=== PATIENT | female | born 1960 ===

== ENCOUNTER 2020-12-20 13:27 | Outpatient (REF) | payer OTHER, SELFPAY ==
--- NOTE | ~2020-12-20 | US_ITS ---
EXAMINATION: US VENOUS ULTRASOUND WITH DOPPLER LOWER EXTREMITY, RIGHT CLINICAL INFORMATION: History right lower extremity DVT. Patient on warfarin. Follow-up. COMPARISON: Venous ultrasound with Doppler right lower extremity 07/15/2019, 02/25/2018 TECHNIQUE: Ultrasound of the deep veins is performed from the hip to the calf with compression sonography and color and pulse Doppler assessment. Spectral analysis with color-flow imaging is performed. FINDINGS: There is normal venous compression and respiratory variation and augmented flow. There is no acute deep venous thrombosis. Again, some fine chronic intraluminal mural linear stranding and mural thrombus is present in the femoral vein, profunda femoral, and popliteal vein representing sequela from prior DVT. No occlusive disease. There is no popliteal fossa cyst. No edema tracking in soft tissue planes. US/US venous duplex LE RT IMPRESSION: 1. Chronic scattered intraluminal stranding and mild mural thrombus representing sequela from prior DVT in the femoral, profunda femoris, and popliteal veins similar to prior exam. 2. No acute DVT demonstrated in the right lower extremity.
== END 2020-12-20 13:28 | disposition home or self-care (01) ==
LOC: HO.US 13:27
PROVIDERS: PCP Family Medicine; Visit Provider Family Medicine
DX: I82.411 Acute embolism and thrombosis of right femoral vein (principal)
CPT/HCPCS: 93971

== ENCOUNTER 2021-02-08 11:48 | Emergency (ER) | payer OTHER, SELFPAY ==
--- NOTE | ~2021-02-08 | CT_ITS ---
EXAMINATION: CT FACIAL BONES WITHOUT CONTRAST CLINICAL INFORMATION: Left orbit trauma COMPARISON: None TECHNIQUE: Axial images through the facial bones without contrast. Sagittal and coronal reconstructions on the technologist workstation were performed. This CT examination was performed using dose optimization techniques as appropriate, variously including the following: *Automated exposure control *Adjustment of mA and/or kV according to patient size (this includes techniques or standardized protocols for targeted exams where dose is matched to indication/reason for exam; i.e. extremities or head) *Use of iterative reconstruction technique DLP: 470 mGy-cm FINDINGS: There is soft tissue swelling over the lateral wall of the left orbit. No fracture is seen. The orbits are otherwise normal appearing. The paranasal sinuses, mastoid air cells and middle ears are clear. The temporomandibular joints are normal. No adenopathy is seen. Salivary glands are normal. Visualized intracranial structures are normal. There are degenerative changes at the C1 dens articulation. CT/CT facial bones wo con IMPRESSION: Soft tissue swelling adjacent to the lateral wall of the left orbit. No fracture is seen.
--- NOTE | ~2021-02-08 | CT_ITS ---
EXAMINATION: CT HEAD WITHOUT CONTRAST CLINICAL INFORMATION: Head trauma. COMPARISON: None TECHNIQUE: Contiguous axial imaging was performed from the skull base to vertex without intravenous administration of contrast. This CT examination was performed using dose optimization techniques as appropriate, variously including the following: *Automated exposure control *Adjustment of mA and/or kV according to patient size (this includes techniques or standardized protocols for targeted exams where dose is matched to indication/reason for exam; i.e. extremities or head) *Use of iterative reconstruction technique DLP: 1108 mGy-cm FINDINGS: There is no evidence of acute intracranial hemorrhage or territorial infarction. No abnormal mass effect or midline shift is seen. Treadwell to white matter differentiation is well preserved. No extra-axial fluid collections are identified. The ventricles are normal in size. There is no abnormal attenuation within the brain parenchyma. Bone windows reveal no calvarial abnormality. There is a 6 x 8 mm round lesion along the right parietal scalp likely a small sebaceous cyst. There is focal hyperdensity along the left frontal scalp likely contusion or edema.. The mastoid air cells and visualized portions of the paranasal sinuses are well aerated. CT/CT head/brain wo con IMPRESSION: No acute intracranial process seen. There is left frontal scalp hyperdensity likely hematoma contusion. No calvarial fracture seen. Suspect right posterior parietal lobe scalp round lesion, a sebaceous cyst
[2021-02-08 12:49] VITALS: BP 120/63; PULSE 86; RESP 16; TEMP 36; O2SAT 95; BMI 31.7
--- NOTE | 2021-02-08 13:35 | ED_ITS ---
HPI - Head Injury General Chief complaint: Head Injury Stated complaint: face injury Time Seen by Provider: 02/08/21 13:34 Source: patient Mode of arrival: ambulatory Limitations: no limitations History of Present Illness HPI Narrative: patient was cleaning the bathroom on Sunday. Patient had some alcohol sat down and passed out. She comes in for head and eye pressure. Complaint: head injury Onset (ago): day(s) Mechanism of Injury: other (syncope) Place: home Loss of Consciousness: yes Location of injury: frontal Severity: moderate Associated symptoms: denies other symptoms Related Data Allergies Allergy/AdvReac Type Severity Reaction Status Date / Time Sulfa (Sulfonamide Allergy Severe ANAPHYLAXIS Verified 02/08/21 12:54 Antibiotics) [SULFA (SULFONAMIDE ANTIBIOTICS)] mitch seed [MITCH SEED] Allergy Intermediate HIVES/NAUSE Verified 02/08/21 12:54 A mitch seeds Allergy Unknown itching Uncoded 02/28/18 00:00 sulfa Allergy Unknown hives, Uncoded 02/28/18 00:00 swelling, anaphylaxis Review of Systems Constitutional: Constitutional: Reports no additional constitutional complaints Eyes: Eyes: Reports no additional eye complaints ENT: Denies dizziness Cardiovascular: Cardiovascular: Reports no additional cardiovascular complaints Respiratory: Respiratory: Reports as per HPI Gastrointestinal: Gastrointestinal: Reports no additional gastrointestinal complaints Genitourinary: Genitourinary: Reports no additional female genitourinary complaints Musculoskeletal: Musculoskeletal: Reports no additional musculoskeletal complaints Integumentary/Breasts: Skin/Breast: Denies rash Neurologic: Reports system reviewed and no additional complaints, except as documented, Denies dizziness and Denies Sensory deficit (Neuro) Psychiatric: Psychiatric: Denies anxiety [facility] Past Medical History Medical History Alcohol abuse COPD (chronic obstructive pulmonary disease) Diabetes HTN (hypertension) Surgical History History of delivery History of cholecystectomy History of ventral hernia repair Social History Social History Advance Directives: No Advance Directives Information Provided: No Physical Exam Vital Signs: Vital Signs: Last Vital Signs Temp 96.8 F 02/08/21 12:49 Pulse 86 02/08/21 12:49 Resp 16 02/08/21 12:49 BP 120/63 02/08/21 12:49 Pulse Ox 95 02/08/21 12:49 Body Mass Index 31.7 Const: General: healthy appearing Nutritional Appearance: average body habitus Orientation/consciousness: oriented to person and patient oriented x3 Limitations: no limitations HENMT: Other: left eye with significant periorbital ecchymosis Ears: external ears normal General nose exam: Normal external nose present Mouth: Normal oral and palatal mucosa present and oropharynx normal Throat: Yes posterior oropharynx normal Eyes: General: appearance normal, both eyes and all related structures Neck: Other: supple Neck: Yes normal visual inspection Chest: Chest palpation & inspection: normal inspection of the chest Resp: Auscultation: clear to auscultation bilaterally Cardio: Jugular venous distension: no JVD Rate: regular rate Rhythm: regular rhythm Heart sounds: S1 normal heart sound present and S2 normal heart sound present GI: Inspection: Yes normal to inspection Palpation (GI): Soft to palpation, nontender and No hepatosplenomegaly present Auscultation: normal bowel sounds : General: Yes no CVA tenderness Back/Spine/Pelvis: Back: no CVA tenderness Skin: Other: ecchymosis to left eye Neuro: General: oriented to person and patient oriented x3 Cranial nerves: Yes CN's II-XII intact bilaterally Motor exam (neuro): 5/5 motor strength present throughout Sensory Exam: No Sensory deficit (Neuro) Extrem: General: Yes normal to inspection Psych: Appearance: grossly normal Course Reevaluation(s) Reevaluation #1: no evidence of bleed, INR elevated will have patient hold INR for 4 days Time: 16:05 Reevaluation #2: No evidence of cardiad event Time: 16:07 [facility] - Head Injury Lab Data Result diagrams: 02/08/21 14:25 02/08/21 14:25 Labs: Lab Results 02/08/21 02/08/21 02/08/21 Range/Units 14:25 14:25 14:25 WBC 6.7 (4.8-10.8) X10*3/uL RBC 3.65 L (4.20-5.50) X10*6/uL Hgb 11.0 L (12.0-16.0) g/dl Hct 34.5 L (37-47) % MCV 94.5 (80-98) fL MCH 30.1 (27.0-33.0) pg MCHC 31.9 (31.0-35.0) g/dl RDW 16.6 H (11.0-16.0) % Plt Count 131 L (160-400) X10*3/uL MPV 9.8 (9.4-12.3) fL Immature Gran % (Auto) 0.3 (0.0-0.4) % Neut % (Auto) 62.6 (45-73) % Lymph % (Auto) 23.7 (20-40) % Gonzales % (Auto) 10.8 (2-11) % Eos % (Auto) 2.2 (0-4) % Baso % (Auto) 0.4 (0-2) % Lymph # (Auto) 1.6 (1.2-4.9) X10*3/uL Gonzales # (Auto) 0.7 (0.1-1.2) X10*3/uL Eos # (Auto) 0.2 (0.0-0.4) X10*3/uL Baso # (Auto) 0.0 (0.0-0.2) X10*3/uL Abs Immat Gran (auto) 0.02 (0.00-0.03) X10*3/uL Absolute Neuts (auto) 4.2 (2.0-8.3) X10*3/uL Absolute Nucleated RBC 0.000 (0.0-0.012) X10*3/uL Nucleated RBC % (auto) 0.0 (0.0-0.2) /100WBC PT (9.9-13.0) SEC INR (0.9-1.1) Sodium 142 (135-145) mmol/L Potassium 3.6 (3.3-5.1) mmol/L Chloride 105 (96-108) mmol/L Carbon Dioxide 27 (22-29) mmol/L Anion Gap 14 (12-20) BUN 7 L (9-16) mg/dL Creatinine 0.74 (0.5-1.4) mg/dL Estim Creat Clear Calc 74.5 Estimated GFR > 60 Random Glucose 160 H (60-115) mg/dL Calcium 9.4 (8.4-10.2) mg/dL Troponin I High Sens < 3.5 (<3.5-17.0) ng/L 02/08/21 Range/Units 15:34 WBC (4.8-10.8) X10*3/uL RBC (4.20-5.50) X10*6/uL Hgb (12.0-16.0) g/dl Hct (37-47) % MCV (80-98) fL MCH (27.0-33.0) pg MCHC (31.0-35.0) g/dl RDW (11.0-16.0) % Plt Count (160-400) X10*3/uL MPV (9.4-12.3) fL Immature Gran % (Auto) (0.0-0.4) % Neut % (Auto) (45-73) % Lymph % (Auto) (20-40) % Gonzales % (Auto) (2-11) % Eos % (Auto) (0-4) % Baso % (Auto) (0-2) % Lymph # (Auto) (1.2-4.9) X10*3/uL Gonzales # (Auto) (0.1-1.2) X10*3/uL Eos # (Auto) (0.0-0.4) X10*3/uL Baso # (Auto) (0.0-0.2) X10*3/uL Abs Immat Gran (auto) (0.00-0.03) X10*3/uL Absolute Neuts (auto) (2.0-8.3) X10*3/uL Absolute Nucleated RBC (0.0-0.012) X10*3/uL Nucleated RBC % (auto) (0.0-0.2) /100WBC PT 72.9 H (9.9-13.0) SEC INR 6.2 H* (0.9-1.1) Sodium (135-145) mmol/L Potassium (3.3-5.1) mmol/L Chloride (96-108) mmol/L Carbon Dioxide (22-29) mmol/L Anion Gap (12-20) BUN (9-16) mg/dL Creatinine (0.5-1.4) mg/dL Estim Creat Clear Calc Estimated GFR Random Glucose (60-115) mg/dL Calcium (8.4-10.2) mg/dL Troponin I High Sens (<3.5-17.0) ng/L Imaging Data CT scan - head: Radiologist's impression: IMPRESSION: No acute intracranial process seen. ? There is left frontal scalp hyperdensity likely hematoma contusion. No calvarial fracture seen. ? Suspect right posterior parietal lobe scalp round lesion, a sebaceous cyst facial CT: Radiologist's impression: IMPRESSION: Soft tissue swelling adjacent to the lateral wall of the left orbit. No fracture is seen. Discharge Plan Discharge Clinical Impression: Closed head injury Patient Disposition: Home, Self-Care Instructions: Head Injury (ED) Additional Instructions: Hold coumadin for 4 days and then have it rechecked as your INR is 6 Referrals: Juana Jean MD [Primary Care Provider] - 2 days (check INR)
--- NOTE | 2021-02-08 13:38 | ECG_ITS ---
Test Reason : FALL Blood Pressure : / mmHG Vent. Rate : 086 BPM Atrial Rate : 086 BPM P-R Int : 146 ms QRS Dur : 090 ms QT Int : 366 ms P-R-T Axes : 065 035 049 degrees QTc Int : 437 ms Sinus rhythm with marked sinus arrhythmia Otherwise normal ECG When compared with ECG of 23-MAR-2017 19:24, Heart rate has decreased Referred By: Jose Toscano Electronically Signed By:KRYSTAL BRICENO
[2021-02-08 14:29] LABS: MANUAL DIFF FLAG NO
[2021-02-08 14:31] LABS: Basophils Percent Auto 0.4 % (0-2); Eosinophils Absolute Auto 0.2 X10*3/uL (0.0-0.4); Eosinophils Percent Auto 2.2 % (0-4); Hematocrit 34.5 % (37-47); Imm Gran Abs Auto 0.02 X10*3/uL (0.00-0.03); Imm Gran Pct Auto 0.3 % (0.0-0.4); Lymphocytes Absolute Auto 1.6 X10*3/uL (1.2-4.9); Lymphocytes Percent Auto 23.7 % (20-40); Mean Corpuscular HGB Conc 31.9 g/dl (31.0-35.0); Mean Corpuscular Hemoglobin 30.1 pg (27.0-33.0); Mean Corpuscular Volume 94.5 fL (80-98); Mean Platelet Volume 9.8 fL (9.4-12.3); Monocytes Absolute Auto 0.7 X10*3/uL (0.1-1.2); Monocytes Percent Auto 10.8 % (2-11); Neutrophils Absolute Auto 4.2 X10*3/uL (2.0-8.3); Neutrophils Percent Auto 62.6 % (45-73); Platelet Count 131 X10*3/uL (160-400); Red Blood Count 3.65 X10*6/uL (4.20-5.50); Red Cell Distribution Width 16.6 % (11.0-16.0); White Blood Count 6.7 X10*3/uL (4.8-10.8)
[2021-02-08 15:00] LABS: Troponin-I High Sensitivity < 3.5 ng/L (<3.5-17.0)
[2021-02-08 15:02] LABS: Anion Gap 14 (12-20); Blood Urea Nitrogen 7 mg/dL (9-16); Calcium 9.4 mg/dL (8.4-10.2); Carbon Dioxide 27 mmol/L (22-29); Chloride 105 mmol/L (96-108); Creatinine Clr Calc Pharmacy 74.5; Estimated Glomerular Filt Rate > 60; Glucose Random 160 mg/dL (60-115); Potassium 3.6 mmol/L (3.3-5.1); Sodium 142 mmol/L (135-145)
[2021-02-08 15:52] LABS: Prothrombin Time 72.9 SEC (9.9-13.0)
[2021-02-08 15:56] LABS: INTERNATIONAL NORM RATIO 6.2 (0.9-1.1)
== END 2021-02-08 16:43 | disposition home or self-care (01) ==
PROVIDERS: Emergency Provider Emergency Medicine; PCP Family Medicine
DX: S09.90XA Unspecified injury of head, initial encounter (principal); S00.12XA Contusion of left eyelid and periocular area, initial encounter; W18.30XA Fall on same level, unspecified, initial encounter; E11.9 Type 2 diabetes mellitus without complications; I10 Essential (primary) hypertension; F10.10 Alcohol abuse, uncomplicated; Y90.9 Presence of alcohol in blood, level not specified; Y93.E9 Activity, other interior property and clothing maintenance; Y92.031 Bathroom in apartment as the place of occurrence of the external cause; Y99.9 Unspecified external cause status
CPT/HCPCS: 36415; 70450; 70486; 80048; 84484; 85025; 85610; 93005; 99283; 99284

== ENCOUNTER 2021-05-14 13:13 | Emergency (ER) | payer OTHER, SELFPAY ==
--- NOTE | 2021-05-14 | ECG_ITS ---
Test Reason : A-FIB Blood Pressure : / mmHG Vent. Rate : 118 BPM Atrial Rate : 118 BPM P-R Int : 148 ms QRS Dur : 080 ms QT Int : 328 ms P-R-T Axes : 063 028 041 degrees QTc Int : 459 ms Sinus tachycardia Otherwise normal ECG When compared with ECG of 08-FEB-2021 14:27, No significant change was found Referred By: Generic ED Physician Electronically Signed By:Red Acosta
[2021-05-14 13:29] VITALS: BP 147/57; PULSE 122; RESP 16; TEMP 36.6; O2SAT 93; BMI 34.7
[2021-05-14 15:37] LABS: Basophils Percent Auto 0.4 % (0-2); Eosinophils Absolute Auto 0.1 X10*3/uL (0.0-0.4); Eosinophils Percent Auto 1.1 % (0-4); Hematocrit 34.2 % (37.0-47.0); Hemoglobin 10.8 g/dl (12.0-16.0); Imm Gran Abs Auto 0.02 X10*3/uL (0.00-0.03); Imm Gran Pct Auto 0.3 % (0.0-0.4); Lymphocytes Absolute Auto 1.2 X10*3/uL (1.2-4.9); Lymphocytes Percent Auto 16.3 % (20-40); MANUAL DIFF FLAG NO; Mean Corpuscular HGB Conc 31.6 g/dl (31.0-35.0); Mean Corpuscular Hemoglobin 29.7 pg (27.0-33.0); Mean Platelet Volume 10.3 fL (9.4-12.3); Monocytes Absolute Auto 0.7 X10*3/uL (0.1-1.2); Monocytes Percent Auto 9.6 % (2-11); Neutrophils Absolute Auto 5.1 x10*3/uL (2.0-8.3); Neutrophils Percent Auto 72.3 % (45-73); Platelet Count 155 X10*3/uL (160-400); Red Blood Count 3.64 X10*6/uL (4.20-5.50); Red Cell Distribution Width 18.3 % (11.0-16.0); White Blood Count 7.1 X10*3/uL (4.8-10.8)
[2021-05-14 15:55] LABS: COVID-19 Test Negative (Negative); IDNOW Serial# 9DD0AD1C
[2021-05-14 15:59] LABS: Alanine Aminotransferase 32 U/L (0-31); Albumin Level 3.7 g/dL (3.5-5.0); Alkaline Phosphatase 172 U/L (39-117); Anion Gap 16 (12-20); Aspartate Amino Transferase 60 U/L (5-31); Bilirubin Total 0.6 mg/dL (0.0-1.0); Blood Urea Nitrogen 8 mg/dL (9-16); Calcium 9.7 mg/dL (8.4-10.2); Carbon Dioxide 24 mmol/L (22-29); Chloride 104 mmol/L (96-108); Creatinine Clr Calc Pharmacy 66.5; Estimated Glomerular Filt Rate > 60; Glucose Random 188 mg/dL (60-115); Potassium 3.9 mmol/L (3.3-5.1); Sodium 140 mmol/L (135-145); Total Protein 7.2 g/dL (6.5-8.0); Troponin-I High Sensitivity 3.7 ng/L (<3.5-17.0)
== END 2021-05-14 22:27 | disposition left against medical advice (07) ==
LOC: HO.ED 22:23
PROVIDERS: Emergency Provider Emergency Medicine; PCP Family Medicine
DX: M25.561 Pain in right knee (principal); I49.8 Other specified cardiac arrhythmias; Z20.822 Contact with and (suspected) exposure to COVID-19
CPT/HCPCS: 36415; 80053; 84484; 85025; 87635; 93005; 99282; 99283

== ENCOUNTER 2021-08-18 15:38 | Emergency (ER) | payer OTHER, SELFPAY ==
--- NOTE | ~2021-08-18 | XR_ITS ---
EXAMINATION: XR HAND, RIGHT CLINICAL INFORMATION: Bruising and swelling in the second third and fourth digits. Fall. COMPARISON: None TECHNIQUE: PA, lateral, and oblique views of the right hand. FINDINGS: There is no oblique slightly displaced fracture of the proximal shaft of the proximal phalange of the ring finger. No additional fracture present. No dislocation. XR/XR hand RT 2V IMPRESSION: Fracture proximal phalanx of ring finger.
[2021-08-18 15:48] VITALS: BP 161/71; PULSE 120; RESP 19; TEMP 36.6; O2SAT 97; BMI 34.5
--- NOTE | 2021-08-18 17:15 | ED_ITS ---
HPI - Extremity Problem General Chief complaint: Extremity Injury, Upper Stated complaint: broken rt hand Time Seen by Provider: 08/18/21 17:15 Source: patient Mode of arrival: ambulatory Limitations: no limitations History of Present Illness HPI Narrative: 60-year-old female with a history of DVTs on Eliquis who presents to the ER for evaluation of right hand pain, swelling and bruising after she fell last week. She states 1 week ago she tripped and fell onto her right hand. She states her fingers went underneath her palm and she fell directly onto them. She has been having increased pain and swelling since then. She did not get medical evaluation at that time. She denies any head strike or loss of consciousness. She denies any headache, nausea, vomiting, confusion, lethargy, neck pain. She is right-hand dominant and has been having trouble doing her ADLs because of the pain in her right hand, right ring finger, right middle finger. Complaint: extremity pain and extremity swelling Onset (ago): day(s) (8) Pain Consistency: constant Location: right Quality: aching Radiation: proximal Relieving factors: immobilization Exacerbating factors: range of motion and palpation Associated symptoms: denies other symptoms Related Data Previous Rx's Medication Instructions Recorded tramadol 50 mg tablet 50 mg PO Q8H PRN #8 tab 08/18/21 Allergies Allergy/AdvReac Type Severity Reaction Status Date / Time Sulfa (Sulfonamide Allergy Severe ANAPHYLAXIS Verified 02/08/21 12:54 Antibiotics) [SULFA (SULFONAMIDE ANTIBIOTICS)] mitch seed [MITCH SEED] Allergy Intermediate HIVES/NAUSE Verified 02/08/21 12:54 A mitch seeds Allergy Unknown itching Uncoded 02/28/18 00:00 sulfa Allergy Unknown hives, Uncoded 02/28/18 00:00 swelling, anaphylaxis Review of Systems Review of Systems: Constitutional: No Fever, No Chills Cardiovascular: No Chest Pain, No SOB Respiratory: No Cough, No Sputum Gastrointestinal: No Nausea, No Vomiting, No abdominal Pain Musculoskeletal: + joint pain, + Myalgias Skin: No Skin Lesions, No rash Neuro: No Weakness, No Numbness, No Dizziness, No Headache Psych: No Anxiety/Panic, No Depression Heme/Lymph: + Bruising, No Lymphadenopathy PMFSH Past Medical History Medical History Alcohol abuse COPD (chronic obstructive pulmonary disease) Diabetes HTN (hypertension) Surgical History History of delivery History of cholecystectomy History of ventral hernia repair Social History Social History Advance Directives: No Advance Directives Information Provided: No Physical Exam Vital Signs: Vital Signs: Last Vital Signs Temp 98 F 08/18/21 15:48 Pulse 120 H 08/18/21 15:48 Resp 19 08/18/21 15:48 BP 161/71 H 08/18/21 15:48 Pulse Ox 97 08/18/21 15:48 BMI result Body Mass Index 34.5 Appearance: Alert. Oriented X3. No acute distress. HEENT: normal inspection CVS: Normal heart rate and rhythm. Pulses normal. Respiratory: No respiratory distress. Skin: Skin warm and dry. Normal skin color. Normal skin turgor. No rashes. Extremities: palmar aspect of the right hand with scattered ecchymosis and swelling of the 3rd and 4th digits. limited rom of the middle and 4th digits due to pain and swelling. NV intact distally. tenderness of the proximal 3rd and 4th digits as well. Neuro: Oriented X 3. No motor deficit. No sensory deficit. Course Course Course Narrative: 60-year-old female presents to the ER with right hand pain after a fall last week. She has bruising and swelling to the hand and fingers. She is on Eliquis. She denies any head injury or signs or symptoms of a head bleed. The fall was over a week ago. No utility in scanning her head at this time. X-ray of the hand showing a proximal 4th finger fracture. Will place in splint for immobilization. She is stable for discharge home with supportive care and outpatient follow-up with Orthopedics. Procedures Orthopedic Splinting/Casting Injury #1: Side: right Upper Extremity Injury Location: finger Upper Extremity Immobilizer: finger (other) and sara tape Critical Care Time Critical Care Time Critical Care Time: No Discharge Plan Discharge Clinical Impression: Finger fracture, right Patient Disposition: Home, Self-Care Instructions: Finger Fracture (ED) Additional Instructions: X-ray today showed you broke your ring finger at the base. Recommend wearing the splint for immobilization to allow proper healing. Elevate and ice your hand whenever possible. Take Tylenol 1000 mg every 6 hours as needed for pain. Take the prescribed tramadol as needed for severe pain. Follow-up with orthopedics for further evaluation and treatment. Follow-up with her primary care doctor as needed. Prescriptions: New tramadol 50 mg tablet 50 mg PO Q8H PRN (Reason: pain (scale score 7-10)) Qty: 8 0RF Referrals: Juana Jean MD [Primary Care Provider] - 2 days Anita Rich PA-C [Physician Thermostatic Controls Supervisor] - 2 days (Fracture proximal phalanx of ring finger.)
== END 2021-08-18 17:49 | disposition home or self-care (01) ==
PROVIDERS: Emergency Provider Emergency Medicine; PCP Family Medicine
DX: S62.614A Displaced fracture of proximal phalanx of right ring finger, initial encounter for closed fracture (principal); W01.0XXA Fall on same level from slipping, tripping and stumbling without subsequent striking against object, initial encounter; Z86.718 Personal history of other venous thrombosis and embolism; Z79.01 Long term (current) use of anticoagulants; Y93.9 Activity, unspecified; Y92.039 Unspecified place in apartment as the place of occurrence of the external cause; Y99.9 Unspecified external cause status
CPT/HCPCS: 29130; 73120; 99283

== ENCOUNTER 2022-01-05 05:35 | Emergency (ER) | payer OTHER, SELFPAY ==
--- NOTE | ~2022-01-05 | CT_ITS ---
EXAMINATION: CT CERVICAL SPINE WITHOUT CONTRAST; UNENHANCED CT OF THE HEAD. CLINICAL INFORMATION: On thinners. Fall. Pain. COMPARISON: CT head 02/08/2021 TECHNIQUE: Routine unenhanced CT of the head with multiple coronal and sagittal reformatted images; routine unenhanced CT of the cervical spine with multiple coronal and sagittal reformatted images. This CT examination was performed using dose optimization techniques as appropriate, variously including the following: *Automated exposure control *Adjustment of mA and/or kV according to patient size (this includes techniques or standardized protocols for targeted exams where dose is matched to indication/reason for exam; i.e. extremities or head) *Use of iterative reconstruction technique DLP: 1118 mGy-cm FINDINGS: Mild diffuse commensurate prominence of the ventricles and sulci is noted. No intracranial hemorrhage, tumors or acute infarcts are visualized. Mild periventricular white matter patchy hypodensities are noted and may represent mild microangiopathic ischemic changes. Mild extracranial subcutaneous reticulation is present adjacent to the occiput suspicious for acute extracranial subcutaneous soft tissue inflammatory changes. The orbits and globes are normal in appearance. No significant opacification of the visualized paranasal sinuses, mastoid air cells and middle ear cavities. Mild segmental calcific atherosclerosis of the cavernous portions of the internal carotid arteries. CT cervical spine: No fractures or acute appearing subluxations are identified. Moderate intervertebral disc space narrowing and anterior endplate osteophytosis is present at C5-C6 and C6-C7. Straightening of normal cervical lordosis is noted likely related to positioning during the examination. The visualized lung apices are clear. No prevertebral fluid collections or soft tissue inflammatory changes. Moderate bilateral carotid bulb calcific atherosclerotic plaques. CT/CT cervical spine wo con IMPRESSION: Unenhanced CT the head: *No acute intracranial abnormalities. *Mild extracranial occipital soft tissue inflammatory changes. CT cervical spine: *No acute abnormalities. *Chronic cervical spondylosis with intervertebral disc space narrowing and anterior endplate osteophytosis at C5-C6 and C6-C7. *Moderate bilateral carotid bulb calcific atherosclerotic plaques.
--- NOTE | ~2022-01-05 | XR_ITS ---
EXAMINATION: XR CHEST CLINICAL INFORMATION: Cough, status post fall. COMPARISON: 10/04/2018 chest radiographs. TECHNIQUE: Frontal view of the chest was obtained. FINDINGS: The lungs are clear. The heart and mediastinal structures are unremarkable. Multiple surgical clips overlie the right axilla without abnormality. XR/XR chest 1V IMPRESSION: No acute cardiopulmonary process.
[2022-01-05 05:45] VITALS: BP 104/53; BP 146/88; PULSE 112; PULSE 121; RESP 20; TEMP 36.8; O2SAT 94; O2SAT 97; BMI 35.9
[2022-01-05 06:07] VITALS: BP 95/53; PULSE 92; RESP 20; TEMP 36.6; O2SAT 96
--- NOTE | 2022-01-05 06:13 | ECG_ITS ---
Test Reason : FALL Blood Pressure : / mmHG Vent. Rate : 119 BPM Atrial Rate : 119 BPM P-R Int : 136 ms QRS Dur : 084 ms QT Int : 332 ms P-R-T Axes : 054 031 028 degrees QTc Int : 467 ms Sinus tachycardia Otherwise normal ECG When compared with ECG of 14-MAY-2021 13:38, Non-specific change in ST segment in Inferior leads Referred By: Vicenta Anglin Electronically Signed By:BAL MIRANDA MD
[2022-01-05] MEDS: 0.9 % Sodium Chloride 1,000 ML 999 ML IV (06:22)
--- NOTE | 2022-01-05 06:24 | ED_ITS ---
HPI - Fall General Chief Complaint: Fall <Vicenta Anglin MD - Last Filed: 01/05/22 06:26> Stated Complaint: FALL,+HEADSTRIKE,-LOC,+THINNERS,+ETOH <Vicenta Anglin MD - Last Filed: 01/05/22 06:26> Time Seen by Provider: 01/05/22 06:10 <Vicenta Anlgin MD - Last Filed: 01/05/22 06:26> History of Present Illness HPI Narrative: Patient is a 61-year-old female with a history of being on a blood thinner. Question on Eliquis versus on Coumadin. Had previous elevated INR of 6 in the past. Patient presented today with having drank some alcohol. Was on the way back from the bathroom. She felt lightheaded and then fell. Hitting back of her head. Patient denies any focal weakness. This is very similar to previous episodes. Denies any chest pain shortness of breath nausea vomiting. Denies any focal weakness. Denies any nausea vomiting. Denies any loss of consciousness. No chest pain. <Vicenta Anglin MD - Last Filed: 01/05/22 06:26> Related Data Home Medications: Previous Rx's Medication Instructions Recorded tramadol 50 mg tablet 50 mg PO Q8H PRN pain (scale score 08/18/21 7-10) #8 tabs magnesium oxide 400 mg (241.3 mg 400 mg PO DAILY 7 days #7 tabs 01/05/22 magnesium) tablet potassium chloride 20 mEq 20 meq PO DAILY 5 days #5 tabs 01/05/22 tablet,extended release <Vicenta Anglin MD - Last Filed: 01/05/22 06:26> Allergies/Adverse Reactions: Allergies Allergy/AdvReac Type Severity Reaction Status Date / Time Sulfa (Sulfonamide Allergy Severe ANAPHYLAXIS Verified 02/08/21 12:54 Antibiotics) [SULFA (SULFONAMIDE ANTIBIOTICS)] mitch seed [MITCH SEED] Allergy Intermediate HIVES/NAUSE Verified 02/08/21 12:54 A mitch seeds Allergy Unknown itching Uncoded 02/28/18 00:00 sulfa Allergy Unknown hives, Uncoded 02/28/18 00:00 swelling, anaphylaxis <Vicenta Anglin MD - Last Filed: 01/05/22 06:26> Review of Systems Review of Systems: Positive fall positive EtOH. Denies other recreational drugs <Vicenta Anglin MD - Last Filed: 01/05/22 06:26> Yes all other systems are reviewed and are negative <Vicenta Anglin MD - Last Filed: 01/05/22 06:26> FORMERLY [facility] Past Medical History Attestation statement: The following information was validated with the patient. <Vicenta Anglin MD - Last Filed: 01/05/22 06:26> Medical History: Medical History Alcohol abuse COPD (chronic obstructive pulmonary disease) Diabetes HTN (hypertension) <Vicenta Anglin MD - Last Filed: 01/05/22 06:26> Surgical History: Surgical History History of delivery History of cholecystectomy History of ventral hernia repair <Vicenta Anglin MD - Last Filed: 01/05/22 06:26> Social History Social History: Social History Alcohol intake: current Alcohol intake frequency: 3 or more drinks per day Alcohol type: hard liquor Patient Tobacco Use Status: Current everyday Tobacco user Smoked in Last 30 Days: Yes Use of substances other than those prescribed or required for medical reasons: Yes Substance Use Type: Marijuana Substance Use Frequency: Occasionally Last Used Substance: Days (ago) Advance Directives: No Advance Directives Information Provided: No Patient : No <Vicenta Anglin MD - Last Filed: 01/05/22 06:26> Physical Exam Vital Signs: Vital Signs: Last Vital Signs Temp 97.9 F 01/05/22 06:07 Pulse 113 H 01/05/22 09:52 Resp 22 H 01/05/22 09:52 BP 113/56 L 01/05/22 09:52 Pulse Ox 97 01/05/22 09:52 O2 Del Method 01/05/22 09:52 BMI result Body Mass Index 35.9 Appearance: Alert. Oriented X3. No acute distress. Eyes: Pupils equal, round and reactive to light. ENT: Pharynx normal. Neck: Normal inspection. Neck supple. No lymph nodes noted. No crepitus CVS: Normal heart rate and rhythm. Pulses normal. Normal S1 and S2 Respiratory: No respiratory distress. Breath sounds normal. No Wheezing. No rales Abdomen: Soft and nontender. No rigidity. No distention. good BS x4 Skin: Skin warm and dry. Normal skin color. Normal skin turgor. Extremities: No lower extremity edema. Neurovascular intact to all extremities. No Lacerations. No Rash Neuro: Oriented X 3. No motor deficit. No sensory deficit. Moving all extermities. No slurred speech <Vicenta Anglin MD - Last Filed: 01/05/22 06:26> Vital Signs: Last Vital Signs Temp 97.9 F 01/05/22 06:07 Pulse 113 H 01/05/22 09:52 Resp 22 H 01/05/22 09:52 BP 113/56 L 01/05/22 09:52 Pulse Ox 97 01/05/22 09:52 O2 Del Method 01/05/22 09:52 BMI result Body Mass Index 35.9 <Barb Rios DO - Last Filed: 01/05/22 09:58> Course Course Course Narrative: GCS 15, VS improved after neb, she wants VNA at home, declines rehab or services here. she notes she would talk to case management. she is 97% on RA> will start on potassium and magnesium at home. <Barb Rios DO - Last Filed: 01/05/22 09:58> MDM - Fall MDM Narrative Medical decision making narrative: Well-appearing no acute distress. Patient grossly appears intoxicated. Will get labs and check CT scan of the head and C-spine. Patient's EKG showed a sinus pattern heart rate is 120 NE QRS QT within normal limits. Will give IV hydration. Will monitor carefully <Vicenta Anglin MD - Last Filed: 01/05/22 06:26> Medical Records Attestation: I reviewed the patient's medical records. <Vicenta Anglin MD - Last Filed: 01/05/22 06:26> Lab Data Attestation: I reviewed the patient's lab results. <Vicenta Anglin MD - Last Filed: 01/05/22 06:26> Result diagrams: : 01/05/22 06:23 01/05/22 06:23 <Vicenta Anglin MD - Last Filed: 01/05/22 06:26> Labs: Lab Results 01/05/22 01/05/22 01/05/22 Range/Units 06:23 06:23 06:23 WBC 8.7 (4.8-10.8) X10*3/uL RBC 3.49 L (4.20-5.50) X10*6/uL Hgb 10.5 L (12.0-16.0) g/dl Hct 33.3 L (37.0-47.0) % MCV 95.4 (80.0-98.0) fL MCH 30.1 (27.0-33.0) pg MCHC 31.5 (31.0-35.0) g/dl RDW 17.1 H (11.0-16.0) % Plt Count 198 D (160-400) X10*3/uL MPV 10.0 (9.4-12.3) fL Immature Gran % (Auto) 0.6 H (0.0-0.4) % Neut % (Auto) 67.1 (45-73) % Lymph % (Auto) 22.2 (20-40) % Moody % (Auto) 7.1 (2-11) % Eos % (Auto) 2.4 (0-4) % Baso % (Auto) 0.6 (0-2) % Lymph # (Auto) 1.9 (1.2-4.9) X10*3/uL Moody # (Auto) 0.6 (0.1-1.2) X10*3/uL Eos # (Auto) 0.2 (0.0-0.4) X10*3/uL Baso # (Auto) 0.1 (0.0-0.2) X10*3/uL Abs Immat Gran (auto) 0.05 H (0.00-0.03) X10*3/uL Absolute Neuts (auto) 5.9 (2.0-8.3) x10*3/uL Absolute Nucleated RBC 0.000 (0.0-0.012) X10*3/uL Nucleated RBC % (auto) 0.0 (0.0-0.2) /100WBC PT 14.2 H (10.0-13.1) SEC INR 1.2 H (0.9-1.1) Sodium 144 (135-145) mmol/L Potassium 3.1 L D (3.3-5.1) mmol/L Chloride 105 (96-108) mmol/L Carbon Dioxide 22 (22-29) mmol/L Anion Gap 20 (12-20) BUN 6 L (9-16) mg/dL Creatinine 0.96 (0.5-1.4) mg/dL Estim Creat Clear Calc 58.1 Estimated GFR 59 Random Glucose 131 H (60-115) mg/dL Calcium 8.9 D (8.4-10.2) mg/dL Magnesium 1.2 L* (1.6-2.6) mg/dL Ethyl Alcohol 257 mg/dL <Vicenta Anglin MD - Last Filed: 01/05/22 06:26> Lab Results 01/05/22 01/05/22 01/05/22 Range/Units 06:23 06:23 06:23 WBC 8.7 (4.8-10.8) X10*3/uL RBC 3.49 L (4.20-5.50) X10*6/uL Hgb 10.5 L (12.0-16.0) g/dl Hct 33.3 L (37.0-47.0) % MCV 95.4 (80.0-98.0) fL MCH 30.1 (27.0-33.0) pg MCHC 31.5 (31.0-35.0) g/dl RDW 17.1 H (11.0-16.0) % Plt Count 198 D (160-400) X10*3/uL MPV 10.0 (9.4-12.3) fL Immature Gran % (Auto) 0.6 H (0.0-0.4) % Neut % (Auto) 67.1 (45-73) % Lymph % (Auto) 22.2 (20-40) % Moody % (Auto) 7.1 (2-11) % Eos % (Auto) 2.4 (0-4) % Baso % (Auto) 0.6 (0-2) % Lymph # (Auto) 1.9 (1.2-4.9) X10*3/uL Moody # (Auto) 0.6 (0.1-1.2) X10*3/uL Eos # (Auto) 0.2 (0.0-0.4) X10*3/uL Baso # (Auto) 0.1 (0.0-0.2) X10*3/uL Abs Immat Gran (auto) 0.05 H (0.00-0.03) X10*3/uL Absolute Neuts (auto) 5.9 (2.0-8.3) x10*3/uL Absolute Nucleated RBC 0.000 (0.0-0.012) X10*3/uL Nucleated RBC % (auto) 0.0 (0.0-0.2) /100WBC PT 14.2 H (10.0-13.1) SEC INR 1.2 H (0.9-1.1) Sodium 144 (135-145) mmol/L Potassium 3.1 L D (3.3-5.1) mmol/L Chloride 105 (96-108) mmol/L Carbon Dioxide 22 (22-29) mmol/L Anion Gap 20 (12-20) BUN 6 L (9-16) mg/dL Creatinine 0.96 (0.5-1.4) mg/dL Estim Creat Clear Calc 58.1 Estimated GFR 59 Random Glucose 131 H (60-115) mg/dL Calcium 8.9 D (8.4-10.2) mg/dL Magnesium 1.2 L* (1.6-2.6) mg/dL Ethyl Alcohol 257 mg/dL <Barb Rios DO - Last Filed: 01/05/22 09:58> Discharge Plan Discharge Clinical Impression: Alcohol intoxication, Acute hypokalemia, Hypomagnesemia <Vicenta Anglin MD - Last Filed: 01/05/22 06:26> Patient Disposition: Home, Self-Care <Vicenta Anglin MD - Last Filed: 01/05/22 06:26> Instructions: Hypokalemia (ED), Alcohol Intoxication (ED), Abuse of Alcohol (ED), Hypomagnesemia (ED) <Vicenta Anglin MD - Last Filed: 01/05/22 06:26> Additional Instructions: return to ED for any worsening symptoms or concerns take potassium and magnesium for the next 4 days please try to decrease your drinking if you want detox we can help follow up with your doctor this week <Vicenta Anglin MD - Last Filed: 01/05/22 06:26> Prescriptions: New potassium chloride 20 mEq tablet extended release 20 meq PO DAILY 5 Days Qty: 5 0RF magnesium oxide 400 mg (241.3 mg magnesium) tablet 400 mg PO DAILY 7 Days Qty: 7 0RF No Action tramadol 50 mg tablet 50 mg PO Q8H PRN (Reason: pain (scale score 7-10)) Qty: 8 0RF <Vicenta Anglin MD - Last Filed: 01/05/22 06:26>
--- NOTE | 2022-01-05 06:25 | PC.NURSE ---
PATIENT WAS FILTER TENDER JELLY INTO HOSPITAL ATTIRE BY THIS PCT .
[2022-01-05 06:34] LABS: MANUAL DIFF FLAG NO
[2022-01-05 06:35] LABS: Basophils Absolute Auto 0.1 X10*3/uL (0.0-0.2); Basophils Percent Auto 0.6 % (0-2); Eosinophils Absolute Auto 0.2 X10*3/uL (0.0-0.4); Eosinophils Percent Auto 2.4 % (0-4); Hematocrit 33.3 % (37.0-47.0); Hemoglobin 10.5 g/dl (12.0-16.0); Imm Gran Abs Auto 0.05 X10*3/uL (0.00-0.03); Imm Gran Pct Auto 0.6 % (0.0-0.4); Lymphocytes Absolute Auto 1.9 X10*3/uL (1.2-4.9); Lymphocytes Percent Auto 22.2 % (20-40); Mean Corpuscular HGB Conc 31.5 g/dl (31.0-35.0); Mean Corpuscular Hemoglobin 30.1 pg (27.0-33.0); Mean Corpuscular Volume 95.4 fL (80.0-98.0); Monocytes Absolute Auto 0.6 X10*3/uL (0.1-1.2); Monocytes Percent Auto 7.1 % (2-11); Neutrophils Absolute Auto 5.9 x10*3/uL (2.0-8.3); Neutrophils Percent Auto 67.1 % (45-73); Platelet Count 198 X10*3/uL (160-400); Red Blood Count 3.49 X10*6/uL (4.20-5.50); Red Cell Distribution Width 17.1 % (11.0-16.0); White Blood Count 8.7 X10*3/uL (4.8-10.8)
[2022-01-05 06:45] LABS: INTERNATIONAL NORM RATIO 1.2 (0.9-1.1); Prothrombin Time 14.2 SEC (10.0-13.1)
[2022-01-05 06:55] LABS: Anion Gap 20 (12-20); Blood Urea Nitrogen 6 mg/dL (9-16); Calcium 8.9 mg/dL (8.4-10.2); Carbon Dioxide 22 mmol/L (22-29); Chloride 105 mmol/L (96-108); Creatinine Clr Calc Pharmacy 58.1; Estimated Glomerular Filt Rate 59; Ethanol 257 mg/dL; Glucose Random 131 mg/dL (60-115); Potassium 3.1 mmol/L (3.3-5.1); Sodium 144 mmol/L (135-145)
[2022-01-05 06:58] LABS: Magnesium 1.2 mg/dL (1.6-2.6)
[2022-01-05] MEDS: Potassium Chloride ER 20 MEQ TAB.ER.PRT 40 MEQ PO (07:09)
[2022-01-05] MEDS: Magnesium Sulfate/H2O 2 GM/50 ML PIGGYBACK IV (07:18)
[2022-01-05] MEDS: Albuterol Sulfate (0.083%) 2.5 MG/3 ML VIAL.NEB INHALE (09:12)
[2022-01-05 09:52] VITALS: BP 113/56; PULSE 113; RESP 22; O2SAT 97
[2022-01-05 10:01] VITALS: PULSE 86; RESP 18
[2022-01-05 10:15] LABS: Amphetamine Screen Urine Not Detected (Not Detect); Barbiturates, Urine Not Detected (Not Detect); Benzodiazepines Screen Urine Not Detected (Not Detect); Cannabinoid Screen Urine Not Detected (Not Detect); Cocaine Screen Urine Not Detected (Not Detect); Fentanyl, urine Not Detected (Not Detect); Opiate Screen Urine Not Detected (Not Detect); Phencyclidine Screen Urine Not Detected (Not Detect)
== END 2022-01-05 10:45 | disposition home or self-care (01) ==
PROVIDERS: Emergency Medicine Emergency Medical Services; Emergency Provider Emergency Medicine; PCP Family Medicine
DX: F10.120 Alcohol abuse with intoxication, uncomplicated (principal); Y90.8 Blood alcohol level of 240 mg/100 ml or more; E87.6 Hypokalemia; E83.42 Hypomagnesemia; E11.9 Type 2 diabetes mellitus without complications; I10 Essential (primary) hypertension; F17.200 Nicotine dependence, unspecified, uncomplicated; F12.90 Cannabis use, unspecified, uncomplicated; Z91.81 History of falling
CPT/HCPCS: 36415; 70450; 71045; 72125; 80048; 80307; 82077; 83735; 85025; 85610; 93005; 94640; 96361; 96365; 96366; 99284; 99285; J3475

== ENCOUNTER 2022-01-29 03:41 | Emergency (ER) | payer OTHER, SELFPAY ==
--- NOTE | ~2022-01-29 | CT_ITS ---
EXAMINATION: NONCONTRAST HEAD CT NONCONTRAST CERVICAL SPINE CT INDICATION INFORMATION: Fall COMPARISON: 01/05/2022 TECHNIQUE: Separate noncontrast CT examinations of the head and cervical spine were performed. Coronal head CT images and coronal and sagittal cervical spine images were created at the technologist workstation. DLP: 1018 mGy-cm DOSE LOWERING TECHNIQUES: This CT examination was performed using dose optimization techniques as appropriate, variously including the following: - Automated exposure control - Adjustment of mA and/or kV according to patient size (this includes techniques or standardized protocols for targeted exams were dose is matched to indication/reason for exam; i.e. extremities or head) - Use of iterative reconstruction technique FINDINGS: Head: There is no evidence of acute intracranial hemorrhage or territorial infarction. No abnormal mass-effect or midline shift is seen. Treadwell to white matter differentiation is well preserved. No extra-axial fluid collections are identified. The ventricles are normal in size. There is mild periventricular white matter hypoattenuation consistent with chronic small vessel ischemic disease. Mild volume loss is noted. No acute fracture is seen. There is left occipital scalp hematoma with foci of gas consistent with laceration. High right frontoparietal scalp hematoma is also present.. The visualized portions of the paranasal sinuses are well-aerated. Partially visualized left mastoid air cells. Cervical spine: Suboptimal assessment due to motion artifact. There is anatomic alignment of the vertebral bodies and posterior elements. Vertebral body heights are maintained. There is disc space narrowing with endplate osteophyte formation in the lower cervical spine. There is degenerative change at the atlantodens articulation. No evidence of acute fracture. No prevertebral soft tissue swelling. Visualized portions of the lung apices are unremarkable. The thyroid gland is unremarkable. CT/CT cervical spine wo con IMPRESSION: 1. No acute intracranial hemorrhage identified. Left occipital and high right frontoparietal scalp hematomas. 2. Limited assessment of the cervical spine due to motion artifact, with no acute findings identified.
[2022-01-29 03:53] VITALS: BP 112/51; BP 160/90; PULSE 113; PULSE 116; RESP 18; TEMP 36.9; O2SAT 97; O2SAT 98; BMI 33.3
[2022-01-29 04:14] LABS: Basophils Absolute Auto 0.1 X10*3/uL (0.0-0.2); Basophils Percent Auto 0.6 % (0-2); Eosinophils Absolute Auto 0.2 X10*3/uL (0.0-0.4); Eosinophils Percent Auto 2.4 % (0-4); Hematocrit 36.9 % (37.0-47.0); Hemoglobin 11.6 g/dl (12.0-16.0); Imm Gran Abs Auto 0.03 X10*3/uL (0.00-0.03); Imm Gran Pct Auto 0.3 % (0.0-0.4); MANUAL DIFF FLAG NO; Mean Corpuscular HGB Conc 31.4 g/dl (31.0-35.0); Mean Corpuscular Hemoglobin 29.5 pg (27.0-33.0); Mean Corpuscular Volume 93.9 fL (80.0-98.0); Mean Platelet Volume 10.1 fL (9.4-12.3); Monocytes Absolute Auto 0.8 X10*3/uL (0.1-1.2); Monocytes Percent Auto 7.8 % (2-11); Neutrophils Absolute Auto 6.8 x10*3/uL (2.0-8.3); Neutrophils Percent Auto 68.9 % (45-73); Platelet Count 182 X10*3/uL (160-400); Red Blood Count 3.93 X10*6/uL (4.20-5.50); Red Cell Distribution Width 16.3 % (11.0-16.0); White Blood Count 9.9 X10*3/uL (4.8-10.8)
--- NOTE | 2022-01-29 04:15 | ED_ITS ---
HPI - Fall General Chief Complaint: Fall Stated Complaint: fall Time Seen by Provider: 01/29/22 03:56 Source: patient and old records reviewed Mode of arrival: EMS Limitations: no limitations History of Present Illness HPI Narrative: 61 yo female with hx of HTN, COPD, alcohol abuse comes in with c/o ETOH use then remembers sitting at her kitchen table bent down and woke up in a pool of blood. + LOC. Patient is on eliquis. She denies any other injuries. Last remembers it was 130am. complaint: fall Onset (ago): hour(s) (130am) Fall from: chair Fall witnessed: no Place fall occurred: home Loss of consciousness: yes Prolonged down time: unclear Symptoms prior to fall: none Context: alcohol use Location of injury: head Severity: mild Associated symptoms (after fall): other (laceration to back of scalp) Related Data Previous Rx's Medication Instructions Recorded tramadol 50 mg tablet 50 mg PO Q8H PRN pain (scale score 08/18/21 7-10) #8 tabs magnesium oxide 400 mg (241.3 mg 400 mg PO DAILY 7 days #7 tabs 01/05/22 magnesium) tablet potassium chloride 20 mEq 20 meq PO DAILY 5 days #5 tabs 01/05/22 tablet,extended release Allergies Allergy/AdvReac Type Severity Reaction Status Date / Time Sulfa (Sulfonamide Allergy Severe ANAPHYLAXIS Verified 01/29/22 03:53 Antibiotics) [SULFA (SULFONAMIDE ANTIBIOTICS)] mitch seed [MITCH SEED] Allergy Intermediate HIVES/NAUSE Verified 01/29/22 03:53 A mitch seeds Allergy Unknown itching Uncoded 01/29/22 03:53 sulfa Allergy Unknown hives, Uncoded 01/29/22 03:53 swelling, anaphylaxis Review of Systems Review of Systems: Constitutional : No Fever, No Chills, No Fatigue ENT/Mouth : No sore throat, No Rhinorrhea Eyes: No Eye Pain, No Swelling, No Redness Cardiovascular : No Chest Pain, No SOB, No Dyspnea on Exertion Respiratory : No Cough, No Sputum Gastrointestinal : No Nausea, No Vomiting, No Diarrhea, No abdominal Pain Genitourinary : No Dysuria, No Urinary Frequency, No Hematuria, Musculoskeletal : No joint pain, No Myalgias, No Joint Swelling Skin : No Skin Lesions, No rash, pos lac Neuro : No Weakness, No Numbness, No Dizziness, positive Headache Psych : No Anxiety/Panic, No Depression Heme/Lymph: No Bruising, No Bleeding,No Lymphadenopathy Endocrine : No Polyuria, No Polydipsia All other systems reviewed and are negative [facility] Past Medical History Attestation statement: The following information was validated with the patient. Medical History Alcohol abuse COPD (chronic obstructive pulmonary disease) Diabetes HTN (hypertension) Surgical History History of delivery History of cholecystectomy History of ventral hernia repair Social History Social History Alcohol intake: current Alcohol intake frequency: 3 or more drinks per day Alcohol type: hard liquor Patient Tobacco Use Status: Current everyday Tobacco user Substance Use Type: Marijuana Advance Directives: No Advance Directives Information Provided: No Physical Exam Vital Signs: Vital Signs: Last Vital Signs Temp 98.4 F 01/29/22 03:53 Pulse 113 H 01/29/22 03:53 Resp 18 01/29/22 03:53 BP 112/51 L 01/29/22 03:53 Pulse Ox 97 01/29/22 03:53 O2 Del Method 01/29/22 03:53 BMI result Body Mass Index 33.3 Appearance: Alert. Oriented X3. No acute distress. Eyes: Pupils equal, round and reactive to light. ENT: Pharynx normal. moderate sized hematomas - one R parietal scalp and one occipital scalp, 3cm linear laceration on occiput Neck: Normal inspection. Neck supple. CVS: Normal heart rate and rhythm. Pulses normal. Respiratory: No respiratory distress. Breath sounds normal. Abdomen: Soft and nontender. Skin: Skin warm and dry. Normal skin color. Normal skin turgor. Extremities: No lower extremity edema. No calf ttp Neuro: Oriented X 3. No motor deficit. No sensory deficit. Course Course Course Narrative: bleeding has stopped will DC home once more sober - signed out to Dr. Waite Procedures Laceration Laceration 1: Site: scalp Side (If applicable): right Size (cm): 2 Description: linear (overlying hematoma) Depth: simple, single layer Local Anesthetic: other anesthetic (LMX) Pre-repair: wound explored and irrigated extensively Skin layer closed with: other (3 kodak - had bleeding and oozzing after not pulsatile suspect it was from hematoma - compressed with 4x4 and pam wraps) MDM - Fall MDM Narrative Medical decision making narrative: 61 yo female with hx of HTN, COPD, DM, ETOH abuse, on DOAC comes in after fall while intoxicated - at this time CT head/cspine ordered. CBC as well will need wound repair. Dispo per results and findings. Lab Data Result diagrams: 01/29/22 04:06 01/29/22 04:06 Labs: Lab Results 01/29/22 01/29/22 01/29/22 Range/Units 04:06 04:06 04:06 WBC 9.9 (4.8-10.8) X10*3/uL RBC 3.93 L (4.20-5.50) X10*6/uL Hgb 11.6 L (12.0-16.0) g/dl Hct 36.9 L (37.0-47.0) % MCV 93.9 (80.0-98.0) fL MCH 29.5 (27.0-33.0) pg MCHC 31.4 (31.0-35.0) g/dl RDW 16.3 H (11.0-16.0) % Plt Count 182 (160-400) X10*3/uL MPV 10.1 (9.4-12.3) fL Immature Gran % (Auto) 0.3 (0.0-0.4) % Neut % (Auto) 68.9 (45-73) % Lymph % (Auto) 20.0 (20-40) % Hudspeth % (Auto) 7.8 (2-11) % Eos % (Auto) 2.4 (0-4) % Baso % (Auto) 0.6 (0-2) % Lymph # (Auto) 2.0 (1.2-4.9) X10*3/uL Hudspeth # (Auto) 0.8 (0.1-1.2) X10*3/uL Eos # (Auto) 0.2 (0.0-0.4) X10*3/uL Baso # (Auto) 0.1 (0.0-0.2) X10*3/uL Abs Immat Gran (auto) 0.03 (0.00-0.03) X10*3/uL Absolute Neuts (auto) 6.8 (2.0-8.3) x10*3/uL Absolute Nucleated RBC 0.000 (0.0-0.012) X10*3/uL Nucleated RBC % (auto) 0.0 (0.0-0.2) /100WBC Sodium 135 (135-145) mmol/L Potassium 4.2 D (3.3-5.1) mmol/L Chloride 99 (96-108) mmol/L Carbon Dioxide 20 L (22-29) mmol/L Anion Gap 20 (12-20) BUN 7 L (9-16) mg/dL Creatinine 0.85 (0.5-1.4) mg/dL Estim Creat Clear Calc 65.7 Estimated GFR > 60 Random Glucose 171 H (60-115) mg/dL Calcium 9.4 (8.4-10.2) mg/dL Magnesium 1.4 L* (1.6-2.6) mg/dL Total Creatine Kinase 55 (26-140) U/L Ethyl Alcohol 257 mg/dL COVID-19 ([facility]) Negative (Negative) COVID-19 Clin Com See Note Discharge Plan Discharge Clinical Impression: Contusion of head, Laceration of scalp, Hypomagnesemia, Alcohol abuse Patient Disposition: Still a Patient Instructions: Laceration (ED), Abuse of Alcohol (ED), Hypomagnesemia (ED), Hematoma (ED) Additional Instructions: return to ED for any worsening symptoms or concerns kodak come out in 10 days you need to take the dressing off in 12 hours okay to shower please stop drinking Prescriptions: No Action potassium chloride 20 mEq tablet extended release 20 meq PO DAILY 5 Days Qty: 5 0RF magnesium oxide 400 mg (241.3 mg magnesium) tablet 400 mg PO DAILY 7 Days Qty: 7 0RF tramadol 50 mg tablet 50 mg PO Q8H PRN (Reason: pain (scale score 7-10)) Qty: 8 0RF Referrals: Physician,Unknown J [Primary Care Provider] - (PCP to take kodak out 10 days)
[2022-01-29 04:31] LABS: COVID-19 Test Negative (Negative)
[2022-01-29 04:50] LABS: Anion Gap 20 (12-20); Blood Urea Nitrogen 7 mg/dL (9-16); Calcium 9.4 mg/dL (8.4-10.2); Carbon Dioxide 20 mmol/L (22-29); Chloride 99 mmol/L (96-108); Creatinine Clr Calc Pharmacy 65.7; Estimated Glomerular Filt Rate > 60; Ethanol 257 mg/dL; Glucose Random 171 mg/dL (60-115); Magnesium 1.4 mg/dL (1.6-2.6); Potassium 4.2 mmol/L (3.3-5.1); Sodium 135 mmol/L (135-145)
[2022-01-29] MEDS: Lidocaine 4 % Cream KIT 1 APPL TOPICAL (05:06)
[2022-01-29] MEDS: Magnesium Sulfate/H2O 2 GM/50 ML PIGGYBACK IV (05:14)
[2022-01-29 07:21] VITALS: BP 97/54; PULSE 114; RESP 18; O2SAT 91
--- NOTE | 2022-01-29 08:23 | PC.NURSE ---
Pt sleeping at this time, woke up to use bedside commode with an assist x 1. Dressing remains in place on head at this time. call lopez within reach. Will continue to monitor.
--- NOTE | 2022-01-29 10:44 | PC.NURSE ---
Spoke to son, Tigre, son asking if we can hold patient for 72 hours for detox, explained pt would have to want to go to detox and be agreeable. Son is aware she will need a ride home, he states his will be coming shortly to pick her up. Call lopez within reach, awaiting dispo. Will continue to monito.
== END 2022-01-29 13:11 | disposition home or self-care (01) ==
PROVIDERS: Emergency Provider Emergency Medicine
DX: S01.01XA Laceration without foreign body of scalp, initial encounter (principal); F10.129 Alcohol abuse with intoxication, unspecified; M54.2 Cervicalgia; E83.42 Hypomagnesemia; R51.9 Headache, unspecified; F17.200 Nicotine dependence, unspecified, uncomplicated; Y90.8 Blood alcohol level of 240 mg/100 ml or more; W01.0XXA Fall on same level from slipping, tripping and stumbling without subsequent striking against object, initial encounter; Y93.9 Activity, unspecified; Y92.9 Unspecified place or not applicable; Y99.9 Unspecified external cause status; Z20.822 Contact with and (suspected) exposure to COVID-19; Z79.899 Other long term (current) drug therapy; Z71.6 Tobacco abuse counseling
CPT/HCPCS: 12001; 36415; 70450; 72125; 80048; 82077; 82550; 83735; 85025; 87635; 96365; 99284; J3475

== ENCOUNTER 2022-03-18 07:02 | Emergency (ER) | payer OTHER, SELFPAY ==
--- NOTE | ~2022-03-18 | CT_ITS ---
EXAMINATION: CT BRAIN WITHOUT CONTRAST. CHEST. CLINICAL INFORMATION: Syncope. COMPARISON: CT brain 01/29/2022 TECHNIQUE: 5 minutes thin axial and reformatted 2 mm thin sagittal and coronal images of brain were obtained without contrast. DLP 651. This CT examination was performed using dose optimization technique as appropriate, variously including the following: Automated exposure control Adjustment of MA and/or KV according to patient size(this includes techniques or standardized protocols for targeted exams where dose is matched to indication/reason for exam; extremities or head. Use of iterative reconstruction techniques. Chest one view. FINDINGS: Brain: There is no acute intra-axial, extra-axial bleed, masses or midline shift. There is no acute infarction evolution. The med[place] to white matter differentiation is maintained normal. The lateral ventricles are symmetrical and normal. There is minimal periventricular hypodensity in both cerebral hemispheres but no mass effect. Bone windows reveal no calvarial abnormality. No scalp soft tissue abnormality. Bilateral paranasal sinuses and mastoid air cells are well-aerated. CHEST: The lungs are well-expanded and clear of acute process. Heart size and progress clarities normal. There are probable healing fractures right anterior fourth and fifth ribs. There is mild spondylosis throughout dorsal spine. There are surgical staple along the right lateral breast from previous intervention CT/CT head/brain wo IV con IMPRESSION: No acute intracranial process seen. No major change from October 2021 except for resolution of previously noted scalp hematomas. No acute cardiopulmonary process seen.
--- NOTE | 2022-03-18 07:22 | ECG_ITS ---
Test Reason : weakness Blood Pressure : / mmHG Vent. Rate : 116 BPM Atrial Rate : 086 BPM P-R Int : 156 ms QRS Dur : 084 ms QT Int : 354 ms P-R-T Axes : 078 038 045 degrees QTc Int : 492 ms Sinus rhythm Low voltage QRS Nonspecific ST abnormality Inferior leads Abnormal ECG When compared with ECG of 05-JAN-2022 06:11, ST elevation now present in Inferior leads Referred By: Chandrakant Waite Electronically Signed By:MARILEE PULIDO MD
--- NOTE | 2022-03-18 07:27 | ED.GENADULT ---
HPI - General Adult General Chief complaint: Fall Stated complaint: Stroke Alert Time Seen by Provider: 03/18/22 07:22 Source: patient and EMS Mode of arrival: EMS Limitations: no limitations History of Present Illness HPI narrative: 61-year-old female brought in by ambulance for evaluation of fall. Call from EMS for stroke evaluation. Patient is a daily alcohol abuser, last night felt numbness in her right side of her body patient walked to the bathroom when she fell patient do not remember details of falling down found by her family next morning, patient last was seen normal at 22:00 night before arrival to the ED. patient felt that she have slurred speech by her family but also patient normally wear a denture that she is not wearing now which making it difficult to assess for slurred speech. Patient declined weakness or numbness at the moment. 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 Related Data Previous Rx's Medication Instructions Recorded tramadol 50 mg tablet 50 mg PO Q8H PRN pain (scale score 08/18/21 7-10) #8 tabs magnesium oxide 400 mg (241.3 mg 400 mg PO DAILY 7 days #7 tabs 01/05/22 magnesium) tablet potassium chloride 20 mEq 20 meq PO DAILY 5 days #5 tabs 01/05/22 tablet,extended release Allergies Allergy/AdvReac Type Severity Reaction Status Date / Time Sulfa (Sulfonamide Allergy Severe ANAPHYLAXIS Verified 01/29/22 03:53 Antibiotics) [SULFA (SULFONAMIDE ANTIBIOTICS)] mitch seed [MITCH SEED] Allergy Intermediate HIVES/NAUSE Verified 01/29/22 03:53 A mitch seeds Allergy Unknown itching Uncoded 01/29/22 03:53 sulfa Allergy Unknown hives, Uncoded 01/29/22 03:53 swelling, anaphylaxis Review of Systems Review of Systems: All other systems are reviewed and are negative Constitutional: Reports as per HPI and Reports no additional constitutional complaints Eyes: Reports as per HPI and Reports no additional eye complaints Reports system reviewed and no additional complaints, except as documented Cardiovascular: Reports as per HPI and Reports no additional cardiovascular complaints Respiratory: Reports as per HPI and Reports no additional respiratory complaints Gastrointestinal: Reports as per HPI and Reports no additional gastrointestinal complaints Genitourinary: Reports no additional female genitourinary complaints Musculoskeletal: Reports no additional musculoskeletal complaints Skin/Breast: Reports system reviewed and no additional complaints, except as docu Psychiatric: Reports no additional psychiatric complaints Endocrine: Reports no additional endocrine complaints Hematologic/Lymphatic: Reports no additional hematologic/lymphatic complaints Allergic/Immunologic: Reports no additional allergic/immunologic complaints Reports system reviewed and no additional complaints, except as documented and Reports Abnormal speech present [facility] Past Medical History Medical History Alcohol abuse COPD (chronic obstructive pulmonary disease) Diabetes HTN (hypertension) Surgical History History of delivery History of cholecystectomy History of ventral hernia repair Social History Social History Alcohol intake: current Alcohol intake frequency: 3 or more drinks per day Alcohol type: hard liquor Patient Tobacco Use Status: Current everyday Tobacco user Substance Use Type: Marijuana Advance Directives: No Advance Directives Information Provided: No Physical Exam ED Vital Signs: BMI result Body Mass Index 37.4 vital signs have been reviewed as appeared to be correct. Blood pressure normal. Heart rate normal. Respiration rate normal. Temperature normal. Oxygen saturation normal. Appearance: Alert. Oriented X3. No acute distress. Head: Normal external exam. Normocephalic. Atraumatic. No Bobby signs noted. No raccoon eyes noted Eyes: PERRLA. EOMI. Conjunctiva and sclera normal. Eyelids normal. ENT: TM's Normal. Pharynx normal. Uvula midline. Moist mucous membranes. No trismus noted. No drooling noted. No muffled voice noted. Neck: Normal inspection. Neck supple. FROM. No adenopathy. Thyroid Normal. No meningeal signs. No neck mass noted. CVS: Normal heart rate and rhythm. Heart sound normal. No murmurs noted. Pulses normal throughout. Respiratory: No respiratory distress. Painless inspiration. Breath sounds normal. No wheezes/rales/rhonchi noted. Chest nontender. No accessory muscle usage noted or decreased air movement noted. Abdomen: Soft and nontender. Bowel sounds normal in all 4 quadrants. No distention noted. No organomegaly noted. No visible injury noted. Back: No CVA tenderness. Full range of motion noted. Skin: Skin warm and dry. Normal skin color. Normal skin turgor. No rashes/lesions/lacerations noted. Extremities: No lower extremity edema. Extremities exhibit normal range of motion. Extremities nontender. Neuro: Oriented X 3. Cranial nerve exam: II-XII are grossly intact No motor deficit. No sensory deficit. Reflexes normal. NIH Stroke Scale Internal: Initial- Upon Arrival Time: 07:30 Level of Consciousness: Alert Level of Consciousness Questions: Answers both questions correctly Level of Consciousness Commands: Performs both tasks correctly Best Gaze: Normal Visual: No visual loss Facial Palsy: Normal Motor Arm (Right): No drift Motor Arm (Left): No drift Motor Leg (Right): No drift Motor Leg (Left): No drift Limb Ataxia: Absent Sensory: Normal Best Language: No aphasia Dysarthia: Normal Extinction and Inattention: No abnormality Score: 0 Course Course Course Narrative: 61-year-old female came in for evaluation after fall, patient admitted to drinking alcohol last night and every night, vague neurological symptoms, patient neurologically intact, patient is awake, alert, oriented x3 patient refused MRI due to her severe claustrophobia and anxiety, patient was offered to be admitted to the hospital for monitoring and further neurological evaluation, patient has been evaluated by care team due to her alcoholic problem, patient right now is awake, oriented, competent to make her own decision and fully understand that going home today without full workup of her symptoms can carry risk of stroke in the next 24 hours and can lead to patient is signing against medical advise patient is adamant to be discharged to attend mother's ceremony. Medical Decision Making Lab Data Lab results reviewed: Yes I reviewed the patient's lab results. Result diagrams: 03/18/22 07:58 03/18/22 07:58 Labs: Lab Results 03/18/22 03/18/22 03/18/22 Range/Units 07:58 07:58 07:58 WBC 9.2 (4.8-10.8) X10*3/uL RBC 3.30 L (4.20-5.50) X10*6/uL Hgb 10.0 L (12.0-16.0) g/dl Hct 30.9 L (37.0-47.0) % MCV 93.6 (80.0-98.0) fL MCH 30.3 (27.0-33.0) pg MCHC 32.4 (31.0-35.0) g/dl RDW 15.6 (11.0-16.0) % Plt Count 183 (160-400) X10*3/uL MPV 9.7 (9.4-12.3) fL Immature Gran % (Auto) 0.4 (0.0-0.4) % Neut % (Auto) 71.3 (45-73) % Lymph % (Auto) 17.8 L (20-40) % Frontier % (Auto) 8.7 (2-11) % Eos % (Auto) 1.3 (0-4) % Baso % (Auto) 0.5 (0-2) % Lymph # (Auto) 1.6 (1.2-4.9) X10*3/uL Frontier # (Auto) 0.8 (0.1-1.2) X10*3/uL Eos # (Auto) 0.1 (0.0-0.4) X10*3/uL Baso # (Auto) 0.1 (0.0-0.2) X10*3/uL Abs Immat Gran (auto) 0.04 H (0.00-0.03) X10*3/uL Absolute Neuts (auto) 6.5 (2.0-8.3) x10*3/uL Absolute Nucleated RBC 0.000 (0.0-0.012) X10*3/uL Nucleated RBC % (auto) 0.0 (0.0-0.2) /100WBC Sodium 132 L (135-145) mmol/L Potassium 4.8 (3.3-5.1) mmol/L Chloride 98 (96-108) mmol/L Carbon Dioxide 20 L (22-29) mmol/L Anion Gap 19 (12-20) BUN 9 (9-16) mg/dL Creatinine 0.83 (0.5-1.4) mg/dL Estim Creat Clear Calc 71.7 Estimated GFR > 60 Random Glucose 136 H (60-115) mg/dL Calcium 9.4 (8.4-10.2) mg/dL Total Bilirubin 0.3 (0.0-1.0) mg/dL Direct Bilirubin 0.2 (0.0-0.5) mg/dL AST 47 H (5-31) U/L ALT 26 (0-31) U/L Alkaline Phosphatase 199 H (39-117) U/L Total Creatine Kinase 60 (26-140) U/L Troponin I High Sens < 3.5 (<3.5-17.0) ng/L B-Natriuretic Peptide (<100) pg/mL Total Protein 7.5 (6.5-8.0) g/dL Albumin 3.8 (3.5-5.0) g/dL Lipase 161 H (8-78) U/L Ethyl Alcohol mg/dL COVID-19 ([facility]) (Negative) COVID-19 Clin Com 03/18/22 03/18/22 03/18/22 Range/Units 07:58 07:58 07:58 WBC (4.8-10.8) X10*3/uL RBC (4.20-5.50) X10*6/uL Hgb (12.0-16.0) g/dl Hct (37.0-47.0) % MCV (80.0-98.0) fL MCH (27.0-33.0) pg MCHC (31.0-35.0) g/dl RDW (11.0-16.0) % Plt Count (160-400) X10*3/uL MPV (9.4-12.3) fL Immature Gran % (Auto) (0.0-0.4) % Neut % (Auto) (45-73) % Lymph % (Auto) (20-40) % Frontier % (Auto) (2-11) % Eos % (Auto) (0-4) % Baso % (Auto) (0-2) % Lymph # (Auto) (1.2-4.9) X10*3/uL Frontier # (Auto) (0.1-1.2) X10*3/uL Eos # (Auto) (0.0-0.4) X10*3/uL Baso # (Auto) (0.0-0.2) X10*3/uL Abs Immat Gran (auto) (0.00-0.03) X10*3/uL Absolute Neuts (auto) (2.0-8.3) x10*3/uL Absolute Nucleated RBC (0.0-0.012) X10*3/uL Nucleated RBC % (auto) (0.0-0.2) /100WBC Sodium (135-145) mmol/L Potassium (3.3-5.1) mmol/L Chloride (96-108) mmol/L Carbon Dioxide (22-29) mmol/L Anion Gap (12-20) BUN (9-16) mg/dL Creatinine (0.5-1.4) mg/dL Estim Creat Clear Calc Estimated GFR Random Glucose (60-115) mg/dL Calcium (8.4-10.2) mg/dL Total Bilirubin (0.0-1.0) mg/dL Direct Bilirubin (0.0-0.5) mg/dL AST (5-31) U/L ALT (0-31) U/L Alkaline Phosphatase (39-117) U/L Total Creatine Kinase (26-140) U/L Troponin I High Sens (<3.5-17.0) ng/L B-Natriuretic Peptide 30 (<100) pg/mL Total Protein (6.5-8.0) g/dL Albumin (3.5-5.0) g/dL Lipase (8-78) U/L Ethyl Alcohol 150 mg/dL COVID-19 ([facility]) Negative (Negative) COVID-19 Clin Com See Note Imaging Data CT scan - head: Attestation: I personally reviewed and interpreted this imaging study as follows: Radiologist's impression: No acute intracranial process seen. No major change from October 2021 except for resolution of previously noted scalp hematomas. ? Chest x-ray: Attestation: I personally reviewed and interpreted this imaging study as follows: Radiologist's impression: No acute pathology. Discharge Plan Discharge Clinical Impression: Syncope, Alcohol abuse, Brain TIA Patient Disposition: Left Against Medical Advice Instructions: Transient Ischemic Attack (ED) Prescriptions: No Action potassium chloride 20 mEq tablet extended release 20 meq PO DAILY 5 Days Qty: 5 0RF magnesium oxide 400 mg (241.3 mg magnesium) tablet 400 mg PO DAILY 7 Days Qty: 7 0RF tramadol 50 mg tablet 50 mg PO Q8H PRN (Reason: pain (scale score 7-10)) Qty: 8 0RF Referrals: Juana Jean MD [Primary Care Provider] -
[2022-03-18 07:39] VITALS: BP 136/74; PULSE 82; O2SAT 95; BMI 37.4
[2022-03-18] MEDS: 0.9 % Sodium Chloride 1,000 ML 999 ML IV (07:49)
[2022-03-18 08:01] LABS: MANUAL DIFF FLAG NO
[2022-03-18 08:03] LABS: Basophils Absolute Auto 0.1 X10*3/uL (0.0-0.2); Basophils Percent Auto 0.5 % (0-2); Eosinophils Absolute Auto 0.1 X10*3/uL (0.0-0.4); Eosinophils Percent Auto 1.3 % (0-4); Hematocrit 30.9 % (37.0-47.0); Imm Gran Abs Auto 0.04 X10*3/uL (0.00-0.03); Imm Gran Pct Auto 0.4 % (0.0-0.4); Lymphocytes Absolute Auto 1.6 X10*3/uL (1.2-4.9); Lymphocytes Percent Auto 17.8 % (20-40); Mean Corpuscular HGB Conc 32.4 g/dl (31.0-35.0); Mean Corpuscular Hemoglobin 30.3 pg (27.0-33.0); Mean Corpuscular Volume 93.6 fL (80.0-98.0); Mean Platelet Volume 9.7 fL (9.4-12.3); Monocytes Absolute Auto 0.8 X10*3/uL (0.1-1.2); Monocytes Percent Auto 8.7 % (2-11); Neutrophils Absolute Auto 6.5 x10*3/uL (2.0-8.3); Neutrophils Percent Auto 71.3 % (45-73); Platelet Count 183 X10*3/uL (160-400); Red Cell Distribution Width 15.6 % (11.0-16.0); White Blood Count 9.2 X10*3/uL (4.8-10.8)
[2022-03-18 08:20] LABS: Ethanol 150 mg/dL
[2022-03-18 08:23] LABS: Alanine Aminotransferase 26 U/L (0-31); Albumin Level 3.8 g/dL (3.5-5.0); Alkaline Phosphatase 199 U/L (39-117); Anion Gap 19 (12-20); Aspartate Amino Transferase 47 U/L (5-31); B Type Natriuretic Peptide 30 pg/mL (<100); Bilirubin Direct 0.2 mg/dL (0.0-0.5); Bilirubin Total 0.3 mg/dL (0.0-1.0); Blood Urea Nitrogen 9 mg/dL (9-16); Calcium 9.4 mg/dL (8.4-10.2); Carbon Dioxide 20 mmol/L (22-29); Chloride 98 mmol/L (96-108); Creatinine Clr Calc Pharmacy 71.7; Estimated Glomerular Filt Rate > 60; Glucose Random 136 mg/dL (60-115); Lipase 161 U/L (8-78); Potassium 4.8 mmol/L (3.3-5.1); Sodium 132 mmol/L (135-145); Total Protein 7.5 g/dL (6.5-8.0); Troponin-I High Sensitivity < 3.5 ng/L (<3.5-17.0)
[2022-03-18 08:29] LABS: COVID-19 Test Negative (Negative)
--- NOTE | 2022-03-18 09:57 | MHC.RECOVSUP ---
Recovery Support note: Patient is a 61 year old Barbadian speaking female who presented to [facility] after a fall while intoxicated. This video games storywriter met with patient to discuss alcohol use and treatment options. Patient reports that she did not fall however does admit she went down. Patient reports daily alcohol consumption of approximately 1 quart of liquor. Patient reports withdrawal symptoms when she goes more than two days without drinking. Discussed with patient the dangers of alcohol withdrawal and abruptly stopping alcohol consumption. Patient educated regarding detox treatment and patient encouraged to accept referrals to ATS facilities. Patient declined, stating she is not ready at this time. Patient reports she wants to stop drinking but does not want to stop now Discussed the health benefits of maintaining sobriety and patient acknowledged. Patient reports her sons are very concerned and want her to stop drinking. Patient reports the loss of her and recently her mother have contributed to her drinking. Patient is interested in therapy. A referral to [facility] will be made. Discussed supports with patient including medications for alcohol use disorder and intensive outpatient programs. Patient accepted information on IOP, ATS, [facility] and [facility]. Discussed with patient's RN. This video games storywriter available as needed.
--- NOTE | 2022-03-18 10:40 | PC.NURSE ---
pt unable to tolerate MRI and test was not done. MD aware of this
== END 2022-03-18 11:07 | disposition left against medical advice (07) ==
PROVIDERS: Emergency Provider Emergency Medicine; PCP Family Medicine
DX: F10.10 Alcohol abuse, uncomplicated (principal); Y90.6 Blood alcohol level of 120-199 mg/100 ml; R55 Syncope and collapse; R20.0 Anesthesia of skin; Z91.81 History of falling; Z20.822 Contact with and (suspected) exposure to COVID-19; E11.9 Type 2 diabetes mellitus without complications; I10 Essential (primary) hypertension; F17.200 Nicotine dependence, unspecified, uncomplicated; F12.90 Cannabis use, unspecified, uncomplicated; Z86.718 Personal history of other venous thrombosis and embolism; Z72.89 Other problems related to lifestyle; Z63.4 Disappearance and death of family member; Z79.01 Long term (current) use of anticoagulants; Z79.899 Other long term (current) drug therapy
CPT/HCPCS: 36415; 70450; 71045; 80048; 80076; 82077; 82550; 83690; 83880; 84484; 85025; 87635; 93005; 99283; 99284

== ENCOUNTER 2022-12-07 03:37 | Inpatient (IN) | payer OTHER, SELFPAY ==
[2022-12-07] VITALS (12 sets, daily range): BP systolic 102–151; BP diastolic 40–68; PULSE 62–126; RESP 16–25; TEMP 35.8–37.1; O2SAT 85–96; BMI 37.2; BMI 37.9
[2022-12-07 04:09] LABS: MANUAL DIFF FLAG NO
[2022-12-07 04:10] LABS: Basophils Absolute Auto 0.1 X10*3/uL (0.0-0.2); Basophils Percent Auto 0.4 % (0-2); Eosinophils Absolute Auto 0.2 X10*3/uL (0.0-0.4); Eosinophils Percent Auto 1.4 % (0-4); Hemoglobin 9.6 g/dl (12.0-16.0); Imm Gran Abs Auto 0.11 X10*3/uL (0.00-0.03); Imm Gran Pct Auto 0.9 % (0.0-0.4); Lymphocytes Absolute Auto 1.9 X10*3/uL (1.2-4.9); Lymphocytes Percent Auto 15.1 % (20-40); Mean Corpuscular Volume 93.7 fL (80.0-98.0); Mean Platelet Volume 9.5 fL (9.4-12.3); Monocytes Absolute Auto 1.1 X10*3/uL (0.1-1.2); Monocytes Percent Auto 8.8 % (2-11); Neutrophils Absolute Auto 9.3 x10*3/uL (2.0-8.3); Neutrophils Percent Auto 73.4 % (45-73); Platelet Count 236 X10*3/uL (160-400); Red Blood Count 3.31 X10*6/uL (4.20-5.50); Red Cell Distribution Width 17.1 % (11.0-16.0); White Blood Count 12.6 X10*3/uL (4.8-10.8)
[2022-12-07 04:27] LABS: Anion Gap 17 (12-20); Blood Urea Nitrogen 8 mg/dL (9-16); Calcium 9.9 mg/dL (8.4-10.2); Carbon Dioxide 20 mmol/L (22-29); Chloride 105 mmol/L (96-108); Creatinine Clr Calc Pharmacy 46.4; Estimated Glomerular Filt Rate 43; Glucose Random 141 mg/dL (60-115); Potassium 5.1 mmol/L (3.3-5.1); Sodium 137 mmol/L (135-145)
--- NOTE | 2022-12-07 04:27 | PC.NURSE ---
Pt satting 85-89 % on room air. Placed on 2 L per NC with good effect to 95%.
[2022-12-07 04:46] LABS: INTERNATIONAL NORM RATIO 1.3 (0.9-1.1); Prothrombin Time 15.1 SEC (10.0-13.1)
--- NOTE | 2022-12-07 04:51 | ED.EXTPRO ---
HPI - Extremity Problem General Chief complaint: Extremity Problem Stated complaint: right leg pain 1xweek Time Seen by Provider: 12/07/22 04:51 Source: patient Mode of arrival: EMS Limitations: no limitations History of Present Illness HPI Narrative: Patient history of DVT on Eliquis and sciatica, alcohol abuse, diabetes and COPD not on oxygen comes here with chronic cough for last few months and pain in right leg for last 1 week radiating to the right lower back no recent fall no calf swelling no fever or chills patient coughing with mucopurulent phlegm saturating 91% at room Related Data Previous Rx's Medication Instructions Recorded magnesium oxide 400 mg (241.3 mg 400 mg PO DAILY 7 days #7 tabs 01/05/22 magnesium) tablet potassium chloride 20 mEq 20 meq PO DAILY 5 days #5 tabs 01/05/22 tablet,extended release Allergies Allergy/AdvReac Type Severity Reaction Status Date / Time Sulfa (Sulfonamide Allergy Severe ANAPHYLAXIS Verified 12/07/22 03:45 Antibiotics) [SULFA (SULFONAMIDE ANTIBIOTICS)] mitch seed [MITCH SEED] Allergy Intermediate HIVES/NAUSE Verified 12/07/22 03:45 A mitch seeds Allergy Unknown itching Uncoded 12/07/22 03:45 sulfa Allergy Unknown hives, Uncoded 12/07/22 03:45 swelling, anaphylaxis Review of Systems Review of Systems: Yes all other systems are reviewed and are negative [facility] Past Medical History Medical History Alcohol abuse COPD (chronic obstructive pulmonary disease) Diabetes HTN (hypertension) Surgical History History of delivery History of cholecystectomy History of ventral hernia repair Social History Social History Alcohol intake: current Alcohol intake frequency: 3 or more drinks per day Alcohol type: hard liquor Patient Tobacco Use Status: Current everyday Tobacco user Substance Use Type: Marijuana Advance Directives: No Advance Directives Information Provided: No Physical Exam Vital Signs: Vital Signs: Last Vital Signs Temp 97.7 F 12/07/22 06:20 Pulse 120 H 12/07/22 06:20 Resp 20 12/07/22 06:20 BP 102/40 L 12/07/22 06:20 Pulse Ox 92 12/07/22 06:20 O2 Del Method Nasal Cannula 12/07/22 06:20 O2 Flow Rate 2 12/07/22 06:20 BMI result Body Mass Index 37.2 Appearance: Alert. Oriented X3. No acute distress. Eyes: PERRLA, No Nystagmus ENT: Pharynx normal. Oral Mucosa moist Neck: Normal inspection. Neck supple. CVS: Normal heart rate and rhythm. Pulses normal. Respiratory: No respiratory distress. Equal air entry bilateral, bilateral prolonged expiration with diffuse crackles Abdomen: Soft and nontender. Bowel sounds are present, Skin: Skin warm and dry. Normal skin color. Normal skin turgor. Extremities: No lower extremity edema. No calf tenderness back: No lumbar spine tenderness , right sciatic notch tenderness + SLR positive at 90 degrees on right side Neuro: Oriented X 3. No motor deficit. No sensory deficit.No cerebellar signs , cranial nerves II-XII intact Medications Administered Generic Name Dose Route Start Last Admin Trade Name Freq PRN Reason Stop Dose Admin Sodium Chloride 1,000 mls @ 999 mls/hr 12/07/22 06:07 12/07/22 06:22 Ns IV 12/07/22 07:07 999 mls/hr .Q1H1M ONE Administration Ampicillin Sodium/Sulbactam 100 mls @ 200 mls/hr 12/07/22 06:34 12/07/22 06:42 Sodium 3 gm/ Sodium Chloride IV 12/07/22 07:03 200 mls/hr ONCE ONE Administration Discontinued Medications Generic Name Dose Route Start Last Admin Trade Name Freq PRN Reason Stop Dose Admin Albuterol Sulfate 2.5 mg/ 0 mg 12/07/22 05:00 12/07/22 05:32 Albuterol/Ipratropium 3 ml INHALE 12/07/22 05:01 1 each ONCE ONE Administration Ceftriaxone Sodium 1 gm/ 50 mls @ 100 mls/hr 12/07/22 05:00 12/07/22 06:26 Sodium Chloride IV 12/07/22 05:29 Infused ONCE ONE Infusion Morphine Sulfate 4 mg 12/07/22 04:58 12/07/22 05:53 Morphine Sulfate 4 Mg/Ml Cartridge IVPUSH 12/07/22 04:59 4 mg ONCE ONE Administration Protocol Ondansetron HCl 4 mg 12/07/22 04:58 12/07/22 05:53 Ondansetron Hcl 4 Mg/2 Ml Vial IVPUSH 12/07/22 04:59 4 mg ONCE ONE Administration Medical Decision Making Medical Decision Making [facility] Narrative: 06:00 Patient with right sciatica pain with chronic cough with history of COPD noticed to have low pulse ox in the ER dropped to 85% at room air patient not on any oxygen at home workup showed bilateral infiltrates likely aspiration pneumonia will admit patient patient has lactic acidosis with tachycardia with history of AFib with leukocytosis meeting the criteria for sepsis but not in septic shock will give IV fluids and antibiotics blood gases showed normal pH of 7.38 pCO2 35 PO2 49 Differential Diagnosis Sciatica/pneumonia/COVID/aspiration/CHF Consult Healthcare Provider Management of the patient was discussed with: Hospitalist Lab Data [facility] Lab Attestation statement: I reviewed the patient's lab results. 12/07/22 04:04 12/07/22 04:04 Labs: Lab Results 12/07/22 12/07/22 12/07/22 Range/Units 04:04 04:04 04:04 WBC 12.6 H (4.8-10.8) X10*3/uL RBC 3.31 L (4.20-5.50) X10*6/uL Hgb 9.6 L (12.0-16.0) g/dl Hct 31.0 L (37.0-47.0) % MCV 93.7 (80.0-98.0) fL MCH 29.0 (27.0-33.0) pg MCHC 31.0 (31.0-35.0) g/dl RDW 17.1 H (11.0-16.0) % Plt Count 236 (160-400) X10*3/uL MPV 9.5 (9.4-12.3) fL Immature Gran % (Auto) 0.9 H (0.0-0.4) % Neut % (Auto) 73.4 H (45-73) % Lymph % (Auto) 15.1 L (20-40) % [place] % (Auto) 8.8 (2-11) % Eos % (Auto) 1.4 (0-4) % Baso % (Auto) 0.4 (0-2) % Lymph # (Auto) 1.9 (1.2-4.9) X10*3/uL [place] # (Auto) 1.1 (0.1-1.2) X10*3/uL Eos # (Auto) 0.2 (0.0-0.4) X10*3/uL Baso # (Auto) 0.1 (0.0-0.2) X10*3/uL Abs Immat Gran (auto) 0.11 H (0.00-0.03) X10*3/uL Absolute Neuts (auto) 9.3 H (2.0-8.3) x10*3/uL Absolute Nucleated RBC 0.000 (0.0-0.012) X10*3/uL Nucleated RBC % (auto) 0.0 (0.0-0.2) /100WBC PT 15.1 H (10.0-13.1) SEC INR 1.3 H (0.9-1.1) D-Dimer High Sensitivty < 150 NG/ML VBG pH (7.32-7.43) VBG pCO2 mmHg VBG pO2 mmHg VBG HCO3 (22-26) mmol/L VBG O2 Saturation % VBG Base Excess mmol/L Sodium 137 (135-145) mmol/L Potassium 5.1 (3.3-5.1) mmol/L Chloride 105 (96-108) mmol/L Carbon Dioxide 20 L (22-29) mmol/L Anion Gap 17 (12-20) BUN 8 L (9-16) mg/dL Creatinine 1.26 (0.5-1.4) mg/dL Estim Creat Clear Calc 46.4 Estimated GFR 43 Random Glucose 141 H (60-115) mg/dL Lactic Acid (0.5-2.0) mmol/L Calcium 9.9 (8.4-10.2) mg/dL COVID-19 ([facility]) (Negative) COVID-19 Clin Com 12/07/22 12/07/22 12/07/22 Range/Units 05:44 05:44 06:26 WBC (4.8-10.8) X10*3/uL RBC (4.20-5.50) X10*6/uL Hgb (12.0-16.0) g/dl Hct (37.0-47.0) % MCV (80.0-98.0) fL MCH (27.0-33.0) pg MCHC (31.0-35.0) g/dl RDW (11.0-16.0) % Plt Count (160-400) X10*3/uL MPV (9.4-12.3) fL Immature Gran % (Auto) (0.0-0.4) % Neut % (Auto) (45-73) % Lymph % (Auto) (20-40) % [place] % (Auto) (2-11) % Eos % (Auto) (0-4) % Baso % (Auto) (0-2) % Lymph # (Auto) (1.2-4.9) X10*3/uL [place] # (Auto) (0.1-1.2) X10*3/uL Eos # (Auto) (0.0-0.4) X10*3/uL Baso # (Auto) (0.0-0.2) X10*3/uL Abs Immat Gran (auto) (0.00-0.03) X10*3/uL Absolute Neuts (auto) (2.0-8.3) x10*3/uL Absolute Nucleated RBC (0.0-0.012) X10*3/uL Nucleated RBC % (auto) (0.0-0.2) /100WBC PT (10.0-13.1) SEC INR (0.9-1.1) D-Dimer High Sensitivty NG/ML VBG pH 7.38 (7.32-7.43) VBG pCO2 35 mmHg VBG pO2 49 mmHg VBG HCO3 21 L (22-26) mmol/L VBG O2 Saturation 71.0 % VBG Base Excess -2.8 mmol/L Sodium (135-145) mmol/L Potassium (3.3-5.1) mmol/L Chloride (96-108) mmol/L Carbon Dioxide (22-29) mmol/L Anion Gap (12-20) BUN (9-16) mg/dL Creatinine (0.5-1.4) mg/dL Estim Creat Clear Calc Estimated GFR Random Glucose (60-115) mg/dL Lactic Acid 3.5 H* (0.5-2.0) mmol/L Calcium (8.4-10.2) mg/dL COVID-19 ([facility]) Negative (Negative) COVID-19 Clin Com See Note Independent Interpretation I performed an independent interpretation of an: EKG Interpretation: Sinus tachycardia heart rate 105 beats per minute normal interval normal axis no acute ST change and no acute ischemia Critical Care Time Critical Care Time Critical Care Time: Yes Total Critical Care Time: 35 Attestation: The patient was critically ill with a high probability of imminent or life threatening deterioration. I spent greater than 40 minutes of discontinuous time evaluating the patient,delivering critical care at the bedside, discussing and evaluating pertinent data with consultants. Critical care time does not include time spent performing separately billable procedures or teaching. Total time spent performing critical care was 35 minutes. Discharge Plan Discharge Clinical Impression: Aspiration pneumonia, Acute respiratory failure with hypoxia, Right sided sciatica Patient Disposition: Admitted As Inpatient
[2022-12-07 05:09] LABS: D Dimer High Sensitivity < 150 NG/ML
--- NOTE | 2022-12-07 05:21 | PC.NURSE ---
Pt to ct
[2022-12-07 06:08] LABS: Lactic Acid 3.5 mmol/L (0.5-2.0)
[2022-12-07 06:12] LABS: COVID-19 Test Negative (Negative); IDNOW Serial# BCCEAD1C
--- NOTE | 2022-12-07 06:25 | PC.NURSE ---
Pt request no information be given to son Carlo Benitez (Jimmy).
--- NOTE | 2022-12-07 07:46 | PC.NURSE ---
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
--- NOTE | 2022-12-07 08:21 | PM.IMHP ---
History of Present Illness Date of Service: 12/07/22 Chief Complaint: RLE pain 62F PMH COPD, etoh dependence, compensated cirrhosis (ISAAC and ETOH), DM, morbid obesity, hld, HTN, breast ca in remission, right LE DVT, depression, presented with RLE pain. Patient has chronic right lower extremity pain due to both chronic right lower extremity DVT and sciatica. She states that her pain is improving Severe, was 10/10, radiating from her back down her leg. She also reports progression of shortness of breath and dry cough, significantly worse over the last 2 weeks, associated with chills but no fevers, denies sick contacts. In ED noted to be hypoxic to 85% on room air, CT chest showed by opacities. Review of Systems Review of Systems: Yes all other systems are reviewed and are negative [facility] Medical History Alcohol abuse COPD (chronic obstructive pulmonary disease) Diabetes HTN (hypertension) Surgical History History of delivery History of cholecystectomy History of ventral hernia repair Social History Alcohol intake: current Alcohol intake frequency: 3 or more drinks per day Alcohol type: hard liquor Patient Tobacco Use Status: Current everyday Tobacco user Substance Use Type: Marijuana Advance Directives: No Advance Directives Information Provided: No Meds Allergies Allergy/AdvReac Type Severity Reaction Status Date / Time Sulfa (Sulfonamide Allergy Severe ANAPHYLAXIS Verified 12/07/22 03:45 Antibiotics) [SULFA (SULFONAMIDE ANTIBIOTICS)] mitch seed [MITCH SEED] Allergy Intermediate HIVES/NAUSE Verified 12/07/22 03:45 A Active Medications: Current Medications Albuterol/Ipratropium (Albuterol/Iprat 2.5/0.5mg 3 Ml Ampul.Neb) 3 ml INHALE RQ4H WHILE AWAKE PRN PRN Reason: sob Azithromycin (Azithromycin 500 Mg Tablet) 500 mg PO Q24H JESSICA Ceftriaxone Sodium 1 gm/ (Sodium Chloride) 50 mls @ 100 mls/hr IV Q24H JESSICA Methylprednisolone Sodium Succinate (Methylprednisolone Sod Succ 40 Mg/Ml Vial) 40 mg IVPUSH Q12H JESSICA Oxycodone HCl (Oxycodone Hcl Immed Release 5 Mg Tablet) 5 mg PO Q6H PRN PRN Reason: moderate pain Pharmacy Consult (Consult Rx Perform Med Rec) 1 each MISCELLANE ONCE PRN PRN Reason: Consult order Sodium Chloride (0.9 % Sodium Chloride Flush 3 Ml Syringe) [facility] Medications Medication Instructions Recorded Confirmed Last Taken Type albuterol sulfate 2.5 mg/3 mL 2.5 mg inhalation Q4H PRN 12/07/22 12/07/22 Unknown History (0.083 %) solution for nebulization Shortness Of Breath Or Wheezing albuterol sulfate 90 mcg/actuation 2 puff inhalation Q4H PRN dyspnea 12/07/22 12/07/22 Unknown History aerosol inhaler (Ventolin HFA) apixaban 2.5 mg tablet (Eliquis) 2.5 mg PO BID 12/07/22 12/07/22 12/06/22 History calcium carbonate 600 mg-vitamin 1 tab PO BID 12/07/22 12/07/22 12/06/22 History D3 10 mcg (400 unit) tablet cyanocobalamin (vitamin B-12) 500 500 mcg PO DAILY 12/07/22 12/07/22 12/06/22 History mcg tablet fluticasone propionate 220 2 puff inhalation BID 12/07/22 12/07/22 12/06/22 History mcg/actuation HFA aerosol inhaler (Flovent HFA) folic acid 1 mg tablet 1 mg PO DAILY 12/07/22 12/07/22 12/06/22 History loperamide 2 mg capsule (Imodium 2 mg PO Q6H PRN Diarrhea 12/07/22 12/07/22 Unknown History A-D) loratadine 10 mg tablet 10 mg PO DAILY 12/07/22 12/07/22 12/06/22 History losartan 50 mg tablet 50 mg PO DAILY 12/07/22 12/07/22 12/06/22 History magnesium chloride 71.5 mg 71.5 mg PO DAILY 12/07/22 12/07/22 12/06/22 History (magnesium chloride) tablet,delayed release (Slow-Mag) metformin 750 mg tablet,extended 750 mg PO BID 12/07/22 12/07/22 12/06/22 History release 24 hr omeprazole 20 mg capsule,delayed 20 mg PO DAILY@0630 12/07/22 12/07/22 12/06/22 History release thiamine HCl (vitamin B1) 100 mg 100 mg PO DAILY 12/07/22 12/07/22 12/06/22 History tablet umeclidinium 62.5 mcg/actuation 1 inh inhalation DAILY 12/07/22 12/07/22 12/06/22 History blister powder for inhalation (Incruse Ellipta) venlafaxine 150 mg 150 mg PO DAILY 12/07/22 12/07/22 12/06/22 History capsule,extended release 24 hr Physical Exam Vital Signs and Narrative: Vital Signs: Last Vital Signs Temp 97.7 F 12/07/22 06:20 Pulse 126 H 12/07/22 06:58 Resp 25 H 12/07/22 06:58 BP 110/52 L 12/07/22 06:58 Pulse Ox 94 12/07/22 06:58 O2 Del Method Nasal Cannula 12/07/22 06:58 O2 Flow Rate 2 12/07/22 06:58 BMI result Body Mass Index 37.2 General: AO X 3, no acute distress Resp: Crackles bilateral, no accessory muscles used CVS: S1,S2,Rapid regular GI: soft, non tender, non distended Neuro: motor grossly intact, alert Psych: appropriate affect, appropriate insight Results Labs 12/07/22 04:04 12/07/22 04:04 Labs: Laboratory Results - last 24 hr 12/07/22 12/07/22 12/07/22 04:04 04:04 04:04 MCV 93.7 MCH 29.0 MCHC 31.0 RDW 17.1 H Plt Count 236 MPV 9.5 Immature Gran % (Auto) 0.9 H Neut % (Auto) 73.4 H Lymph % (Auto) 15.1 L [place] % (Auto) 8.8 Eos % (Auto) 1.4 Baso % (Auto) 0.4 Lymph # (Auto) 1.9 [place] # (Auto) 1.1 Eos # (Auto) 0.2 Baso # (Auto) 0.1 Abs Immat Gran (auto) 0.11 H Absolute Neuts (auto) 9.3 H Absolute Nucleated RBC 0.000 Nucleated RBC % (auto) 0.0 PT 15.1 H INR 1.3 H D-Dimer High Sensitivty < 150 VBG pH VBG pCO2 VBG pO2 VBG HCO3 VBG O2 Saturation VBG Base Excess Anion Gap 17 Estim Creat Clear Calc 46.4 Estimated GFR 43 Random Glucose 141 H Lactic Acid Calcium 9.9 Troponin I High Sens B-Natriuretic Peptide COVID-19 ([facility]) COVID-19 Clin Com 12/07/22 12/07/22 12/07/22 05:44 05:44 06:18 MCV MCH MCHC RDW Plt Count MPV Immature Gran % (Auto) Neut % (Auto) Lymph % (Auto) [place] % (Auto) Eos % (Auto) Baso % (Auto) Lymph # (Auto) [place] # (Auto) Eos # (Auto) Baso # (Auto) Abs Immat Gran (auto) Absolute Neuts (auto) Absolute Nucleated RBC Nucleated RBC % (auto) PT INR D-Dimer High Sensitivty VBG pH VBG pCO2 VBG pO2 VBG HCO3 VBG O2 Saturation VBG Base Excess Anion Gap Estim Creat Clear Calc Estimated GFR Random Glucose Lactic Acid 3.5 H* Calcium Troponin I High Sens B-Natriuretic Peptide 78 COVID-19 ([facility]) Negative COVID-19 Clin Com See Note 12/07/22 12/07/22 06:18 06:26 MCV MCH MCHC RDW Plt Count MPV Immature Gran % (Auto) Neut % (Auto) Lymph % (Auto) [place] % (Auto) Eos % (Auto) Baso % (Auto) Lymph # (Auto) [place] # (Auto) Eos # (Auto) Baso # (Auto) Abs Immat Gran (auto) Absolute Neuts (auto) Absolute Nucleated RBC Nucleated RBC % (auto) PT INR D-Dimer High Sensitivty VBG pH 7.38 VBG pCO2 35 VBG pO2 49 VBG HCO3 21 L VBG O2 Saturation 71.0 VBG Base Excess -2.8 Anion Gap Estim Creat Clear Calc Estimated GFR Random Glucose Lactic Acid Calcium Troponin I High Sens 2.7 B-Natriuretic Peptide COVID-19 ([facility]) COVID-19 Clin Com Imaging Radiologist's Impressions: Impressions Chest X-Ray 12/07/22 04:11 IMPRESSION: Bilateral lower lung patchy airspace opacities could be compatible with multifocal pneumonia. Chest CT 12/07/22 05:35 IMPRESSION: * There are scattered centrilobular nodular opacities and surrounding groundglass predominating in the superior segments of the lower lungs bilaterally. The appearance and distribution favors an infectious/inflammatory process, possibly related to aspiration. * Morphologically cirrhotic liver. * Coronary artery calcifications. Fleischner guidelines were followed. Assessment and Plan (1) Aspiration pneumonia: Status: Acute Plan 62F PMH COPD, etoh dependence, compensated cirrhosis (ISAAC and ETOH), DM, morbid obesity, hld, HTN, breast ca in remission, right LE DVT, depression, iron defeciency anemia, presented with RLE pain and sob. Acute hypoxic respiratory failure secondary to severe sepsis due to suspected aspiration pneumonia complicated by COPD with acute decompensation IV Solu-Medrol, DuoNebs, ceftriaxone, azithromycin Follow-up cultures Wean O2 as tolerated for a goal of 90-94% Right lower extremity pain Differential includes flare of sciatica versus DVT check rle doppler pain control history of RLE dvt continue eliquis DM insulin etoh dependence no evidence of withdrawal monitor ciwa compensated cirrhosis due to etoh and isaac weight loss and alcohol cessation metabolic syndrome htn, hld, morbid obesity statin, losartan, weight loss breast ca in remission, outpatient follow up iron defeciency anemia outpatient gi follow up depression effexor full code patient with severe spesis and significant hypoxia, at risk for further decompensation due to metabolic syndrome and etoh dependence, therefore, expected to require atleast 2 midnights inpatient. Time Spent With Patient Time: Total time managing care of this patient today ____ minutes. Quality Stroke Does the patient have a stroke diagnosis?: No VTE Prior VTE?: Yes VTE Risk Level:: Medical - moderate - high VTE Device Contraindication: Treatment Not Indicated VTE Drug Contraindication: N/A - Med Ordered
--- NOTE | 2022-12-07 08:29 | PHA.MEDREC ---
Pharmacy Consult ? Medication Reconciliation Pharmacy has completed the medication reconciliation. Spoke to patient to confirm meds. Per patient, patient is not scheduled to start docusate 100mg, ferrous sulf 325 mg, atorvastatin 20mg, clotrimazole 1% cream, and advair until December 19.
--- NOTE | 2022-12-07 08:59 | PC.NURSE ---
pts hr has been consistently in the 120s, notified Dr. Escalante (admitting provider) via tiger text. will continue to monitor patient- patient is not complaining of chest pain.
--- NOTE | 2022-12-07 09:41 | PC.NURSE ---
Dr. Escalante notified of lactic level - he states no repeat needed.
--- NOTE | 2022-12-07 10:14 | PC.NURSE ---
pt alert and oriented, vss aside from tachy heart rate, nsr on the monitoring manager, medication administered per provider order, crackles noted in the lower lobes bilaterally, pt sitting on the edge of the bed eating breakfast, pt states 8/10 right left pain - verbalizes no change in pain level, call lopez placed within reach, will continue to monitor.
--- NOTE | 2022-12-07 11:11 | PC.NURSE ---
per dr. clark patient does not need additional lactics drawn despite the auto populate of 3rd lactic by the lab, this nurse spoke with dr. clark again who stated a second time not to draw it. This nurse called the lab and asked them to cancel the lactic draw per dr. clark.
--- NOTE | 2022-12-07 11:35 | PC.NURSE ---
pt a&ox3, vss aside from being tachy on the clinical research monitor, nsr on the clinical research monitor, pt stating pain at 8/10 - verbalizing no indications of pain relief, pt requesting if she can take something for the pain, call lopez placed within reach, will continue to monitor.
--- NOTE | 2022-12-07 12:14 | PC.NURSE ---
pt a&ox3, pt indicates/states pain decreased to a 5/10, nsr on surveillance monitor, vss aside from tachycardia, call lopez placed within reach, will continue to monitor.
--- NOTE | 2022-12-07 13:19 | PC.NURSE ---
a&ox3, vss aside from tachycardia, nsr on the desk monitor, insulin administered per provider order/per sliding scale, tech bedside giving pt her lunch, call lopez placed within reach, will continue to monitor.
--- NOTE | 2022-12-07 15:18 | PC.NURSE ---
pt alert and oriented x3, vss aside from tachycardia but has been in the 120's all day, nsr on the court monitor, pt states that she is having a pain increase from a 6/10 to an 8/10, call lopez placed within reach, will continue to monitor.
[2022-12-08 03:22] VITALS: BP 147/71; PULSE 107; RESP 18; TEMP 36; O2SAT 93
[2022-12-08 07:15] VITALS: BP 135/81; PULSE 108; RESP 18; TEMP 36.6; O2SAT 90
[2022-12-08 07:42] LABS: Hematocrit 26.8 % (37.0-47.0); Hemoglobin 8.2 g/dl (12.0-16.0); Mean Corpuscular HGB Conc 30.6 g/dl (31.0-35.0); Mean Corpuscular Hemoglobin 29.4 pg (27.0-33.0); Mean Corpuscular Volume 96.1 fL (80.0-98.0); Mean Platelet Volume 9.7 fL (9.4-12.3); Platelet Count 153 X10*3/uL (160-400); Red Blood Count 2.79 X10*6/uL (4.20-5.50); Red Cell Distribution Width 16.5 % (11.0-16.0); White Blood Count 8.4 X10*3/uL (4.8-10.8)
[2022-12-08 08:50] LABS: Anion Gap 14 (12-20); Blood Urea Nitrogen 13 mg/dL (9-16); Calcium 9.2 mg/dL (8.4-10.2); Carbon Dioxide 26 mmol/L (22-29); Chloride 105 mmol/L (96-108); Creatinine Clr Calc Pharmacy 63.6; Estimated Glomerular Filt Rate > 60; Glucose Fasting 176 mg/dL (60-99); Potassium 5.1 mmol/L (3.3-5.1); Sodium 140 mmol/L (135-145)
[2022-12-08 09:07] VITALS: PULSE 108; RESP 16; O2SAT 91
--- NOTE | 2022-12-08 09:48 | HO.PM.IMPN ---
Subjective Subjective Date of Service: 12/08/22 Interval History: improving Physical Exam Vital Signs: Vital Signs: Last Vital Signs Temp 97.9 F 12/08/22 07:15 Pulse 108 H 12/08/22 09:07 Resp 16 12/08/22 09:07 BP 135/81 12/08/22 07:15 Pulse Ox 90 L 12/08/22 07:15 O2 Del Method Room Air 12/08/22 07:15 O2 Flow Rate 2 12/07/22 11:38 BMI result Body Mass Index 37.9 General: AO X 3, no acute distress Resp: Crackles bilateral, no accessory muscles used CVS: S1,S2,RRR GI: soft, non tender, non distended Neuro: motor grossly intact, alert Psych: appropriate affect, appropriate insight Objective Data Active Medications Acetaminophen (Acetaminophen 325 Mg Tablet) 650 mg PO Q4H PRN PRN Reason: Headache Albuterol/Ipratropium (Albuterol/Iprat 2.5/0.5mg 3 Ml Ampul.Neb) 3 ml INHALE RQ4H WHILE AWAKE PRN PRN Reason: sob Apixaban (Apixaban 2.5 Mg Tablet) 2.5 mg PO BID [facility] Last Admin: 12/08/22 08:16 Dose: 2.5 mg Documented By: MARVA Azithromycin (Azithromycin 500 Mg Tablet) 500 mg PO Q24H [facility] Last Admin: 12/08/22 08:16 Dose: 500 mg Documented By: MARVA Calcium Carbonate/Cholecalciferol (Calcium + Vitamin D 250 Mg Tablet) 250 mg PO BID [facility] Last Admin: 12/08/22 08:16 Dose: 250 mg Documented By: MARVA Cyanocobalamin (Cyanocobalamin (Vitamin B-12) 500 Mcg Tablet) 500 mcg PO DAILY [facility] Last Admin: 12/08/22 08:16 Dose: 500 mcg Documented By: MARVA Dextrose (Dextrose 50 % 25 Gm/50 Ml Syringe) 25 gm IVPUSH Q15M PRN; Protocol PRN Reason: per Hypoglycemia Standing Ord. Fluticasone Propionate (Fluticasone Propionate 250 Mcg Blst.W.Dev) 1 puff INHALE RBID [facility] Last Admin: 12/08/22 09:07 Dose: 1 puff Documented By: ORALIA Folic Acid (Folic Acid 1 Mg Tablet) 1 mg PO DAILY [facility] Last Admin: 12/08/22 08:16 Dose: 1 mg Documented By: MARVA Glucose (Glucose Gel 15 Gm Gel..Gram.) 15 gm PO Q15M PRN; Protocol PRN Reason: per Hypoglycemia Standing Ord. Ceftriaxone Sodium 1 gm/ (Sodium Chloride) 50 mls @ 100 mls/hr IV Q24H [facility] Last Infusion: 12/08/22 06:05 Dose: 0 mls/hr Documented By: ARISTIDES Insulin Glargine (Insulin Glargine,Hum.Rec.Anlog 100 Unit/Ml 10 Ml Vial) 10 unit SUBCUT BEDTIME [facility] Last Admin: 12/07/22 20:15 Dose: 10 unit Documented By: BENTLEY Insulin Human Lispro (Insulin Lispro 100 Unit/Ml 3 Ml Vial) 0 unit SUBCUT QIDACHS [facility]; Protocol Last Admin: 12/08/22 07:49 Dose: 2 unit Documented By: MARVA Loratadine (Loratadine 10 Mg Tablet) 10 mg PO DAILY [facility] Last Admin: 12/08/22 08:16 Dose: 10 mg Documented By: MARVA Losartan Potassium (Losartan Potassium 50 Mg Tablet) 50 mg PO DAILY [facility]; Protocol Last Admin: 12/08/22 08:16 Dose: 50 mg Documented By: MARVA Methylprednisolone Sodium Succinate (Methylprednisolone Sod Succ 40 Mg/Ml Vial) 40 mg IVPUSH Q12H [facility] Last Admin: 12/08/22 08:15 Dose: 40 mg Documented By: MARVA Omeprazole (Omeprazole 20 Mg Nicki.) 20 mg PO DAILY@0630 [facility] Last Admin: 12/08/22 06:22 Dose: 20 mg Documented By: ARISTIDES Oxycodone HCl (Oxycodone Hcl Immed Release 5 Mg Tablet) 5 mg PO Q6H PRN PRN Reason: moderate pain Last Admin: 12/08/22 06:22 Dose: 5 mg Documented By: ARISTIDES Pharmacy Consult (Consult Rx Perform Med Rec) 1 each MISCELLANE ONCE PRN PRN Reason: Consult order Sodium Chloride (0.9 % Sodium Chloride Flush 3 Ml Syringe) 3 ml IVFLUSH QSHIFT [facility] Last Admin: 12/08/22 08:15 Dose: 3 ml Documented By: MARVA Thiamine HCl (Thiamine Hcl 100 Mg Tablet) 100 mg PO DAILY [facility] Last Admin: 12/08/22 08:16 Dose: 100 mg Documented By: MARVA Venlafaxine HCl (Venlafaxine Hcl Er 150 Mg Cap.Er.24h) 150 mg PO DAILY [facility] Last Admin: 12/08/22 08:16 Dose: 150 mg Documented By: MARVA Labs 12/08/22 05:53 12/08/22 05:53 Labs: Laboratory Results - last 24 hr 12/07/22 12/07/22 12/07/22 07:33 11:23 16:28 MCV MCH MCHC RDW Plt Count MPV Absolute Nucleated RBC Nucleated RBC % (auto) Anion Gap Estim Creat Clear Calc Estimated GFR POC Glucose 179 H 297 H Fasting Glucose Calcium Respiratory Panel [place] See Note Adenovirus (Rapid PCR) Not Detected B.pert (TEM-PCR) Not Detected B.parapertussis DNA PCR Not Detected C. pneumoniae DNA (PCR) Not Detected Coronavirus OC43 (PCR) Not Detected Coronavirus HKU1 (PCR) Not Detected Coronavirus 229E (PCR) Not Detected Coronavirus NL63 (PCR) Not Detected Human Metapneumovir PCR Not Detected Influenza A (RT-PCR) Not Detected Influenza B (RT-PCR) Not Detected M. pneumoniae (PCR) Not Detected Parainfluenza 1 (PCR) Not Detected Parainfluenza 2 (PCR) Not Detected Parainfluenza 3 (PCR) Not Detected Parainfluenza 4 (PCR) Not Detected RSV (PCR) Not Detected Entero/Rhino (PCR) Not Detected SARS-CoV-2 RNA (RT-PCR) Not Detected 12/07/22 12/08/22 12/08/22 19:55 05:53 05:53 MCV 96.1 MCH 29.4 MCHC 30.6 L RDW 16.5 H Plt Count 153 L D MPV 9.7 Absolute Nucleated RBC 0.000 Nucleated RBC % (auto) 0.0 Anion Gap 14 Estim Creat Clear Calc 63.6 Estimated GFR > 60 POC Glucose 250 H Fasting Glucose 176 H Calcium 9.2 D Respiratory Panel [place] Adenovirus (Rapid PCR) B.pert (TEM-PCR) B.parapertussis DNA PCR C. pneumoniae DNA (PCR) Coronavirus OC43 (PCR) Coronavirus HKU1 (PCR) Coronavirus 229E (PCR) Coronavirus NL63 (PCR) Human Metapneumovir PCR Influenza A (RT-PCR) Influenza B (RT-PCR) M. pneumoniae (PCR) Parainfluenza 1 (PCR) Parainfluenza 2 (PCR) Parainfluenza 3 (PCR) Parainfluenza 4 (PCR) RSV (PCR) Entero/Rhino (PCR) SARS-CoV-2 RNA (RT-PCR) 12/08/22 07:19 MCV MCH MCHC RDW Plt Count MPV Absolute Nucleated RBC Nucleated RBC % (auto) Anion Gap Estim Creat Clear Calc Estimated GFR POC Glucose 170 H Fasting Glucose Calcium Respiratory Panel [place] Adenovirus (Rapid PCR) B.pert (TEM-PCR) B.parapertussis DNA PCR C. pneumoniae DNA (PCR) Coronavirus OC43 (PCR) Coronavirus HKU1 (PCR) Coronavirus 229E (PCR) Coronavirus NL63 (PCR) Human Metapneumovir PCR Influenza A (RT-PCR) Influenza B (RT-PCR) M. pneumoniae (PCR) Parainfluenza 1 (PCR) Parainfluenza 2 (PCR) Parainfluenza 3 (PCR) Parainfluenza 4 (PCR) RSV (PCR) Entero/Rhino (PCR) SARS-CoV-2 RNA (RT-PCR) Microbiology Microbiology Results: Microbiology 12/07/22 05:44 Blood Culture - Preliminary Blood - Venous No growth after 24 hours. 12/07/22 05:44 Blood Culture - Preliminary Blood - Venous Prelim: GPC Gram Stain only Assessment and Plan (1) Breast cancer, right breast: Status: Acute Plan 62F PMH COPD, etoh dependence, compensated cirrhosis (ISAAC and ETOH), DM, morbid obesity, hld, HTN, breast ca in remission, right LE DVT, depression, iron defeciency anemia, presented with RLE pain and sob. Acute hypoxic respiratory failure secondary to severe sepsis due to suspected aspiration pneumonia complicated by COPD with acute decompensation IV Solu-Medrol, DuoNebs, ceftriaxone, azithromycin Follow-up cultures resp viral panel negative Wean O2 as tolerated for a goal of 90-94% Right lower extremity pain Differential includes flare of sciatica versus DVT check rle doppler pain control chronic RLE dvt no acute dvt on doppler continue eliquis DM insulin etoh dependence no evidence of withdrawal monitor ciwa compensated cirrhosis due to etoh and isaac weight loss and alcohol cessation metabolic syndrome htn, hld, morbid obesity statin, losartan, weight loss breast ca in remission, outpatient follow up iron defeciency anemia outpatient gi follow up depression effexor full code reason for continued hospitalization: stil hypoxic, weaning o2 Time Spent With Patient Time: Total time managing care of this patient today ____ minutes. Quality Stroke Does the patient have a stroke diagnosis?: No VTE Prior VTE?: Yes VTE Risk Level:: Medical - moderate - high VTE Device Contraindication: Treatment Not Indicated VTE Drug Contraindication: N/A - Med Ordered
--- NOTE | 2022-12-08 10:14 | MHC.CM.PN ---
Addendum entered by Toya Pascual 12/08/22 14:45: Pt reported to this CM that her roommate will bring in a copy of her HCP. Original Note: IMM 12/08. Pt admitted with COPD/pneumonia. Pt lives with a roommate in an apartment, uses a cane at home and a wheelchair when she goes out. D/C plan pending PT eval but pt would like to return home self-care vs home with new [facility]. Referral placed to [facility] as pt got emotional and stated things have been hard for her since her and she is in need of assistance around the house. Pt will need assistance with transportation ([facility] vs [facility] shuttle). No HCP, this CM offered assistance and pt would like to fill one out today. PCP: Juana Melendez vax: x 4
[2022-12-08 15:39] VITALS: BP 142/78; PULSE 118; RESP 20; TEMP 36.9; O2SAT 98
[2022-12-08 18:38] VITALS: BP 140/85; PULSE 95; RESP 20; TEMP 36.2; O2SAT 96
[2022-12-08 18:55] VITALS: PULSE 82; RESP 20; O2SAT 95
[2022-12-09 03:23] VITALS: BP 160/67; PULSE 73; RESP 18; TEMP 36.3; O2SAT 92
[2022-12-09 07:09] VITALS: BP 166/74; PULSE 80; RESP 20; TEMP 36.1; O2SAT 96
[2022-12-09 07:42] VITALS: PULSE 102; RESP 17; O2SAT 93
--- NOTE | 2022-12-09 08:37 | PM.DS ---
DS: Providers Provider Date of Service: 12/09/22 Date of admission: 12/07/22 08:19 Primary care physician: Juana Jean MD DS: Diagnosis Discharge Diagnosis (1) Breast cancer, right breast: Status: Acute DS: Summary Hospital Course Hospital Course: from initial hpi: 62F PMH COPD, etoh dependence, compensated cirrhosis (ISAAC and ETOH), DM, morbid obesity, hld, HTN, breast ca in remission, right LE DVT, depression, presented with RLE pain.? Patient has chronic right lower extremity pain due to both chronic right lower extremity DVT and sciatica.? She states that her pain is improving Severe, was 10/10, radiating from her back down her leg.? She also reports progression of shortness of breath and dry cough, significantly worse over the last 2 weeks, associated with chills but no fevers, denies sick contacts.? In ED noted to be hypoxic to 85% on room air, CT chest showed by opacities. hospital course: Patient was admitted for acute hypoxic respiratory failure secondary to severe sepsis due to suspected aspiration pneumonia complicated by COPD with acute decompensation. She was treated with IV steroids, DuoNebs, ceftriaxone and azithromycin. Wanted to cultures growing Gram-positive cocci, likely this is contaminant but should be followed up outpatient. Patient sepsis resolved. Patient was weaned off oxygen. Her shortness of breath resolved. For right lower extremity pain this was likely due to flare of sciatica which resolved. She had a right lower extremity Doppler which revealed chronic right lower extremity DVT but nothing acute. She will continue on Eliquis 2.5 mg b.i.d.. For diabetes was continue on insulin. For alcohol dependence she had no evidence of withdrawal, alcohol cessation is recommended. 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 Weight loss and alcohol cessation is recommended. For metabolic syndrome including hypertension, hyperlipidemia, morbid obesity patient was continued on statin and losartan and weight loss is recommended. For history of breast cancer in remission she will follow up outpatient. For iron deficiency anemia she will follow up with GI as outpatient. For depression she was continued on Effexor. Patient is feeling better will be discharged home. Time Spent with Patient Time attestation: Total time managing care of this patient today ____ minutes. Discharge coordination time: Greater than 30 minutes Quality: Safe Use of Opioids Does Pt have an Active Cancer Diagnosis on the Problem List?: No Quality: Stroke Does the patient have a stroke diagnosis?: No Physical Exam Vital Signs: Vital Signs: Last Vital Signs Temp 96.9 F 12/09/22 07:09 Pulse 102 H 12/09/22 07:42 Resp 17 12/09/22 07:42 BP 166/74 H 12/09/22 07:09 Pulse Ox 96 12/09/22 07:09 O2 Del Method Room Air 12/09/22 07:09 O2 Flow Rate 2 12/07/22 11:38 BMI result Body Mass Index 37.9 General: AO X 3, no acute distress Resp: CTA bilateral, no accessory muscles used CVS: S1,S2,RRR GI: soft, non tender, non distended Neuro: motor grossly intact, alert Psych: appropriate affect, appropriate insight DS: Data Data Completed and Pending Labs on day of discharge: Laboratory Results - last 24 hr 12/08/22 12/08/22 12/08/22 05:53 11:36 15:44 WBC RBC Hgb Hct MCV MCH MCHC RDW Plt Count MPV Absolute Nucleated RBC Nucleated RBC % (auto) Sodium 140 Potassium 5.1 Chloride 105 Carbon Dioxide 26 Anion Gap 14 BUN 13 Creatinine 0.93 Estim Creat Clear Calc 63.6 Estimated GFR > 60 POC Glucose 198 H 301 H Fasting Glucose 176 H Calcium 9.2 D 12/08/22 12/09/22 12/09/22 20:19 05:36 05:36 WBC 9.2 RBC 3.04 L Hgb 8.8 L Hct 29.3 L MCV 96.4 MCH 28.9 MCHC 30.0 L RDW 16.6 H Plt Count 184 MPV 10.2 Absolute Nucleated RBC 0.000 Nucleated RBC % (auto) 0.0 Sodium 141 Potassium 5.0 Chloride 106 Carbon Dioxide 25 Anion Gap 15 BUN 15 Creatinine 0.96 Estim Creat Clear Calc 61.5 Estimated GFR 59 POC Glucose 190 H Fasting Glucose 200 H Calcium 9.6 12/09/22 07:15 WBC RBC Hgb Hct MCV MCH MCHC RDW Plt Count MPV Absolute Nucleated RBC Nucleated RBC % (auto) Sodium Potassium Chloride Carbon Dioxide Anion Gap BUN Creatinine Estim Creat Clear Calc Estimated GFR POC Glucose 180 H Fasting Glucose Calcium Preliminary micro results at discharge 12/07/22 05:44 Blood Culture - Preliminary Blood - Venous No growth after 48 hours. 12/07/22 05:44 Blood Culture - Preliminary Blood - Venous Prelim: GPC Gram Stain only Discharge Plan Discharge Anticipated Discharge Date/Time: 12/09/22 08:32 Patient Disposition: Home, Self-Care Discharge Diagnosis: pna Referrals: Juana Jean MD [Primary Care Provider] - 1 Week Discharge Medications: New azithromycin 500 mg Tablet 500 mg PO Q24H Qty: 5 0RF cefuroxime axetil 500 mg tablet 500 mg PO BID Qty: 10 0RF prednisone 20 mg tablet 40 mg PO DAILY Qty: 10 0RF oxycodone 5 mg Tablet 5 mg PO Q6H PRN (Reason: moderate pain) Qty: 10 0RF Rx Instructions: Partial Fill upon patient request. Continued losartan 50 mg tablet 50 mg PO DAILY albuterol sulfate 2.5 mg /3 mL (0.083 %) solution for nebulization 2.5 mg inhalation Q4H PRN (Reason: Shortness Of Breath Or Wheezing) venlafaxine 150 mg capsule,extended release 24hr 150 mg PO DAILY thiamine HCl (vitamin B1) 100 mg tablet 100 mg PO DAILY cyanocobalamin (vitamin B-12) 500 mcg tablet 500 mcg PO DAILY omeprazole 20 mg capsule,delayed release(DR/EC) 20 mg PO DAILY@0630 folic acid 1 mg tablet 1 mg PO DAILY fluticasone propionate [Flovent HFA] 220 mcg/actuation HFA aerosol inhaler 2 puff inhalation BID loratadine 10 mg tablet 10 mg PO DAILY metformin 750 mg tablet extended release 24 hr 750 mg PO BID calcium carbonate-vitamin D3 600 mg-10 mcg (400 unit) tablet 1 tab PO BID Slow-Mag 71.5 mg tablet,delayed release (DR/EC) 71.5 mg PO DAILY Eliquis 2.5 mg tablet 2.5 mg PO BID Incruse Ellipta 62.5 mcg/actuation blister with device 1 inh inhalation DAILY albuterol sulfate [Ventolin HFA] 90 mcg/actuation HFA aerosol inhaler 2 puff INHALATION Q4H PRN (Reason: dyspnea) loperamide [Imodium A-D] 2 mg Capsule 2 mg PO Q6H PRN (Reason: Diarrhea) Discharge Orders: Discharge Order (Routine); Ordered 12/09/22 Ordered By: Kiko Escalante Diet: Advance to usual diet Activity on Discharge: As tolerated Stand Alone Forms: Patient Portal Discharge page Care Plan Goals: recovery Health Concerns: ceftin and azithro for 5 more days Plan of Treatment: see above Assessment: see above Discharge Date/Time: 12/09/22 09:45
--- NOTE | 2022-12-09 09:25 | MHC.CM.PN ---
pt dcd home no skilled servceis ordered by
== END 2022-12-09 09:45 | disposition home or self-care (01) | DRG 871 ==
LOC: HO.ED 07:25 → HO.EDOVER 08:23 → HO.S3 12:43
PROVIDERS: Admitting Provider Internal Medicine; Emergency Provider Internal Medicine; PCP Family Medicine; Visit Provider Internal Medicine
DX: A41.9 Sepsis, unspecified organism (principal); J69.0 Pneumonitis due to inhalation of food and vomit; J96.01 Acute respiratory failure with hypoxia; J44.1 Chronic obstructive pulmonary disease with (acute) exacerbation; F11.20 Opioid dependence, uncomplicated; I82.5Z1 Chronic embolism and thrombosis of unspecified deep veins of right distal lower extremity; R65.20 Severe sepsis without septic shock; M54.31 Sciatica, right side; K70.30 Alcoholic cirrhosis of liver without ascites; E11.9 Type 2 diabetes mellitus without complications; K75.81 Nonalcoholic steatohepatitis (NASH); F17.210 Nicotine dependence, cigarettes, uncomplicated; D50.9 Iron deficiency anemia, unspecified; I10 Essential (primary) hypertension; E78.5 Hyperlipidemia, unspecified; E88.81 Metabolic syndrome and other insulin resistance; E66.01 Morbid (severe) obesity due to excess calories; Z20.822 Contact with and (suspected) exposure to COVID-19; Z85.3 Personal history of malignant neoplasm of breast; Z71.6 Tobacco abuse counseling; Z68.37 Body mass index [BMI] 37.0-37.9, adult; Z88.2 Allergy status to sulfonamides; Z79.01 Long term (current) use of anticoagulants; Z79.84 Long term (current) use of oral hypoglycemic drugs; Z79.899 Other long term (current) drug therapy
CPT/HCPCS: 36415; 71045; 71250; 80048; 82803; 82947; 83605; 83880; 84484; 85025; 85027; 85379; 85610; 87040; 87147; 87205; 87633; 87635; 93005; 93971; 94640; 99285; J0295; J0696; J2270; J2405; J2920

== ENCOUNTER 2023-03-20 05:06 | Inpatient (IN) | payer OTHER, SELFPAY ==
[2023-03-20] VITALS (12 sets, daily range): BP systolic 90–122; BP diastolic 40–80; PULSE 105–122; RESP 16–24; TEMP 36.3–37.1; O2SAT 92–98; BMI 369.8; BMI 37.3
--- NOTE | 2023-03-20 | ECG_ITS ---
Test Reason : TACARDYA Blood Pressure : / mmHG Vent. Rate : 123 BPM Atrial Rate : 123 BPM P-R Int : 162 ms QRS Dur : 074 ms QT Int : 302 ms P-R-T Axes : 102 125 130 degrees QTc Int : 432 ms Suspect limb lead reversal, interpretation assumes no reversal Sinus tachycardia Lateral infarct , age undetermined Inferior infarct , age undetermined Abnormal ECG When compared with ECG of 20-MAR-2023 05:20, QRS axis Shifted right Inferior infarct is now Present Referred By: Diana Mao Electronically Signed By:
--- NOTE | 2023-03-20 | ECG_ITS ---
Test Reason : FALL Blood Pressure : / mmHG Vent. Rate : 106 BPM Atrial Rate : 106 BPM P-R Int : 158 ms QRS Dur : 070 ms QT Int : 350 ms P-R-T Axes : 063 028 043 degrees QTc Int : 464 ms Sinus tachycardia Nonspecific ST abnormality Inferior leads Abnormal ECG When compared with ECG of 07-DEC-2022 03:57, No significant change was found Referred By: Generic ED Physician Electronically Signed By:MARILEE PULIDO MD
--- NOTE | ~2023-03-20 | XR_ITS ---
EXAMINATION: XR CHEST CLINICAL INFORMATION: Rhonchi and shortness of breath. COMPARISON: 03/20/2023. TECHNIQUE: Frontal view of the chest was obtained. FINDINGS: The cardiomediastinal silhouette is stable. The lungs are mildly hypoexpanded. No consolidation or effusion. XR/XR chest 1V IMPRESSION: No focal pneumonia.
--- NOTE | ~2023-03-20 | CT_ITS ---
EXAMINATION: CT CERVICAL SPINE trauma CLINICAL INFORMATION: Reason for Exam fall, neck trauma COMPARISON: No prior CT available, TECHNIQUE: Computed axial sagittal and coronal images acquired using department's standard protocol. This CT examination was performed using dose optimization techniques as appropriate, variously including the following: *Automated exposure control *Adjustment of mA and/or kV according to patient size (this includes techniques or standardized protocols for targeted exams where dose is matched to indication/reason for exam; i.e. extremities or head) *Use of iterative reconstruction technique CONTRAST: None FINDINGS: There are motion artifacts. SKULL BASE: Visualized structures at skull base are normal, Included facial sinuses are clear, CERVICAL VERTEBRAE: Seven cervical vertebrae identified maintaining proper height and alignment, DISCS: Loss of disc height and developed osteophyte from the edges of endplates suggest degenerative disc disease found at C5-C6, C6-C7. C1-C2: There is no CT evidence of significant osseous narrowing of the central canal or neural foramen. C2-C3: There is no CT evidence of significant osseous narrowing of the central canal or neural foramen. C3-C4: There is no CT evidence of significant osseous narrowing of the central canal or neural foramen. C4-C5: There is no CT evidence of significant osseous narrowing of the central canal or neural foramen. C5-C6: There is no CT evidence of significant osseous narrowing of the central canal or neural foramen. C6-C7: There is no CT evidence of significant osseous narrowing of the central canal or neural foramen. C7-T1: There is no CT evidence of significant osseous narrowing of the central canal or neural foramen. PARAVERTEBRAL SOFT TISSUE: Paravertebral soft tissues unremarkable. CT/CT cervical spine wo IV con IMPRESSION: Exam limited by motion artifacts. * No CT evidence of cervical spine fracture. * Loss of disc height and developed osteophyte from the edges of endplates suggest degenerative disc disease at C5-C6, C6-C7. * No significant osseous stenosis of central canal or neural foramen.
--- NOTE | ~2023-03-20 | XR_ITS ---
EXAMINATION: XR CHEST CLINICAL INFORMATION: Pain COMPARISON: 12/07/2022 TECHNIQUE: Frontal view of the chest was obtained. FINDINGS: Lung volumes are symmetric. No focal consolidation is seen. No evidence of pneumothorax, significant pleural effusion, or overt pulmonary edema. Cardiac size is within normal limits. Calcification is present at the aortic arch. No acute osseous findings are seen. Scattered chronic appearing deformities of the bilateral ribs. XR/XR chest 1V IMPRESSION: No acute cardiopulmonary findings.
--- NOTE | ~2023-03-20 | CT_ITS ---
CT head/brain wo IV con CLINICAL INFORMATION: Reason for Exam fall head trauma on eliquis COMPARISON: No prior CT scan available for comparison. TECHNIQUE: Department standard protocol. This CT examination was performed using dose optimization techniques as appropriate, variously including the following: *Automated exposure control *Adjustment of mA and/or kV according to patient size (this includes techniques or standardized protocols for targeted exams where dose is matched to indication/reason for exam; i.e. extremities or head) *Use of iterative reconstruction technique DLP: 1064 mGy-cm FINDINGS: CEREBRAL HEMISPHERES: There is no evidence of intra-axial or extra-axial mass, hemorrhage or acute infarct. BRAIN PARENCHYMA: Deep white matter and paraventricular hypoattenuation, nonspecific; most likely changes secondary to chronic ischemia due to microvascular angiopathy. SUBDURAL SPACE: No bleed. BASAL GANGLIA AND PINEAL GLAND: Unremarkable VENTRICLES: Symmetric and normal in size. CEREBELLUM AND BRAINSTEM: No space-occupying mass, hemorrhage or acute infarct. CEREBELLOPONTINE ANGLES: No lesion found. ORBITS: No intraorbital mass. VESSELS: Unremarkable SKULL BASE: Unremarkable INCLUDED SINUSES AT SKULL BASE: Clear SKULL AND SKIN: No fracture or bone lesion found. CT/CT head/brain wo IV con IMPRESSION: * Deep white matter and periventricular hypoattenuation, nonspecific; most likely sequela of chronic microvascular angiopathy ischemia. * No intracranial bleed.
--- NOTE | 2023-03-20 05:24 | ED_ITS ---
HPI - Fall General Chief Complaint: Fall Stated Complaint: FALL,FEELING UNWELL Source: patient, EMS and old records reviewed Mode of arrival: EMS Limitations: no limitations History of Present Illness HPI Narrative: 62 yo female with PMH of COPD, HTN, ETOH abuse, DM, DVT on eliquis, back pain, aspiration pneumonia, breast cancer in remission, here with c/o reaching over and falling out of low bed . She states she did not have LOC no head injury and she is feeling okay. She states she has had chest pain x 4 days with some dyspnea. She states she always take her eliquis. She notes she was drinking tonight. She cannot swallow her metformin so she stopped taking it. MD complaint: fall Onset (ago): hour(s) (1) Fall from: out of bed Fall witnessed: no Place fall occurred: home Loss of consciousness: none Prolonged down time: no Symptoms prior to fall: none Context: tripped/slipped Location of injury - extremities: right: forearm (superficial skin tear) Severity: mild Associated symptoms (after fall): denies Related Data Home Medications Medication Instructions Recorded Confirmed albuterol sulfate 2.5 mg/3 mL 2.5 mg inhalation Q4H PRN 12/07/22 12/07/22 (0.083 %) solution for nebulization Shortness Of Breath Or Wheezing albuterol sulfate 90 mcg/actuation 2 puff inhalation Q4H PRN dyspnea 12/07/22 12/07/22 aerosol inhaler (Ventolin HFA) apixaban 2.5 mg tablet (Eliquis) 2.5 mg PO BID 12/07/22 12/07/22 calcium carbonate 600 mg-vitamin 1 tab PO BID 12/07/22 12/07/22 D3 10 mcg (400 unit) tablet cyanocobalamin (vitamin B-12) 500 500 mcg PO DAILY 12/07/22 12/07/22 mcg tablet fluticasone propionate 220 2 puff inhalation BID 12/07/22 12/07/22 mcg/actuation HFA aerosol inhaler (Flovent HFA) folic acid 1 mg tablet 1 mg PO DAILY 12/07/22 12/07/22 loperamide 2 mg capsule (Imodium 2 mg PO Q6H PRN Diarrhea 12/07/22 12/07/22 A-D) loratadine 10 mg tablet 10 mg PO DAILY 12/07/22 12/07/22 losartan 50 mg tablet 50 mg PO DAILY 12/07/22 12/07/22 magnesium chloride 71.5 mg 71.5 mg PO DAILY 12/07/22 12/07/22 (magnesium chloride) tablet,delayed release (Slow-Mag) metformin 750 mg tablet,extended 750 mg PO BID 12/07/22 12/07/22 release 24 hr omeprazole 20 mg capsule,delayed 20 mg PO DAILY@0630 12/07/22 12/07/22 release thiamine HCl (vitamin B1) 100 mg 100 mg PO DAILY 12/07/22 12/07/22 tablet umeclidinium 62.5 mcg/actuation 1 inh inhalation DAILY 12/07/22 12/07/22 blister powder for inhalation (Incruse Ellipta) venlafaxine 150 mg 150 mg PO DAILY 12/07/22 12/07/22 capsule,extended release 24 hr Previous Rx's Medication Instructions Recorded azithromycin 500 mg tablet 500 mg PO Q24H #5 tabs 12/09/22 cefuroxime axetil 500 mg tablet 500 mg PO BID #10 tabs 12/09/22 oxycodone 5 mg tablet 5 mg PO Q6H PRN moderate pain #10 12/09/22 tabs prednisone 20 mg tablet 40 mg (2 x 20 mg) PO DAILY #10 tabs 12/09/22 letrozole 2.5 mg tablet 2.5 mg PO DAILY #90 tabs 01/15/23 Allergies Allergy/AdvReac Type Severity Reaction Status Date / Time Sulfa (Sulfonamide Allergy Severe ANAPHYLAXIS Verified 03/20/23 05:17 Antibiotics) [SULFA (SULFONAMIDE ANTIBIOTICS)] mitch seed [MITCH SEED] Allergy Intermediate HIVES/NAUSE Verified 03/20/23 05:17 A Review of Systems 2 Review of Systems: Constitutional : No Weight loss, No Fever, No Chills, pos fatigue ENT/Mouth : No sore throat, No Rhinorrhea Eyes: No Eye Pain, No Swelling Cardiovascular : pos Chest Pain, pos SOB, no Dyspnea on Exertion, No Orthopnea, No Edema, No Palpitations Respiratory : No Cough, No Sputum Gastrointestinal : no Nausea, No Vomiting, No Diarrhea, No abdominal Pain, No Hematochezia, No Melena Genitourinary : No Dysuria, No Urinary Frequency Musculoskeletal : No joint pain, No Myalgias, No Joint Swelling Skin : No Skin Lesions, No rash Neuro : No Weakness, No Numbness, No Dizziness, No Headache Psych : No Anxiety/Panic, No Depression All other systems reviewed and are negative [facility] Past Medical History Attestation statement: The following information was validated with the patient. Source: old records reviewed Medical History Alcohol abuse COPD (chronic obstructive pulmonary disease) Diabetes HTN (hypertension) Surgical History History of cholecystectomy History of delivery History of ventral hernia repair Social History Social History Household Members: Family Housing: Apartment Do you presently have visiting nurse or other home services: No Alcohol intake: current Alcohol intake frequency: 0-2 drinks per day Alcohol type: hard liquor Patient Tobacco Use Status: Current everyday Tobacco user Tobacco use type: Cigarette Cigarette Packs Per Day: 1 Cigarettes Per Day: 20.0 Smoked in Last 30 Days: Yes Second Hand Smoke Exposure: Yes Use of substances other than those prescribed or required for medical reasons: No Substance Use Type: Marijuana service: No Physical Exam 2 Vital Signs: Vital Signs: Last Vital Signs Temp 97.6 F 03/20/23 05:20 Pulse 110 H 03/20/23 05:59 Resp 18 03/20/23 05:59 BP 100/40 L 03/20/23 05:59 Pulse Ox 98 03/20/23 05:59 O2 Del Method Room Air 03/20/23 05:59 BMI result Body Mass Index 369.8 Appearance: Alert. Oriented X3. No acute distress. Found bed bug on patient I know I've been trying to fight them at home for a while. Eyes: Pupils equal, round and reactive to light. slight scleral icterus ENT: Pharynx normal. atraumatic Neck: Normal inspection. Neck supple. CVS: tachycardic heart rate and rhythm. Pulses normal. Respiratory: No respiratory distress. Breath sounds normal. Abdomen: Soft and nontender. Skin: Skin warm and dry. Normal skin color. Normal skin turgor. Extremities: No lower extremity edema. Neuro: Oriented X 3. No motor deficit. No sensory deficit. Course Course Course Narrative: lactic acidosis due to ETOH use, liver disease, renal impairment and not infection or severe sepsis Reevaluation(s) Reevaluation #1: patient is obese her IBW should be 48 kg so 30cc/kg bolus would be 1440cc - 1500 ordered Reevaluation #2: signed out to Dr. Chatman Medications Administered Generic Name Dose Route Start Last Admin Trade Name Freq PRN Reason Stop Dose Admin Sodium Chloride 1,000 mls @ 999 mls/hr 03/20/23 05:30 03/20/23 05:40 Ns IVCONT 03/20/23 06:30 999 mls/hr .Q1H1M JESSICA Administration Discontinued Medications Generic Name Dose Route Start Last Admin Trade Name Freq PRN Reason Stop Dose Admin Insulin Human Regular 10 unit 03/20/23 06:00 03/20/23 06:06 Insulin Regular, Human 100 Unit/Ml 3 Ml Vial IVPUSH 03/20/23 06:01 10 unit ONCE ONE Administration Medical Decision Making Medical Decision Making MDM Narrative: 62 yo female with PMH of COPD, HTN, ETOH abuse, DM, DVT on eliquis, back pain, aspiration pneumonia, breast cancer in remission here with c/o reaching over the side of bed tonight and falling no head injury or LOC but she was drinking called for help right away. Has skin tear on R arm. She states she is only on metformin and has a hard time taking the pills so she doesn't. She is able to take her eliquis. At this time c/o chest pain x 4 days. At this time basic labs, CT head/cspine given ETOH I do not feel I can clear, sugar reading high IVF ordered likely due to ETOH and non compliance Differential Diagnosis Differential Diagnoses: The differential diagnosis associated with the presentation includes non compliance, intoxication, head injury, atypical chest pain Admission/Observation Consideration of admission/observation: Escalation of care including admission/observation considered Lab Data MDM Lab Attestation statement: I reviewed the patient's lab results. 03/20/23 05:33 03/20/23 05:33 Labs: Lab Results 03/20/23 03/20/23 03/20/23 Range/Units 05:11 05:14 05:32 WBC (4.8-10.8) X10*3/uL RBC (4.20-5.50) X10*6/uL Hgb (12.0-16.0) g/dl Hct (37.0-47.0) % MCV (80.0-98.0) fL MCH (27.0-33.0) pg MCHC (31.0-35.0) g/dl RDW (11.0-16.0) % Plt Count (160-400) X10*3/uL MPV (9.4-12.3) fL Immature Gran % (Auto) (0.0-0.4) % Neut % (Auto) (45-73) % Lymph % (Auto) (20-40) % [place] % (Auto) (2-11) % Eos % (Auto) (0-4) % Baso % (Auto) (0-2) % Lymph # (Auto) (1.2-4.9) X10*3/uL [place] # (Auto) (0.1-1.2) X10*3/uL Eos # (Auto) (0.0-0.4) X10*3/uL Baso # (Auto) (0.0-0.2) X10*3/uL Abs Immat Gran (auto) (0.00-0.03) X10*3/uL Absolute Neuts (auto) (2.0-8.3) x10*3/uL Absolute Nucleated RBC (0.0-0.012) X10*3/uL Nucleated RBC % (auto) (0.0-0.2) /100WBC VBG pH (7.32-7.43) VBG pCO2 mmHg VBG pO2 mmHg VBG HCO3 (22-26) mmol/L VBG O2 Saturation % VBG Base Excess mmol/L Sodium (135-145) mmol/L Potassium (3.3-5.1) mmol/L Chloride (96-108) mmol/L Carbon Dioxide (22-29) mmol/L Anion Gap (12-20) BUN (9-16) mg/dL Creatinine (0.5-1.4) mg/dL Estim Creat Clear Calc Estimated GFR POC Glucose > 600 H* > 600 H* (60-115) mg/dL Random Glucose (60-115) mg/dL Lactic Acid 7.9 H* (0.5-2.0) mmol/L Calcium (8.4-10.2) mg/dL Magnesium (1.6-2.6) mg/dL Total Bilirubin (0.0-1.0) mg/dL Direct Bilirubin (0.0-0.5) mg/dL AST (5-31) U/L ALT (0-31) U/L Alkaline Phosphatase (39-117) U/L Total Creatine Kinase (26-140) U/L Troponin I High Sens (<3.5-17.0) ng/L Total Protein (6.5-8.0) g/dL Albumin (3.5-5.0) g/dL Lipase (8-78) U/L Beta-Hydroxybutyrate (0.02-0.27) mmol/L Ethyl Alcohol mg/dL 03/20/23 03/20/23 03/20/23 Range/Units 05:33 05:34 05:38 WBC 9.2 (4.8-10.8) X10*3/uL RBC 2.84 L (4.20-5.50) X10*6/uL Hgb 9.5 L (12.0-16.0) g/dl Hct 30.5 L (37.0-47.0) % MCV 107.4 H (80.0-98.0) fL MCH 33.5 H (27.0-33.0) pg MCHC 31.1 (31.0-35.0) g/dl RDW 16.9 H (11.0-16.0) % Plt Count 129 L D (160-400) X10*3/uL MPV 11.0 (9.4-12.3) fL Immature Gran % (Auto) 1.0 H (0.0-0.4) % Neut % (Auto) 79.8 H (45-73) % Lymph % (Auto) 11.9 L (20-40) % [place] % (Auto) 6.1 (2-11) % Eos % (Auto) 0.7 (0-4) % Baso % (Auto) 0.5 (0-2) % Lymph # (Auto) 1.1 L (1.2-4.9) X10*3/uL [place] # (Auto) 0.6 (0.1-1.2) X10*3/uL Eos # (Auto) 0.1 (0.0-0.4) X10*3/uL Baso # (Auto) 0.1 (0.0-0.2) X10*3/uL Abs Immat Gran (auto) 0.09 H (0.00-0.03) X10*3/uL Absolute Neuts (auto) 7.3 (2.0-8.3) x10*3/uL Absolute Nucleated RBC 0.000 (0.0-0.012) X10*3/uL Nucleated RBC % (auto) 0.0 (0.0-0.2) /100WBC VBG pH 7.28 L (7.32-7.43) VBG pCO2 40 mmHg VBG pO2 40 mmHg VBG HCO3 19 L (22-26) mmol/L VBG O2 Saturation 48.0 % VBG Base Excess -6.8 mmol/L Sodium 129 L (135-145) mmol/L Potassium 4.7 (3.3-5.1) mmol/L Chloride 98 (96-108) mmol/L Carbon Dioxide 15 L (22-29) mmol/L Anion Gap 21 H (12-20) BUN 7 L (9-16) mg/dL Creatinine 1.92 H (0.5-1.4) mg/dL Estim Creat Clear Calc 181.6 Estimated GFR 26 POC Glucose (60-115) mg/dL Random Glucose 772 H* (60-115) mg/dL Lactic Acid (0.5-2.0) mmol/L Calcium 9.3 (8.4-10.2) mg/dL Magnesium 2.1 (1.6-2.6) mg/dL Total Bilirubin 1.4 H (0.0-1.0) mg/dL Direct Bilirubin 0.5 (0.0-0.5) mg/dL AST 91 H (5-31) U/L ALT 32 H (0-31) U/L Alkaline Phosphatase 380 H (39-117) U/L Total Creatine Kinase 48 (26-140) U/L Troponin I High Sens < 2.7 (<3.5-17.0) ng/L Total Protein 7.2 (6.5-8.0) g/dL Albumin 2.4 L (3.5-5.0) g/dL Lipase 106 H (8-78) U/L Beta-Hydroxybutyrate 0.19 (0.02-0.27) mmol/L Ethyl Alcohol 192 mg/dL Independent Interpretation I performed an independent interpretation of an: EKG, Plain X-Ray and CT Scan Interpretation: Rate: 106 Rhythm: sinus tachycardia Odin: noraml Normal P waves. Normal GODWIN. Normal QRS complex. JOHNATHAN II, no ST depressions no reciprocal changes ST T wave : q waves III, qTC: normal prior studies: no change from 2021 The study has been interpreted contemporaneously by me. . Radiology Impression Discussion of test interpretation with radiology: I have reviewed the radiologist's reading. Independent Historian Clinical information obtained from an independent historian. History obtained from or confirmed by: EMS External Record Review External record reviewed: Inpatient record Chronic Conditions Patient?s care impacted by: Diabetes Social Determinants Patient?s care significantly limited by Social Determinants of Health including: Problems related to primary support group and Other Social Determinant of Health Discharge Plan Discharge Clinical Impression: MARCEL (acute kidney injury), Acute hyperglycemia, Acidosis, lactic, Elevated LFTs, Alcohol abuse Patient Disposition: Still a Patient Prescriptions: No Action letrozole 2.5 mg Tablet 2.5 mg PO DAILY Qty: 90 1RF losartan 50 mg tablet 50 mg PO DAILY albuterol sulfate 2.5 mg /3 mL (0.083 %) solution for nebulization 2.5 mg inhalation Q4H PRN (Reason: Shortness Of Breath Or Wheezing) venlafaxine 150 mg capsule,extended release 24hr 150 mg PO DAILY thiamine HCl (vitamin B1) 100 mg tablet 100 mg PO DAILY cyanocobalamin (vitamin B-12) 500 mcg tablet 500 mcg PO DAILY omeprazole 20 mg capsule,delayed release(DR/EC) 20 mg PO DAILY@0630 folic acid 1 mg tablet 1 mg PO DAILY fluticasone propionate [Flovent HFA] 220 mcg/actuation HFA aerosol inhaler 2 puff inhalation BID loratadine 10 mg tablet 10 mg PO DAILY metformin 750 mg tablet extended release 24 hr 750 mg PO BID calcium carbonate-vitamin D3 600 mg-10 mcg (400 unit) tablet 1 tab PO BID Slow-Mag 71.5 mg tablet,delayed release (DR/EC) 71.5 mg PO DAILY Eliquis 2.5 mg tablet 2.5 mg PO BID Incruse Ellipta 62.5 mcg/actuation blister with device 1 inh inhalation DAILY albuterol sulfate [Ventolin HFA] 90 mcg/actuation HFA aerosol inhaler 2 puff INHALATION Q4H PRN (Reason: dyspnea) loperamide [Imodium A-D] 2 mg Capsule 2 mg PO Q6H PRN (Reason: Diarrhea) azithromycin 500 mg Tablet 500 mg PO Q24H Qty: 5 0RF cefuroxime axetil 500 mg tablet 500 mg PO BID Qty: 10 0RF prednisone 20 mg tablet 40 mg PO DAILY Qty: 10 0RF oxycodone 5 mg Tablet 5 mg PO Q6H PRN (Reason: moderate pain) Qty: 10 0RF Rx Instructions: Partial Fill upon patient request.
[2023-03-20 05:39] LABS: MANUAL DIFF FLAG NO
[2023-03-20 05:40] LABS: Basophils Absolute Auto 0.1 X10*3/uL (0.0-0.2); Basophils Percent Auto 0.5 % (0-2); Eosinophils Absolute Auto 0.1 X10*3/uL (0.0-0.4); Eosinophils Percent Auto 0.7 % (0-4); Hematocrit 30.5 % (37.0-47.0); Hemoglobin 9.5 g/dl (12.0-16.0); Imm Gran Abs Auto 0.09 X10*3/uL (0.00-0.03); Lymphocytes Absolute Auto 1.1 X10*3/uL (1.2-4.9); Lymphocytes Percent Auto 11.9 % (20-40); Mean Corpuscular HGB Conc 31.1 g/dl (31.0-35.0); Mean Corpuscular Hemoglobin 33.5 pg (27.0-33.0); Mean Corpuscular Volume 107.4 fL (80.0-98.0); Monocytes Absolute Auto 0.6 X10*3/uL (0.1-1.2); Monocytes Percent Auto 6.1 % (2-11); Neutrophils Absolute Auto 7.3 x10*3/uL (2.0-8.3); Neutrophils Percent Auto 79.8 % (45-73); Platelet Count 129 X10*3/uL (160-400); Red Blood Count 2.84 X10*6/uL (4.20-5.50); Red Cell Distribution Width 16.9 % (11.0-16.0); White Blood Count 9.2 X10*3/uL (4.8-10.8)
[2023-03-20] MEDS: 0.9 % Sodium Chloride 1,000 ML 999 ML IVCONT (05:40)
--- NOTE | 2023-03-20 05:45 | PC.NURSE ---
Addendum entered by Marimar Howard 03/20/23 05:49: skin tare noted on pt right forearm. Original Note: pt BIBA from home after a fall. pt a&ox3. respirations even and unlabored, pt has bilateral expiratory wheezing noted. pt reports leaning over in bed and falling over. pt denies LOC and head strike. pt reports she is on eliquis for blood thinner. pt reports non compliance with medication d/t not being able to swallow them, pt reports being a diabetic and not taking her metformin for a few days. pt reports nausea, no vomiting and no diarrhea. pt blood sugar read high in ambulance. yi at bedside discussing pt care, iv established and labs sent.
[2023-03-20 05:46] LABS: Venous Blood Gas Refer to POC result
[2023-03-20 05:48] LABS: VBG Base Excess -6.8 mmol/L; VBG HCO3 19 mmol/L (22-26); VBG pCO2 40 mmHg; VBG pH 7.28 (7.32-7.43); VBG pO2 40 mmHg
--- NOTE | 2023-03-20 05:49 | PC.NURSE ---
pt reports at this time she has bed bugs, contact precautions in place for pt.
[2023-03-20 05:50] LABS: Ethanol 192 mg/dL
[2023-03-20 05:52] LABS: Lactic Acid 7.9 mmol/L (0.5-2.0)
[2023-03-20 05:57] LABS: Anion Gap 21 (12-20); Carbon Dioxide 15 mmol/L (22-29); Chloride 98 mmol/L (96-108); Potassium 4.7 mmol/L (3.3-5.1); Sodium 129 mmol/L (135-145)
--- NOTE | 2023-03-20 05:57 | PC.NURSE ---
pt slipped next to bedside commode, no head strike, denies pain at this time. provider aware.
[2023-03-20 05:58] LABS: Alanine Aminotransferase 32 U/L (0-31); Albumin Level 2.4 g/dL (3.5-5.0); Alkaline Phosphatase 380 U/L (39-117); Aspartate Amino Transferase 91 U/L (5-31); Beta-Hydroxybutyrate 0.19 mmol/L (0.02-0.27); Bilirubin Direct 0.5 mg/dL (0.0-0.5); Bilirubin Total 1.4 mg/dL (0.0-1.0); Blood Urea Nitrogen 7 mg/dL (9-16); Calcium 9.3 mg/dL (8.4-10.2); Creatinine Clr Calc Pharmacy 181.6; Estimated Glomerular Filt Rate 26; Lipase 106 U/L (8-78); Magnesium 2.1 mg/dL (1.6-2.6); Total Protein 7.2 g/dL (6.5-8.0)
[2023-03-20 06:00] LABS: Troponin-I High Sensitivity < 2.7 ng/L (<3.5-17.0)
[2023-03-20 06:03] LABS: Glucose Random 772 mg/dL (60-115)
[2023-03-20] MEDS: Insulin Regular, Human 100 UNIT/ML 3 ML VIAL 10 UNIT IVPUSH (06:06)
[2023-03-20 06:09] LABS: Glucose, Whole Blood > 600 mg/dL (60-115)
[2023-03-20 06:10] LABS: Glucose, Whole Blood > 600 mg/dL (60-115)
--- NOTE | 2023-03-20 06:11 | PC.NURSE ---
delay in hanging 500ml bag of NS, per verbal provider order.
[2023-03-20 06:44] LABS: Glucose, Whole Blood > 600 mg/dL (60-115)
[2023-03-20 07:08] LABS: Glucose, Whole Blood 536 mg/dL (60-115)
[2023-03-20] MEDS: Insulin Regular/NS 100 UNIT/100 ML PLAST..BAG 8 UNIT IVCONT (07:13)
[2023-03-20] MEDS: 0.9 % Sodium Chloride 500 ML IV (07:19)
--- NOTE | 2023-03-20 07:20 | PC.NURSE ---
pt is alert and oriented, skin pwd, respirations even and unlabored, pt denies pain at this time, pt's insulin drip up and running at 8unites, pt has not been med complaint at home because pt reports having difficulty at home swallowing large pills like her metformin, states it gets stuck in her throat. pt is also a daily alcohol drinker, reports that she does not typically go into alcohol withdrawals. sinus tach on the monitor about 100-110.
[2023-03-20 07:39] LABS: Reflex Lactate? Lactic Acid Added
[2023-03-20 08:20] LABS: Glucose, Whole Blood 469 mg/dL (60-115)
[2023-03-20 08:24] LABS: ~Lactic Acid-LAB USE ONLY 6.2 mmol/L (0.5-2.0)
--- NOTE | 2023-03-20 08:25 | PC.NURSE ---
pt oxygen level is dropping slighly when sleeping, pt sounds junky with an intermittent cough. pt does have copd hx
[2023-03-20] MEDS: Lactated Ringers 1,000 ML 999 ML IV (09:09)
[2023-03-20 09:18] LABS: Glucose, Whole Blood 390 mg/dL (60-115)
[2023-03-20 09:21] LABS: Appearance Urine Cloudy; Color Urine Yellow; Glucose Urine UA >=1000 mg/dL (Negative); Leukocyte Esterase Urine Negative (Negative); Nitrite Urine Negative (Negative); PH 5.5 (5.0-9.0); Specific Gravity - Urine 1.025 (1.005-1.025); UMIC TRIGGER UACC YES; Urine Blood Small (1+) (Negative); Urine Ketones Negative (Negative); Urine Protein Trace mg/dL (Neg-Trace)
[2023-03-20 09:30] LABS: Bacteria Urine 4+ (None Seen); RBC Urine 0-2 /HPF (0-2); UACC Culture Trigger YES
[2023-03-20 09:56] LABS: Reflex Lactate? 2 Y
[2023-03-20 10:13] LABS: Glucose, Whole Blood 275 mg/dL (60-115)
--- NOTE | 2023-03-20 10:26 | PC.NURSE ---
Notifid Dr. Chatman of POC 275. Per MD, insulin drip stopped at this time. Repeat labs drawn and sent. Plan, per MD is to admit patient to medical floor. Primary RN Ibeth awar of plan as well.
[2023-03-20 10:27] LABS: Venous Blood Gas Refer to POC result
[2023-03-20 10:27] LABS: VBG Base Excess -4.5 mmol/L; VBG HCO3 19 mmol/L (22-26); VBG pCO2 32 mmHg; VBG pH 7.38 (7.32-7.43); VBG pO2 118 mmHg
[2023-03-20 10:40] LABS: Anion Gap 13 (12-20); Blood Urea Nitrogen 7 mg/dL (9-16); Carbon Dioxide 18 mmol/L (22-29); Chloride 108 mmol/L (96-108); Creatinine Clr Calc Pharmacy 264.3; Estimated Glomerular Filt Rate 41; Glucose Random 293 mg/dL (60-115); Potassium 3.2 mmol/L (3.3-5.1); Sodium 136 mmol/L (135-145); ~Lactic Acid-LAB USE ONLY 4.2 mmol/L (0.5-2.0)
[2023-03-20 11:16] LABS: Glucose, Whole Blood 234 mg/dL (60-115)
--- NOTE | 2023-03-20 12:53 | PHA.MEDREC ---
Pharmacy Consult ? Medication Reconciliation Pharmacy has completed the medication reconciliation. PT IS [facility] PT FROM [facility] WITH STRONG HISTORY OF NON ADHERANCE (STATES SHE DOESN'T TAKE HER MEDICATIONS BECAUSE THEY GET STUCK IN HER THROAT BUT SHE SAYS SHE TAKES HER ELIQUIS DAILY DIRECTED). MED REC DONE USING CLAIM HISTORY FROM PHARMACY.
--- NOTE | 2023-03-20 13:07 | P.HPHOSP_ITS ---
History of Present Illness Date of Service: 03/20/23 Attending physician on admission: Kiko Escalante Chief Complaint: fall out of bed 62-year-old female history of COPD, hypertension, ETOH use disorder, diabetes, DVT on Eliquis, breast cancer on letrozole, aspiration pneumonia who presented to the ED early this morning after a fall out of bed. She reports she rolled over to reach something on her nightstand and rolled out of bed landing on her front but denies any head strike or loss of consciousness. The patient reports for the last 2 years or so she has been very weak, depressed and spends most of her time in bed since her . She has not been eating much, reports eating about every other day but states he drinks a lot of water due to polydipsia and also endorses polyuria. She reports she drinks about a half glass (around 8 oz) coffee kole on a daily basis, last consumed just before EMS arrival this morning. Denies history of withdrawal/withdrawal seizure. Currently denies any fevers, chills, abdominal pain, nausea, vomiting, dysuria, hematuria, headaches, lightheadedness, tremors, lightheadedness, confusion, shortness of breath, or chest pain. She does endorse a chronic cough likely related to her COPD that has not changed in quality or severity. She was treated with 1.5 L IV NS, placed on insulin drip On arrival, patient tachycardic to 110, blood pressure soft but no hypotension. On admission, blood pressure 95/49, vitals otherwise stable. There is no leukocytosis, stable macrocytic anemia with H/H 9.5/30.5%, MCV 107.4. Initial chemistries revealed random glucose of 772. Creatinine 1.92, BUN 7, sodium 129, CO2 15, anion gap 21. Initial lactic acid 7.9. VBG showed pH 7.28, pCO2 40, bicarb 19. Patient given 10 units regular insulin with POC still reading >600. She was treated with 1.5 L IV NS, placed on insulin drip. Glucose levels followed q.1h and patient weaned from insulin drip maintaining glucose levels 234-275. Repeat chemistries revealed improvement in creatinine to 1.3 to (baseline around 0.9), BUN 7, sodium 136, potassium 3.2, CO2 18, random glucose 293. Repeat lactic acid improved to 4.2. Urinalysis with 1+ blood, significant glucose, trace protein. Head CT negative for any acute intracranial abnormality but does show deep white matter and periventricular hypoattenuation, likely sequela of chronic microvascular angiopathy ischemia. CT cervical spine negative for any evidence of fracture but does show degenerative disc disease at multiple levels. CXR negative for any acute cardiopulmonary findings. Patient to be admitted for further management of HHS and starvation ketoacidosis. Review of Systems 2 Review of Systems: General: No fevers, malaise, unintentional weight loss HEENT: No blurred vision, diplopia. No sore throat, nasal congestion, rhinorrhea, sinus pain, ear pain Cardiovascular: No chest pain, palpitations, or leg edema Respiratory: No shortness of breath, wheezing, cough GI: No abdominal pain, nausea, vomiting, diarrhea, constipation, melena, hematochezia : No dysuria, hematuria, increased urinary frequency, decreased urinary output MSK: No myalgia, back pain Neuro: No headaches, weakness, paresthesias Skin: No rashes or lesions [facility] Medical History Depression Aspiration pneumonia Anemia Right leg DVT Breast cancer, right breast Alcohol abuse COPD (chronic obstructive pulmonary disease) Diabetes HTN (hypertension) Surgical History History of cholecystectomy History of delivery History of ventral hernia repair Social History Household Members: Family Housing: Apartment Do you presently have visiting nurse or other home services: No Alcohol intake: current Alcohol intake frequency: 0-2 drinks per day Alcohol type: hard liquor Patient Tobacco Use Status: Current everyday Tobacco user Tobacco use type: Cigarette Cigarette Packs Per Day: 1 Cigarettes Per Day: 20.0 Smoked in Last 30 Days: Yes Second Hand Smoke Exposure: Yes Use of substances other than those prescribed or required for medical reasons: No Substance Use Type: Marijuana Advance Directives: No Advance Directives Information Provided: Yes service: No Meds Allergies Allergy/AdvReac Type Severity Reaction Status Date / Time Sulfa (Sulfonamide Allergy Severe ANAPHYLAXIS Verified 03/20/23 05:17 Antibiotics) [SULFA (SULFONAMIDE ANTIBIOTICS)] mitch seed [MITCH SEED] Allergy Intermediate HIVES/NAUSE Verified 03/20/23 05:17 A Active Medications: Current Medications Acetaminophen (Acetaminophen 325 Mg Tablet) 650 mg PO Q6H PRN PRN Reason: Pain, Mild (Pain Scale 1-3) Albuterol Sulfate (Albuterol Sulfate (0.083%) 2.5 Mg/3 Ml Vial.Neb) 2.5 mg INHALE Q4H PRN PRN Reason: Shortness Of Breath Or Wheezing Albuterol Sulfate (Albuterol Sulfate 90 Mcg 8 Gm Inhaler) 2 puff INHALE Q4H PRN PRN Reason: dyspnea Apixaban (Apixaban 2.5 Mg Tablet) 2.5 mg PO BID [facility] Atorvastatin Calcium (Atorvastatin Calcium 20 Mg Tablet) 20 mg PO DAILY [facility] Cyanocobalamin (Cyanocobalamin (Vitamin B-12) 500 Mcg Tablet) 500 mcg PO DAILY [facility] Dextrose (Dextrose 50 % 25 Gm/50 Ml Syringe) 25 gm IVPUSH Q15M PRN; Protocol PRN Reason: per Hypoglycemia Standing Ord. Docusate Sodium (Docusate Sodium 100 Mg Capsule) 100 mg PO DAILY PRN PRN Reason: Constipation Docusate Sodium (Docusate Sodium 100 Mg Capsule) 100 mg PO BID PRN PRN Reason: constipation Famotidine (Famotidine 20 Mg Tablet) 20 mg PO BID@0630,1630 [facility] Fluticasone Propionate (Fluticasone Propionate Nasal 16 Gm [place]) 1 spray NOSTRIL-B DAILY [facility] Folic Acid (Folic Acid 1 Mg Tablet) 1 mg PO DAILY [facility] Glucose (Glucose Gel 15 Gm Gel..Gram.) 15 gm PO Q15M PRN; Protocol PRN Reason: per Hypoglycemia Standing Ord. Lactated Ringer's (Lr) 1,000 mls @ 100 mls/hr IVCONT .Q10H [facility] Insulin Human Lispro (Insulin Lispro 100 Unit/Ml 3 Ml Vial) 0 unit SUBCUT QIDACHS [facility]; Protocol Letrozole (Letrozole 2.5 Mg Tablet) 2.5 mg PO DAILY [facility] Loratadine (Loratadine 10 Mg Tablet) 10 mg PO DAILY [facility] Non-Formulary Medication (Magnesium Chloride [Slow-Mag]) 71.5 mg PO DAILY [facility] Non-Formulary Medication (Magnesium Chloride [Slow-Mag]) 71.5 mg PO DAILY [facility] Non-Formulary Medication (Umeclidinium [Incruse Ellipta]) 1 inhalation INHALE DAILY [facility] Non-Formulary Medication (Calcium Carbonate-Vitamin D3) 1 tab PO BID [facility] Non-Formulary Medication (Ferrous Sulfate) 325 mg PO DAILY [facility] Non-Formulary Medication (Fluticasone Propion-Salmeterol [Advair Hfa]) 2 puff INHALE BID [facility] Omeprazole (Omeprazole 20 Mg Capsule.Dr) 20 mg PO DAILY@0630 [facility] Ondansetron HCl (Ondansetron Hcl 4 Mg/2 Ml Vial) 4 mg IVPUSH Q8H PRN PRN Reason: Nausea and Vomiting Sodium Chloride (0.9 % Sodium Chloride Flush 3 Ml Syringe) 3 ml IVFLUSH QSHIFT [facility] Thiamine HCl (Thiamine Hcl 100 Mg Tablet) 100 mg PO DAILY [facility] Venlafaxine HCl (Venlafaxine Hcl Er 150 Mg Cap.Er.24h) 150 mg PO DAILY [facility] Home Medications Medication Instructions Recorded Confirmed Last Taken Type albuterol sulfate 2.5 mg/3 mL 2.5 mg inhalation Q4H PRN 12/07/22 03/20/23 Unknown History (0.083 %) solution for nebulization Shortness Of Breath Or Wheezing albuterol sulfate 90 mcg/actuation 2 puff inhalation Q4H PRN dyspnea 12/07/22 03/20/23 Unknown History aerosol inhaler (Ventolin HFA) apixaban 2.5 mg tablet (Eliquis) 2.5 mg PO BID 12/07/22 03/20/23 12/06/22 History calcium carbonate 600 mg-vitamin 1 tab PO BID 12/07/22 03/20/23 12/06/22 History D3 10 mcg (400 unit) tablet cyanocobalamin (vitamin B-12) 500 500 mcg PO DAILY 12/07/22 03/20/23 12/06/22 History mcg tablet folic acid 1 mg tablet 1 mg PO DAILY 12/07/22 03/20/23 12/06/22 History loratadine 10 mg tablet 10 mg PO DAILY 12/07/22 03/20/23 12/06/22 History losartan 50 mg tablet 50 mg PO DAILY 12/07/22 03/20/23 12/06/22 History magnesium chloride 71.5 mg 71.5 mg PO DAILY 12/07/22 03/20/23 12/06/22 History (magnesium chloride) tablet,delayed release (Slow-Mag) metformin 750 mg tablet,extended 750 mg PO BID 12/07/22 03/20/23 12/06/22 History release 24 hr omeprazole 20 mg capsule,delayed 20 mg PO DAILY@0630 12/07/22 03/20/23 12/06/22 History release thiamine HCl (vitamin B1) 100 mg 100 mg PO DAILY 12/07/22 03/20/23 12/06/22 History tablet umeclidinium 62.5 mcg/actuation 1 inh inhalation DAILY 12/07/22 03/20/23 12/06/22 History blister powder for inhalation (Incruse Ellipta) venlafaxine 150 mg 150 mg PO DAILY 12/07/22 03/20/23 12/06/22 History capsule,extended release 24 hr atorvastatin 20 mg tablet 20 mg PO DAILY 03/20/23 03/20/23 Unknown History docusate sodium 100 mg capsule 100 mg PO BID PRN constipation 03/20/23 03/20/23 Unknown History famotidine 20 mg tablet 20 mg PO BID@0630,1630 03/20/23 03/20/23 Unknown History ferrous sulfate 325 mg (65 mg 325 mg PO DAILY 03/20/23 03/20/23 Unknown History iron) tablet,delayed release fluticasone propionate 230 2 puff inhalation BID 03/20/23 03/20/23 Unknown History mcg-salmeterol 21 mcg/actuation HFA inhaler (Advair HFA) fluticasone propionate 50 1 spray intranasal DAILY 03/20/23 03/20/23 Unknown History mcg/actuation nasal spray,suspension Physical Exam 2 Vital Signs and Narrative: Vital Signs: Last Vital Signs Temp 97.8 F 03/20/23 13:03 Pulse 115 H 03/20/23 13:03 Resp 18 03/20/23 13:03 BP 95/49 L 03/20/23 13:03 Pulse Ox 96 03/20/23 13:03 O2 Del Method Room Air 03/20/23 13:03 BMI result Body Mass Index 37.3 Constitutional - Awake and Alert, No apparent distress Eyes - PERRLA, EOMI Cardiovascular - S1S2, RRR, No edema Respiratory - Normal lung expansion, Normal respiratory effort, No respiratory distress, CTA bilaterally Gastrointestinal - NT / ND; +BS; No rebound or guarding Extremities - no calf tenderness bilaterally, no swelling Skin - Warm/Dry Neurological - Alert & oriented x3 Psychological - Appropriate affect Results Labs 03/20/23 05:33 03/20/23 10:17 Labs: Laboratory Results - last 24 hr 03/20/23 03/20/23 03/20/23 05:11 05:14 05:32 MCV MCH MCHC RDW Plt Count MPV Immature Gran % (Auto) Neut % (Auto) Lymph % (Auto) [place] % (Auto) Eos % (Auto) Baso % (Auto) Lymph # (Auto) [place] # (Auto) Eos # (Auto) Baso # (Auto) Abs Immat Gran (auto) Absolute Neuts (auto) Absolute Nucleated RBC Nucleated RBC % (auto) VBG pH VBG pCO2 VBG pO2 VBG HCO3 VBG O2 Saturation VBG Base Excess Anion Gap Estim Creat Clear Calc Estimated GFR POC Glucose > 600 H* > 600 H* Random Glucose Lactic Acid 7.9 H* Lactic Acid F/U @ 2Hr Lactic Acid F/U @ 4Hr Calcium Magnesium Total Bilirubin Direct Bilirubin AST ALT Alkaline Phosphatase Total Creatine Kinase Total Protein Albumin Lipase Beta-Hydroxybutyrate Urine Color Urine Appearance Urine pH Ur Specific [place] Urine Protein Urine Glucose (UA) Urine Ketones Urine Blood Urine Nitrite Ur Leukocyte Esterase Urine RBC Urine WBC Ur Squamous Epith Cells Urine Bacteria Hyaline Casts Ethyl Alcohol 03/20/23 03/20/23 03/20/23 05:33 05:34 05:38 MCV 107.4 H MCH 33.5 H MCHC 31.1 RDW 16.9 H Plt Count 129 L D MPV 11.0 Immature Gran % (Auto) 1.0 H Neut % (Auto) 79.8 H Lymph % (Auto) 11.9 L [place] % (Auto) 6.1 Eos % (Auto) 0.7 Baso % (Auto) 0.5 Lymph # (Auto) 1.1 L [place] # (Auto) 0.6 Eos # (Auto) 0.1 Baso # (Auto) 0.1 Abs Immat Gran (auto) 0.09 H Absolute Neuts (auto) 7.3 Absolute Nucleated RBC 0.000 Nucleated RBC % (auto) 0.0 VBG pH 7.28 L VBG pCO2 40 VBG pO2 40 VBG HCO3 19 L VBG O2 Saturation 48.0 VBG Base Excess -6.8 Anion Gap 21 H Estim Creat Clear Calc 181.6 Estimated GFR 26 POC Glucose Random Glucose 772 H* Lactic Acid Lactic Acid F/U @ 2Hr Lactic Acid F/U @ 4Hr Calcium 9.3 Magnesium 2.1 Total Bilirubin 1.4 H Direct Bilirubin 0.5 AST 91 H ALT 32 H Alkaline Phosphatase 380 H Total Creatine Kinase 48 Total Protein 7.2 Albumin 2.4 L Lipase 106 H Beta-Hydroxybutyrate 0.19 Urine Color Urine Appearance Urine pH Ur Specific [place] Urine Protein Urine Glucose (UA) Urine Ketones Urine Blood Urine Nitrite Ur Leukocyte Esterase Urine RBC Urine WBC Ur Squamous Epith Cells Urine Bacteria Hyaline Casts Ethyl Alcohol 192 03/20/23 03/20/23 03/20/23 06:40 07:06 07:53 MCV MCH MCHC RDW Plt Count MPV Immature Gran % (Auto) Neut % (Auto) Lymph % (Auto) [place] % (Auto) Eos % (Auto) Baso % (Auto) Lymph # (Auto) [place] # (Auto) Eos # (Auto) Baso # (Auto) Abs Immat Gran (auto) Absolute Neuts (auto) Absolute Nucleated RBC Nucleated RBC % (auto) VBG pH VBG pCO2 VBG pO2 VBG HCO3 VBG O2 Saturation VBG Base Excess Anion Gap Estim Creat Clear Calc Estimated GFR POC Glucose > 600 H* 536 H* Random Glucose Lactic Acid Lactic Acid F/U @ 2Hr 6.2 H* Lactic Acid F/U @ 4Hr Calcium Magnesium Total Bilirubin Direct Bilirubin AST ALT Alkaline Phosphatase Total Creatine Kinase Total Protein Albumin Lipase Beta-Hydroxybutyrate Urine Color Urine Appearance Urine pH Ur Specific [place] Urine Protein Urine Glucose (UA) Urine Ketones Urine Blood Urine Nitrite Ur Leukocyte Esterase Urine RBC Urine WBC Ur Squamous Epith Cells Urine Bacteria Hyaline Casts Ethyl Alcohol 03/20/23 03/20/23 03/20/23 08:17 09:13 09:15 MCV MCH MCHC RDW Plt Count MPV Immature Gran % (Auto) Neut % (Auto) Lymph % (Auto) [place] % (Auto) Eos % (Auto) Baso % (Auto) Lymph # (Auto) [place] # (Auto) Eos # (Auto) Baso # (Auto) Abs Immat Gran (auto) Absolute Neuts (auto) Absolute Nucleated RBC Nucleated RBC % (auto) VBG pH VBG pCO2 VBG pO2 VBG HCO3 VBG O2 Saturation VBG Base Excess Anion Gap Estim Creat Clear Calc Estimated GFR POC Glucose 469 H* 390 H* Random Glucose Lactic Acid Lactic Acid F/U @ 2Hr Lactic Acid F/U @ 4Hr Calcium Magnesium Total Bilirubin Direct Bilirubin AST ALT Alkaline Phosphatase Total Creatine Kinase Total Protein Albumin Lipase Beta-Hydroxybutyrate Urine Color Yellow Urine Appearance Cloudy Urine pH 5.5 Ur Specific [place] 1.025 Urine Protein Trace Urine Glucose (UA) >=1000 H Urine Ketones Negative Urine Blood Small (1+) H Urine Nitrite Negative Ur Leukocyte Esterase Negative Urine RBC 0-2 Urine WBC 6-10 H Ur Squamous Epith Cells 6-10 Urine Bacteria 4+ Hyaline Casts 3-5 Ethyl Alcohol 03/20/23 03/20/23 03/20/23 10:10 10: 10:21 MCV MCH MCHC RDW Plt Count MPV Immature Gran % (Auto) Neut % (Auto) Lymph % (Auto) [place] % (Auto) Eos % (Auto) Baso % (Auto) Lymph # (Auto) [place] # (Auto) Eos # (Auto) Baso # (Auto) Abs Immat Gran (auto) Absolute Neuts (auto) Absolute Nucleated RBC Nucleated RBC % (auto) VBG pH 7.38 VBG pCO2 32 VBG pO2 118 VBG HCO3 19 L VBG O2 Saturation 99.0 VBG Base Excess -4.5 Anion Gap 13 Estim Creat Clear Calc 264.3 Estimated GFR 41 POC Glucose 275 H Random Glucose 293 H Lactic Acid Lactic Acid F/U @ 2Hr Lactic Acid F/U @ 4Hr 4.2 H* Calcium 9.0 Magnesium Total Bilirubin Direct Bilirubin AST ALT Alkaline Phosphatase Total Creatine Kinase Total Protein Albumin Lipase Beta-Hydroxybutyrate Urine Color Urine Appearance Urine pH Ur Specific [place] Urine Protein Urine Glucose (UA) Urine Ketones Urine Blood Urine Nitrite Ur Leukocyte Esterase Urine RBC Urine WBC Ur Squamous Epith Cells Urine Bacteria Hyaline Casts Ethyl Alcohol 03/20/23 11:13 MCV MCH MCHC RDW Plt Count MPV Immature Gran % (Auto) Neut % (Auto) Lymph % (Auto) [place] % (Auto) Eos % (Auto) Baso % (Auto) Lymph # (Auto) [place] # (Auto) Eos # (Auto) Baso # (Auto) Abs Immat Gran (auto) Absolute Neuts (auto) Absolute Nucleated RBC Nucleated RBC % (auto) VBG pH VBG pCO2 VBG pO2 VBG HCO3 VBG O2 Saturation VBG Base Excess Anion Gap Estim Creat Clear Calc Estimated GFR POC Glucose 234 H Random Glucose Lactic Acid Lactic Acid F/U @ 2Hr Lactic Acid F/U @ 4Hr Calcium Magnesium Total Bilirubin Direct Bilirubin AST ALT Alkaline Phosphatase Total Creatine Kinase Total Protein Albumin Lipase Beta-Hydroxybutyrate Urine Color Urine Appearance Urine pH Ur Specific [place] Urine Protein Urine Glucose (UA) Urine Ketones Urine Blood Urine Nitrite Ur Leukocyte Esterase Urine RBC Urine WBC Ur Squamous Epith Cells Urine Bacteria Hyaline Casts Ethyl Alcohol Imaging Radiologist's Impressions: Impressions Cervical Spine CT 03/20/23 06:35 IMPRESSION: Exam limited by motion artifacts. * No CT evidence of cervical spine fracture. * Loss of disc height and developed osteophyte from the edges of endplates suggest degenerative disc disease at C5-C6, C6-C7. * No significant osseous stenosis of central canal or neural foramen. Head CT 03/20/23 06:35 IMPRESSION: * Deep white matter and periventricular hypoattenuation, nonspecific; most likely sequela of chronic microvascular angiopathy ischemia. * No intracranial bleed. Chest X-Ray 03/20/23 06:37 IMPRESSION: No acute cardiopulmonary findings. Assessment and Plan (1) Alcoholic ketoacidosis: Status: Acute (2) Acidosis, lactic: Status: Acute (3) Alcohol abuse: Status: Acute (4) MARCEL (acute kidney injury): Status: Acute (5) Depression: Status: Acute (6) Acute hyperglycemia: Status: Acute Plan 62-year-old female history of COPD, hypertension, ETOH use disorder, diabetes, DVT on Eliquis, breast cancer on letrozole, aspiration pneumonia admitted for HHS and Alcoholic ketoacidosis. #Type 2 diabetes with acute hyperglycemia-likely hyperosmolar hyperglycemic state -random glucose on arrival 772, noncompliant with metformin -Acidosis more likely r/t starvation vs alcoholic ketoacidosis rather than DKA. Beta hydroxybutyrate WNL -Weaned from insulin drip -Continue IVF with LR@ 100ml/hr -Hgb A1c 11.4% -POC glucose -HUmalog on sliding scale -initiate Lantus 10 units -diabetic diet #Alcoholic vs starvation ketoacidosis -VBG with pH 7.28, bicarb nineteen. 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 -smoking cessation # hypertension -blood pressure soft, hold antihypertensives -continue IVF, give albumin x2 #Chronic macrocytic anemia -vitamin b12 and folic acid levels pending -continue thiamine, folic acid #Moderate malnutrition -add glucerna x2 -nutrition to follow #h/o breast cancer -continue letrozole # history RLE DVT -R/T malignancy -continue Eliquis DVT prophylaxis-on Eliquis Full code Patient requires inpatient stay at least 2 midnights for management of HHS and alcoholic ketoacidosis with MARCEL requiring close monitoring glucose levels, aggressive IV fluid resuscitation, and close monitoring of renal function and electrolyte levels Time Spent With Patient Time: Total time managing care of this patient today ____ minutes. Quality Stroke Does the patient have a stroke diagnosis?: No VTE Prior VTE?: Yes VTE Risk Level:: Medical - moderate - high VTE Device Contraindication: Treatment Not Indicated VTE Drug Contraindication: N/A - Med Ordered
[2023-03-20 13:33] LABS: Estimated Average Glucose 289 mg/dL; Hemoglobin A1c % 11.7 % (<6.0)
[2023-03-20] MEDS: ondansetron HCL 4 MG/2 ML VIAL IVPUSH (13:42)
[2023-03-20] MEDS: Albumin Human 25 % 100 ML IV ×2 (13:42→14:58)
[2023-03-20] MEDS: Potassium Chloride Packet 20 MEQ PACKET 40 MEQ PO (13:42)
[2023-03-20] MEDS: Lactated Ringers 1,000 ML 100 ML IVCONT (13:43)
[2023-03-20] MEDS: LORazepam 2 MG/ML VIAL 1 MG IM (14:38)
[2023-03-20 17:04] LABS: Anion Gap 16 (12-20); Blood Urea Nitrogen 6 mg/dL (9-16); Calcium 9.5 mg/dL (8.4-10.2); Carbon Dioxide 20 mmol/L (22-29); Chloride 106 mmol/L (96-108); Creatinine Clr Calc Pharmacy 43.4; Estimated Glomerular Filt Rate 40; Glucose Random 240 mg/dL (60-115); Potassium 4.2 mmol/L (3.3-5.1); Sodium 138 mmol/L (135-145)
[2023-03-20 17:17] LABS: D Dimer High Sensitivity < 150 NG/ML
--- NOTE | 2023-03-20 17:24 | MHC.SL.SWA ---
Speech Pathologist Impression: Risk of Aspiration Due to: History of Pneumonia Dysphasia Diet Status: Liquid Consistency and Strategies for Safe Swallow: Liquid Intake Recommendation: Thin Liquid Intake Strategies: Small Sips Solid Food Consistency: Dietary Recommendations: Chopped/Advanced (NDD3) Additional Modifications to Solid Foods: Add sauces and gravies. Alternate liquids and solids with small sips/bites. Patient reports hx GERD, recommend patient remain in a seated upright position for at least 1/2 hour every meal, and sleep with head of bed elevated to at least 20 degrees to prevent micro aspiration. Oral Medication Intake: Whole with Puree Please contact the pharmacy regarding appropriate crushable or liquid drug formulations that are available whenever modified delivery is recommended. Compensatory Strategies and Precautions to be Taken for Safe Swallow: Sitting Upright (90 deg) Liquids from Cup Liquids from Straw Small Bites and Sips Alternate Liquids/Solids Avoid Specific Foods Supervision While Eating and Drinking for Safe Swallow: None Needed Foods to Avoid: Acidic or spicy foods, carbonated beverages, tough difficult to chew solids, crunchy foods that break into pieces. Swallowing Recommended Treatments: Compens. Strategy Educat. Recommendation for Speech: Inpatient Speech Therapy Comment: Patient presents will most aspects of swallow WFL, though is edentulous. Patient reports episodes of choking when eating tough meats, reports she needs to cut it small. Attending SOUND TESTER reports patient is refusing larger med because she can't swallow it. Patient is likely anxious due to previous choking episodes. Recommend DOWNGRADE diet to Chopped/Advanced for ease of mastication, continue on thin liquids, pills whole with puree or crushed if patient continues to present as anxious about swallowing larger meds. FISCAL SPECIALIST will f/u X1 to check in about toleration of diet, with possible advancement if patient would prefer to choose softer, orally manageable foods from Regular Menu. KIESHA AMBROSE notified of recommendations by secure text, RN in person. Frequency/Duration: Date Range for Service Req: Timeline to reassess: Mechanical Design Engineer Products Clinican/Clinical Fellow: No Supervisory Statement: I have reviewed and agree with the student/clinical fellow's documentation: N/A Speech Language Pathologist: Bee Crisostomo M.A., [facility]-FISCAL SPECIALIST
[2023-03-20 18:43] LABS: Glucose, Whole Blood 224 mg/dL (60-115)
[2023-03-20] MEDS: Famotidine 20 MG TABLET PO (18:51)
[2023-03-20] MEDS: Insulin Lispro 100 UNIT/ML 3 ML VIAL SUBCUT ×2 (18:52→21:47)
--- NOTE | 2023-03-20 18:56 | PC.NURSE ---
pt medicated per MAR.
--- NOTE | 2023-03-20 20:13 | PC.NURSE ---
pt requested to be repositioned in bed. pt sleeping at this time respirations even and unlabored. ivf infusing. precautions in place. pt denies further questions/concerns. aware of plan of care. awaiting bed assignment. call lopez within reach.
--- NOTE | 2023-03-20 20:56 | MHC.EDTECH ---
Put patient on a bed dennison. Patient void. Wiped patient's pedi area with a bathing cloth.
[2023-03-20 21:07] LABS: Glucose, Whole Blood 250 mg/dL (60-115)
[2023-03-20] MEDS: Calcium + Vitamin D 250 MG TABLET 500 MG PO (21:44)
[2023-03-20] MEDS: Insulin Glargine,Hum.rec.anlog 100 UNIT/ML 10 ML VIAL 10 UNIT SUBCUT (21:47)
[2023-03-20] MEDS: Apixaban 2.5 MG TABLET PO (21:47)
--- NOTE | 2023-03-20 21:49 | PC.NURSE ---
pt medicated per AUG, LR running. pt pending bed assignment.
--- NOTE | 2023-03-20 22:28 | MHC.EDTECH ---
Put patient on bedpan. Bed wet with urine. Changed bed sheet and bed pad. Wiped patient clean with bathing cloth. Boost patient up in bed with the assist of another parts technician. Covered patient with a warm blanket and gave call lopez. Patient is comfortable.
[2023-03-21] MEDS: Lactated Ringers 1,000 ML 100 ML IVCONT ×2 (04:14→10:02)
[2023-03-21 06:09] LABS: MANUAL DIFF FLAG NO
[2023-03-21 06:10] LABS: Basophils Percent Auto 0.5 % (0-2); Eosinophils Absolute Auto 0.1 X10*3/uL (0.0-0.4); Eosinophils Percent Auto 1.6 % (0-4); Hematocrit 27.9 % (37.0-47.0); Imm Gran Abs Auto 0.05 X10*3/uL (0.00-0.03); Imm Gran Pct Auto 0.7 % (0.0-0.4); Lymphocytes Absolute Auto 1.3 X10*3/uL (1.2-4.9); Lymphocytes Percent Auto 16.9 % (20-40); Mean Corpuscular HGB Conc 32.3 g/dl (31.0-35.0); Mean Corpuscular Hemoglobin 33.5 pg (27.0-33.0); Mean Corpuscular Volume 103.7 fL (80.0-98.0); Mean Platelet Volume 11.5 fL (9.4-12.3); Monocytes Absolute Auto 0.5 X10*3/uL (0.1-1.2); Monocytes Percent Auto 7.3 % (2-11); Neutrophils Absolute Auto 5.4 x10*3/uL (2.0-8.3); Red Blood Count 2.69 X10*6/uL (4.20-5.50); White Blood Count 7.4 X10*3/uL (4.8-10.8)
[2023-03-21 06:27] LABS: Platelet Count 99 X10*3/uL (160-400)
[2023-03-21 06:37] LABS: Anion Gap 14 (12-20); Blood Urea Nitrogen 6 mg/dL (9-16); Calcium 9.3 mg/dL (8.4-10.2); Carbon Dioxide 20 mmol/L (22-29); Chloride 111 mmol/L (96-108); Creatinine Clr Calc Pharmacy 51.4; Estimated Glomerular Filt Rate 48; Glucose Random 212 mg/dL (60-115); Potassium 4.3 mmol/L (3.3-5.1); Sodium 141 mmol/L (135-145)
--- NOTE | 2023-03-21 07:00 | CA_ITS ---
Transthoracic Echocardiogram Patient (Last, First, Middle): Xenia Benitez J Gender: Female Date of : 1960 Age: 62 Procedure Date: 03/21/2023 Procedure Type: Transthoracic Echocardiogram Location: S3E Height: 154.94 cm Weight: 89.36 kg BSA: 1.88 m2 Heart Rate: bpm BP: 122 / 58 mmHg Skein Bander: Referring MD: Diana CAMPA Symptoms: persistent tachycardia Study Quality: Fair but adequate w Contrast ECG Rhythm: Sinus tachycardia Conclusions: - The left ventricular systolic function is hyperdynamic. The visually estimated ejection fraction is >70%. - There is moderate posterior mitral annular calcification. Findings Procedure Information Contrast agent, definity, is being given per protocol without apparent complications. Left Ventricle Normal left ventricular cavity size. There is mildly increased left ventricular wall thickness. The left ventricular systolic function is hyperdynamic. The visually estimated ejection fraction is >70%. There is no evidence of regional wall motion abnormalities. Evidence suggests grade I (mild) diastolic dysfunction. Right Ventricle Mildly increased right ventricular cavity size. There is normal right ventricular systolic function. Atria Both atria are normal in size. Aortic Valve The aortic valve structure and function is likely normal. There is no aortic valve stenosis. There is no aortic valve regurgitation. Mitral Valve There is moderate posterior mitral annular calcification. There is no mitral valve regurgitation. There is no mitral valve stenosis. Pulmonic Valve The pulmonic valve is likely normal. Tricuspid Valve There is trace tricuspid valve regurgitation. There is no evidence of pulmonary hypertension. Great Vessels The asc aorta is normal in size. Venous The inferior vena cava was not well visualized. The inferior vena cava is normal in size. Pericardium/Pleural There is no evidence of pericardial effusion. Prior Study Comparison No prior study available for comparison. Measurements 2D Linear Measurements IVSd: 1.21 0.6-0.9/0.6-1.0 cm LVIDd: 3.89 3.9-5.3/4.2-5.9 cm LVIDd Index: 2.07 2.4-3.2/2.2-3.1 cm/m2 LVIDs: 2.31 2.0-3.6 cm LVPWd: 1.23 0.7-1.1 cm Ao Root: 3.00 2.1-3.5 cm LA Diam: 3.60 2.7-3.8/3.0-4.0 cm LAIDs Index: 1.91 1.5-2.3 cm/m2 LV Mass: 202.56 67-162/88-224 g LV Mass Index: 107.75 43-95/49-115 g/m2 LVOT Diam: 2.00 3.0+(-)1.3 cm 2D Systolic Function EF 4C: 74.30 >55% EF 2C: 72.20 >55% EF BiP: 72.70 >55% Mitral Valve MV Pk E: 1.09 MV PK A: 1.27 MV Decel Time: 96.00 E/A: 0.90 E'Lateral: 8.92 E'Medial: 5.00 E/E' Med: 21.80 E/E' Lat: 12.20 PHT: 28.00 MVA PHT: 7.86 Decel [place]: 11.36 Aortic Valve AoV Pk Messi: 1.90 AoV Mn Messi: 1.13 AoV VTI: 0.30 AoV Pk Grad: 14.00 Aov Mn Grad: 6.00 ELBA Cont.VTI: 2.63 LVOT LVOT Pk Messi: 1.24 LVOT Mn Messi: 0.78 LVOT VTI: 0.25 LVOT Pk Grad: 6.00 LVOT Mn Grad: 3.00 LVOT Diam: 2.00 LVOT Area: 3.14 Diastolic Function MV Pk E: 1.09 MV Pk A: 1.27 E/A: 0.90 E'Medial: 5.00 E/E' Med: 21.80 E' Laterial: 8.92 E/E' Lat: 12.20 Right Ventricle TAPSE (mm): 28.00 TVS' Messi: 12.00 Tricuspid Valve TR Pk Messi: 2.37 TR Pk Grad: 22.00 RA Press: 3.00 RVSP: 25.00 Great Vessels Aorta Ao Root-2D: 3.00 2.0-3.7 cm Ao Asc: 3.10 2.1-3.4 cm Pulmonary Valve PV Pk Messi: 1.26 Peak PV Grad: 6.00 Updated in Other Vendor System with Status of Final Grayson Oates MD electronically signed on 03/22/2023 11:11:48 AM with status of Final
[2023-03-21 07:06] LABS: Glucose, Whole Blood 201 mg/dL (60-115)
[2023-03-21] MEDS: Insulin Lispro 100 UNIT/ML 3 ML VIAL SUBCUT ×2 (09:46→16:49)
[2023-03-21] MEDS: Apixaban 2.5 MG TABLET PO ×2 (09:48→23:19)
[2023-03-21] MEDS: Ferrous Sulfate 324 MG TABLET.DR PO (09:49)
[2023-03-21] MEDS: Folic Acid 1 MG TABLET PO (09:49)
[2023-03-21] MEDS: Venlafaxine HCl ER 150 MG CAP.ER.24H PO (09:49)
[2023-03-21] MEDS: Omeprazole 20 MG CAPSULE.DR PO (09:49)
[2023-03-21] MEDS: Calcium + Vitamin D 250 MG TABLET 500 MG PO ×2 (09:49→23:19)
[2023-03-21] MEDS: Famotidine 20 MG TABLET PO ×2 (09:49→16:48)
[2023-03-21] MEDS: Atorvastatin Calcium 20 MG TABLET PO (09:51)
[2023-03-21] MEDS: Loratadine 10 MG TABLET PO (09:53)
--- NOTE | 2023-03-21 10:18 | HO.PM.IMPN ---
Subjective Subjective Date of Service: 03/21/23 Interval History: Seen in follow up for alcoholic vs starvation ketoacidosis, hyperglyemia Interval history: persistent tachycardia. Pt still reports feeling weak. No polyuria, polydipsia. Glucose levels improving. No fevers, sob, cp. Still with cough. depressed Review of Systems Review of Systems: Yes all other systems are reviewed and are negative Physical Exam Vital Signs: Vital Signs: Last Vital Signs Temp 97.4 F 03/20/23 22:00 Pulse 122 H 03/20/23 22:00 Resp 24 H 03/20/23 22:00 BP 122/58 L 03/20/23 22:00 Pulse Ox 93 03/20/23 22:00 O2 Del Method Room Air 03/20/23 22:00 BMI result Body Mass Index 37.3 Constitutional - Awake and Alert, No apparent distress Eyes - PERRLA, EOMI Cardiovascular - S1S2, RRR, No edema Respiratory - Normal lung expansion, Normal respiratory effort, No respiratory distress, CTA bilaterally Extremities - no calf tenderness bilaterally, no swelling Skin - Warm/Dry Neurological - Alert & oriented x2, disoriented to time, states its 2003 but states Biden is prescribed Psychological - Appropriate affect Objective Data Active Medications Acetaminophen (Acetaminophen 325 Mg Tablet) 650 mg PO Q6H PRN PRN Reason: Pain, Mild (Pain Scale 1-3) Albuterol Sulfate (Albuterol Sulfate (0.083%) 2.5 Mg/3 Ml Vial.Neb) 2.5 mg INHALE Q4H PRN PRN Reason: Shortness Of Breath Or Wheezing Albuterol Sulfate (Albuterol Sulfate 90 Mcg 8 Gm Inhaler) 2 puff INHALE Q4H PRN PRN Reason: dyspnea Apixaban (Apixaban 2.5 Mg Tablet) 2.5 mg PO BID [facility] Last Admin: 03/21/23 09:48 Dose: 2.5 mg Documented By: ZUNILDA Atorvastatin Calcium (Atorvastatin Calcium 20 Mg Tablet) 20 mg PO DAILY [facility] Last Admin: 03/21/23 09:51 Dose: 20 mg Documented By: ZUNILDA Calcium Carbonate/Cholecalciferol (Calcium + Vitamin D 250 Mg Tablet) 500 mg PO BID [facility] Last Admin: 03/21/23 09:49 Dose: 500 mg Documented By: ZUNILDA Cyanocobalamin (Cyanocobalamin (Vitamin B-12) 500 Mcg Tablet) 500 mcg PO DAILY [facility] Dextrose (Dextrose 50 % 25 Gm/50 Ml Syringe) 25 gm IVPUSH Q15M PRN; Protocol PRN Reason: per Hypoglycemia Standing Ord. Docusate Sodium (Docusate Sodium 100 Mg Capsule) 100 mg PO DAILY PRN PRN Reason: Constipation Docusate Sodium (Docusate Sodium 100 Mg Capsule) 100 mg PO BID PRN PRN Reason: constipation Famotidine (Famotidine 20 Mg Tablet) 20 mg PO BID@0630,1630 [facility] Last Admin: 03/21/23 09:49 Dose: 20 mg Documented By: ZUNILDA Ferrous Sulfate (Ferrous Sulfate 324 Mg Tablet.Dr) 324 mg PO DAILY [facility] Last Admin: 03/21/23 09:49 Dose: 324 mg Documented By: ZUNILDA Fluticasone Propionate (Fluticasone Propionate Nasal 16 Gm [place]) 1 spray NOSTRIL-B DAILY [facility] Fluticasone/Vilanterol (Fluticasone/Vilanterol 200/25 Blst.W.Dev) 1 puff INHALE RDAILY [facility] Last Admin: 03/21/23 07:31 Dose: Not Given Documented By: ORALIA Non-Admin Reason: Med Not Available Folic Acid (Folic Acid 1 Mg Tablet) 1 mg PO DAILY [facility] Last Admin: 03/21/23 09:49 Dose: 1 mg Documented By: ZUNILDA Glucose (Glucose Gel 15 Gm Gel..Gram.) 15 gm PO Q15M PRN; Protocol PRN Reason: per Hypoglycemia Standing Ord. Lactated Ringer's (Lr) 1,000 mls @ 100 mls/hr IVCONT .Q10H [facility] Last Admin: 03/21/23 10:02 Dose: 100 mls/hr Documented By: ZUNILDA Insulin Glargine (Insulin Glargine,Hum.Rec.Anlog 100 Unit/Ml 10 Ml Vial) 10 unit SUBCUT BEDTIME [facility] Last Admin: 03/20/23 21:47 Dose: 10 unit Documented By: DAVID Insulin Human Lispro (Insulin Lispro 100 Unit/Ml 3 Ml Vial) 0 unit SUBCUT QIDACHS [facility]; Protocol Last Admin: 03/21/23 09:46 Dose: 4 unit Documented By: ZUNILDA Letrozole (Letrozole 2.5 Mg Tablet) 2.5 mg PO DAILY [facility] Loratadine (Loratadine 10 Mg Tablet) 10 mg PO DAILY [facility] Last Admin: 03/21/23 09:53 Dose: 10 mg Documented By: ZUNILDA Omeprazole (Omeprazole 20 Mg Capsule.Dr) 20 mg PO DAILY@0630 [facility] Last Admin: 03/21/23 09:49 Dose: 20 mg Documented By: ZUNILDA Ondansetron HCl (Ondansetron Hcl 4 Mg/2 Ml Vial) 4 mg IVPUSH Q8H PRN PRN Reason: Nausea and Vomiting Last Admin: 03/20/23 13:42 Dose: 4 mg Documented By: MADDENAviva Sodium Chloride (0.9 % Sodium Chloride Flush 3 Ml Syringe) 3 ml IVFLUSH QSHIFT [facility] Last Admin: 03/21/23 09:25 Dose: Not Given Documented By: ZUNILDA Non-Admin Reason: IV Running Thiamine HCl (Thiamine Hcl 100 Mg Tablet) 100 mg PO DAILY [facility] Tiotropium [place] (Tiotropium [place] 2.5 Mcg Inhaler) 2 puff INHALE RDAILY [facility] Last Admin: 03/21/23 07:31 Dose: Not Given Documented By: ORALIA Non-Admin Reason: Med Not Available Venlafaxine HCl (Venlafaxine Hcl Er 150 Mg Cap.Er.24h) 150 mg PO DAILY [facility] Last Admin: 03/21/23 09:49 Dose: 150 mg Documented By: ZUNILDA Labs 03/21/23 05:46 03/21/23 05:46 Labs: Laboratory Results - last 24 hr 03/20/23 03/20/23 03/20/23 05:33 10:17 10:21 MCV MCH MCHC RDW Plt Count MPV Immature Gran % (Auto) Neut % (Auto) Lymph % (Auto) [place] % (Auto) Eos % (Auto) Baso % (Auto) Lymph # (Auto) [place] # (Auto) Eos # (Auto) Baso # (Auto) Abs Immat Gran (auto) Absolute Neuts (auto) Absolute Nucleated RBC Nucleated RBC % (auto) D-Dimer High Sensitivty VBG pH 7.38 VBG pCO2 32 VBG pO2 118 VBG HCO3 19 L VBG O2 Saturation 99.0 VBG Base Excess -4.5 Anion Gap 13 Estim Creat Clear Calc 264.3 Estimated GFR 41 POC Glucose Random Glucose 293 H Estimat Average Glucose 289 Hemoglobin A1c % 11.7 H Lactic Acid F/U @ 4Hr 4.2 H* Calcium 9.0 03/20/23 03/20/23 03/20/23 11:13 16:26 18:39 MCV MCH MCHC RDW Plt Count MPV Immature Gran % (Auto) Neut % (Auto) Lymph % (Auto) [place] % (Auto) Eos % (Auto) Baso % (Auto) Lymph # (Auto) [place] # (Auto) Eos # (Auto) Baso # (Auto) Abs Immat Gran (auto) Absolute Neuts (auto) Absolute Nucleated RBC Nucleated RBC % (auto) D-Dimer High Sensitivty < 150 VBG pH VBG pCO2 VBG pO2 VBG HCO3 VBG O2 Saturation VBG Base Excess Anion Gap 16 Estim Creat Clear Calc 43.4 Estimated GFR 40 POC Glucose 234 H 224 H Random Glucose 240 H Estimat Average Glucose Hemoglobin A1c % Lactic Acid F/U @ 4Hr Calcium 9.5 03/20/23 03/21/23 03/21/23 21:03 05:46 06:58 MCV 103.7 H MCH 33.5 H MCHC 32.3 RDW 17.0 H Plt Count 99 L MPV 11.5 Immature Gran % (Auto) 0.7 H Neut % (Auto) 73.0 Lymph % (Auto) 16.9 L [place] % (Auto) 7.3 Eos % (Auto) 1.6 Baso % (Auto) 0.5 Lymph # (Auto) 1.3 [place] # (Auto) 0.5 Eos # (Auto) 0.1 Baso # (Auto) 0.0 Abs Immat Gran (auto) 0.05 H Absolute Neuts (auto) 5.4 Absolute Nucleated RBC 0.000 Nucleated RBC % (auto) 0.0 D-Dimer High Sensitivty VBG pH VBG pCO2 VBG pO2 VBG HCO3 VBG O2 Saturation VBG Base Excess Anion Gap 14 Estim Creat Clear Calc 51.4 Estimated GFR 48 POC Glucose 250 H 201 H Random Glucose 212 H Estimat Average Glucose Hemoglobin A1c % Lactic Acid F/U @ 4Hr Calcium 9.3 Assessment and Plan (1) Alcoholic ketoacidosis: Status: Acute (2) Acute hyperglycemia: Status: Acute (3) Depression: Status: Acute Plan 62-year-old female history of COPD, hypertension, ETOH use disorder, diabetes, DVT on Eliquis, breast cancer on letrozole, aspiration pneumonia admitted for HHS and Alcoholic ketoacidosis. #Type 2 diabetes with acute hyperglycemia-likely hyperosmolar hyperglycemic state- glucose levels improved -random glucose on arrival 772, noncompliant with metformin -Acidosis more likely r/t starvation vs alcoholic ketoacidosis rather than DKA. Beta hydroxybutyrate WNL -Weaned from insulin drip -Discontinue IVF with LR@ 100ml/hr -Hgb A1c 11.4% -POC glucose -HUmalog on sliding scale -initiate Lantus 10 units -diabetic diet #Alcoholic vs starvation ketoacidosis -VBG with pH 7.28, bicarb nineteen. Anion gap 21, compensated following IVF -ETOH level on arrival 192 -continue IVF # acute kidney injury- resolved w/ ivf -related to above -ckd stage 3 at bseline -follow BMP # hypokalemia -repleted, follow BMP #Dysphagia -resulting in medication noncompliance -CLINICAL MENTAL HEALTH COUNSELOR evaluation: NDD3, thin liquids, medications in puree or crushed if needed # alcohol use disorder -CIWA on admission 7, give lorazepam IV x1 -continue monitoring on CIWA -initiate phenobarbital per protocol if CIWA remains elevated -addiction medicine consult -continue thiamine, folic acid -disinterested in cessation at this time # depression -no SI/HI -patient has not gotten out of bed much and is not eating, consuming more alcohol contributing to current acute medical state -psychiatry consult recommending etoh cessation # COPD -no acute exacerbation -continue maintenance inhaler -albuterol p.r.n. -smoking cessation # hypertension -Resume antihypertensives am -BPs improved with IVF, give albumin x2 #Chronic macrocytic anemia -Vitamin B12 level elevated, dc po vitamin b12 -continue thiamine, folic acid #Moderate malnutrition -add glucerna x2 -nutrition to follow #h/o breast cancer -continue letrozole # history RLE DVT -R/T malignancy -continue Eliquis DVT prophylaxis-on Eliquis Full code Dispo- awaiting placement STR Patient requires ongoing inpatient stay due to MARCEL and HHS requiring close monitoring of renal function electrolyte levels as well as glucose monitoring and requires placement to STR Time Spent With Patient Time: Total time managing care of this patient today ____ minutes. Quality Stroke Does the patient have a stroke diagnosis?: No VTE Prior VTE?: Yes VTE Risk Level:: Medical - moderate - high VTE Device Contraindication: Treatment Not Indicated VTE Drug Contraindication: N/A - Med Ordered
--- NOTE | 2023-03-21 11:25 | P.CNPS_ITS ---
History of Present Illness Date of Service: 03/21/2023 Chief Complaint: HHS starvation ketosis Reason for Consult: depression/alcohol use Requesting physician: Diana Mao Discussed with referring provider: Yes Sources of Information: patient interviewed, chart reviewed and crisis/core team assessment reviewed HPI Narrative: Mrs. Benitez is a 62 year-old with hx of alcohol use disorder and MDD. Pt admitted due to alcohol related starvation and elevated BS. Pt reports drinking daily 3-4 nips.In the ED, BAL 192. Utox negative. Pt found to have hyponatremia, now resolved. macrocytic anemia. pending b12 levels. Pt referred to psychiatry due to depressed mood for the past 2 years. Pt seen in ED while awaiting transfer to medical floor. Pt reports feeling tired and this being limiting factor to continue with full interview. She does report feeling depressed for a long time. She reports use of alcohol since she was 15 years old. She reports no substantial periods of sobriety. Pt denies SI/HI. No VH/AH. Pt reports she her PCP has been prescribing venlafaxine. Past Psychiatric History: limited hx gathered due to pt reporting feeling tired. [facility] Medical History Depression Aspiration pneumonia Anemia Right leg DVT Breast cancer, right breast Alcohol abuse COPD (chronic obstructive pulmonary disease) Diabetes HTN (hypertension) Surgical History History of cholecystectomy History of delivery History of ventral hernia repair Diagnostics Vital Signs (24Hr): Vital Signs - 24 hr 03/20/23 13:03 03/20/23 14:57 03/20/23 15:40 Temperature 97.8 F Pulse Rate 115 H 116 H 122 H Respiratory Rate 18 16 18 Blood Pressure 95/49 L 115/57 L 106/70 Pulse Oximetry 96 95 95 Oxygen Delivery Method Room Air Room Air Room Air 03/20/23 20:22 03/20/23 20:26 03/20/23 22:00 Temperature 98.7 F 97.4 F Pulse Rate 121 H 120 H 122 H Respiratory Rate 17 24 H Blood Pressure 108/54 L 122/58 L Pulse Oximetry 93 Oxygen Delivery Method Room Air BMI result Body Mass Index 37.3 Labs 03/21/23 05:46 10/18/23 05:46 Labs: Laboratory Results - last 48 hr 03/20/23 03/20/23 03/20/23 05:11 05:14 05:32 WBC RBC Hgb Hct MCV MCH MCHC RDW Plt Count MPV Immature Gran % (Auto) Neut % (Auto) Lymph % (Auto) [place] % (Auto) Eos % (Auto) Baso % (Auto) Lymph # (Auto) [place] # (Auto) Eos # (Auto) Baso # (Auto) Abs Immat Gran (auto) Absolute Neuts (auto) Absolute Nucleated RBC Nucleated RBC % (auto) D-Dimer High Sensitivty VBG pH VBG pCO2 VBG pO2 VBG HCO3 VBG O2 Saturation VBG Base Excess Sodium Potassium Chloride Carbon Dioxide Anion Gap BUN Creatinine Estim Creat Clear Calc Estimated GFR POC Glucose > 600 H* > 600 H* Random Glucose Estimat Average Glucose Hemoglobin A1c % Lactic Acid 7.9 H* Lactic Acid F/U @ 2Hr Lactic Acid F/U @ 4Hr Calcium Magnesium Total Bilirubin Direct Bilirubin AST ALT Alkaline Phosphatase Total Creatine Kinase Troponin I High Sens Total Protein Albumin Lipase Beta-Hydroxybutyrate Urine Color Urine Appearance Urine pH Ur Specific [place] Urine Protein Urine Glucose (UA) Urine Ketones Urine Blood Urine Nitrite Ur Leukocyte Esterase Urine RBC Urine WBC Ur Squamous Epith Cells Urine Bacteria Hyaline Casts Ethyl Alcohol 03/20/23 03/20/23 03/20/23 05:33 05:34 05:38 WBC 9.2 RBC 2.84 L Hgb 9.5 L Hct 30.5 L MCV 107.4 H MCH 33.5 H MCHC 31.1 RDW 16.9 H Plt Count 129 L D MPV 11.0 Immature Gran % (Auto) 1.0 H Neut % (Auto) 79.8 H Lymph % (Auto) 11.9 L [place] % (Auto) 6.1 Eos % (Auto) 0.7 Baso % (Auto) 0.5 Lymph # (Auto) 1.1 L [place] # (Auto) 0.6 Eos # (Auto) 0.1 Baso # (Auto) 0.1 Abs Immat Gran (auto) 0.09 H Absolute Neuts (auto) 7.3 Absolute Nucleated RBC 0.000 Nucleated RBC % (auto) 0.0 D-Dimer High Sensitivty VBG pH 7.28 L VBG pCO2 40 VBG pO2 40 VBG HCO3 19 L VBG O2 Saturation 48.0 VBG Base Excess -6.8 Sodium 129 L Potassium 4.7 Chloride 98 Carbon Dioxide 15 L Anion Gap 21 H BUN 7 L Creatinine 1.92 H Estim Creat Clear Calc 181.6 Estimated GFR 26 POC Glucose Random Glucose 772 H* Estimat Average Glucose 289 Hemoglobin A1c % 11.7 H Lactic Acid Lactic Acid F/U @ 2Hr Lactic Acid F/U @ 4Hr Calcium 9.3 Magnesium 2.1 Total Bilirubin 1.4 H Direct Bilirubin 0.5 AST 91 H ALT 32 H Alkaline Phosphatase 380 H Total Creatine Kinase 48 Troponin I High Sens < 2.7 Total Protein 7.2 Albumin 2.4 L Lipase 106 H Beta-Hydroxybutyrate 0.19 Urine Color Urine Appearance Urine pH Ur Specific [place] Urine Protein Urine Glucose (UA) Urine Ketones Urine Blood Urine Nitrite Ur Leukocyte Esterase Urine RBC Urine WBC Ur Squamous Epith Cells Urine Bacteria Hyaline Casts Ethyl Alcohol 192 03/20/23 03/20/23 03/20/23 06:40 07:06 07:53 WBC RBC Hgb Hct MCV MCH MCHC RDW Plt Count MPV Immature Gran % (Auto) Neut % (Auto) Lymph % (Auto) [place] % (Auto) Eos % (Auto) Baso % (Auto) Lymph # (Auto) [place] # (Auto) Eos # (Auto) Baso # (Auto) Abs Immat Gran (auto) Absolute Neuts (auto) Absolute Nucleated RBC Nucleated RBC % (auto) D-Dimer High Sensitivty VBG pH VBG pCO2 VBG pO2 VBG HCO3 VBG O2 Saturation VBG Base Excess Sodium Potassium Chloride Carbon Dioxide Anion Gap BUN Creatinine Estim Creat Clear Calc Estimated GFR POC Glucose > 600 H* 536 H* Random Glucose Estimat Average Glucose Hemoglobin A1c % Lactic Acid Lactic Acid F/U @ 2Hr 6.2 H* Lactic Acid F/U @ 4Hr Calcium Magnesium Total Bilirubin Direct Bilirubin AST ALT Alkaline Phosphatase Total Creatine Kinase Troponin I High Sens Total Protein Albumin Lipase Beta-Hydroxybutyrate Urine Color Urine Appearance Urine pH Ur Specific [place] Urine Protein Urine Glucose (UA) Urine Ketones Urine Blood Urine Nitrite Ur Leukocyte Esterase Urine RBC Urine WBC Ur Squamous Epith Cells Urine Bacteria Hyaline Casts Ethyl Alcohol 03/20/23 03/20/23 03/20/23 08:17 09:13 09:15 WBC RBC Hgb Hct MCV MCH MCHC RDW Plt Count MPV Immature Gran % (Auto) Neut % (Auto) Lymph % (Auto) [place] % (Auto) Eos % (Auto) Baso % (Auto) Lymph # (Auto) [place] # (Auto) Eos # (Auto) Baso # (Auto) Abs Immat Gran (auto) Absolute Neuts (auto) Absolute Nucleated RBC Nucleated RBC % (auto) D-Dimer High Sensitivty VBG pH VBG pCO2 VBG pO2 VBG HCO3 VBG O2 Saturation VBG Base Excess Sodium Potassium Chloride Carbon Dioxide Anion Gap BUN Creatinine Estim Creat Clear Calc Estimated GFR POC Glucose 469 H* 390 H* Random Glucose Estimat Average Glucose Hemoglobin A1c % Lactic Acid Lactic Acid F/U @ 2Hr Lactic Acid F/U @ 4Hr Calcium Magnesium Total Bilirubin Direct Bilirubin AST ALT Alkaline Phosphatase Total Creatine Kinase Troponin I High Sens Total Protein Albumin Lipase Beta-Hydroxybutyrate Urine Color Yellow Urine Appearance Cloudy Urine pH 5.5 Ur Specific [place] 1.025 Urine Protein Trace Urine Glucose (UA) >=1000 H Urine Ketones Negative Urine Blood Small (1+) H Urine Nitrite Negative Ur Leukocyte Esterase Negative Urine RBC 0-2 Urine WBC 6-10 H Ur Squamous Epith Cells 6-10 Urine Bacteria 4+ Hyaline Casts 3-5 Ethyl Alcohol 03/20/23 03/20/23 03/20/23 10:10 10:17 10:21 WBC RBC Hgb Hct MCV MCH MCHC RDW Plt Count MPV Immature Gran % (Auto) Neut % (Auto) Lymph % (Auto) [place] % (Auto) Eos % (Auto) Baso % (Auto) Lymph # (Auto) [place] # (Auto) Eos # (Auto) Baso # (Auto) Abs Immat Gran (auto) Absolute Neuts (auto) Absolute Nucleated RBC Nucleated RBC % (auto) D-Dimer High Sensitivty VBG pH 7.38 VBG pCO2 32 VBG pO2 118 VBG HCO3 19 L VBG O2 Saturation 99.0 VBG Base Excess -4.5 Sodium 136 Potassium 3.2 L D Chloride 108 Carbon Dioxide 18 L Anion Gap 13 BUN 7 L Creatinine 1.32 Estim Creat Clear Calc 264.3 Estimated GFR 41 POC Glucose 275 H Random Glucose 293 H Estimat Average Glucose Hemoglobin A1c % Lactic Acid Lactic Acid F/U @ 2Hr Lactic Acid F/U @ 4Hr 4.2 H* Calcium 9.0 Magnesium Total Bilirubin Direct Bilirubin AST ALT Alkaline Phosphatase Total Creatine Kinase Troponin I High Sens Total Protein Albumin Lipase Beta-Hydroxybutyrate Urine Color Urine Appearance Urine pH Ur Specific [place] Urine Protein Urine Glucose (UA) Urine Ketones Urine Blood Urine Nitrite Ur Leukocyte Esterase Urine RBC Urine WBC Ur Squamous Epith Cells Urine Bacteria Hyaline Casts Ethyl Alcohol 03/20/23 03/20/23 03/20/23 11:13 16:26 18:39 WBC RBC Hgb Hct MCV MCH MCHC RDW Plt Count MPV Immature Gran % (Auto) Neut % (Auto) Lymph % (Auto) [place] % (Auto) Eos % (Auto) Baso % (Auto) Lymph # (Auto) [place] # (Auto) Eos # (Auto) Baso # (Auto) Abs Immat Gran (auto) Absolute Neuts (auto) Absolute Nucleated RBC Nucleated RBC % (auto) D-Dimer High Sensitivty < 150 VBG pH VBG pCO2 VBG pO2 VBG HCO3 VBG O2 Saturation VBG Base Excess Sodium 138 Potassium 4.2 D Chloride 106 Carbon Dioxide 20 L Anion Gap 16 BUN 6 L Creatinine 1.35 Estim Creat Clear Calc 43.4 Estimated GFR 40 POC Glucose 234 H 224 H Random Glucose 240 H Estimat Average Glucose Hemoglobin A1c % Lactic Acid Lactic Acid F/U @ 2Hr Lactic Acid F/U @ 4Hr Calcium 9.5 Magnesium Total Bilirubin Direct Bilirubin AST ALT Alkaline Phosphatase Total Creatine Kinase Troponin I High Sens Total Protein Albumin Lipase Beta-Hydroxybutyrate Urine Color Urine Appearance Urine pH Ur Specific [place] Urine Protein Urine Glucose (UA) Urine Ketones Urine Blood Urine Nitrite Ur Leukocyte Esterase Urine RBC Urine WBC Ur Squamous Epith Cells Urine Bacteria Hyaline Casts Ethyl Alcohol 03/20/23 03/21/23 03/21/23 21:03 05:46 06:58 WBC 7.4 RBC 2.69 L Hgb 9.0 L Hct 27.9 L MCV 103.7 H MCH 33.5 H MCHC 32.3 RDW 17.0 H Plt Count 99 L MPV 11.5 Immature Gran % (Auto) 0.7 H Neut % (Auto) 73.0 Lymph % (Auto) 16.9 L [place] % (Auto) 7.3 Eos % (Auto) 1.6 Baso % (Auto) 0.5 Lymph # (Auto) 1.3 [place] # (Auto) 0.5 Eos # (Auto) 0.1 Baso # (Auto) 0.0 Abs Immat Gran (auto) 0.05 H Absolute Neuts (auto) 5.4 Absolute Nucleated RBC 0.000 Nucleated RBC % (auto) 0.0 D-Dimer High Sensitivty VBG pH VBG pCO2 VBG pO2 VBG HCO3 VBG O2 Saturation VBG Base Excess Sodium 141 Potassium 4.3 Chloride 111 H Carbon Dioxide 20 L Anion Gap 14 BUN 6 L Creatinine 1.14 Estim Creat Clear Calc 51.4 Estimated GFR 48 POC Glucose 250 H 201 H Random Glucose 212 H Estimat Average Glucose Hemoglobin A1c % Lactic Acid Lactic Acid F/U @ 2Hr Lactic Acid F/U @ 4Hr Calcium 9.3 Magnesium Total Bilirubin Direct Bilirubin AST ALT Alkaline Phosphatase Total Creatine Kinase Troponin I High Sens Total Protein Albumin Lipase Beta-Hydroxybutyrate Urine Color Urine Appearance Urine pH Ur Specific [place] Urine Protein Urine Glucose (UA) Urine Ketones Urine Blood Urine Nitrite Ur Leukocyte Esterase Urine RBC Urine WBC Ur Squamous Epith Cells Urine Bacteria Hyaline Casts Ethyl Alcohol Imaging Radiology Impressions: ITS Impressions Cervical Spine CT 03/20/23 06:35 IMPRESSION: Exam limited by motion artifacts. * No CT evidence of cervical spine fracture. * Loss of disc height and developed osteophyte from the edges of endplates suggest degenerative disc disease at C5-C6, C6-C7. * No significant osseous stenosis of central canal or neural foramen. Head CT 03/20/23 06:35 IMPRESSION: * Deep white matter and periventricular hypoattenuation, nonspecific; most likely sequela of chronic microvascular angiopathy ischemia. * No intracranial bleed. Chest X-Ray 03/20/23 06:37 IMPRESSION: No acute cardiopulmonary findings. Mental Status Exam Mental Status Exam Narrative: Appearance:malnourish, fair hygiene, in NAD somnolent Behavior:engagement limited as pt reports feeling tired Psychomotor: no agitation or retardation noted Speech: clear, normal rate/rhythm/volume, spontaneous TP: mostly linear TC: feeling tired, asking medical technical writer to come back at another time Mood: tired' Affect; congruent SI: denies HI: denies VH/AH: none Delusions: none Memory/cog: alert, initially reported that she was at [place], but when asked again, did report [place]. She knew month, year. Medications Medications Current Medications Acetaminophen (Acetaminophen 325 Mg Tablet) 650 mg PO Q6H PRN PRN Reason: Pain, Mild (Pain Scale 1-3) Albuterol Sulfate (Albuterol Sulfate (0.083%) 2.5 Mg/3 Ml Vial.Neb) 2.5 mg INHALE Q4H PRN PRN Reason: Shortness Of Breath Or Wheezing Albuterol Sulfate (Albuterol Sulfate 90 Mcg 8 Gm Inhaler) 2 puff INHALE Q4H PRN PRN Reason: dyspnea Apixaban (Apixaban 2.5 Mg Tablet) 2.5 mg PO BID [facility] Last Admin: 03/21/23 09:48 Dose: 2.5 mg Atorvastatin Calcium (Atorvastatin Calcium 20 Mg Tablet) 20 mg PO DAILY [facility] Last Admin: 03/21/23 09:51 Dose: 20 mg Calcium Carbonate/Cholecalciferol (Calcium + Vitamin D 250 Mg Tablet) 500 mg PO BID [facility] Last Admin: 03/21/23 09:49 Dose: 500 mg Cyanocobalamin (Cyanocobalamin (Vitamin B-12) 500 Mcg Tablet) 500 mcg PO DAILY [facility] Dextrose (Dextrose 50 % 25 Gm/50 Ml Syringe) 25 gm IVPUSH Q15M PRN; Protocol PRN Reason: per Hypoglycemia Standing Ord. Docusate Sodium (Docusate Sodium 100 Mg Capsule) 100 mg PO DAILY PRN PRN Reason: Constipation Docusate Sodium (Docusate Sodium 100 Mg Capsule) 100 mg PO BID PRN PRN Reason: constipation Famotidine (Famotidine 20 Mg Tablet) 20 mg PO BID@0630,1630 [facility] Last Admin: 03/21/23 09:49 Dose: 20 mg Ferrous Sulfate (Ferrous Sulfate 324 Mg Tablet.Dr) 324 mg PO DAILY [facility] Last Admin: 03/21/23 09:49 Dose: 324 mg Fluticasone Propionate (Fluticasone Propionate Nasal 16 Gm [place]) 1 spray NOSTRIL-B DAILY [facility] Fluticasone/Vilanterol (Fluticasone/Vilanterol 200/25 Blst.W.Dev) 1 puff INHALE RDAILY [facility] Last Admin: 03/21/23 07:31 Dose: Not Given Folic Acid (Folic Acid 1 Mg Tablet) 1 mg PO DAILY [facility] Last Admin: 03/21/23 09:49 Dose: 1 mg Glucose (Glucose Gel 15 Gm Gel..Gram.) 15 gm PO Q15M PRN; Protocol PRN Reason: per Hypoglycemia Standing Ord. Lactated Ringer's (Lr) 1,000 mls @ 100 mls/hr IVCONT .Q10H [facility] Last Admin: 03/21/23 10:02 Dose: 100 mls/hr Insulin Glargine (Insulin Glargine,Hum.Rec.Anlog 100 Unit/Ml 10 Ml Vial) 10 unit SUBCUT BEDTIME [facility] Last Admin: 03/20/23 21:47 Dose: 10 unit Insulin Human Lispro (Insulin Lispro 100 Unit/Ml 3 Ml Vial) 0 unit SUBCUT QIDACHS [facility]; Protocol Last Admin: 03/21/23 09:46 Dose: 4 unit Letrozole (Letrozole 2.5 Mg Tablet) 2.5 mg PO DAILY [facility] Loratadine (Loratadine 10 Mg Tablet) 10 mg PO DAILY [facility] Last Admin: 03/21/23 09:53 Dose: 10 mg Omeprazole (Omeprazole 20 Mg Capsule.Dr) 20 mg PO DAILY@0630 [facility] Last Admin: 03/21/23 09:49 Dose: 20 mg Ondansetron HCl (Ondansetron Hcl 4 Mg/2 Ml Vial) 4 mg IVPUSH Q8H PRN PRN Reason: Nausea and Vomiting Last Admin: 03/20/23 13:42 Dose: 4 mg Sodium Chloride (0.9 % Sodium Chloride Flush 3 Ml Syringe) 3 ml IVFLUSH QSHIFT [facility] Last Admin: 03/21/23 09:25 Dose: Not Given Thiamine HCl (Thiamine Hcl 100 Mg Tablet) 100 mg PO DAILY [facility] Tiotropium [place] (Tiotropium [place] 2.5 Mcg Inhaler) 2 puff INHALE RDAILY [facility] Last Admin: 03/21/23 07:31 Dose: Not Given Venlafaxine HCl (Venlafaxine Hcl Er 150 Mg Cap.Er.24h) 150 mg PO DAILY [facility] Last Admin: 03/21/23 09:49 Dose: 150 mg Allergies Allergies Allergy/AdvReac Type Severity Reaction Status Date / Time Sulfa (Sulfonamide Allergy Severe ANAPHYLAXIS Verified 03/20/23 05:17 Antibiotics) [SULFA (SULFONAMIDE ANTIBIOTICS)] mitch seed [MITCH SEED] Allergy Intermediate HIVES/NAUSE Verified 03/20/23 05:17 A Assessment & Plan Assessment & Plan (1) MDD (major depressive disorder), recurrent episode, moderate: Status: Acute Code(s): F33.1 - Major depressive disorder, recurrent, moderate (2) Alcohol use disorder, moderate, dependence: Status: Acute Code(s): F10.20 - Alcohol dependence, uncomplicated Plan Mrs. Benitez is a 62 year-old woman with hx of alcohol use disorder and MDD. Pt admitted for hyperglycemia, alcohol related starvation. Interview limited by fact that pt reports feeling tired. PLAN 1.Referred to outpatient psychiatric providers prior to discharge- for treatment of depression complicated by alcohol use. no need for inpatient psych level of care given more chronic nature of her depression and alcohol use. 2. For now, continue venlafaxine 150mg po daily- slow taper off would be needed if pt wants to switch to another antidepressant and most importantly pt would have to be in agreement to follow up with outpatient psychiatric providers. Total time managing care of this patient today ____ minutes.
[2023-03-21] MEDS: Thiamine HCL 100 MG TABLET PO (11:55)
[2023-03-21 12:37] VITALS: BMI 36.9
[2023-03-21 12:53] VITALS: BP 141/61; PULSE 114; RESP 16; TEMP 36.8; O2SAT 93
[2023-03-21] MEDS: LORazepam 1 MG TABLET 2 MG PO (12:58)
[2023-03-21] MEDS: Fluticasone Propionate Nasal 16 GM SPRAY 1 SPRAY NOSTRIL-B (12:59)
[2023-03-21] MEDS: Cyanocobalamin (Vitamin B-12) 500 MCG TABLET PO (12:59)
[2023-03-21] MEDS: Letrozole 2.5 MG TABLET PO (12:59)
[2023-03-21 13:00] LABS: Folate 17.2 ng/mL (> or = 4.0); Vitamin B12 > 2000 pg/mL (200-900)
[2023-03-21] MEDS: Fluticasone/Vilanterol 200/25 BLST.W.DEV 1 PUFF INHALE (13:08)
[2023-03-21 13:23] LABS: Glucose, Whole Blood 123 mg/dL (60-115)
[2023-03-21 13:53] VITALS: BMI 36.7
--- NOTE | 2023-03-21 14:48 | MHC.CM.PN ---
unable to wake pt up called and spoke with pts son and hcp bridger dixon [phone] who reports that pts ex dil lives with but she had no servies pts son was asked to bring in hcp which he agreed to do.he also feels pt would benfit from str referrals will be made according to pts ins
--- NOTE | 2023-03-21 14:49 | MHC.SLORD ---
Speech Language Pathology Order Status: attempted f/u with patient X2 today, patient in transit to floor at first visit, 2nd visit in pm patient sleeping soundly. Will re-attempt 03/22.
[2023-03-21 16:00] VITALS: BP 115/55; PULSE 83; RESP 18; TEMP 36.2; O2SAT 82
[2023-03-21 16:32] LABS: Glucose, Whole Blood 160 mg/dL (60-115)
[2023-03-21 20:00] VITALS: BP 120/61; PULSE 70; RESP 17; TEMP 36.7; O2SAT 96
[2023-03-21 20:53] LABS: Glucose, Whole Blood 152 mg/dL (60-115)
[2023-03-21] MEDS: 0.9 % Sodium Chloride Flush 3 ML SYRINGE IVFLUSH (23:19)
[2023-03-22 03:31] VITALS: BP 115/62; PULSE 64; RESP 16; TEMP 36.1; O2SAT 95
[2023-03-22] MEDS: Famotidine 20 MG TABLET PO ×2 (06:33→17:34)
[2023-03-22] MEDS: Omeprazole 20 MG CAPSULE.DR PO (06:33)
[2023-03-22 06:34] LABS: Anion Gap 14 (12-20); Blood Urea Nitrogen 6 mg/dL (9-16); Calcium 9.5 mg/dL (8.4-10.2); Carbon Dioxide 23 mmol/L (22-29); Chloride 109 mmol/L (96-108); Creatinine Clr Calc Pharmacy 47.2; Estimated Glomerular Filt Rate 44; Glucose Random 226 mg/dL (60-115); Potassium 4.3 mmol/L (3.3-5.1); Sodium 142 mmol/L (135-145)
[2023-03-22 07:26] LABS: Glucose, Whole Blood 271 mg/dL (60-115)
[2023-03-22 08:00] VITALS: BP 110/65; PULSE 111; RESP 16; TEMP 36.8; O2SAT 95
--- NOTE | 2023-03-22 08:24 | PC.RT ---
RT in with pts mdis. Pt was found eating breakfast. Pt was noted coughing and gagging, RN called to bedside. RT helped pt clear her mouth of excess food. MDIs were held by this RT as pt unable at this time, as well as saftey concerning mouth rinse with water post use. RN aware.
[2023-03-22] MEDS: Insulin Lispro 100 UNIT/ML 3 ML VIAL SUBCUT ×4 (08:48→22:33)
[2023-03-22] MEDS: Calcium + Vitamin D 250 MG TABLET 500 MG PO ×2 (08:49→22:36)
[2023-03-22] MEDS: Loratadine 10 MG TABLET PO (08:49)
[2023-03-22] MEDS: Atorvastatin Calcium 20 MG TABLET PO (08:49)
[2023-03-22] MEDS: Ferrous Sulfate 324 MG TABLET.DR PO (08:49)
[2023-03-22] MEDS: Apixaban 2.5 MG TABLET PO ×2 (08:49→22:36)
[2023-03-22] MEDS: Folic Acid 1 MG TABLET PO (08:49)
[2023-03-22] MEDS: Venlafaxine HCl ER 150 MG CAP.ER.24H PO (08:49)
[2023-03-22] MEDS: Thiamine HCL 100 MG TABLET PO (08:49)
[2023-03-22] MEDS: Letrozole 2.5 MG TABLET PO (08:49)
[2023-03-22] MEDS: 0.9 % Sodium Chloride Flush 3 ML SYRINGE IVFLUSH ×3 (08:50→22:37)
--- NOTE | 2023-03-22 10:55 | MHC.RECOVRN ---
Met with pt in 362 after consult placed to Addiction Medicine for alcohol use. Pt had presented to the ED after a fall and was subsequently admitted for treatment of alcoholic ketoacidosis, alcohol withdrawal, MARCEL, depression, and acute hyperglycemia. Pt laying in bed, awake, alert, difficult to engage in conversation. Pt reports drinking one pint of coffee kole daily x a long time. Pt does not wish to reduce or abstain at this time. Pt provided with written information/recovery resources as well as t/w contact information if she changes her mind and is in need of support. Denies questions or concerns. Discussed with Arleth Curry APRN.
[2023-03-22 11:15] LABS: Glucose, Whole Blood 283 mg/dL (60-115)
[2023-03-22] MEDS: Ampicillin Sodium/Sulbactam Na 3 GM in 0.9 % Sodium Chloride 100 ML IV ×2 (11:59→18:41)
[2023-03-22] MEDS: Albuterol/Iprat 2.5/0.5MG 3 ML AMPUL.NEB INHALE (12:08)
[2023-03-22 12:13] VITALS: PULSE 112; RESP 16; O2SAT 88
[2023-03-22 16:00] VITALS: BP 123/59; PULSE 118; RESP 18; TEMP 36.6; O2SAT 93
[2023-03-22 16:19] LABS: Glucose, Whole Blood 224 mg/dL (60-115)
--- NOTE | 2023-03-22 16:23 | HO.PM.IMPN ---
Subjective Subjective Date of Service: 03/22/23 Interval History: oriented x3 expresses no desire to discontinue alcohol, CIWA remains 0-1 Noted to aspirate on breakfast by rn and RT Has cough at baseline, now worse, SOB, hypoxic no chest pain, afebrile Review of Systems Review of Systems: Yes all other systems are reviewed and are negative Physical Exam Vital Signs: Vital Signs: Last Vital Signs Temp 97.8 F 03/22/23 16:00 Pulse 118 H 03/22/23 16:00 Resp 18 03/22/23 16:00 BP 123/59 L 03/22/23 16:00 Pulse Ox 93 03/22/23 16:00 O2 Del Method Nasal Cannula 03/22/23 16:00 O2 Flow Rate 1.5 03/22/23 16:00 BMI result Body Mass Index 36.7 Constitutional - Awake and Alert, No apparent distress Eyes - PERRLA, EOMI Cardiovascular - S1S2, RRR, No edema Respiratory - Normal lung expansion, Normal respiratory effort, No respiratory distress, diffuse rhonchi and expiratory wheezing Extremities - no calf tenderness bilaterally, no swelling Skin - Warm/Dry Neurological - Alert & oriented x3 Psychological - Appropriate affect Objective Data Active Medications Acetaminophen (Acetaminophen 325 Mg Tablet) 650 mg PO Q6H PRN PRN Reason: Pain, Mild (Pain Scale 1-3) Albuterol Sulfate (Albuterol Sulfate (0.083%) 2.5 Mg/3 Ml Vial.Neb) 2.5 mg INHALE Q4H PRN PRN Reason: Shortness Of Breath Or Wheezing Albuterol Sulfate (Albuterol Sulfate 90 Mcg 8 Gm Inhaler) 2 puff INHALE Q4H PRN PRN Reason: dyspnea Albuterol/Ipratropium (Albuterol/Iprat 2.5/0.5mg 3 Ml Ampul.Neb) 3 ml INHALE RQ4H WHILE AWAKE [facility] Last Admin: 03/22/23 15:32 Dose: Not Given Documented By: TORRES Non-Admin Reason: Patient Refused Apixaban (Apixaban 2.5 Mg Tablet) 2.5 mg PO BID [facility] Last Admin: 03/22/23 08:49 Dose: 2.5 mg Documented By: ISRAEL Atorvastatin Calcium (Atorvastatin Calcium 20 Mg Tablet) 20 mg PO DAILY [facility] Last Admin: 03/22/23 08:49 Dose: 20 mg Documented By: ISRAEL Calcium Carbonate/Cholecalciferol (Calcium + Vitamin D 250 Mg Tablet) 500 mg PO BID [facility] Last Admin: 03/22/23 08:49 Dose: 500 mg Documented By: ISRAEL Dextrose (Dextrose 50 % 25 Gm/50 Ml Syringe) 25 gm IVPUSH Q15M PRN; Protocol PRN Reason: per Hypoglycemia Standing Ord. Docusate Sodium (Docusate Sodium 100 Mg Capsule) 100 mg PO DAILY PRN PRN Reason: Constipation Docusate Sodium (Docusate Sodium 100 Mg Capsule) 100 mg PO BID PRN PRN Reason: constipation Famotidine (Famotidine 20 Mg Tablet) 20 mg PO BID@0630,1630 [facility] Last Admin: 03/22/23 06:33 Dose: 20 mg Documented By: BALAJI Ferrous Sulfate (Ferrous Sulfate 324 Mg Tablet.Dr) 324 mg PO DAILY [facility] Last Admin: 03/22/23 08:49 Dose: 324 mg Documented By: ISRAEL Fluticasone Propionate (Fluticasone Propionate Nasal 16 Gm [place]) 1 spray NOSTRIL-B DAILY [facility] Last Admin: 03/22/23 10:51 Dose: Not Given Documented By: ISRAEL Non-Admin Reason: Patient Refused Fluticasone/Vilanterol (Fluticasone/Vilanterol 200/25 Blst.W.Dev) 1 puff INHALE RDAILY [facility] Last Admin: 03/22/23 08:19 Dose: Not Given Documented By: HARISH Non-Admin Reason: pt unable, suspected aspiration, rn aware. Folic Acid (Folic Acid 1 Mg Tablet) 1 mg PO DAILY [facility] Last Admin: 03/22/23 08:49 Dose: 1 mg Documented By: ISRAEL Glucose (Glucose Gel 15 Gm Gel..Gram.) 15 gm PO Q15M PRN; Protocol PRN Reason: per Hypoglycemia Standing Ord. Ampicillin Sodium/Sulbactam (Sodium 3 gm/ Sodium Chloride) 100 mls @ 200 mls/hr IV Q8H [facility] Last Infusion: 03/22/23 12:56 Dose: Infused Documented By: ISRAEL Insulin Glargine (Insulin Glargine,Hum.Rec.Anlog 100 Unit/Ml 10 Ml Vial) 10 unit SUBCUT BEDTIME [facility] Last Admin: 03/21/23 23:40 Dose: Not Given Documented By: BALAJI Non-Admin Reason: pt didnt eat dinner Insulin Human Lispro (Insulin Lispro 100 Unit/Ml 3 Ml Vial) 0 unit SUBCUT QIDACHS [facility]; Protocol Last Admin: 03/22/23 12:00 Dose: 6 unit Documented By: ISRAEL Letrozole (Letrozole 2.5 Mg Tablet) 2.5 mg PO DAILY [facility] Last Admin: 03/22/23 08:49 Dose: 2.5 mg Documented By: ISRAEL Loratadine (Loratadine 10 Mg Tablet) 10 mg PO DAILY [facility] Last Admin: 03/22/23 08:49 Dose: 10 mg Documented By: ISRAEL Omeprazole (Omeprazole 20 Mg Capsule.Dr) 20 mg PO DAILY@0630 [facility] Last Admin: 03/22/23 06:33 Dose: 20 mg Documented By: BALAJI Ondansetron HCl (Ondansetron Hcl 4 Mg/2 Ml Vial) 4 mg IVPUSH Q8H PRN PRN Reason: Nausea and Vomiting Last Admin: 03/20/23 13:42 Dose: 4 mg Documented By: DAVID Sodium Chloride (0.9 % Sodium Chloride Flush 3 Ml Syringe) 3 ml IVFLUSH QSHIFT [facility] Last Admin: 03/22/23 08:50 Dose: 3 ml Documented By: ISRAEL Thiamine HCl (Thiamine Hcl 100 Mg Tablet) 100 mg PO DAILY [facility] Last Admin: 03/22/23 08:49 Dose: 100 mg Documented By: ISRAEL Tiotropium [place] (Tiotropium [place] 2.5 Mcg Inhaler) 2 puff INHALE RDAILY [facility] Last Admin: 03/22/23 08:19 Dose: Not Given Documented By: HARISH Non-Admin Reason: held, pt found to be aspirating, RN aware. Venlafaxine HCl (Venlafaxine Hcl Er 150 Mg Cap.Er.24h) 150 mg PO DAILY [facility] Last Admin: 03/22/23 08:49 Dose: 150 mg Documented By: ISRAEL Labs 03/21/23 05:46 03/22/23 05:16 Labs: Laboratory Results - last 24 hr 03/21/23 03/21/23 03/22/23 16:20 20:42 05:16 Hold Purple Top SEE NOTE Anion Gap 14 Estim Creat Clear Calc 47.2 Estimated GFR 44 POC Glucose 160 H 152 H Random Glucose 226 H Calcium 9.5 03/22/23 03/22/23 03/22/23 07:22 11:09 16:13 Hold Purple Top Anion Gap Estim Creat Clear Calc Estimated GFR POC Glucose 271 H 283 H 224 H Random Glucose Calcium Microbiology Microbiology Results: Microbiology 03/20/23 Unknown Urine Culture - Final Urine clean catch - Urine medina top Klebsiella pneumoniae Assessment and Plan (1) Alcoholic ketoacidosis: Status: Acute (2) Acute hyperglycemia: Status: Acute (3) Depression: Status: Acute Plan 62-year-old female history of COPD, hypertension, ETOH use disorder, diabetes, DVT on Eliquis, breast cancer on letrozole, aspiration pneumonia admitted for HHS and Alcoholic ketoacidosis. # aspiration with acute hypoxemic respiratory failure -patient noted to aspirate and breakfast by RN and respiratory therapist -diffuse rhonchi on exam -SOFTBALL WINDER re-evaluation recommending NDD 2, thin liquids -since CXR ordered and pending -initiate Unasyn 3 g q.8h to cover for aspiration pneumonia -supplemental O2 to maintain oximetry greater than 92%, wean as tolerated -duonebs -symptomatic management -follow CBC, cultures #Type 2 diabetes with acute hyperglycemia-likely hyperosmolar hyperglycemic state- glucose levels improved, but still hyperglycemic -random glucose on arrival 772, noncompliant with metformin -Acidosis more likely r/t starvation vs alcoholic ketoacidosis rather than DKA. Beta hydroxybutyrate WNL -Weaned from insulin drip -Discontinue IVF with LR@ 100ml/hr -Hgb A1c 11.4% -POC glucose -HUmalog on sliding scale -increase Lantus to 15 units -diabetic diet #Alcoholic vs starvation ketoacidosis- resolved -VBG with pH 7.28, bicarb nineteen. Anion gap 21, compensated following IVF -ETOH level on arrival 192 -continue IVF # acute kidney injury- resolved w/ ivf -related to above -ckd stage 3 at bseline -follow BMP # hypokalemia -repleted, follow BMP #Dysphagia -resulting in medication noncompliance -SOFTBALL WINDER evaluation: NDD3, thin liquids, medications in puree or crushed if needed # alcohol use disorder -CIWA on admission 7, give lorazepam IV x1 -continue monitoring on CIWA -initiate phenobarbital per protocol if CIWA remains elevated -addiction medicine consult -continue thiamine, folic acid -disinterested in cessation at this time # depression -no SI/HI -patient has not gotten out of bed much and is not eating, consuming more alcohol contributing to current acute medical state -psychiatry consult recommending etoh cessation, outpt f/up. continue effexor # COPD -no acute exacerbation -continue maintenance inhaler -albuterol p.r.n. -smoking cessation # hypertension -Resume antihypertensives am -BPs improved with IVF, give albumin x2 #Chronic macrocytic anemia -Vitamin B12 level elevated, dc po vitamin b12 -continue thiamine, folic acid #Moderate malnutrition -add glucerna x2 -nutrition to follow #h/o breast cancer -continue letrozole # history RLE DVT -R/T malignancy -continue Eliquis DVT prophylaxis-on Eliquis Full code Dispo- awaiting placement STR Patient requires ongoing inpatient stay due to MARCEL and HHS requiring close monitoring of renal function electrolyte levels as well as glucose monitoring and requires placement to STR, now with aspiration with acute hypoxemic respiratory failure Time Spent With Patient Time: Total time managing care of this patient today ____ minutes. Quality Stroke Does the patient have a stroke diagnosis?: No VTE Prior VTE?: Yes VTE Risk Level:: Medical - moderate - high VTE Device Contraindication: Treatment Not Indicated VTE Drug Contraindication: N/A - Med Ordered
--- NOTE | 2023-03-22 16:26 | PM.EVENT ---
Event Note Date of Service: 03/22/23 Event Note: Addiction consult placed for patient with [employer] met with patient--at this time patient is in pre-contemplative state and does not wish to make changes to drinking No follow up indicated at this time, please see RN note for additional details Time Spent With Patient Time: Total time managing care of this patient today ____ minutes.
--- NOTE | 2023-03-22 16:39 | MHC.SL.SWA ---
Speech Pathologist Impression: Risk of Aspiration Due to: History of Pneumonia Dysphasia Diet Status: Recommend DOWNGRADE to Ground/Mechanical (NDD2) continue on thin liquids, pills whole or crushed in puree per patient preference. Liquid Consistency and Strategies for Safe Swallow: Liquid Intake Recommendation: Thin Liquid Intake Strategies: Small Sips Solid Food Consistency: Dietary Recommendations: Grnd/Mech Altered (NDD2) Additional Modifications to Solid Foods: Add sauces and gravies. Patient may need periodic checks to make sure she is progressing meal and tolerating food consistency. Oral Medication Intake: Whole with Puree Please contact the pharmacy regarding appropriate crushable or liquid drug formulations that are available whenever modified delivery is recommended. Compensatory Strategies and Precautions to be Taken for Safe Swallow: Sitting Upright (90 deg) Liquids from Cup Liquids from Straw Small Bites and Sips Supervision While Eating and Drinking for Safe Swallow: Intermittent Supervision Foods to Avoid: Acidic or spicy foods, carbonated beverages, tough difficult to chew solids, crunchy foods that break into pieces. Swallowing Recommended Treatments: Compens. Strategy Educat. Recommendation for Speech: Inpatient Speech Therapy Comment: This STILL OPERATOR WHISKEY contacted by secure text from CHILD CARE DEVELOPMENT SPECIALIST this a.m. with report that patient had aspiration event and needed re-evaluation. When discussed with RN, Patient apparently choked when eating a piece of Welsh toast this morning, followed by taking a sip of liquid, then coughing repeatedly. The RN stated that patient did not cough up food, mostly phlegm. Patient reported that RT therapist was with her at the time and was speaking with her, when it happened, she felt distracted. Patient reported that the [place] toast was dry and cut into too big pieces for her. STILL OPERATOR WHISKEY completed re-assessment of swallow, presenting patient with thin liquid, puree, and soft solid. Patient again presented with timely oral phase, evident swallow trigger and timely swallow, laryngeal elevation WFL, mildly prolonged period of chewing with soft solid, no clinical signs of aspiration, no evidence of motoric difficulty with swallow with the exception of managing with limited dentition. Due to choking episode, patient c/o food cut too big on Chopped Advanced diet, recommend DOWNGRADE to Ground/Mechanical (NDD2) continue on thin liquids, pills whole or crushed in puree per patient preference. CHILD CARE DEVELOPMENT SPECIALIST and RD notified of recommendation by secure text, RN in person. STILL OPERATOR WHISKEY will continue to follow. Frequency/Duration: Date Range for Service Req: Timeline to reassess: Package Collector Clinican/Clinical Fellow: No Supervisory Statement: I have reviewed and agree with the student/clinical fellow's documentation: N/A Speech Language Pathologist: Bee Crisostomo M.A., CCC-STILL OPERATOR WHISKEY
[2023-03-22] MEDS: Acetaminophen 325 MG TABLET 650 MG PO (18:40)
[2023-03-22] MEDS: guaiFENesin 200 MG/10 ML 10 ML LIQUID PO (18:41)
[2023-03-22 19:54] VITALS: BP 114/56; PULSE 70; RESP 18; TEMP 36.3; O2SAT 94
[2023-03-22 21:16] LABS: Glucose, Whole Blood 228 mg/dL (60-115)
[2023-03-22] MEDS: Insulin Glargine,Hum.rec.anlog 100 UNIT/ML 10 ML VIAL 15 UNIT SUBCUT (22:33)
[2023-03-23] MEDS: Ampicillin Sodium/Sulbactam Na 3 GM in 0.9 % Sodium Chloride 100 ML IV ×3 (03:55→18:01)
[2023-03-23 06:12] LABS: MANUAL DIFF FLAG NO
[2023-03-23] MEDS: Omeprazole 20 MG CAPSULE.DR PO (06:21)
[2023-03-23] MEDS: Famotidine 20 MG TABLET PO ×2 (06:21→15:45)
[2023-03-23 06:25] LABS: Basophils Percent Auto 0.2 % (0-2); Eosinophils Absolute Auto 0.2 X10*3/uL (0.0-0.4); Eosinophils Percent Auto 2.4 % (0-4); Hematocrit 27.2 % (37.0-47.0); Hemoglobin 8.8 g/dl (12.0-16.0); Imm Gran Abs Auto 0.05 X10*3/uL (0.00-0.03); Imm Gran Pct Auto 0.8 % (0.0-0.4); Lymphocytes Absolute Auto 0.7 X10*3/uL (1.2-4.9); Lymphocytes Percent Auto 11.2 % (20-40); Mean Corpuscular HGB Conc 32.4 g/dl (31.0-35.0); Mean Corpuscular Hemoglobin 33.3 pg (27.0-33.0); Mean Platelet Volume 10.3 fL (9.4-12.3); Monocytes Absolute Auto 0.5 X10*3/uL (0.1-1.2); Monocytes Percent Auto 8.8 % (2-11); Neutrophils Absolute Auto 4.7 x10*3/uL (2.0-8.3); Neutrophils Percent Auto 76.6 % (45-73); Red Blood Count 2.64 X10*6/uL (4.20-5.50); Red Cell Distribution Width 17.8 % (11.0-16.0); White Blood Count 6.1 X10*3/uL (4.8-10.8)
[2023-03-23 06:26] LABS: Platelet Count 90 X10*3/uL (160-400)
[2023-03-23 06:34] LABS: Anion Gap 14 (12-20); Blood Urea Nitrogen 6 mg/dL (9-16); Calcium 9.3 mg/dL (8.4-10.2); Carbon Dioxide 23 mmol/L (22-29); Chloride 110 mmol/L (96-108); Creatinine Clr Calc Pharmacy 52.8; Estimated Glomerular Filt Rate 50; Glucose Random 191 mg/dL (60-115); Sodium 143 mmol/L (135-145)
[2023-03-23 07:28] LABS: Glucose, Whole Blood 180 mg/dL (60-115)
[2023-03-23] MEDS: Insulin Lispro 100 UNIT/ML 3 ML VIAL SUBCUT ×4 (07:39→19:53)
[2023-03-23] MEDS: 0.9 % Sodium Chloride Flush 3 ML SYRINGE IVFLUSH ×3 (07:39→19:58)
[2023-03-23 08:00] VITALS: BP 135/65; PULSE 113; RESP 20; TEMP 36.9; O2SAT 95
[2023-03-23] MEDS: Letrozole 2.5 MG TABLET PO (08:12)
[2023-03-23] MEDS: Calcium + Vitamin D 250 MG TABLET 500 MG PO ×2 (08:12→19:52)
[2023-03-23] MEDS: Atorvastatin Calcium 20 MG TABLET PO (08:12)
[2023-03-23] MEDS: Thiamine HCL 100 MG TABLET PO (08:12)
[2023-03-23] MEDS: Ferrous Sulfate 324 MG TABLET.DR PO (08:12)
[2023-03-23] MEDS: Fluticasone Propionate Nasal 16 GM SPRAY 1 SPRAY NOSTRIL-B (08:12)
[2023-03-23] MEDS: Folic Acid 1 MG TABLET PO (08:12)
[2023-03-23] MEDS: Loratadine 10 MG TABLET PO (08:12)
[2023-03-23] MEDS: Venlafaxine HCl ER 150 MG CAP.ER.24H PO (08:12)
[2023-03-23] MEDS: Apixaban 2.5 MG TABLET PO ×2 (08:12→19:53)
[2023-03-23 11:09] LABS: Glucose, Whole Blood 235 mg/dL (60-115)
--- NOTE | 2023-03-23 11:15 | MHC.SL.SWA ---
Speech Pathologist Impression: Risk of aspiration, oral phase dysphagia Risk of Aspiration Due to: History of Pneumonia Dysphasia Diet Status: Recommend CONTINUE with Ground/Mechanical (NDD2) and thin liquids, pills whole or crushed in puree per patient preference. Liquid Consistency and Strategies for Safe Swallow: Liquid Intake Recommendation: Thin Liquid Intake Strategies: Small Sips Solid Food Consistency: Dietary Recommendations: Grnd/Mech Altered (NDD2) Additional Modifications to Solid Foods: Add sauces and gravies. Patient may need periodic checks to make sure she is progressing meal and tolerating food consistency. Oral Medication Intake: Whole with Puree Please contact the pharmacy regarding appropriate crushable or liquid drug formulations that are available whenever modified delivery is recommended. Compensatory Strategies and Precautions to be Taken for Safe Swallow: Sitting Upright (90 deg) Liquids from Cup Liquids from Straw Small Bites and Sips Avoid Specific Foods Supervision While Eating and Drinking for Safe Swallow: Total Supervision (1:1) Foods to Avoid: Acidic or spicy foods, carbonated beverages, tough difficult to chew solids, crunchy foods that break into pieces. Swallowing Recommended Treatments: Compens. Strategy Educat. Recommendation for Speech: 1 f/u Physically Impaired Teacher Clinican/Clinical Fellow: Yes: Nasima Ames Supervisory Statement: I have reviewed and agree with the student/clinical fellow's documentation: Yes Speech Language Pathologist: Opal Faustin M.A., CCC-ELECTRIC OPERATOR
[2023-03-23] MEDS: Albuterol/Iprat 2.5/0.5MG 3 ML AMPUL.NEB INHALE ×2 (11:27→19:24)
[2023-03-23 11:30] VITALS: PULSE 113; RESP 18; O2SAT 93
--- NOTE | 2023-03-23 15:11 | HO.PM.IMPN ---
Subjective Subjective Date of Service: 03/23/23 Interval History: Seen and evaluated Feels better overall Weaning down O2 as tolerated Sugar levels better controlled Review of Systems Review of Systems: Yes all other systems are reviewed and are negative Physical Exam Vital Signs: Vital Signs: Last Vital Signs Temp 98.5 F 03/23/23 08:00 Pulse 113 H 03/23/23 11:30 Resp 18 03/23/23 11:30 BP 135/65 03/23/23 08:00 Pulse Ox 95 03/23/23 08:00 O2 Del Method Nasal Cannula 03/23/23 08:00 O2 Flow Rate 1.0 03/22/23 19:54 BMI result Body Mass Index 36.7 Const: Other: Constitutional : Awake, interactive, not in distress Neck : Normal inspection, Supple Cardiovascular : RRR, no JVP, no lower extremity edema Respiratory : good bilateral air entry, basal fine crackles Gastrointestinal: soft, lax, Normal bowel sounds, Non tender Skin : Warm, Dry Neurological : Alert & oriented x3, No focal deficit Objective Data Active Medications Acetaminophen (Acetaminophen 325 Mg Tablet) 650 mg PO Q6H PRN PRN Reason: Pain, Mild (Pain Scale 1-3) Last Admin: 03/22/23 18:40 Dose: 650 mg Documented By: ISRAEL Albuterol Sulfate (Albuterol Sulfate (0.083%) 2.5 Mg/3 Ml Vial.Neb) 2.5 mg INHALE Q4H PRN PRN Reason: Shortness Of Breath Or Wheezing Albuterol Sulfate (Albuterol Sulfate 90 Mcg 8 Gm Inhaler) 2 puff INHALE Q4H PRN PRN Reason: dyspnea Albuterol/Ipratropium (Albuterol/Iprat 2.5/0.5mg 3 Ml Ampul.Neb) 3 ml INHALE RQ4H WHILE AWAKE [facility] Last Admin: 03/23/23 11:27 Dose: 3 ml Documented By: TORRES Apixaban (Apixaban 2.5 Mg Tablet) 2.5 mg PO BID [facility] Last Admin: 03/23/23 08:12 Dose: 2.5 mg Documented By: JESS Atorvastatin Calcium (Atorvastatin Calcium 20 Mg Tablet) 20 mg PO DAILY [facility] Last Admin: 03/23/23 08:12 Dose: 20 mg Documented By: JESS Calcium Carbonate/Cholecalciferol (Calcium + Vitamin D 250 Mg Tablet) 500 mg PO BID [facility] Last Admin: 03/23/23 08:12 Dose: 500 mg Documented By: JESS Dextrose (Dextrose 50 % 25 Gm/50 Ml Syringe) 25 gm IVPUSH Q15M PRN; Protocol PRN Reason: per Hypoglycemia Standing Ord. Docusate Sodium (Docusate Sodium 100 Mg Capsule) 100 mg PO DAILY PRN PRN Reason: Constipation Docusate Sodium (Docusate Sodium 100 Mg Capsule) 100 mg PO BID PRN PRN Reason: constipation Famotidine (Famotidine 20 Mg Tablet) 20 mg PO BID@0630,1630 [facility] Last Admin: 03/23/23 06:21 Dose: 20 mg Documented By: BALAJI Ferrous Sulfate (Ferrous Sulfate 324 Mg Tablet.Dr) 324 mg PO DAILY [facility] Last Admin: 03/23/23 08:12 Dose: 324 mg Documented By: JESS Fluticasone Propionate (Fluticasone Propionate Nasal 16 Gm [place]) 1 spray NOSTRIL-B DAILY [facility] Last Admin: 03/23/23 08:12 Dose: 1 spray Documented By: JESS Fluticasone/Vilanterol (Fluticasone/Vilanterol 200/25 Blst.W.Dev) 1 puff INHALE RDAILY [facility] Last Admin: 03/23/23 07:52 Dose: Not Given Documented By: ORALIA Non-Admin Reason: Patient Refused Folic Acid (Folic Acid 1 Mg Tablet) 1 mg PO DAILY [facility] Last Admin: 03/23/23 08:12 Dose: 1 mg Documented By: JESS Glucose (Glucose Gel 15 Gm Gel..Gram.) 15 gm PO Q15M PRN; Protocol PRN Reason: per Hypoglycemia Standing Ord. Guaifenesin (Guaifenesin 200 Mg/10 Ml 10 Ml Liquid) 10 ml PO Q6H PRN PRN Reason: Cough Last Admin: 03/22/23 18:41 Dose: 10 ml Documented By: ISRAEL Ampicillin Sodium/Sulbactam (Sodium 3 gm/ Sodium Chloride) 100 mls @ 200 mls/hr IV Q8H [facility] Last Infusion: 03/23/23 12:02 Dose: Infused Documented By: JESS Insulin Glargine (Insulin Glargine,Hum.Rec.Anlog 100 Unit/Ml 10 Ml Vial) 15 unit SUBCUT BEDTIME [facility] Last Admin: 03/22/23 22:33 Dose: 15 unit Documented By: BALAJI Insulin Human Lispro (Insulin Lispro 100 Unit/Ml 3 Ml Vial) 0 unit SUBCUT QIDACHS [facility]; Protocol Last Admin: 03/23/23 11:07 Dose: 4 unit Documented By: JESS Letrozole (Letrozole 2.5 Mg Tablet) 2.5 mg PO DAILY [facility] Last Admin: 03/23/23 08:12 Dose: 2.5 mg Documented By: JESS Loratadine (Loratadine 10 Mg Tablet) 10 mg PO DAILY [facility] Last Admin: 03/23/23 08:12 Dose: 10 mg Documented By: JESS Omeprazole (Omeprazole 20 Mg Capsule.Dr) 20 mg PO DAILY@0630 [facility] Last Admin: 03/23/23 06:21 Dose: 20 mg Documented By: BALAJI Ondansetron HCl (Ondansetron Hcl 4 Mg/2 Ml Vial) 4 mg IVPUSH Q8H PRN PRN Reason: Nausea and Vomiting Last Admin: 03/20/23 13:42 Dose: 4 mg Documented By: MADDENL Sodium Chloride (0.9 % Sodium Chloride Flush 3 Ml Syringe) 3 ml IVFLUSH QSHIFT [facility] Last Admin: 03/23/23 07:39 Dose: 3 ml Documented By: JESS Thiamine HCl (Thiamine Hcl 100 Mg Tablet) 100 mg PO DAILY [facility] Last Admin: 03/23/23 08:12 Dose: 100 mg Documented By: JSES Tiotropium [place] (Tiotropium [place] 2.5 Mcg Inhaler) 2 puff INHALE RDAILY [facility] Last Admin: 03/23/23 07:52 Dose: Not Given Documented By: ORALIA Non-Admin Reason: Patient Refused Venlafaxine HCl (Venlafaxine Hcl Er 150 Mg Cap.Er.24h) 150 mg PO DAILY [facility] Last Admin: 03/23/23 08:12 Dose: 150 mg Documented By: JESS Labs 03/23/23 06:01 03/23/23 06:01 Labs: Laboratory Results - last 24 hr 03/22/23 03/22/23 03/23/23 16:13 21:07 06:01 MCV 103.0 H MCH 33.3 H MCHC 32.4 RDW 17.8 H Plt Count 90 L MPV 10.3 Immature Gran % (Auto) 0.8 H Neut % (Auto) 76.6 H Lymph % (Auto) 11.2 L [place] % (Auto) 8.8 Eos % (Auto) 2.4 Baso % (Auto) 0.2 Lymph # (Auto) 0.7 L [place] # (Auto) 0.5 Eos # (Auto) 0.2 Baso # (Auto) 0.0 Abs Immat Gran (auto) 0.05 H Absolute Neuts (auto) 4.7 Absolute Nucleated RBC 0.000 Nucleated RBC % (auto) 0.0 Anion Gap 14 Estim Creat Clear Calc 52.8 Estimated GFR 50 POC Glucose 224 H 228 H Random Glucose 191 H Calcium 9.3 03/23/23 03/23/23 07:20 11:02 MCV MCH MCHC RDW Plt Count MPV Immature Gran % (Auto) Neut % (Auto) Lymph % (Auto) [place] % (Auto) Eos % (Auto) Baso % (Auto) Lymph # (Auto) [place] # (Auto) Eos # (Auto) Baso # (Auto) Abs Immat Gran (auto) Absolute Neuts (auto) Absolute Nucleated RBC Nucleated RBC % (auto) Anion Gap Estim Creat Clear Calc Estimated GFR POC Glucose 180 H 235 H Random Glucose Calcium Assessment and Plan (1) Alcohol use disorder, moderate, dependence: Status: Acute (2) MDD (major depressive disorder), recurrent episode, moderate: Status: Acute (3) Alcoholic ketoacidosis: Status: Acute Plan 62-year-old female history of COPD, hypertension, ETOH use disorder, diabetes, DVT on Eliquis, breast cancer on letrozole, aspiration pneumonia admitted for HHS and Alcoholic ketoacidosis. # aspiration pneumonia\pneumonitis with acute hypoxemic respiratory failure improving MANAGER OF SUSTAINABILITY re-evaluation recommending NDD 2, thin liquids Repeated CXR showing more haziness suggestive of pneumonitis Unasyn 3 g q.8h IV steroid Duonebs Titrate O2 as tolerated #Type 2 diabetes with acute hyperglycemia likely hyperosmolar hyperglycemic state w random glucose on arrival 772, noncompliant with metformin Acidosis more likely r/t starvation vs alcoholic ketoacidosis rather than DKA. Beta hydroxybutyrate WNL Improving Hgb A1c 11.4 POC glucose HUmalog on sliding scale increase Lantus to 20 units #Alcoholic vs starvation ketoacidosis resolved ETOH level on arrival 192 dc IVF # acute kidney injury resolved w/ ivf ckd stage 3 at bseline follow BMP # hypokalemia repleted, follow BMP #Dysphagia resulting in medication noncompliance MANAGER OF SUSTAINABILITY evaluation: NDD3, thin liquids, medications in puree or crushed if needed # alcohol use disorder continue monitoring on CIWA initiate phenobarbital per protocol if CIWA remains elevated addiction medicine consult, disinterested in cessation at this time continue thiamine, folic acid # depression patient has not gotten out of bed much and is not eating, consuming more alcohol contributing to current acute medical state psychiatry consult recommending etoh cessation, outpt f/up. continue effexor # COPD continue maintenance inhaler albuterol p.r.n. smoking cessation # hypertension Resume antihypertensives #Chronic macrocytic anemia Vitamin B12 level elevated, dc po vitamin b12 continue thiamine, folic acid #Moderate malnutrition add glucerna x2 nutrition to follow #h/o breast cancer continue letrozole # history RLE DVT R/T malignancy continue Eliquis DVT prophylaxis-on Eliquis Full code Dispo- awaiting placement STR Patient requires ongoing inpatient stay due to MARCEL and HHS requiring close monitoring of renal function electrolyte levels as well as glucose monitoring and requires placement to STR, now with aspiration with acute hypoxemic respiratory failure Time Spent With Patient Time: Total time managing care of this patient today ____ minutes. Quality Stroke Does the patient have a stroke diagnosis?: No VTE Prior VTE?: Yes VTE Risk Level:: Medical - moderate - high VTE Device Contraindication: Treatment Not Indicated VTE Drug Contraindication: N/A - Med Ordered
[2023-03-23 15:12] VITALS: PULSE 113
--- NOTE | 2023-03-23 15:24 | MHC.CM.PN ---
Addendum entered by Gayathri Alexander 03/23/23 15:29: [facility] AUTH OBTAINED BY [facility] Original Note: [facility] HAS ACCEPTED PT FOR STR, BLS BOOKED FOR 03/24/23 AT 10:30 AM VIA [place]. HCP SHELLY UPDATED ON PLAN PER PT REQUEST. IMM ADDRESSED. AWARE OF PLAN
[2023-03-23] MEDS: methylPREDNISolone Sod Succ 40 MG/ML VIAL 20 MG IVPUSH (15:45)
[2023-03-23 16:23] LABS: Glucose, Whole Blood 273 mg/dL (60-115)
[2023-03-23 19:17] VITALS: BP 122/66; PULSE 113; RESP 16; TEMP 36.1; O2SAT 91
[2023-03-23 19:26] VITALS: PULSE 113; RESP 16; O2SAT 92
[2023-03-23 19:37] LABS: Glucose, Whole Blood 311 mg/dL (60-115)
[2023-03-23] MEDS: Insulin Glargine,Hum.rec.anlog 100 UNIT/ML 10 ML VIAL 20 UNIT SUBCUT (19:54)
[2023-03-23] MEDS: Melatonin 3 MG TABLET 6 MG PO (20:30)
[2023-03-24 04:00] VITALS: BP 122/58; PULSE 103; RESP 16; TEMP 36.1; O2SAT 93
[2023-03-24] MEDS: Famotidine 20 MG TABLET PO (05:04)
[2023-03-24] MEDS: Omeprazole 20 MG CAPSULE.DR PO (05:04)
[2023-03-24] MEDS: Ampicillin Sodium/Sulbactam Na 3 GM in 0.9 % Sodium Chloride 100 ML IV (05:04)
[2023-03-24 06:57] VITALS: BP 117/60; PULSE 94; RESP 18; TEMP 36.1; O2SAT 94
[2023-03-24 07:06] LABS: Glucose, Whole Blood 254 mg/dL (60-115)
[2023-03-24] MEDS: Folic Acid 1 MG TABLET PO (08:14)
[2023-03-24] MEDS: Ferrous Sulfate 324 MG TABLET.DR PO (08:14)
[2023-03-24] MEDS: Calcium + Vitamin D 250 MG TABLET 500 MG PO (08:14)
[2023-03-24] MEDS: Loratadine 10 MG TABLET PO (08:14)
[2023-03-24] MEDS: Letrozole 2.5 MG TABLET PO (08:14)
[2023-03-24] MEDS: methylPREDNISolone Sod Succ 40 MG/ML VIAL 20 MG IVPUSH (08:15)
[2023-03-24] MEDS: Thiamine HCL 100 MG TABLET PO (08:15)
[2023-03-24] MEDS: Apixaban 2.5 MG TABLET PO (08:15)
[2023-03-24] MEDS: Atorvastatin Calcium 20 MG TABLET PO (08:15)
[2023-03-24] MEDS: Insulin Lispro 100 UNIT/ML 3 ML VIAL SUBCUT (08:15)
[2023-03-24] MEDS: 0.9 % Sodium Chloride Flush 3 ML SYRINGE IVFLUSH (08:15)
[2023-03-24] MEDS: Venlafaxine HCl ER 150 MG CAP.ER.24H PO (08:15)
[2023-03-24] MEDS: Fluticasone Propionate Nasal 16 GM SPRAY 1 SPRAY NOSTRIL-B (08:25)
[2023-03-24] MEDS: Docusate Sodium 100 MG CAPSULE PO (08:27)
[2023-03-24] MEDS: Acetaminophen 325 MG TABLET 650 MG PO (08:27)
--- NOTE | 2023-03-24 08:32 | MHC.CM.PN ---
pt discharging to [facility] at 10:30am, IMM addressed and hcp Juan made aware yesterday 03/23/23Lauren for transport.
--- NOTE | 2023-03-24 10:39 | PM.DS ---
DS: Providers Provider Date of Service: 03/24/23 Date of admission: 03/20/23 12:51 Primary care physician: Juana Jean MD Consults: 03/20/23 13:22 Consult to Psychiatry Routine Consulting Provider: Psych Covering Reason for consultation: depression, not getting out of bed much x 2years 03/20/23 13:23 Addiction Medicine Routine Consulting Provider: Addiction Covering Reason for consultation: etoh abuse DS: Diagnosis Discharge Diagnosis (1) Alcohol use disorder, moderate, dependence: Status: Acute (2) MDD (major depressive disorder), recurrent episode, moderate: Status: Acute (3) Alcoholic ketoacidosis: Status: Acute (4) Acute hyperglycemia: Status: Acute DS: Summary Hospital Course Hospital Course: Admission note HPI 62-year-old female history of COPD, hypertension, ETOH use disorder, diabetes, DVT on Eliquis, breast cancer on letrozole, aspiration pneumonia who presented to the ED early this morning after a fall out of bed. She reports she rolled over to reach something on her nightstand and rolled out of bed landing on her front but denies any head strike or loss of consciousness. The patient reports for the last 2 years or so she has been very weak, depressed and spends most of her time in bed since her . She has not been eating much, reports eating about every other day but states he drinks a lot of water due to polydipsia and also endorses polyuria. She reports she drinks about a half glass (around 8 oz) coffee kole on a daily basis, last consumed just before EMS arrival this morning. Denies history of withdrawal/withdrawal seizure. Currently denies any fevers, chills, abdominal pain, nausea, vomiting, dysuria, hematuria, headaches, lightheadedness, tremors, lightheadedness, confusion, shortness of breath, or chest pain. She does endorse a chronic cough likely related to her COPD that has not changed in quality or severity. She was treated with 1.5 L IV NS, placed on insulin drip On arrival, patient tachycardic to 110, blood pressure soft but no hypotension. On admission, blood pressure 95/49, vitals otherwise stable. There is no leukocytosis, stable macrocytic anemia with H/H 9.5/30.5%, MCV 107.4. Initial chemistries revealed random glucose of 772. Creatinine 1.92, BUN 7, sodium 129, CO2 15, anion gap 21. Initial lactic acid 7.9. VBG showed pH 7.28, pCO2 40, bicarb 19. Patient given 10 units regular insulin with POC still reading >600. She was treated with 1.5 L IV NS, placed on insulin drip. Glucose levels followed q.1h and patient weaned from insulin drip maintaining glucose levels 234-275. Repeat chemistries revealed improvement in creatinine to 1.3 to (baseline around 0.9), BUN 7, sodium 136, potassium 3.2, CO2 18, random glucose 293. Repeat lactic acid improved to 4.2. Urinalysis with 1+ blood, significant glucose, trace protein. Head CT negative for any acute intracranial abnormality but does show deep white matter and periventricular hypoattenuation, likely sequela of chronic microvascular angiopathy ischemia. CT cervical spine negative for any evidence of fracture but does show degenerative disc disease at multiple levels. CXR negative for any acute cardiopulmonary findings. Patient to be admitted for further management of HHS and starvation ketoacidosis. Hospital course # aspiration pneumonia with acute hypoxemic respiratory failure improved with treatment of antibiotics and steroids. Repeated CXR showing more haziness suggestive of pneumonitis. Weaned down Oxygen supplement. #Type 2 diabetes with acute hyperglycemia likely from hyperosmolar hyperglycemic state w random glucose on arrival 772, noncompliant with metformin. Acidosis more likely r/t starvation and alcoholic ketoacidosis rather than DKA. Hgb A1c 11.4. responded well to IV fluids and usage of Insulin. To start Metformin, Sliding scale and Lantus insulin and follow with PCP as outpatient. # starvation ketoacidosis with acute kidney injury resolved with usage of IV fluids as ETOH level on arrival 192. ckd stage 3 at baseline # hypokalemia repleted #Dysphagia resulting in medication noncompliance SMOKING PIPE MOUNTER evaluation: NDD2, thin liquids, medications in puree or crushed if needed # alcohol use disorder addiction medicine consult, disinterested in cessation at this time continue thiamine, folic acid Start Lantus insulin and follow with PCP as outpatient NDD2, thin liquids, medications in puree or crushed if needed Continue antibiotics as prescribed We advise you complete abstinence from alcohol Follow with PCP as outpatient Time Spent with Patient Time attestation: Total time managing care of this patient today ____ minutes. Discharge coordination time: Greater than 30 minutes Quality: Safe Use of Opioids Does Pt have an Active Cancer Diagnosis on the Problem List?: No Quality: Stroke Does the patient have a stroke diagnosis?: No Physical Exam Vital Signs: Vital Signs: Last Vital Signs Temp 97 F 03/24/23 06:57 Pulse 94 03/24/23 06:57 Resp 18 03/24/23 06:57 BP 117/60 03/24/23 06:57 Pulse Ox 94 03/24/23 06:57 O2 Del Method Room Air 03/24/23 06:57 O2 Flow Rate 1.0 03/22/23 19:54 BMI result Body Mass Index 36.7 Const: Other: Constitutional : Awake, interactive, not in distress Neck : Normal inspection, Supple Cardiovascular : RRR, no JVP, no lower extremity edema Respiratory : good bilateral air entry, basal fine crackles Gastrointestinal: soft, lax, Normal bowel sounds, Non tender Skin : Warm, Dry Neurological : Alert & oriented x3, No focal deficit DS: Data Data Completed and Pending Labs on day of discharge: Laboratory Results - last 24 hr 03/23/23 03/23/23 03/23/23 11:02 16:17 19:07 POC Glucose 235 H 273 H 311 H 03/24/23 06:57 POC Glucose 254 H Preliminary micro results at discharge 03/22/23 18:45 Blood Culture - Preliminary Blood - Venous No growth after 24 hours. 03/22/23 18:45 Blood Culture - Preliminary Blood - Venous No growth after 24 hours. Imaging Chest x-ray: Radiologist's impression: ITS Impressions Cervical Spine CT 03/20/23 06:35 IMPRESSION: Exam limited by motion artifacts. * No CT evidence of cervical spine fracture. * Loss of disc height and developed osteophyte from the edges of endplates suggest degenerative disc disease at C5-C6, C6-C7. * No significant osseous stenosis of central canal or neural foramen. Head CT 03/20/23 06:35 IMPRESSION: * Deep white matter and periventricular hypoattenuation, nonspecific; most likely sequela of chronic microvascular angiopathy ischemia. * No intracranial bleed. Chest X-Ray 03/20/23 06:37 IMPRESSION: No acute cardiopulmonary findings. Discharge Plan Discharge Anticipated Discharge Date/Time: 03/24/23 10:28 Patient Disposition: [facility] Discharge Diagnosis: Hyperglycemia Kidney injury Alcohol abuse Referrals: Juana Jean MD [Primary Care Provider] - 1 Week Discharge Medications: New amoxicillin-pot clavulanate 875-125 mg tablet 1 tab PO BID Qty: 6 0RF insulin glargine [Lantus U-100 Insulin] 100 unit/mL Solution 25 unit subcut BEDTIME 30 Days Qty: 7.5 0RF insulin lispro [Humalog U-100 Insulin] 100 unit/mL Solution See Protocol subcut QIDACHS Qty: 10 1RF Protocol: Insulin Correction Scale Less than or equal to 110 ---- Give (units): 0 111 to 150 Give (units): 0 151 to 200 Give (units): 2 201 to 250 Give (units): 4 251 to 300 Give (units): 6 301 to 350 Give (units): 8 Greater than 350 Give (units): 10 Call if Blood Glucose > : 350 Continued letrozole 2.5 mg Tablet 2.5 mg PO DAILY Qty: 90 1RF losartan 50 mg tablet 50 mg PO DAILY albuterol sulfate 2.5 mg /3 mL (0.083 %) solution for nebulization 2.5 mg inhalation Q4H PRN (Reason: Shortness Of Breath Or Wheezing) venlafaxine 150 mg capsule,extended release 24hr 150 mg PO DAILY thiamine HCl (vitamin B1) 100 mg tablet 100 mg PO DAILY cyanocobalamin (vitamin B-12) 500 mcg tablet 500 mcg PO DAILY omeprazole 20 mg capsule,delayed release(DR/EC) 20 mg PO DAILY@0630 folic acid 1 mg tablet 1 mg PO DAILY loratadine 10 mg tablet 10 mg PO DAILY metformin 750 mg tablet extended release 24 hr 750 mg PO BID calcium carbonate-vitamin D3 600 mg-10 mcg (400 unit) tablet 1 tab PO BID Slow-Mag 71.5 mg tablet,delayed release (DR/EC) 71.5 mg PO DAILY Eliquis 2.5 mg tablet 2.5 mg PO BID Incruse Ellipta 62.5 mcg/actuation blister with device 1 inh inhalation DAILY albuterol sulfate [Ventolin HFA] 90 mcg/actuation HFA aerosol inhaler 2 puff INHALATION Q4H PRN (Reason: dyspnea) atorvastatin 20 mg tablet 20 mg PO DAILY ferrous sulfate 325 mg (65 mg iron) tablet,delayed release (DR/EC) 325 mg PO DAILY fluticasone propionate 50 mcg/actuation spray,suspension 1 spray intranasal DAILY fluticasone propion-salmeterol [Advair HFA] 230-21 mcg/actuation HFA aerosol inhaler 2 puff inhalation BID famotidine 20 mg tablet 20 mg PO BID@0630,1630 docusate sodium 100 mg capsule 100 mg PO BID PRN (Reason: constipation) Discharge Orders: Discharge Order (Routine); Ordered 03/24/23 Ordered By: Roslyn Zamorano Diet: Advance to usual diet Activity on Discharge: As tolerated Stand Alone Forms: Patient Portal Discharge page Care Plan Goals: Read below Health Concerns: Read below Plan of Treatment: Read below Assessment: Continue antibiotics as prescribed We advise you complete abstinence from alcohol Start Insulin as prescribed Follow with PCP as outpatient
== END 2023-03-24 11:23 | disposition skilled nursing facility (03) | DRG 637 ==
LOC: HO.ED 09:42 → HO.EDOVER 13:05 → HO.S3 03-21 09:44
PROVIDERS: Emergency Medicine; Internal Medicine; Social Worker; Admitting Provider Physician Assistant; Emergency Provider Emergency Medicine Emergency Medical Services; PCP Family Medicine; Visit Provider Student in an Organized Health Care Education/Training Program
DX: E11.00 Type 2 diabetes mellitus with hyperosmolarity without nonketotic hyperglycemic-hyperosmolar coma (NKHHC) (principal); J69.0 Pneumonitis due to inhalation of food and vomit; J96.01 Acute respiratory failure with hypoxia; E44.0 Moderate protein-calorie malnutrition; E87.29 Other acidosis; N17.9 Acute kidney failure, unspecified; F33.1 Major depressive disorder, recurrent, moderate; Y90.6 Blood alcohol level of 120-199 mg/100 ml; C50.919 Malignant neoplasm of unspecified site of unspecified female breast; E87.6 Hypokalemia; J44.9 Chronic obstructive pulmonary disease, unspecified; R13.10 Dysphagia, unspecified; I10 Essential (primary) hypertension; D50.9 Iron deficiency anemia, unspecified; Z68.36 Body mass index [BMI] 36.0-36.9, adult; F10.20 Alcohol dependence, uncomplicated; F17.210 Nicotine dependence, cigarettes, uncomplicated; Z71.6 Tobacco abuse counseling; Z91.148 Patient's other noncompliance with medication regimen for other reason; Z86.718 Personal history of other venous thrombosis and embolism; Z79.4 Long term (current) use of insulin; Z79.01 Long term (current) use of anticoagulants; Z79.51 Long term (current) use of inhaled steroids; Z79.84 Long term (current) use of oral hypoglycemic drugs; Z79.811 Long term (current) use of aromatase inhibitors; Z79.899 Other long term (current) drug therapy
CPT/HCPCS: 36415; 70450; 71045; 72125; 80048; 80076; 80307; 81001; 82010; 82550; 82607; 82746; 82803; 82947; 83036; 83605; 83690; 83735; 84484; 85025; 85379; 87040; 87086; 87088; 87186; 92526; 92610; 93005; 93306; 94640; 97162; 99285; J0295; J2060; J2405; J2920; P9047; Q9957

== ENCOUNTER 2023-03-20 12:51 | Outpatient (BNV) | payer OTHER, SELFPAY | END 2023-03-21 07:00 | PROVIDERS: Admitting Provider Physician Assistant; Emergency Provider Emergency Medicine Emergency Medical Services; PCP Family Medicine; Visit Provider Internal Medicine | DX: I34.81 Nonrheumatic mitral (valve) annulus calcification (principal) | CPT/HCPCS: 93306 ==

== ENCOUNTER → 2023-03-20 12:51 | Outpatient (BNV) | payer OTHER, SELFPAY | PROVIDERS: Admitting Provider Physician Assistant; Emergency Provider Emergency Medicine Emergency Medical Services; PCP Family Medicine; Visit Provider Physician Assistant | DX: F10.20 Alcohol dependence, uncomplicated (principal); F33.1 Major depressive disorder, recurrent, moderate; E11.65 Type 2 diabetes mellitus with hyperglycemia; E87.29 Other acidosis | CPT/HCPCS: 99223; 99232; 99239 ==

== ENCOUNTER → 2023-03-20 12:51 | Outpatient (BNV) | payer OTHER, SELFPAY | PROVIDERS: Admitting Provider Physician Assistant; Emergency Provider Emergency Medicine Emergency Medical Services; PCP Family Medicine; Visit Provider Social Worker | DX: F33.1 Major depressive disorder, recurrent, moderate (principal); F10.20 Alcohol dependence, uncomplicated | CPT/HCPCS: 99232; 99499 ==

== ENCOUNTER 2023-04-27 14:57 | Outpatient (REF) | payer OTHER, SELFPAY | END 2023-04-27 14:58 | disposition home or self-care (01) | LOC: HO.MAMMO 14:57 | PROVIDERS: Visit Provider Family Medicine | DX: Z13.89 Encounter for screening for other disorder (principal) ==

== ENCOUNTER 2023-05-07 15:37 | Emergency (ER) | payer OTHER, SELFPAY ==
--- NOTE | 2023-05-07 16:16 | ED_ITS ---
HPI - General Adult General Chief complaint: General Medical Stated complaint: right breast lump sent from Source: patient Mode of arrival: ambulatory Limitations: no limitations History of Present Illness HPI narrative: Patient is a 62 year old assigned female at with a history of DM and right sided breast cancer s/p partial mastectomy presenting to the emergency department today with new lumps in the right breast. Patient states that she recently noticed new lumps in her right breast and would like to get an ultrasound to see what they are. Patient states that she has an appointment with her doctor for this but wanted to be seen sooner. Patient denies any dizziness, lightheadedness, abdominal pain, nausea, vomiting, fever, chills, blurry vision, double vision, loss of vision, chest pain, difficulty breathing, shortness of breath, back pain, night sweats, pain with urination, increased urinary frequency, increased urinary urgency, blood in her urine or stool, syncope or a near syncopal episode, recent trauma or falls, bowel incontinence, bladder incontinence, bowel retention, bladder retention, or any other complaints at this time. Onset (ago): day(s) Location: right (breast) Severity: mild Relieving factors: none Exacerbating factors: none Associated symptoms: denies other symptoms Treatments prior to arrival: none Related Data Home Medications Medication Instructions Recorded Confirmed albuterol sulfate 2.5 mg/3 mL 2.5 mg inhalation Q4H PRN 12/07/22 03/20/23 (0.083 %) solution for nebulization Shortness Of Breath Or Wheezing albuterol sulfate 90 mcg/actuation 2 puff inhalation Q4H PRN dyspnea 12/07/22 03/20/23 aerosol inhaler (Ventolin HFA) apixaban 2.5 mg tablet (Eliquis) 2.5 mg PO BID 12/07/22 03/20/23 calcium carbonate 600 mg-vitamin 1 tab PO BID 12/07/22 03/20/23 D3 10 mcg (400 unit) tablet cyanocobalamin (vitamin B-12) 500 500 mcg PO DAILY 12/07/22 03/20/23 mcg tablet folic acid 1 mg tablet 1 mg PO DAILY 12/07/22 03/20/23 loratadine 10 mg tablet 10 mg PO DAILY 12/07/22 03/20/23 losartan 50 mg tablet 50 mg PO DAILY 12/07/22 03/20/23 magnesium chloride 71.5 mg 71.5 mg PO DAILY 12/07/22 03/20/23 (magnesium chloride) tablet,delayed release (Slow-Mag) metformin 750 mg tablet,extended 750 mg PO BID 12/07/22 03/20/23 release 24 hr omeprazole 20 mg capsule,delayed 20 mg PO DAILY@0630 12/07/22 03/20/23 release thiamine HCl (vitamin B1) 100 mg 100 mg PO DAILY 12/07/22 03/20/23 tablet umeclidinium 62.5 mcg/actuation 1 inh inhalation DAILY 12/07/22 03/20/23 blister powder for inhalation (Incruse Ellipta) venlafaxine 150 mg 150 mg PO DAILY 12/07/22 03/20/23 capsule,extended release 24 hr atorvastatin 20 mg tablet 20 mg PO DAILY 03/20/23 03/20/23 docusate sodium 100 mg capsule 100 mg PO BID PRN constipation 03/20/23 03/20/23 famotidine 20 mg tablet 20 mg PO BID@0630,1630 03/20/23 03/20/23 ferrous sulfate 325 mg (65 mg 325 mg PO DAILY 03/20/23 03/20/23 iron) tablet,delayed release fluticasone propionate 230 2 puff inhalation BID 03/20/23 03/20/23 mcg-salmeterol 21 mcg/actuation HFA inhaler (Advair HFA) fluticasone propionate 50 1 spray intranasal DAILY 03/20/23 03/20/23 mcg/actuation nasal spray,suspension Previous Rx's Medication Instructions Recorded letrozole 2.5 mg tablet 2.5 mg PO DAILY #90 tabs 01/15/23 amoxicillin 875 mg-potassium 1 tab PO BID #6 tabs 03/24/23 clavulanate 125 mg tablet insulin glargine 100 unit/mL 25 unit (0.25 mL) subcut BEDTIME 03/24/23 subcutaneous solution (Lantus 30 days #7.5 mL U-100 Insulin) insulin lispro 100 unit/mL See Protocol subcut QIDACHS #10 mL 03/24/23 subcutaneous solution (Humalog U-100 Insulin) syringe,safety, disposal unit 3 mL #100 ea 03/26/23 Allergies Allergy/AdvReac Type Severity Reaction Status Date / Time Sulfa (Sulfonamide Allergy Severe ANAPHYLAXIS Verified 05/07/23 16:17 Antibiotics) [SULFA (SULFONAMIDE ANTIBIOTICS)] mitch seed [MITCH SEED] Allergy Intermediate HIVES/NAUSE Verified 05/07/23 16:17 A Review of Systems 2 Constitutional: Constitutional: Reports no additional constitutional complaints, Denies chills, Denies fever(s) and Denies night sweats Eyes: Eyes: Reports no additional eye complaints, Denies blurry vision, Denies change in vision, Denies diplopia, Denies eye discharge, Denies loss of vision and Denies eye pain ENT: Denies dizziness Cardiovascular: Cardiovascular: Reports no additional cardiovascular complaints, Denies chest pain, Denies lightheadedness, Denies Loss of Consciousness and Denies dyspnea Respiratory: Respiratory: Reports no additional respiratory complaints and Denies dyspnea Gastrointestinal: Gastrointestinal: Reports no additional gastrointestinal complaints, Denies abdominal pain, Denies melena, Denies hematochezia, Denies change in bowel habits and Denies change in stool character Genitourinary: Genitourinary: Denies hematuria, Denies urinary frequency, Denies dysuria, Denies urinary incontinence, Denies urinary hesitancy and Denies urinary urgency Musculoskeletal: Musculoskeletal: Reports no additional musculoskeletal complaints, Denies numbness and Denies tingling Integumentary/Breasts: Comments: right breast pain Neurologic: Denies dizziness, Denies loss of vision, Denies numbness and Denies tingling Psychiatric: Psychiatric: Reports no additional psychiatric complaints Endocrine: Endocrine: Reports no additional endocrine complaints Hematologic/Lymphatic: Hematologic/Lymphatic: Reports no additional hematologic/lymphatic complaints Allergic/Immunologic: Allergic/Immunologic: Reports no additional allergic/immunologic complaints [facility] Past Medical History Attestation statement: The following information was validated with the patient. Source: old records reviewed and nursing notes reviewed Medical History Type 2 diabetes mellitus treated with insulin Alcohol use disorder, moderate, dependence MDD (major depressive disorder), recurrent episode, moderate Alcohol abuse Depression Aspiration pneumonia Anemia Right leg DVT Breast cancer, right breast Alcohol abuse COPD (chronic obstructive pulmonary disease) Diabetes HTN (hypertension) Surgical History History of cholecystectomy History of delivery History of ventral hernia repair Social History Social History Household Members: Family Housing: Apartment Do you presently have visiting nurse or other home services: No Alcohol intake: current Alcohol intake frequency: 0-2 drinks per day Alcohol type: hard liquor Comment: refusing bed alarm and fall interventions. Patient Tobacco Use Status: Current everyday Tobacco user Tobacco use type: Cigarette Cigarette Packs Per Day: 1 Cigarettes Per Day: 20.0 Second Hand Smoke Exposure: No Substance Use Type: Marijuana Advance Directives: Yes Advance Directives on File: Yes Advance Directives Date on File: 03/26/23 service: No Physical Exam ED Vital Signs: Vital Signs - 24 hr 05/07/23 16:18 Temperature 99.3 F Pulse Rate 121 H Respiratory Rate 16 Blood Pressure 114/52 L Pulse Oximetry 95 Oxygen Delivery Method Room Air BMI result Body Mass Index 38.3 Const General: cooperative, no acute distress, alert and awake Nutritional Appearance: well nourished Orientation/consciousness: patient oriented x3 Limitations: no limitations HENMT Head: Yes normal to inspection and Yes atraumatic Ears: hearing grossly normal bilaterally and external ears normal General nose exam: Normal external nose present, no nasal discharge noted and no epistaxis Face and sinus: Yes normal facial exam, No abrasion and No laceration Mouth: Normal oral and palatal mucosa present, no drooling and no muffled voice Eyes General: appearance normal, both eyes and all related structures Periorbital: periorbital findings normal Eyelids: Yes eyelids normal Conjunctivae: conjunctivae normal Pupils: Equal, round and reactive pupils present EOM: EOMs intact bilaterally Neck Neck: Yes normal visual inspection, Yes full ROM and Yes no lymphadenopathy Resp Effort & Inspection: normal respiratory effort and able to speak in complete sentences GI Inspection: Yes normal to inspection Neuro General: patient oriented x3 and moves all extremities Cranial nerves: Yes Equal, round and reactive pupils present Cognition (Neuro): normal cognition Motor exam (neuro): 5/5 motor strength present throughout Sensory Exam: Normal double simultaneous stimulation for sensation Coordination: [id number] test normal Extrem General: Yes normal to inspection, Yes full ROM and Yes capillary refill normal Psych Appearance: grossly normal Mental Status: mental status grossly normal Affect: normal affect Attitude: cooperative Thought process: Normal thought process present Thought content: Normal thought content present Insight: Good insight present (Psych) Course Course Course Narrative: RME performed by Yen Phillip PA-C. Patient is a 62 year old assigned female at presenting to the emergency department with right breast swelling with breast lumps. Labs and imaging ordered. Patient placed back in the waiting room pending room availability and results. Medical Decision Making Medical Decision Making [facility] Narrative: Patient is a 62 year old assigned female at with a history of DM and right sided breast cancer s/p partial mastectomy presenting to the emergency department today with lumps on the right breast and requesting a breast ultrasound. Patient's limited physical exam performed in triage, not including a chest or breast examination, was unremarkable. Patient's blood work showed an elevated ESR of 96, a CRP of 2.74, and lactic acid of 3.5. Patient left the department without completing treatment. Patient left the department before myself or any of the other emergency department clinicians could explain or review physical exam findings, test results, need or lack there of for additional testing or imaging, treatment plans, or possible treatment options. Differential Diagnosis Differential Diagnoses: The differential diagnosis associated with the presentation includes Breast abscess Breast lump Breast cancer Admission/Observation Consideration of admission/observation: Escalation of care including admission/observation considered Patient left the department before admission decision could be determined. Lab Data [facility] Lab Attestation statement: I reviewed the patient's lab results. My interpretation of these results are in the MDM Rationale portion of this note. 05/07/23 17:10 05/07/23 17:10 Labs: Lab Results 05/07/23 Range/Units 17:10 WBC 9.4 (4.8-10.8) X10*3/uL RBC 3.12 L (4.20-5.50) X10*6/uL Hgb 9.8 L (12.0-16.0) g/dl Hct 31.5 L (37.0-47.0) % MCV 101.0 H (80.0-98.0) fL MCH 31.4 (27.0-33.0) pg MCHC 31.1 (31.0-35.0) g/dl RDW 16.0 (11.0-16.0) % Plt Count 158 L D (160-400) X10*3/uL MPV 10.6 (9.4-12.3) fL Immature Gran % (Auto) 1.4 H (0.0-0.4) % Neut % (Auto) 70.7 (45-73) % Lymph % (Auto) 16.8 L (20-40) % [place] % (Auto) 8.7 (2-11) % Eos % (Auto) 1.9 (0-4) % Baso % (Auto) 0.5 (0-2) % Lymph # (Auto) 1.6 (1.2-4.9) X10*3/uL [place] # (Auto) 0.8 (0.1-1.2) X10*3/uL Eos # (Auto) 0.2 (0.0-0.4) X10*3/uL Baso # (Auto) 0.1 (0.0-0.2) X10*3/uL Abs Immat Gran (auto) 0.13 H (0.00-0.03) X10*3/uL Absolute Neuts (auto) 6.7 (2.0-8.3) x10*3/uL Absolute Nucleated RBC 0.000 (0.0-0.012) X10*3/uL Nucleated RBC % (auto) 0.0 (0.0-0.2) /100WBC ESR 96 H (0-20) MM/HR Sodium 139 (135-145) mmol/L Potassium 4.4 (3.3-5.1) mmol/L Chloride 107 (96-108) mmol/L Carbon Dioxide 23 (22-29) mmol/L Anion Gap 13 (12-20) BUN 8 L (9-16) mg/dL Creatinine 0.92 (0.5-1.4) mg/dL Estim Creat Clear Calc 62.1 Estimated GFR > 60 Random Glucose 165 H (60-115) mg/dL Lactic Acid 3.5 H* (0.5-2.0) mmol/L Calcium 10.3 H D (8.4-10.2) mg/dL Total Bilirubin 0.9 (0.0-1.0) mg/dL AST 40 H (5-31) U/L ALT 19 (0-31) U/L Alkaline Phosphatase 178 H (39-117) U/L C-Reactive Protein 2.74 H (< or = 0.50) mg/dL Total Protein 7.4 (6.5-8.0) g/dL Albumin 3.1 L (3.5-5.0) g/dL Discharge Plan Discharge Clinical Impression: Breast lump Patient Disposition: Left W/O Completing Treatment Prescriptions: No Action letrozole 2.5 mg Tablet 2.5 mg PO DAILY Qty: 90 1RF losartan 50 mg tablet 50 mg PO DAILY albuterol sulfate 2.5 mg /3 mL (0.083 %) solution for nebulization 2.5 mg inhalation Q4H PRN (Reason: Shortness Of Breath Or Wheezing) venlafaxine 150 mg capsule,extended release 24hr 150 mg PO DAILY thiamine HCl (vitamin B1) 100 mg tablet 100 mg PO DAILY cyanocobalamin (vitamin B-12) 500 mcg tablet 500 mcg PO DAILY omeprazole 20 mg capsule,delayed release(DR/EC) 20 mg PO DAILY@0630 folic acid 1 mg tablet 1 mg PO DAILY loratadine 10 mg tablet 10 mg PO DAILY metformin 750 mg tablet extended release 24 hr 750 mg PO BID calcium carbonate-vitamin D3 600 mg-10 mcg (400 unit) tablet 1 tab PO BID Slow-Mag 71.5 mg tablet,delayed release (DR/EC) 71.5 mg PO DAILY Eliquis 2.5 mg tablet 2.5 mg PO BID Incruse Ellipta 62.5 mcg/actuation blister with device 1 inh inhalation DAILY albuterol sulfate [Ventolin HFA] 90 mcg/actuation HFA aerosol inhaler 2 puff INHALATION Q4H PRN (Reason: dyspnea) atorvastatin 20 mg tablet 20 mg PO DAILY ferrous sulfate 325 mg (65 mg iron) tablet,delayed release (DR/EC) 325 mg PO DAILY fluticasone propionate 50 mcg/actuation spray,suspension 1 spray intranasal DAILY fluticasone propion-salmeterol [Advair HFA] 230-21 mcg/actuation HFA aerosol inhaler 2 puff inhalation BID famotidine 20 mg tablet 20 mg PO BID@0630,1630 docusate sodium 100 mg capsule 100 mg PO BID PRN (Reason: constipation) amoxicillin-pot clavulanate 875-125 mg tablet 1 tab PO BID Qty: 6 0RF insulin glargine [Lantus U-100 Insulin] 100 unit/mL Solution 25 unit subcut BEDTIME 30 Days Qty: 7.5 0RF insulin lispro [Humalog U-100 Insulin] 100 unit/mL Solution See Protocol subcut QIDACHS Qty: 10 1RF Protocol: Insulin Correction Scale Less than or equal to 110 ---- Give (units): 0 111 to 150 Give (units): 0 151 to 200 Give (units): 2 201 to 250 Give (units): 4 251 to 300 Give (units): 6 301 to 350 Give (units): 8 Greater than 350 Give (units): 10 Call MD if Blood Glucose > : 350 (DME) syringe,safety, disposal unit 3 mL syringe See Rx Instructions .Route Qty: 100 2RF Rx Instructions: As directed Discharge Date/Time: 05/07/23 21:04
[2023-05-07 16:18] VITALS: BP 114/52; PULSE 121; RESP 16; TEMP 37.4; O2SAT 95; BMI 38.3
[2023-05-07 17:16] LABS: MANUAL DIFF FLAG NO
[2023-05-07 17:37] LABS: Alanine Aminotransferase 19 U/L (0-31); Albumin Level 3.1 g/dL (3.5-5.0); Alkaline Phosphatase 178 U/L (39-117); Anion Gap 13 (12-20); Aspartate Amino Transferase 40 U/L (5-31); Bilirubin Total 0.9 mg/dL (0.0-1.0); Blood Urea Nitrogen 8 mg/dL (9-16); C Reactive Protein 2.74 mg/dL (< or = 0.50); Calcium 10.3 mg/dL (8.4-10.2); Carbon Dioxide 23 mmol/L (22-29); Chloride 107 mmol/L (96-108); Creatinine Clr Calc Pharmacy 62.1; Estimated Glomerular Filt Rate > 60; Glucose Random 165 mg/dL (60-115); Potassium 4.4 mmol/L (3.3-5.1); Sodium 139 mmol/L (135-145); Total Protein 7.4 g/dL (6.5-8.0)
[2023-05-07 17:38] LABS: Basophils Absolute Auto 0.1 X10*3/uL (0.0-0.2); Basophils Percent Auto 0.5 % (0-2); Eosinophils Absolute Auto 0.2 X10*3/uL (0.0-0.4); Eosinophils Percent Auto 1.9 % (0-4); Hematocrit 31.5 % (37.0-47.0); Hemoglobin 9.8 g/dl (12.0-16.0); Imm Gran Abs Auto 0.13 X10*3/uL (0.00-0.03); Imm Gran Pct Auto 1.4 % (0.0-0.4); Lymphocytes Absolute Auto 1.6 X10*3/uL (1.2-4.9); Lymphocytes Percent Auto 16.8 % (20-40); Mean Corpuscular HGB Conc 31.1 g/dl (31.0-35.0); Mean Corpuscular Hemoglobin 31.4 pg (27.0-33.0); Mean Platelet Volume 10.6 fL (9.4-12.3); Monocytes Absolute Auto 0.8 X10*3/uL (0.1-1.2); Monocytes Percent Auto 8.7 % (2-11); Neutrophils Absolute Auto 6.7 x10*3/uL (2.0-8.3); Neutrophils Percent Auto 70.7 % (45-73); Platelet Count 158 X10*3/uL (160-400); Red Blood Count 3.12 X10*6/uL (4.20-5.50); White Blood Count 9.4 X10*3/uL (4.8-10.8)
[2023-05-07 17:40] LABS: Lactic Acid 3.5 mmol/L (0.5-2.0)
[2023-05-07 17:59] LABS: Erythrocyte Sedimentation Rate 96 MM/HR (0-20)
[2023-05-07 19:15] LABS: Reflex Lactate? Lactic Acid Added
== END 2023-05-07 21:04 | disposition left against medical advice (07) ==
PROVIDERS: Physician Assistant Medical; Emergency Provider Emergency Medicine; PCP Family Medicine
DX: N63.10 Unspecified lump in the right breast, unspecified quadrant (principal); F17.210 Nicotine dependence, cigarettes, uncomplicated; Z71.6 Tobacco abuse counseling; Z79.899 Other long term (current) drug therapy
CPT/HCPCS: 36415; 80053; 83605; 85025; 85652; 86140; 87040; 99281; 99283

== ENCOUNTER 2023-06-12 13:55 | Outpatient (REF) | payer OTHER, SELFPAY ==
--- NOTE | ~2023-06-12 | US_ITS ---
EXAMINATION: MM DIAGNOSTIC DIGITAL BREAST TOMOSYNTHESIS, BILATERAL US BREAST LIMITED, RIGHT CLINICAL INFORMATION: 62-year-old female, status post lumpectomy and conservation therapy in 2012 for right breast cancer, complaining of new palpable abnormality right breast upper outer quadrant, approximate 10:00 axis. A technologist has marked the area of concern with a BB marker, which appears to overlie the main scar region. Patient states this palpable focus is also itchy at times. Patient also due for bilateral screening. COMPARISON: Mammography: 01/15/2020, 12/04/2018, 02/13/2017, 01/25/2016, and dating back to 2010. TECHNIQUE: Digital breast tomosynthesis is performed in both the craniocaudal and mediolateral oblique views along with computer-aided detection (CAD). Synthesized 2D images are generated from the tomosynthesis. In addition a full-field right 3-D exaggerated CC view was obtained. FINDINGS: There are scattered areas of fibroglandular density (ACR BI-RADS breast composition Category b). Patient has not had a mammogram since 2019. The RIGHT breast is smaller than the left, with stable skin thickening and mild background diffuse trabecular thickening consistent with treatment related changes which are stable. Extensive benign dystrophic calcification is again present but worsened since the prior exam, involving biopsy clips, secretory calcifications, dystrophic calcifications, and vascular calcifications. No definite correlate to the palpable focus of concern is identified in the upper outer right breast. No axillary abnormality. No suspicious findings are evident in the LEFT breast. There is a stable unchanged nodule in the lower outer left breast middle one third, likely a benign intramammary lymph node. ULTRASOUND: CLINICAL INFORMATION: As above. COMPARISON: None relevant. TECHNIQUE: Targeted sonographic evaluation was performed using a high frequency linear transducer. Attention was given to the upper outer quadrant of the right breast in the region of palpable concern. Selected archived documentation. FINDINGS: RIGHT BREAST: -There is no mass, cystic abnormality, abnormal region of shadowing, or edema within the soft tissue planes. There is upper outer breast scarring which may account for the palpable abnormality. No clear evidence of recurrence of disease is present. US/US breast RT limited mamm only IMPRESSION: There are no findings in either breast suspicious for malignancy. There are stable post treatment related changes right breast with increasing benign type calcification. There is no mammographic or ultrasonographic definitive correlate to the complaint of a palpable abnormality at the 2:00 axis, upper outer right breast. The patient may be feeling the scar in this region. Clinical management recommended. Otherwise, recommend the patient resume routine annual screening mammography. OVERALL ASSESSMENT: Mammography: BI-RADS 2 - Benign Findings Ultrasound: BI-RADS 2 - Benign Findings RECOMMENDATION: 1. Patient should be managed based on the clinical impression. Decision to proceed with biopsy should be based on clinical grounds and degree of clinical concern. 2. Otherwise, routine annual screening mammography. This patient's information was entered into a reminder system with a target due date for their next mammogram.
== END 2023-06-12 13:56 | disposition home or self-care (01) ==
LOC: HO.MAMMO 13:55
PROVIDERS: PCP Family Medicine; Visit Provider Nurse Practitioner Family
DX: R23.4 Changes in skin texture (principal); Z85.3 Personal history of malignant neoplasm of breast
CPT/HCPCS: 76642; 77062; 77066

== ENCOUNTER → 2023-06-12 14:00 | Outpatient (BNV) | payer OTHER, SELFPAY | PROVIDERS: PCP Family Medicine; Visit Provider Radiology Diagnostic Radiology | DX: N63.11 Unspecified lump in the right breast, upper outer quadrant (principal) | CPT/HCPCS: 76642; 77062; 77066 ==

== ENCOUNTER 2023-06-28 13:55 | Outpatient (REF) | payer OTHER, SELFPAY ==
--- NOTE | ~2023-06-28 | MM_ITS ---
EXAMINATION: BONE DENSITOMETRY CLINICAL INDICATION: Osteopenia. COMPARISON: Previous BD dated 04/09/2015 and baseline BD dated 06/05/2007. TECHNIQUE: Using a [employer] DXA System (software version: 13.1) manufactured by [employer], dual-energy x-ray absorptiometry was performed of the lumbar spine and left hip. The images are of good technical quality. Summary results are attached. FINDINGS: LEFT FEMUR, NECK: Current: BMD 0.863 g/cm2, Z-score -0.3, T-score -1.3, osteopenia. Prior: BMD 0.823 g/cm2. Baseline: BMD 0.871 g/cm2. LEFT FEMUR, TOTAL: Current: BMD 0.897 g/cm2, Z-score -0.2, T-score -0.9, normal, 4.2% decrease from previous, 10.6% decrease from baseline (<5% change is not significant). Prior: BMD 0.936 g/cm2. Baseline: BMD 1.003 g/cm2. AP SPINE L1-L2 (excluding L3 and L4): The data of L1-L4 has been changed to exclude the L3 and L4 vertebral bodies, because degenerative sclerosis at these levels may cause overestimation of lumbar spine density. Current: BMD 1.014 g/cm2, Z-score -0.4, T-score -1.3, osteopenia, 5.3% increase from previous, 1.5% decrease from baseline (<5% change is not significant). Prior: BMD 0.963 g/cm2. Baseline: BMD 1.029 g/cm2. IDENTIFIED RISK FACTORS: Alcohol (3 or more units per day), early menopause, osteoporosis, recurrent falls, secondary osteoporosis, tobacco use (current smoker). HISTORY OF FRACTURE: None listed. MEDICATIONS: Calcium, vitamin D. MM/XR DEXA axial skeleton IMPRESSION: 1. DIAGNOSIS: Osteopenia based on the lowest T-score value of -1.3 in the femur neck and lumbar spine applying World Health Organization criteria. 2. 10-YEAR FRACTURE RISK PREDICTION, FRAX: Major osteoporotic fracture (clinical spine, forearm, hip or shoulder) 9.2%. Hip fracture 1.5%. 3. Treatment Recommendations: NOF guidelines recommend consideration for treatment in postmenopausal women and men age 50 and older presenting with the following: -A hip or vertebral (clinical or morphometric) fracture. -T-score less than or equal to -2.5 at the femoral neck or spine after appropriate evaluation to exclude secondary causes. -Low bone mass at the hip or spine and a 10-year fracture probability by FRAX of greater than or equal to 3% for hip fracture or greater than or equal to 20% for major osteoporotic fracture based on the [place] adapted WHO algorithm. 4. Other Recommendations: All treatment decisions require clinical judgment and consideration of individual patient factors, including patient preferences, comorbidities, previous drug use, risk factors not captured in the FRAX model (e.g. frailty, falls, vitamin D deficiency, increased bone turnover, interval significant decline in bone density) and possible under or overestimation of fracture risk by FRAX. Additional medical evaluation for secondary cause of low bone mineral density may be appropriate. FUTURE SCAN RECOMMENDATION: People with diagnosed cases of osteoporosis or at high risk for fracture should have regular bone mineral density tests. For patients eligible for Medicare, routine testing is allowed once every 2 years. The testing frequency can be increased to one year for patients who have rapidly progressing disease, those who are receiving or discontinuing medical therapy to restore bone mass, or have additional risk factors.
== END 2023-06-28 13:56 | disposition home or self-care (01) ==
LOC: HO.MAMMO 13:55
PROVIDERS: PCP Nurse Practitioner Family; Visit Provider Internal Medicine Medical Oncology
DX: Z13.820 Encounter for screening for osteoporosis (principal); Z78.0 Asymptomatic menopausal state; M81.0 Age-related osteoporosis without current pathological fracture
CPT/HCPCS: 77080

== ENCOUNTER 2023-12-12 14:03 | Outpatient (REF) | payer OTHER, SELFPAY ==
[2023-12-12 16:06] LABS: Basophils Absolute Auto 0.1 X10*3/uL (0.0-0.2); Basophils Percent Auto 0.8 % (0-2); Eosinophils Absolute Auto 0.3 X10*3/uL (0.0-0.4); Eosinophils Percent Auto 3.8 % (0-4); Hematocrit 37.1 % (37.0-47.0); Hemoglobin 12.6 g/dl (12.0-16.0); Imm Gran Abs Auto 0.02 X10*3/uL (0.00-0.03); Imm Gran Pct Auto 0.3 % (0.0-0.4); Lymphocytes Percent Auto 14.7 % (20-40); Mean Corpuscular Hemoglobin 35.2 pg (27.0-33.0); Mean Corpuscular Volume 103.6 fL (80.0-98.0); Mean Platelet Volume 10.1 fL (9.4-12.3); Monocytes Absolute Auto 0.6 X10*3/uL (0.1-1.2); Monocytes Percent Auto 9.6 % (2-11); Neutrophils Absolute Auto 4.6 x10*3/uL (2.0-8.3); Neutrophils Percent Auto 70.8 % (45-73); Red Blood Count 3.58 X10*6/uL (4.20-5.50); Red Cell Distribution Width 14.7 % (11.0-16.0); White Blood Count 6.5 X10*3/uL (4.8-10.8)
[2023-12-12 16:15] LABS: Estimated Average Glucose 94 mg/dL; Hemoglobin A1c % 4.9 % (<6.0)
[2023-12-12 16:17] LABS: Platelet Count 97 X10*3/uL (160-400)
[2023-12-12 16:19] LABS: MANUAL DIFF FLAG SCAN
[2023-12-12 16:28] LABS: Alanine Aminotransferase 26 U/L (0-31); Albumin Level 3.6 g/dL (3.5-5.0); Alkaline Phosphatase 175 U/L (39-117); Anion Gap 16 (12-20); Aspartate Amino Transferase 45 U/L (5-31); Bilirubin Direct 0.4 mg/dL (0.0-0.5); Bilirubin Total 0.8 mg/dL (0.0-1.0); Blood Urea Nitrogen 12 mg/dL (9-16); Calcium 9.7 mg/dL (8.4-10.2); Carbon Dioxide 23 mmol/L (22-29); Chloride 107 mmol/L (96-108); Cholesterol 174 mg/dL (<200); Estimated Glomerular Filt Rate 55; Glucose Random 125 mg/dL (60-115); HDL Cholesterol 87 mg/dL (>40); Iron 124 mcg/dL (30-160); LDL Cholesterol Calculated 75 mg/dL (<100); Percent Iron Saturation 37 % (15-50); Potassium 4.3 mmol/L (3.3-5.1); Sodium 142 mmol/L (135-145); Total Iron Binding Capacity 335 mcg/dL (228-428); Total Protein 7.6 g/dL (6.5-8.0); Triglycerides 64 mg/dL (<150); Unsaturated Iron Binding 211 ug/dL
[2023-12-12 16:36] LABS: SLIDE REVIEW VERIFIED
[2023-12-12 16:41] LABS: Ferritin 44 ng/mL (10-250)
[2023-12-12 16:42] LABS: D Dimer High Sensitivity < 150 NG/ML
[2023-12-12 16:55] LABS: Folate 12.5 ng/mL (> or = 4.0); Vitamin B12 1543 pg/mL (200-900)
[2023-12-15 11:09] LABS: CA 27.29 <10 U/mL (<38)
== END 2023-12-12 14:04 | disposition home or self-care (01) ==
LOC: HO.HHCL 14:03
PROVIDERS: Internal Medicine Medical Oncology; Visit Provider Family Medicine
DX: C50.911 Malignant neoplasm of unspecified site of right female breast (principal); E11.69 Type 2 diabetes mellitus with other specified complication; F10.90 Alcohol use, unspecified, uncomplicated; E78.5 Hyperlipidemia, unspecified
CPT/HCPCS: 36415; 80053; 80061; 82248; 82607; 82728; 82746; 83036; 83540; 85025; 85379; 86300

== ENCOUNTER 2024-08-09 16:19 | Inpatient (IN) | payer OTHER, SELFPAY ==
[2024-08-09] VITALS (9 sets, daily range): BP systolic 118–145; BP diastolic 54–65; PULSE 107–135; RESP 15–29; TEMP 37.1–37.7; O2SAT 81–100; BMI 31.7
--- NOTE | ~2024-08-09 | XR_ITS ---
CLINICAL HISTORY: Fever, chills, cough, SOB, R O pneumonia 1 view chest x-ray Comparison: Chest x-ray from 03/22/2023 Findings: Mild interstitial opacities as can be seen with pneumonitis and pulmonary edema. Pneumonitis favored given asymmetry, right worse than left. No pneumothorax or pleural effusion. Right axillary surgical clips present. Imaged mediastinum and imaged osseous structures are unchanged. Mild rib deformities are old IMPRESSION: Mild pulmonary opacities concerning for pneumonitis. This document has been electronically signed by: Joseph Botello MD on 08/09/2024 18:48:38
--- NOTE | ~2024-08-09 | CT_ITS ---
CLINICAL HISTORY: SOB, hypoxia, R O pulmonary embolism CT angiography chest with contrast. With MIP MPR Postprocessing. Comparison: Chest x-ray from 08/09/2024. Findings: No central pulmonary embolism. Mild cardiomegaly. No aortic dissection. Calcified and noncalcified plaque involving the imaged aorta and its branches. Coronary artery calcifications noted. Small pericardial effusion mild mediastinal fluid present. Nonenlarged mediastinal lymphadenopathy. Redemonstration of the bilateral airspace disease, right worse than left. Differential considerations include pneumonitis and pneumonia with a opacities most pronounced in the right middle lobe at this time. Mild emphysematous changes again noted. No pneumothorax or pleural effusion. Liver surface nodularity of cirrhosis. The gallbladder is surgically absent. The spleen is enlarged measuring 14.5 cm in the [id number]. Mild volume loss of the imaged pancreas. Nonobstructing nephrolithiasis of the upper pole left kidney. Imaged rib fractures appear old, with remodeling. Mild vertebral height losses appear old. Degenerative changes include imaged shoulders and imaged spine. Artifacts from metal and positioning of the left upper extremity noted. IMPRESSION: 1. No central pulmonary embolism. 2. Bilateral airspace disease most pronounced in the right middle lobe; concerning for pneumonia. Recommend attention on follow-up to ensure resolution. This document has been electronically signed by: Joseph Botello MD on 08/09/2024 21:58:43
--- NOTE | 2024-08-09 17:22 | ECG_ITS ---
Test Reason : Shortness of breath Blood Pressure : */* mmHG Vent. Rate : 124 BPM Atrial Rate : 124 BPM P-R Int : 150 ms QRS Dur : 74 ms QT Int : 298 ms P-R-T Axes : 66 39 58 degrees QTcB Int : 428 ms Sinus tachycardia Cannot rule out Anterior infarct , age undetermined Abnormal ECG When compared with ECG of 20-Mar-2023 15:55, No significant change was found Referred By: Marlon Chatman Electronically Signed By: BAL MIRANDA MD
--- NOTE | 2024-08-09 17:22 | ED_ITS ---
HPI - SOB/Dyspnea General Chief Complaint: Dyspnea Stated Complaint: diff breathing x3 days Time Seen by Provider: 08/09/24 17:07 Source: patient Mode of arrival: EMS Limitations: no limitations History of Present Illness ED Provider: Dr. Marlon Chatman HPI Narrative: 63-year-old female with a history of COPD/asthma, diabetes mellitus, right-sided breast cancer, right lower extremity DVT on Eliquis who presents emergency department for evaluation of fever, chills weakness, fatigue, productive cough, occasional nosebleed, chest tightness, shortness of breath, dyspnea on exertion x3 days. The patient's cough is productive of thick phlegm with no blood in the phlegm. She states she gets occasional nosebleed. She states that she has been feeling extremely fatigued , has been sleeping more than usual over the last 3 days. She complained of chest tightness and shortness of breath. She used her nebulizers every 4 hours with no relief for these symptoms. She states that today, her symptoms were worse, therefore she called an ambulance and was brought to emergency department for evaluation. In route to the hospital she was given 2 DuoNebs and Solu-Medrol 125 mg IV. Patient's initial O2 saturation on room air was 100% but while she has been here in the emergency department and O2 saturation dropped into 83% and on 2 L of oxygen via nasal cannula O2 saturation is 94-95%. The patient continues to smoke 1-1/2 pack of cigarettes per day times 40 years. She states she drinks 8-9 beers per day but has not been able to drink as much beer as usualfor the last 3 days due to poor appetite, nausea and dry heaves. She denies having any alcohol withdrawal symptoms such as tremulousness, hallucinations. Related Data Home Medications ?Medication ?Instructions ?Recorded ?Confirmed albuterol sulfate 2.5 mg/3 mL 2.5 mg inhalation Q4H PRN 12/07/22 08/10/24 (0.083 %) solution for nebulization Shortness Of Breath Or Wheezing albuterol sulfate 90 mcg/actuation 2 puff inhalation Q4H PRN dyspnea 12/07/22 08/10/24 aerosol inhaler (Ventolin HFA) apixaban 2.5 mg tablet (Eliquis) 2.5 mg PO BID 12/07/22 08/10/24 calcium 600 mg (as 1 tab PO BID 12/07/22 08/10/24 carbonate)-vitamin D3 10 mcg (400 unit) tablet folic acid 1 mg tablet 1 mg PO DAILY 12/07/22 08/10/24 loratadine 10 mg tablet 10 mg PO DAILY 12/07/22 08/10/24 losartan 50 mg tablet 50 mg PO DAILY 12/07/22 08/10/24 magnesium chloride 71.5 mg 71.5 mg PO DAILY 12/07/22 08/10/24 (magnesium chloride) tablet,delayed release (Slow-Mag) metformin 750 mg tablet,extended 750 mg PO BIDWM 12/07/22 08/10/24 release 24 hr omeprazole 20 mg capsule,delayed 20 mg PO DAILY@0630 12/07/22 08/10/24 release thiamine HCl (vitamin B1) 100 mg 100 mg PO DAILY 12/07/22 08/10/24 tablet venlafaxine 150 mg 150 mg PO DAILY 12/07/22 08/10/24 capsule,extended release 24 hr famotidine 20 mg tablet 20 mg PO BID@0630,1630 03/20/23 08/10/24 ferrous sulfate 325 mg (65 mg 325 mg PO DAILY 03/20/23 08/10/24 iron) tablet,delayed release fluticasone fur. 100 mcg-umeclid 1 ea inhalation DAILY 08/10/24 08/10/24 62.5 mcg-vilant 25 mcg inhalat.powder (Trelegy Ellipta) insulin glargine 100 unit/mL 24 unit subcut BEDTIME 08/10/24 08/10/24 subcutaneous solution (Lantus U-100 Insulin) Previous Rx's ?Medication ?Instructions ?Recorded syringe,safety, disposal unit 3 mL #100 ea 03/26/23 Allergies Allergy/AdvReac Type Severity Reaction Status Date / Time Sulfa (Sulfonamide Allergy Severe ANAPHYLAXIS Verified 08/09/24 16:36 Antibiotics) [SULFA (SULFONAMIDE ANTIBIOTICS)] mitch seed [MITCH SEED] Allergy Intermediate HIVES/NAUSE Verified 08/09/24 16:36 A Review of Systems 2 Review of Systems: Yes all other systems are reviewed and are negative [facility] Past Medical History [facility] Narrative: Social history: The patient lives with her sons ex-girlfriend and there daughter (patient's granddaughter). Patient continues to smoke 1-1/2 pack of cigarettes per day times 40 years, patient drinks 8-9 beers per day but he was not been able to drink as much alcohol for 3 days. Medical History Type 2 diabetes mellitus treated with insulin Alcohol use disorder, moderate, dependence MDD (major depressive disorder), recurrent episode, moderate Alcohol abuse Depression Aspiration pneumonia Anemia Right leg DVT Breast cancer, right breast Alcohol abuse COPD (chronic obstructive pulmonary disease) Diabetes HTN (hypertension) Surgical History History of cholecystectomy History of delivery History of ventral hernia repair Social History Social History Household Members: Family Housing: Apartment Do you presently have visiting nurse or other home services: No Alcohol intake: current Alcohol intake frequency: 0-2 drinks per day Alcohol type: hard liquor Comment: refusing bed alarm and fall interventions. Patient Tobacco Use Status: Current everyday Tobacco user Tobacco use type: Cigarette Cigarette Packs Per Day: 1 Cigarettes Per Day: 20.0 Smoked in Last 30 Days: No Second Hand Smoke Exposure: No Use of substances other than those prescribed or required for medical reasons: No Substance Use Type: Marijuana Advance Directives: Yes Advance Directives on File: Yes Advance Directives Date on File: 03/26/23 Do you have a plan to hurt others: No Plan Patient : No service: No Physical Exam 2 Vital Signs: Vital Signs: Last Vital Signs Temp 97.9 F 08/10/24 09:23 Pulse 83 08/10/24 09:23 Resp 18 08/10/24 09:23 BP 123/54 L 08/10/24 09:23 Pulse Ox 96 08/10/24 09:23 O2 Del Method Nasal Cannula 08/10/24 09:23 O2 Flow Rate 2 08/10/24 09:23 BMI result Body Mass Index 31.7 Vital signs revealed an elevated heart rate of 135 beats per minute, initial O2 saturation was 100% on room air but while she was here in the emergency department O2 saturation dropped to 83% and on 2 L via nasal cannula her O2 saturation is 94-95%. Exam: General: Awake, alert in no distress Head: Normocephalic, atraumatic EENT: PERRL, Lids normal, sclera normal, conjunctiva normal, nose normal , ears normal, throat without erythema or exudates, very dry mucous membranes Neck: Supple, no adenopathy Lung: breath sounds symmetric, patient has rales at the bases right greater than left with diffuse wheezing and diffuse rhonchi Chest: symmetric movement, nontender Heart: regular rate and rhythm, normal S1, S2 no murmurs or rubs Abdomen: soft, mild to moderate epigastric tenderness, mild diffuse tenderness , nondistended, normal bowel sounds Back: no vertebral tenderness, no CVAT Extremities: no deformities, moves all extremities symmetrically Neuro: Awake, alert, oriented, normal speech, cranial nerves intact, moves all extremities symmetrically Psych: Pleasant, cooperative Medications Administered Generic Name Dose Route Start Last Admin Trade Name Freq PRN Reason Stop Dose Admin Apixaban 2.5 mg 08/10/24 09:00 08/10/24 09:20 Apixaban 2.5 Mg Tablet PO 2.5 mg BID JESSICA Administration Ferrous Sulfate 324 mg 08/10/24 09:15 08/10/24 09:20 Ferrous Sulfate 324 Mg Tablet. PO 324 mg DAILY JESSICA Administration Fluticasone Propionate 1 spray 08/10/24 09:00 08/10/24 09:30 Fluticasone Propionate Nasal 16 Gm [place] NOSTRIL-B Not Given DAILY JESSICA Folic Acid 1 mg 08/10/24 09:00 08/10/24 09:21 Folic Acid 1 Mg Tablet PO 1 mg DAILY JESSICA Administration Levalbuterol HCl 1.25 mg 08/10/24 08:00 08/10/24 08:52 Levalbuterol Hcl 1.25 Mg/3 Ml Vial.Neb INHALE Not Given RQ4H WHILE AWAKE JESSICA Methylprednisolone Sodium Succinate 40 mg 08/10/24 09:00 08/10/24 09:21 Methylprednisolone Sod Succ 40 Mg/Ml Vial IVPUSH 40 mg Q12H JESSICA Administration Nicotine 21 mg 08/09/24 22:00 08/10/24 00:35 Nicotine 21 Mg Patch.Td24 TRANSDERMA Not Given DAILY JESSICA Sodium Chloride 3 ml 08/10/24 00:00 08/10/24 09:22 0.9 % Sodium Chloride Flush 3 Ml Syringe IVFLUSH 3 ml QSHIFT JESSICA Administration Thiamine HCl 100 mg 08/10/24 09:00 08/10/24 09:20 Thiamine Hcl 100 Mg Tablet PO 100 mg DAILY JESSICA Administration Venlafaxine HCl 150 mg 08/10/24 09:00 08/10/24 09:21 Venlafaxine Hcl Er 150 Mg Cap.Er.24h PO 150 mg DAILY JESSICA Administration Discontinued Medications Generic Name Dose Route Start Last Admin Trade Name Heather PRN Reason Stop Dose Admin Albuterol/Ipratropium 3 ml 08/09/24 17:45 08/09/24 17:48 Albuterol/Iprat 2.5/0.5mg 3 Ml Ampul.Neb INHALE 08/09/24 17:46 3 ml ONCE ONE Administration Ceftriaxone Sodium 1 gm 08/09/24 17:27 08/09/24 18:00 Ceftriaxone Sodium 1 Gm Vial IVPUSH 08/09/24 17:28 1 gm ONCE ONE Administration Sodium Chloride 1,000 mls @ 999 mls/hr 08/09/24 17:22 08/09/24 19:42 Ns IV 08/09/24 18:22 Infused .Q1H1M STA Infusion Azithromycin 500 mg/ Sodium 250 mls @ 125 mls/hr 08/09/24 17:27 08/09/24 20:56 Chloride IV 08/09/24 19:26 Infused ONCE ONE Infusion Sodium Chloride 1,000 mls @ 999 mls/hr 08/09/24 19:49 08/09/24 21:28 Ns IV 08/09/24 20:49 Infused .Q1H1M STA Infusion Ondansetron HCl 4 mg 08/09/24 17:22 08/09/24 18:00 Ondansetron Hcl 4 Mg/2 Ml Vial IVPUSH 08/09/24 17:23 4 mg ONCE ONE Administration Medical Decision Making Medical Decision Making MDM Narrative: 63-year-old female with a history of COPD/asthma, diabetes mellitus, right-sided breast cancer, right lower extremity DVT on Eliquis who presents emergency department for evaluation of fever, chills weakness, fatigue, productive cough, occasional nosebleed, chest tightness, shortness of breath, dyspnea on exertion x3 days. Patient was had poor oral intake secondary to nausea and dry heaves. Patient has been using her nebulizer every 4 hours with no improvement of her shortness of breath. Patient has not been able to drink her usual 8-9 beers per day secondary to her nausea, her last drink was 3 days prior but she does not feel any withdrawal symptoms at this time. Patient was given 2 duo nebulizer treatments EN route to the hospital and Solu-Medrol 125 mg IV. Vital signs revealed an elevated heart rate and a low O2 saturation of 83% on room air with O2 saturation of 94-95% on 2 L of oxygen via nasal cannula. Lung exam revealed rales at the bases right greater than left, diffuse wheezing and rhonchi. Patient had mild to moderate epigastric tenderness with mild diffuse tenderness. Exam was otherwise unremarkable. 17:41 Differential diagnosis: ?Includes but is not limited to pneumonia, bronchitis, exacerbation of chronic lung disease, viral syndrome, COVID-19, influenza, RSV, UTI, dehydration, electrolyte abnormalities, anemia Course: 17:41 Given the patient's physical examination and presentation I am concerned that she may have pneumonia therefore I ordered a laboratory evaluation to include lactic acid, blood cultures x2. Patient was ordered to get bronchodilator protocol evaluation. I also ordered ceftriaxone 1 g IV and azithromycin 500 mg IV for community-acquired pneumonia. 20:22 Patient was treated with a DuoNeb nebulizer. My interpretation patient's laboratory evaluation is as follows: WBC was normal 9200. Chronic microcytic anemia with an H&H of 12.3 and 35.7. MCV was elevated 102.6. Chronic thrombocytopenia platelet count 24052. I suspect that these abnormalities are caused by her alcohol use disorder. Coags were normal. VBG revealed elevated pH of 7.54 with a pCO2 of 42 and a bicarb of 37. Comprehensive metabolic panel revealed an elevated glucose of 148 elevated AST of 47. Elevated alk-phos of 150. Lipase was normal. Lactic acid was elevated at 3.6-this elevation is most likely caused by the albuterol treatments that she got in route , metformin use and and not secondary to sepsis. Urinalysis was positive for protein. Microscopic revealed no significant RBCs, WBCs and no bacteria seen-no evidence for urinary tract infection. Influenza, RSV and COVID were negative. Patient's high sensitive troponin I was detectable but not elevated at 8. Repeat is due at 20:45 hours. Chest x-ray is concerning for bilateral lower lobe infiltrates right greater than left. Patient is hypoxic in his on Eliquis, I doubt that she has a pulmonary embolism but I will get a CT angiogram PE protocol I did discuss the patient was presentation over tiger text with the covering hospitalist, Dr. Ashraf and the patient will be admitted for further treatment of her pneumonia. 20:54 Patient was lactic acid was still elevated at 3.2 which she was most likely caused by the albuterol that she has received and metformin use. Patient was ordered to get more IV fluid. I did discuss the patient's presentation over tiger text with the covering hospitalist, Dr. Ashraf and the patient was admitted for further treatment. Admission/Observation Consideration of admission/observation: Escalation of care including admission/observation considered (Yes) Consult Healthcare Provider Management of the patient was discussed with: Hospitalist Lab Data MDM Lab Attestation statement: I reviewed the patient's lab results. 08/09/24 17:52 08/09/24 17:47 Labs: Lab Results 08/09/24 08/09/24 08/09/24 Range/Units 17:46 17:47 17:52 WBC 9.2 (4.8-10.8) X10*3/uL RBC 3.48 L (4.20-5.50) X10*6/uL Hgb 12.3 (12.0-16.0) g/dl Hct 35.7 L (37.0-47.0) % MCV 102.6 H (80.0-98.0) fL MCH 35.3 H (27.0-33.0) pg MCHC 34.5 (31.0-35.0) g/dl RDW 14.4 (11.0-16.0) % Plt Count 63 L D (160-400) X10*3/uL MPV 10.3 (9.4-12.3) fL Immature Gran % (Auto) 1.0 H (0.0-0.4) % Neut % (Auto) 89.7 H (45-73) % Lymph % (Auto) 4.4 L (20-40) % [place] % (Auto) 4.7 (2-11) % Eos % (Auto) 0.0 (0-4) % Baso % (Auto) 0.2 (0-2) % Lymph # (Auto) 0.4 L (1.2-4.9) X10*3/uL [place] # (Auto) 0.4 (0.1-1.2) X10*3/uL Eos # (Auto) 0.0 (0.0-0.4) X10*3/uL Baso # (Auto) 0.0 (0.0-0.2) X10*3/uL Abs Immat Gran (auto) 0.09 H (0.00-0.03) X10*3/uL Absolute Neuts (auto) 8.2 (2.0-8.3) x10*3/uL Absolute Nucleated RBC 0.000 (0.0-0.012) X10*3/uL Nucleated RBC % (auto) 0.0 (0.0-0.2) /100WBC PT 12.7 H (10.9-12.4) SEC INR 1.1 (0.9-1.1) APTT 35.0 (26.0-36.8) SEC VBG pH (7.32-7.43) VBG pCO2 mmHg VBG pO2 mmHg VBG HCO3 (22-26) mmol/L VBG O2 Saturation % VBG Base Excess mmol/L Sodium 135 (135-145) mmol/L Potassium 3.5 (3.3-5.1) mmol/L Chloride 101 (96-108) mmol/L Carbon Dioxide 22 (22-29) mmol/L Anion Gap 16 (12-20) BUN 14 (9-16) mg/dL Creatinine 1.04 (0.5-1.4) mg/dL Estim Creat Clear Calc 51.0 Estimated GFR 53 Random Glucose 148 H (60-115) mg/dL Lactic Acid 3.6 H* (0.5-2.0) mmol/L Lactic Acid F/U @ 2Hr (0.5-2.0) mmol/L Calcium 9.0 D (8.4-10.2) mg/dL Magnesium 1.6 (1.6-2.6) mg/dL Total Bilirubin 1.0 (0.0-1.0) mg/dL AST 47 H (5-31) U/L ALT 21 (0-31) U/L Alkaline Phosphatase 150 H (39-117) U/L Troponin I High Sens 8.0 D (<3.5-17.0) ng/L B-Natriuretic Peptide 27 (<100) pg/mL Total Protein 7.5 (6.5-8.0) g/dL Albumin 3.4 L (3.5-5.0) g/dL Lipase 34 (8-78) U/L Procalcitonin 0.40 ng/mL Urine Color Urine Appearance Urine pH (5.0-9.0) Ur Specific [place] (1.005-1.025) Urine Protein (Neg-Trace) mg/dL Urine Glucose (UA) (Negative) mg/dL Urine Ketones (Negative) mg/dL Urine Blood (Negative) Urine Nitrite (Negative) Ur Leukocyte Esterase (Negative) Urine RBC (0-2) /HPF Urine WBC (0-5) /HPF Ur Squamous Epith Cells (0-2) /HPF Urine Bacteria (None Seen) Hyaline Casts (0-2) /LPF Influenza Type A (PCR) NEGATIVE (Negative) Influenza Type B (PCR) NEGATIVE (Negative) RSV RNA Qual (PCR) NEGATIVE (Negative) SARS-CoV-2 RNA (RT-PCR) NEGATIVE (Negative) 08/09/24 08/09/24 08/09/24 Range/Units 17:58 18:06 20:13 WBC (4.8-10.8) X10*3/uL RBC (4.20-5.50) X10*6/uL Hgb (12.0-16.0) g/dl Hct (37.0-47.0) % MCV (80.0-98.0) fL MCH (27.0-33.0) pg MCHC (31.0-35.0) g/dl RDW (11.0-16.0) % Plt Count (160-400) X10*3/uL MPV (9.4-12.3) fL Immature Gran % (Auto) (0.0-0.4) % Neut % (Auto) (45-73) % Lymph % (Auto) (20-40) % [place] % (Auto) (2-11) % Eos % (Auto) (0-4) % Baso % (Auto) (0-2) % Lymph # (Auto) (1.2-4.9) X10*3/uL [place] # (Auto) (0.1-1.2) X10*3/uL Eos # (Auto) (0.0-0.4) X10*3/uL Baso # (Auto) (0.0-0.2) X10*3/uL Abs Immat Gran (auto) (0.00-0.03) X10*3/uL Absolute Neuts (auto) (2.0-8.3) x10*3/uL Absolute Nucleated RBC (0.0-0.012) X10*3/uL Nucleated RBC % (auto) (0.0-0.2) /100WBC PT (10.9-12.4) SEC INR (0.9-1.1) APTT (26.0-36.8) SEC VBG pH 7.54 H (7.32-7.43) VBG pCO2 42 mmHg VBG pO2 36 mmHg VBG HCO3 37 H (22-26) mmol/L VBG O2 Saturation 55.0 % VBG Base Excess 13.5 mmol/L Sodium (135-145) mmol/L Potassium (3.3-5.1) mmol/L Chloride (96-108) mmol/L Carbon Dioxide (22-29) mmol/L Anion Gap (12-20) BUN (9-16) mg/dL Creatinine (0.5-1.4) mg/dL Estim Creat Clear Calc Estimated GFR Random Glucose (60-115) mg/dL Lactic Acid (0.5-2.0) mmol/L Lactic Acid F/U @ 2Hr 3.2 H* (0.5-2.0) mmol/L Calcium (8.4-10.2) mg/dL Magnesium (1.6-2.6) mg/dL Total Bilirubin (0.0-1.0) mg/dL AST (5-31) U/L ALT (0-31) U/L Alkaline Phosphatase (39-117) U/L Troponin I High Sens 8.2 (<3.5-17.0) ng/L B-Natriuretic Peptide (<100) pg/mL Total Protein (6.5-8.0) g/dL Albumin (3.5-5.0) g/dL Lipase (8-78) U/L Procalcitonin ng/mL Urine Color Dark Yellow Urine Appearance Cloudy Urine pH 5.5 (5.0-9.0) Ur Specific [place] 1.020 (1.005-1.025) Urine Protein 30 (1+) H (Neg-Trace) mg/dL Urine Glucose (UA) Negative (Negative) mg/dL Urine Ketones Trace (Negative) mg/dL Urine Blood Negative (Negative) Urine Nitrite Negative (Negative) Ur Leukocyte Esterase Negative (Negative) Urine RBC 0-2 (0-2) /HPF Urine WBC 6-10 (0-5) /HPF Ur Squamous Epith Cells 3-5 (0-2) /HPF Urine Bacteria None Seen (None Seen) Hyaline Casts 3-5 (0-2) /LPF Influenza Type A (PCR) (Negative) Influenza Type B (PCR) (Negative) RSV RNA Qual (PCR) (Negative) SARS-CoV-2 RNA (RT-PCR) (Negative) Independent Interpretation I performed an independent interpretation of an: Plain X-Ray Interpretation: My interpretation of the patient's chest x-ray is as follows: Bilateral lower lobe infiltrates Radiology Impression Discussion of test interpretation with radiology: I have reviewed the radiologist's reading. Radiologist Impression: 1 view chest x-ray Comparison: Chest x-ray from 03/22/2023 Findings: Mild interstitial opacities as can be seen with pneumonitis and pulmonary edema. Pneumonitis favored given asymmetry, right worse than left. No pneumothorax or pleural effusion. Right axillary surgical clips present. Imaged mediastinum and imaged osseous structures are unchanged. Mild rib deformities are old IMPRESSION: Mild pulmonary opacities concerning for pneumonitis. This document has been electronically signed by: Joseph Botello MD on 08/09/2024 18:48:38 Dictated By: Joseph Botello MD External Record Review External record reviewed: Inpatient record Chronic Conditions Patient?s care impacted by: Diabetes Critical Care Time Critical Care Time Critical Care Time: Yes Total Critical Care Time: 45 Attestation: Critical Care: The patient was critically ill with a high probability of imminent or life threatening deterioration. I spent greater than 30 minutes of discontinuous time evaluating the patient,delivering critical care at the bedside, discussing and evaluating pertinent data with consultants. Critical care time does not include time spent performing separately billable procedures or teaching. Total time spent performing critical care was 45 minutes. Discharge Plan Discharge Clinical Impression: Pneumonia, Alcohol use disorder Patient Disposition: Admitted As Inpatient
[2024-08-09] MEDS: Albuterol/Iprat 2.5/0.5MG 3 ML AMPUL.NEB INHALE (17:48)
[2024-08-09] MEDS: 0.9 % Sodium Chloride 1,000 ML 999 ML IV ×2 (18:00→19:56)
[2024-08-09] MEDS: Azithromycin 500 MG in 0.9 % Sodium Chloride 250 ML 125 MG IV (18:00)
[2024-08-09] MEDS: cefTRIAXone sodium 1 GM VIAL IVPUSH (18:00)
[2024-08-09] MEDS: ondansetron HCL 4 MG/2 ML VIAL IVPUSH (18:00)
[2024-08-09 18:04] LABS: VBG Base Excess 13.5 mmol/L; VBG HCO3 37 mmol/L (22-26); VBG pCO2 42 mmHg; VBG pH 7.54 (7.32-7.43); VBG pO2 36 mmHg
[2024-08-09 18:04] LABS: Venous Blood Gas Refer to POC result
--- NOTE | 2024-08-09 18:10 | PC.NURSE ---
Pt 100% O2 on duo-neb, desat to low 80s on RA. Respiratory at bedside, MD Chatman aware. Place on 2L NC and maintaining O2 sats mid 90s.
[2024-08-09 18:19] LABS: Appearance Urine Cloudy; Color Urine Dark Yellow; Glucose Urine UA Negative (Negative); Leukocyte Esterase Urine Negative (Negative); Nitrite Urine Negative (Negative); PH 5.5 (5.0-9.0); UMIC TRIGGER UACC YES; Urine Blood Negative (Negative); Urine Ketones Trace mg/dL (Negative); Urine Protein 30 (1+) mg/dL (Neg-Trace)
[2024-08-09 18:22] LABS: Basophils Percent Auto 0.2 % (0-2); Hematocrit 35.7 % (37.0-47.0); Hemoglobin 12.3 g/dl (12.0-16.0); Imm Gran Abs Auto 0.09 X10*3/uL (0.00-0.03); Lymphocytes Absolute Auto 0.4 X10*3/uL (1.2-4.9); Lymphocytes Percent Auto 4.4 % (20-40); MANUAL DIFF FLAG NO; Mean Corpuscular HGB Conc 34.5 g/dl (31.0-35.0); Mean Corpuscular Hemoglobin 35.3 pg (27.0-33.0); Mean Corpuscular Volume 102.6 fL (80.0-98.0); Mean Platelet Volume 10.3 fL (9.4-12.3); Monocytes Absolute Auto 0.4 X10*3/uL (0.1-1.2); Monocytes Percent Auto 4.7 % (2-11); Neutrophils Absolute Auto 8.2 x10*3/uL (2.0-8.3); Neutrophils Percent Auto 89.7 % (45-73); Red Blood Count 3.48 X10*6/uL (4.20-5.50); Red Cell Distribution Width 14.4 % (11.0-16.0); White Blood Count 9.2 X10*3/uL (4.8-10.8)
[2024-08-09 18:24] LABS: Alanine Aminotransferase 21 U/L (0-31); Albumin Level 3.4 g/dL (3.5-5.0); Alkaline Phosphatase 150 U/L (39-117); Anion Gap 16 (12-20); Aspartate Amino Transferase 47 U/L (5-31); Blood Urea Nitrogen 14 mg/dL (9-16); Carbon Dioxide 22 mmol/L (22-29); Chloride 101 mmol/L (96-108); Estimated Glomerular Filt Rate 53; Glucose Random 148 mg/dL (60-115); Lipase 34 U/L (8-78); Magnesium 1.6 mg/dL (1.6-2.6); Potassium 3.5 mmol/L (3.3-5.1); Sodium 135 mmol/L (135-145); Total Protein 7.5 g/dL (6.5-8.0)
[2024-08-09 18:30] LABS: Lactic Acid 3.6 mmol/L (0.5-2.0)
[2024-08-09 18:32] LABS: Bacteria Urine None Seen (None Seen); RBC Urine 0-2 /HPF (0-2); UACC Culture Trigger YES
[2024-08-09 18:36] LABS: INTERNATIONAL NORM RATIO 1.1 (0.9-1.1); Prothrombin Time 12.7 SEC (10.9-12.4)
[2024-08-09 18:48] LABS: Influenza A PCR NEGATIVE (Negative); Influenza B PCR NEGATIVE (Negative); Resp Syncy Virus RNA Qual PCR NEGATIVE (Negative); SARS COV2 PCR INHOUSE NEGATIVE (Negative)
[2024-08-09 18:48] LABS: Platelet Count 63 X10*3/uL (160-400)
[2024-08-09 18:52] LABS: B Type Natriuretic Peptide 27 pg/mL (<100)
[2024-08-09 20:00] LABS: Reflex Lactate? Lactic Acid Added
[2024-08-09 20:42] LABS: Troponin-I High Sensitivity 8.2 ng/L (<3.5-17.0)
--- NOTE | 2024-08-09 20:52 | P.HPHOSP_ITS ---
History of Present Illness Date of Service: 08/09/24 Attending physician on admission: Hitesh Ashraf Chief Complaint: SOB Pt is a 63-year-old female with a PMH significant for?COPD, DVT on Eliquis, hx of aspiration pneumonia, breast cancer on letrozole, insulin-dependent type 2 diabetes, HLD, HTN, GERD, and alcohol use disorder who presents to the ED with?SOB, cough, dizziness, and weakness x3 days. Pt reports she began experiencing symptoms Sunday night. Cough has been productive of brownish sputum. Chest tightness and abdominal pain associated with cough and deep breathing. Has had reduced appetite, as well as intermittent epistaxis. Some nausea but no vomiting. Denies fever, chills. Pt currently smokes 1-1/2 packs per day, and drinks between 8 and 9 beers a day. Last drink was on Sunday when she had 1 drink. Denies hx of withdrawal. No auditory, visual, or tactile disturbances. Denies tremors. Not on home O2. In the ED pt was tachycardic up to 135, tachypneic up to 29, with a low-grade fever of 99.9, and desatting to 81% on RA. Labs were significant for lactic acid 3.6 with repeat 3.2, and VBG pH 7.54 with pCO2 42 and bicarb 37. Otherwise grossly unremarkable and around baseline for pt. No leukocytosis. Stable H&H. MCV 102.6. UA negative for UTI. Tested negative for flu, COVID, RSV. CXR showed mild pulmonary opacities concerning for pneumonitis. CTA of chest pending. EKG demonstrated sinus tachycardia of 124 without evidence of significant ischemic changes. Pt was treated with Solu-Medrol and DuoNebs by EMS, as well as in the ER ondansetron, IVF, DuoNebs, ceftriaxone, and azithromycin. Pt will be admitted to the hospital for treatment and further evaluation of acute hypoxic respiratory failure in the setting of acute COPD exacerbation with underlying pneumonia with sepsis. Review of Systems 2 Review of Systems: Negative except for that which is stated in the HPI. [facility] Medical History Type 2 diabetes mellitus treated with insulin Alcohol use disorder, moderate, dependence MDD (major depressive disorder), recurrent episode, moderate Alcohol abuse Depression Aspiration pneumonia Anemia Right leg DVT Breast cancer, right breast Alcohol abuse COPD (chronic obstructive pulmonary disease) Diabetes HTN (hypertension) Surgical History History of cholecystectomy History of delivery History of ventral hernia repair Social History Household Members: Family Housing: Apartment Do you presently have visiting nurse or other home services: No Alcohol intake: current Alcohol intake frequency: 0-2 drinks per day Alcohol type: hard liquor Comment: refusing bed alarm and fall interventions. Patient Tobacco Use Status: Current everyday Tobacco user Tobacco use type: Cigarette Cigarette Packs Per Day: 1 Cigarettes Per Day: 20.0 Smoked in Last 30 Days: No Second Hand Smoke Exposure: No Use of substances other than those prescribed or required for medical reasons: No Substance Use Type: Marijuana Advance Directives: Yes Advance Directives on File: Yes Advance Directives Date on File: 03/26/23 Do you have a plan to hurt others: No Plan Patient : No service: No Meds Allergies Allergy/AdvReac Type Severity Reaction Status Date / Time Sulfa (Sulfonamide Allergy Severe ANAPHYLAXIS Verified 08/09/24 16:36 Antibiotics) [SULFA (SULFONAMIDE ANTIBIOTICS)] mitch seed [MITCH SEED] Allergy Intermediate HIVES/NAUSE Verified 08/09/24 16:36 A Home Medications ?Medication ?Instructions ?Recorded ?Confirmed ?Last Taken ?Type albuterol sulfate 2.5 mg/3 mL 2.5 mg inhalation Q4H PRN 12/07/22 03/20/23 Unknown History (0.083 %) solution for nebulization Shortness Of Breath Or Wheezing albuterol sulfate 90 mcg/actuation 2 puff inhalation Q4H PRN dyspnea 12/07/22 03/20/23 Unknown History aerosol inhaler (Ventolin HFA) apixaban 2.5 mg tablet (Eliquis) 2.5 mg PO BID 12/07/22 03/20/23 12/06/22 History calcium 600 mg (as 1 tab PO BID 12/07/22 03/20/23 12/06/22 History carbonate)-vitamin D3 10 mcg (400 unit) tablet cyanocobalamin (vitamin B-12) 500 500 mcg PO DAILY 12/07/22 03/20/23 12/06/22 History mcg tablet folic acid 1 mg tablet 1 mg PO DAILY 12/07/22 03/20/23 12/06/22 History loratadine 10 mg tablet 10 mg PO DAILY 12/07/22 03/20/23 12/06/22 History losartan 50 mg tablet 50 mg PO DAILY 12/07/22 03/20/23 12/06/22 History magnesium chloride 71.5 mg 71.5 mg PO DAILY 12/07/22 03/20/23 12/06/22 History (magnesium chloride) tablet,delayed release (Slow-Mag) metformin 750 mg tablet,extended 750 mg PO BID 12/07/22 03/20/23 12/06/22 History release 24 hr omeprazole 20 mg capsule,delayed 20 mg PO DAILY@0630 12/07/22 03/20/23 12/06/22 History release thiamine HCl (vitamin B1) 100 mg 100 mg PO DAILY 12/07/22 03/20/23 12/06/22 History tablet umeclidinium 62.5 mcg/actuation 1 inh inhalation DAILY 12/07/22 03/20/23 12/06/22 History blister powder for inhalation (Incruse Ellipta) venlafaxine 150 mg 150 mg PO DAILY 12/07/22 03/20/23 12/06/22 History capsule,extended release 24 hr atorvastatin 20 mg tablet 20 mg PO DAILY 03/20/23 03/20/23 Unknown History docusate sodium 100 mg capsule 100 mg PO BID PRN constipation 03/20/23 03/20/23 Unknown History famotidine 20 mg tablet 20 mg PO BID@0630,1630 03/20/23 03/20/23 Unknown History ferrous sulfate 325 mg (65 mg 325 mg PO DAILY 03/20/23 03/20/23 Unknown History iron) tablet,delayed release fluticasone propionate 230 2 puff inhalation BID 03/20/23 03/20/23 Unknown History mcg-salmeterol 21 mcg/actuation HFA inhaler (Advair HFA) fluticasone propionate 50 1 spray intranasal DAILY 03/20/23 03/20/23 Unknown History mcg/actuation nasal spray,suspension Physical Exam 2 Vital Signs and Narrative: Vital Signs: Last Vital Signs Temp 98.7 F 08/09/24 19:46 Pulse 119 H 08/09/24 19:46 Resp 15 08/09/24 19:46 BP 118/57 L 08/09/24 19:46 Pulse Ox 96 08/09/24 19:46 O2 Del Method Nasal Cannula 08/09/24 19:46 O2 Flow Rate 2 08/09/24 19:46 BMI result Body Mass Index 31.7 General: AOx3, no acute distress Resp: Diffuse wheezing and rhonchi bilaterally CVS: S1, S2, regular rate, tachycardic GI: +BS, NT, no distention Skin: Warm, dry Neuro: Cranial nerves II-XII grossly intact bilaterally. Motor grossly intact bilaterally. No tremors noted. No tongue fasciculations. Extremities: No edema Psych: Appropriate affect Results Labs 08/09/24 17:52 08/09/24 17:47 Labs: Laboratory Results - last 24 hr 08/09/24 08/09/24 08/09/24 17:46 17:47 17:52 MCV 102.6 H MCH 35.3 H MCHC 34.5 RDW 14.4 Plt Count 63 L D MPV 10.3 Immature Gran % (Auto) 1.0 H Neut % (Auto) 89.7 H Lymph % (Auto) 4.4 L [place] % (Auto) 4.7 Eos % (Auto) 0.0 Baso % (Auto) 0.2 Lymph # (Auto) 0.4 L [place] # (Auto) 0.4 Eos # (Auto) 0.0 Baso # (Auto) 0.0 Abs Immat Gran (auto) 0.09 H Absolute Neuts (auto) 8.2 Absolute Nucleated RBC 0.000 Nucleated RBC % (auto) 0.0 PT 12.7 H INR 1.1 APTT 35.0 VBG pH VBG pCO2 VBG pO2 VBG HCO3 VBG O2 Saturation VBG Base Excess Anion Gap 16 Estim Creat Clear Calc 51.0 Estimated GFR 53 Random Glucose 148 H Lactic Acid 3.6 H* Calcium 9.0 D Magnesium 1.6 Total Bilirubin 1.0 AST 47 H ALT 21 Alkaline Phosphatase 150 H B-Natriuretic Peptide 27 Total Protein 7.5 Albumin 3.4 L Lipase 34 Urine Color Urine Appearance Urine pH Ur Specific [place] Urine Protein Urine Glucose (UA) Urine Ketones Urine Blood Urine Nitrite Ur Leukocyte Esterase Urine RBC Urine WBC Ur Squamous Epith Cells Urine Bacteria Hyaline Casts Influenza Type A (PCR) NEGATIVE Influenza Type B (PCR) NEGATIVE RSV RNA Qual (PCR) NEGATIVE SARS-CoV-2 RNA (RT-PCR) NEGATIVE 08/09/24 08/09/24 17:58 18:06 MCV MCH MCHC RDW Plt Count MPV Immature Gran % (Auto) Neut % (Auto) Lymph % (Auto) [place] % (Auto) Eos % (Auto) Baso % (Auto) Lymph # (Auto) [place] # (Auto) Eos # (Auto) Baso # (Auto) Abs Immat Gran (auto) Absolute Neuts (auto) Absolute Nucleated RBC Nucleated RBC % (auto) PT INR APTT VBG pH 7.54 H VBG pCO2 42 VBG pO2 36 VBG HCO3 37 H VBG O2 Saturation 55.0 VBG Base Excess 13.5 Anion Gap Estim Creat Clear Calc Estimated GFR Random Glucose Lactic Acid Calcium Magnesium Total Bilirubin AST ALT Alkaline Phosphatase B-Natriuretic Peptide Total Protein Albumin Lipase Urine Color Dark Yellow Urine Appearance Cloudy Urine pH 5.5 Ur Specific [place] 1.020 Urine Protein 30 (1+) H Urine Glucose (UA) Negative Urine Ketones Trace Urine Blood Negative Urine Nitrite Negative Ur Leukocyte Esterase Negative Urine RBC 0-2 Urine WBC 6-10 Ur Squamous Epith Cells 3-5 Urine Bacteria None Seen Hyaline Casts 3-5 Influenza Type A (PCR) Influenza Type B (PCR) RSV RNA Qual (PCR) SARS-CoV-2 RNA (RT-PCR) Assessment and Plan (1) Acute respiratory failure with hypoxia: Status: Acute (2) COPD exacerbation: Status: Acute Plan Pt is a 63-year-old female with a PMH significant for?COPD, DVT on Eliquis, hx of aspiration pneumonia, breast cancer on letrozole, insulin-dependent type 2 diabetes, HLD, HTN, GERD, and alcohol use disorder who presents to the ED with?SOB, cough, dizziness, and weakness x3 days. Pt will be admitted to the hospital for treatment and further evaluation of acute hypoxic respiratory failure in the setting of acute COPD exacerbation with underlying pneumonia with sepsis. Acute hypoxic respiratory failure in the setting of COPD exacerbation with underlying pneumonia Satting 81% on RA, not on home O2, CXR concerning for pneumonia Meets sepsis criteria with tachycardia and tachypnea Pt given IVF and started on broad-spectrum antibiotics in the ED Will treat with azithromycin and ceftriaxone, started 08/09/2024 Xopenex, Solu-Medrol, guaifenesin Will check CTA of chest to r/o PE; pt on Eliquis but is at high risk due to current smoking and chronic DVTs Check procalcitonin Titrate supplemental O2 >92, wean as tolerated Monitor respiratory status Alcohol use disorder Pt drinking 8-9 beers daily, denies hx of withdrawal Last drink 3 days ago when had 1-2 beers Currently not in acute withdrawal Monitor on CIWA Hx of DVT Pt reports previous DVTs x4, including 2 chronic 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 Ashraf DVT Prophylaxis: On Eliquis Pt will require a hospitalization of at least two nights for treatment of?acute hypoxic respiratory failure in the setting of acute COPD exacerbation with underlying pneumonia with sepsis. Pt will require hospital level care for administration of supplemental oxygen, IV antibiotics, IV steroids, breathing treatments, and close monitoring of respiratory status. Quality Stroke Does the patient have a stroke diagnosis?: No VTE Prior VTE?: No VTE Risk Level:: Medical - moderate - high VTE Device Contraindication: Treatment Not Indicated VTE Drug Contraindication: N/A - Med Ordered
[2024-08-09 20:54] LABS: ~Lactic Acid-LAB USE ONLY 3.2 mmol/L (0.5-2.0)
[2024-08-09 21:02] LABS: Cancel Lactic Acid Canceled
[2024-08-10] VITALS (8 sets, daily range): BP systolic 102–123; BP diastolic 50–61; PULSE 64–100; RESP 16–24; TEMP 36.6–37.6; O2SAT 95–99
--- NOTE | 2024-08-10 00:30 | PC.NURSE ---
late entry @ 2300 this rn attempted to medicate pt with nicotine patch pt states does not want at this time @ 0035 this rn asked pt again pt refused at this time
--- NOTE | 2024-08-10 05:12 | PC.NURSE ---
this rn performed bedside med rec with patient. dr shen made aware to continue home meds
[2024-08-10] MEDS: 0.9 % Sodium Chloride Flush 3 ML SYRINGE IVFLUSH ×3 (05:15→16:57)
--- NOTE | 2024-08-10 07:59 | P.PNIM_ITS ---
Subjective Subjective Date of Service: 08/10/24 Interval History: Complaining of weakness, feeling sweaty/cold, denies nausea, no vomiting, complain of slight headache ,decreased appetite, no worsening shortness of breath, feels better since admission. Review of Systems All other symptoms reviewed and are negative Physical Exam 2 Vital Signs: Vital Signs: Last Vital Signs Temp 99.7 F 08/10/24 06:38 Pulse 71 08/10/24 06:38 Resp 16 08/10/24 06:38 BP 102/50 L 08/10/24 06:38 Pulse Ox 99 08/10/24 06:38 O2 Del Method Nasal Cannula 08/10/24 06:38 O2 Flow Rate 2 08/10/24 06:38 BMI result Body Mass Index 31.7 Const: Other: General resting comfortably in no acute distress. Neck no JVD. CVS regular rate rhythm, Respiratory lungs clear to auscultation, no respiratory distress, no wheeze Gastrointestinal abdomen soft, non tender, bowel sounds audible. Extremities no edema. Neuro non focal Skin no rash Appropriate affect Objective Data Active Medications Acetaminophen (Acetaminophen 325 Mg Tablet) 650 mg PO Q6H PRN PRN Reason: Pain, Mild 1-3,fever,headache Calcium Carbonate (Calcium Carbonate 750 Mg Tab.Chew) 750 mg PO Q4H PRN PRN Reason: Heartburn Ceftriaxone Sodium (Ceftriaxone Sodium 1 Gm Vial) 1 gm IVPUSH Q24H JESSICA Guaifenesin/Codeine Phosphate (Guaifen/Codeine Sf 200/20/10ml 10 Ml Liquid) 10 ml PO Q4H PRN PRN Reason: Cough Azithromycin 500 mg/ Sodium (Chloride) 250 mls @ 125 mls/hr IV Q24H JESSICA Levalbuterol HCl (Levalbuterol Hcl 1.25 Mg/3 Ml Vial.Neb) 1.25 mg INHALE RQ4H WHILE AWAKE JESSICA Levalbuterol HCl (Levalbuterol Hcl 1.25 Mg/3 Ml Vial.Neb) 1.25 mg INHALE RQ4H WHILE AWAKE PRN PRN Reason: Shortness of Breath/Wheezing Magnesium Hydroxide (Milk Of Magnesia 30 Ml Oral.Susp) 30 ml PO DAILY PRN PRN Reason: Constipation Melatonin (Melatonin 3 Mg Tablet) 6 mg PO BEDTIME PRN PRN Reason: Insomnia Methylprednisolone Sodium Succinate (Methylprednisolone Sod Succ 40 Mg/Ml Vial) 40 mg IVPUSH Q12H [facility] Nicotine (Nicotine 21 Mg Patch.Td24) 21 mg TRANSDERMA DAILY [facility] Last Admin: 08/10/24 00:35 Dose: Not Given Documented By: JOSELINE Non-Admin Reason: Patient Refused Ondansetron HCl (Ondansetron Hcl 4 Mg/2 Ml Vial) 4 mg IVPUSH Q8H PRN PRN Reason: Nausea and Vomiting Sodium Chloride (0.9 % Sodium Chloride Flush 3 Ml Syringe) 3 ml IVFLUSH QSHIFT [facility] Last Admin: 08/10/24 05:15 Dose: 3 ml Documented By: JOSELINE Labs 08/09/24 17:52 08/09/24 17:47 Labs: Laboratory Results - last 24 hr 08/09/24 08/09/24 08/09/24 17:46 17:47 17:52 MCV 102.6 H MCH 35.3 H MCHC 34.5 RDW 14.4 Plt Count 63 L D MPV 10.3 Immature Gran % (Auto) 1.0 H Neut % (Auto) 89.7 H Lymph % (Auto) 4.4 L [place] % (Auto) 4.7 Eos % (Auto) 0.0 Baso % (Auto) 0.2 Lymph # (Auto) 0.4 L [place] # (Auto) 0.4 Eos # (Auto) 0.0 Baso # (Auto) 0.0 Abs Immat Gran (auto) 0.09 H Absolute Neuts (auto) 8.2 Absolute Nucleated RBC 0.000 Nucleated RBC % (auto) 0.0 PT 12.7 H INR 1.1 APTT 35.0 VBG pH VBG pCO2 VBG pO2 VBG HCO3 VBG O2 Saturation VBG Base Excess Anion Gap 16 Estim Creat Clear Calc 51.0 Estimated GFR 53 Random Glucose 148 H Lactic Acid 3.6 H* Lactic Acid F/U @ 2Hr Calcium 9.0 D Magnesium 1.6 Total Bilirubin 1.0 AST 47 H ALT 21 Alkaline Phosphatase 150 H B-Natriuretic Peptide 27 Total Protein 7.5 Albumin 3.4 L Lipase 34 Procalcitonin 0.40 Urine Color Urine Appearance Urine pH Ur Specific [place] Urine Protein Urine Glucose (UA) Urine Ketones Urine Blood Urine Nitrite Ur Leukocyte Esterase Urine RBC Urine WBC Ur Squamous Epith Cells Urine Bacteria Hyaline Casts Influenza Type A (PCR) NEGATIVE Influenza Type B (PCR) NEGATIVE RSV RNA Qual (PCR) NEGATIVE SARS-CoV-2 RNA (RT-PCR) NEGATIVE 08/09/24 08/09/24 08/09/24 17:58 18:06 20:13 MCV MCH MCHC RDW Plt Count MPV Immature Gran % (Auto) Neut % (Auto) Lymph % (Auto) [place] % (Auto) Eos % (Auto) Baso % (Auto) Lymph # (Auto) [place] # (Auto) Eos # (Auto) Baso # (Auto) Abs Immat Gran (auto) Absolute Neuts (auto) Absolute Nucleated RBC Nucleated RBC % (auto) PT INR APTT VBG pH 7.54 H VBG pCO2 42 VBG pO2 36 VBG HCO3 37 H VBG O2 Saturation 55.0 VBG Base Excess 13.5 Anion Gap Estim Creat Clear Calc Estimated GFR Random Glucose Lactic Acid Lactic Acid F/U @ 2Hr 3.2 H* Calcium Magnesium Total Bilirubin AST ALT Alkaline Phosphatase B-Natriuretic Peptide Total Protein Albumin Lipase Procalcitonin Urine Color Dark Yellow Urine Appearance Cloudy Urine pH 5.5 Ur Specific [place] 1.020 Urine Protein 30 (1+) H Urine Glucose (UA) Negative Urine Ketones Trace Urine Blood Negative Urine Nitrite Negative Ur Leukocyte Esterase Negative Urine RBC 0-2 Urine WBC 6-10 Ur Squamous Epith Cells 3-5 Urine Bacteria None Seen Hyaline Casts 3-5 Influenza Type A (PCR) Influenza Type B (PCR) RSV RNA Qual (PCR) SARS-CoV-2 RNA (RT-PCR) Assessment and Plan (1) COPD exacerbation: Status: Acute (2) Alcohol use disorder: Status: Acute (3) Pneumonia: Status: Acute Plan 63-year-old female with a PMH significant for?COPD, DVT on Eliquis, hx of aspiration pneumonia, breast cancer on letrozole, insulin-dependent type 2 diabetes, HLD, HTN, GERD, and alcohol use disorder who presents to the ED with?SOB, cough, dizziness, and weakness x3 days. Pt will be admitted to the hospital for treatment and further evaluation of acute hypoxic respiratory failure in the setting of acute COPD exacerbation with underlying pneumonia with sepsis. Acute hypoxic respiratory failure in the setting of COPD exacerbation with underlying pneumonia/sepsis On admission 81% on RA, not on home O2, CXR concerning for pneumonia, afebrile normal WBC CTA chest showed no PE but showed bilateral airspace disease most pronounced in right middle lobe Continue IV azithromycin and ceftriaxone, started 08/09/2024 Xopenex, Solu-Medrol, guaifenesin procalcitonin 0.40 Titrate supplemental O2 >92, wean as tolerated Acute lactic acidosis likely due to metformin/updraft /dehydration improved. Alcohol use disorder Drink 8-9 beers daily, denies hx of withdrawal Last drink 3 days ago when had 1-2 beers, continue thiamine folic acid Currently not in acute withdrawal, CIWA 0 Hx of DVT Continue Eliquis Nicotine dependence Currently smoking 1-1/2 packs of cigarettes daily, continue Nicotine patch HTN Soft BP, Hold losartan, resume as indicated Insulin-dependent type 2 diabetes on sliding scale insulin,Continue Lantus,Hold metformin, Diabetic diet Hx of breast cancer Continue letrozole Mood disorder continue Effexor XR GERD Continue PPI Full Code DVT Prophylaxis: On Eliquis Pt will require continued inpatient hospitalization for treatment of?acute hypoxic respiratory failure in the setting of acute COPD exacerbation with underlying pneumonia with sepsis,on iv abx. Quality Stroke Does the patient have a stroke diagnosis?: No VTE Prior VTE?: No VTE Risk Level:: Medical - moderate - high VTE Device Contraindication: Treatment Not Indicated VTE Drug Contraindication: N/A - Med Ordered
--- NOTE | 2024-08-10 08:20 | PHA.MEDREC ---
Pharmacy Consult ? Medication Reconciliation Pharmacy has completed the medication reconciliation. Spoke to pt to confirm meds. Per pt, no longer taking atorvastatin and Vitamin B12 because their labs were fine . Pt also is supposed to transition from Advair to Trelegy and to D/C Advair. Pt also reports not taking Flonase anymore, along with no longer taking Novolog sliding scale. Currently on 24 units of lantus PM.
[2024-08-10] MEDS: Thiamine HCL 100 MG TABLET PO (09:20)
[2024-08-10] MEDS: Ferrous Sulfate 324 MG TABLET.DR PO (09:20)
[2024-08-10] MEDS: Apixaban 2.5 MG TABLET PO ×2 (09:20→21:43)
[2024-08-10] MEDS: Venlafaxine HCl ER 150 MG CAP.ER.24H PO (09:21)
[2024-08-10] MEDS: methylPREDNISolone Sod Succ 40 MG/ML VIAL IVPUSH ×2 (09:21→21:43)
[2024-08-10] MEDS: Folic Acid 1 MG TABLET PO (09:21)
[2024-08-10] MEDS: levalbuterol HCL 1.25 MG/3 ML VIAL.NEB INHALE ×2 (11:23→21:05)
--- NOTE | 2024-08-10 12:19 | MHC.CM.PN ---
PT REPORTS SHE LIVES WITH HER [id number] AND GRANDDAUGHTER SHE IS INDEPENDENT WITH CARE AND HAS NO SERVICES PT USES A ROLLATER PRIMARILY AND A CANE AT TIMES HCP ON FILE PCP: GUDELIA ESPINAL IMM DELIVERED DCP: HOME NO SERVICES VIA PRIVATE TRANSPORT
--- NOTE | 2024-08-10 12:27 | PC.NURSE ---
Assumed care of this patient at 1100, patient currently sleeping on hospital stretcher, [facility].
--- NOTE | 2024-08-10 15:00 | PC.NURSE ---
Call from lab, + in 1/2 sets gram pos cocci in clusters, covering provider Dr. Campbell made aware.
[2024-08-10] MEDS: Famotidine 20 MG TABLET PO (16:58)
[2024-08-10] MEDS: Azithromycin 500 MG in 0.9 % Sodium Chloride 250 ML 125 MG IV (18:14)
[2024-08-10] MEDS: cefTRIAXone sodium 1 GM VIAL IVPUSH (18:14)
--- NOTE | 2024-08-10 18:19 | PC.NURSE ---
PT continues to rest quietly on stretcher, VSS on 2L, awaiting bed assignment
[2024-08-10 20:37] LABS: Glucose, Whole Blood 162 mg/dL (60-115)
[2024-08-10] MEDS: guaiFEN/Codeine SF 200/20/10ML 10 ML LIQUID PO (21:43)
[2024-08-10] MEDS: Insulin Glargine,Hum.rec.anlog 100 UNIT/ML 10 ML VIAL 10 UNIT SUBCUT (21:43)
[2024-08-11] VITALS (8 sets, daily range): BP systolic 111–151; BP diastolic 47–65; PULSE 58–96; RESP 15–20; TEMP 35.9–36.7; O2SAT 92–97
[2024-08-11] MEDS: 0.9 % Sodium Chloride Flush 3 ML SYRINGE IVFLUSH ×2 (01:08→17:32)
[2024-08-11] MEDS: Omeprazole 20 MG CAPSULE.DR PO (06:37)
[2024-08-11] MEDS: Famotidine 20 MG TABLET PO ×2 (06:37→16:32)
[2024-08-11 07:50] LABS: Glucose, Whole Blood 156 mg/dL (60-115)
[2024-08-11 08:41] LABS: Glucose, Whole Blood 169 mg/dL (60-115)
[2024-08-11] MEDS: levalbuterol HCL 1.25 MG/3 ML VIAL.NEB INHALE ×3 (09:07→20:48)
[2024-08-11] MEDS: Ferrous Sulfate 324 MG TABLET.DR PO (09:54)
[2024-08-11] MEDS: Venlafaxine HCl ER 150 MG CAP.ER.24H PO (09:54)
[2024-08-11] MEDS: Apixaban 2.5 MG TABLET PO ×2 (09:54→21:33)
[2024-08-11] MEDS: Thiamine HCL 100 MG TABLET PO (09:54)
[2024-08-11] MEDS: Folic Acid 1 MG TABLET PO (09:54)
[2024-08-11] MEDS: methylPREDNISolone Sod Succ 40 MG/ML VIAL IVPUSH ×2 (09:54→21:34)
--- NOTE | 2024-08-11 10:22 | MHC.CM.PN ---
Per ROUNDS discussion, Patient may be able to dc to home today, pending cultures; CM will continue to follow.
[2024-08-11 12:04] LABS: Glucose, Whole Blood 143 mg/dL (60-115)
--- NOTE | 2024-08-11 13:46 | P.PNIM_ITS ---
Subjective Subjective Date of Service: 08/11/24 Interval History: Complaining of cough, weakness, feels not ready for discharge. Denies nausea, no vomiting, tolerating diet, no fevers, no chills. No acute events overnight Review of Systems All other system reviewed and are negative Physical Exam 2 Vital Signs: Vital Signs: Last Vital Signs Temp 97.6 F 08/11/24 12:00 Pulse 96 08/11/24 12:00 Resp 18 08/11/24 12:00 BP 147/65 H 08/11/24 12:00 Pulse Ox 92 08/11/24 12:00 O2 Del Method Room Air 08/11/24 12:00 O2 Flow Rate 1 08/11/24 01:57 BMI result Body Mass Index 31.7 Const: Other: General resting comfortably in no acute distress. Neck no JVD. CVS regular rate rhythm, Respiratory lungs bilateral rhonchi, no respiratory distress, no wheeze Gastrointestinal abdomen soft, non tender, bowel sounds audible. Extremities no edema. Neuro non focal Skin no rash Appropriate affect Objective Data Active Medications Acetaminophen (Acetaminophen 325 Mg Tablet) 650 mg PO Q6H PRN PRN Reason: Pain, Mild 1-3,fever,headache Albuterol Sulfate (Albuterol Sulfate (0.083%) 2.5 Mg/3 Ml Vial.Neb) 2.5 mg INHALE RQ4H PRN PRN Reason: Shortness Of Breath Or Wheezing Apixaban (Apixaban 2.5 Mg Tablet) 2.5 mg PO BID [facility] Last Admin: 08/11/24 09:54 Dose: 2.5 mg Documented By: BEKA Calcium Carbonate (Calcium Carbonate 750 Mg Tab.Chew) 750 mg PO Q4H PRN PRN Reason: Heartburn Ceftriaxone Sodium (Ceftriaxone Sodium 1 Gm Vial) 1 gm IVPUSH Q24H [facility] Last Admin: 08/10/24 18:14 Dose: 1 gm Documented By: KIKE Dextrose (Dextrose 50 % 25 Gm/50 Ml Syringe) 25 gm IVPUSH Q15M PRN; Protocol PRN Reason: per Hypoglycemia Standing Ord. Famotidine (Famotidine 20 Mg Tablet) 20 mg PO BID@0630,1630 [facility] Last Admin: 08/11/24 06:37 Dose: 20 mg Documented By: ASTER Ferrous Sulfate (Ferrous Sulfate 324 Mg Tablet.) 324 mg PO DAILY [facility] Last Admin: 08/11/24 09:54 Dose: 324 mg Documented By: BEKA Fluticasone Propionate (Fluticasone Propionate Nasal 16 Gm Alexander) 1 spray NOSTRIL-B DAILY [facility] Last Admin: 08/11/24 11:13 Dose: Not Given Documented By: BEKA Non-Admin Reason: pt asleep Folic Acid (Folic Acid 1 Mg Tablet) 1 mg PO DAILY [facility] Last Admin: 08/11/24 09:54 Dose: 1 mg Documented By: BEKA Glucose (Glucose Gel 15 Gm Gel..Gram.) 15 gm PO Q15M PRN; Protocol PRN Reason: per Hypoglycemia Standing Ord. Guaifenesin/Codeine Phosphate (Guaifen/Codeine Sf 200/20/10ml 10 Ml Liquid) 10 ml PO Q4H PRN PRN Reason: Cough Last Admin: 08/10/24 21:43 Dose: 10 ml Documented By: KIKE Azithromycin 500 mg/ Sodium (Chloride) 250 mls @ 125 mls/hr IV Q24H [facility] Last Infusion: 08/10/24 20:23 Dose: Infused Documented By: KIKE Insulin Glargine (Insulin Glargine,Hum.Rec.Anlog 100 Unit/Ml 10 Ml Vial) 10 unit SUBCUT BEDTIME [facility] Last Admin: 08/10/24 21:43 Dose: 10 unit Documented By: KIKE Insulin Human Lispro (Insulin Lispro 100 Unit/Ml 3 Ml Vial) 0 unit SUBCUT QIDACHS [facility]; Protocol Last Admin: 08/11/24 12:06 Dose: Not Given Documented By: BEKA Non-Admin Reason: No Insulin Coverage Levalbuterol HCl (Levalbuterol Hcl 1.25 Mg/3 Ml Vial.Neb) 1.25 mg INHALE RQ4H WHILE AWAKE [facility] Last Admin: 08/11/24 11:34 Dose: Not Given Documented By: TORRES Non-Admin Reason: Patient Refused Levalbuterol HCl (Levalbuterol Hcl 1.25 Mg/3 Ml Vial.Neb) 1.25 mg INHALE RQ4H WHILE AWAKE PRN PRN Reason: Shortness of Breath/Wheezing Magnesium Hydroxide (Milk Of Magnesia 30 Ml Oral.Susp) 30 ml PO DAILY PRN PRN Reason: Constipation Melatonin (Melatonin 3 Mg Tablet) 6 mg PO BEDTIME PRN PRN Reason: Insomnia Methylprednisolone Sodium Succinate (Methylprednisolone Sod Succ 40 Mg/Ml Vial) 40 mg IVPUSH Q12H [facility] Last Admin: 08/11/24 09:54 Dose: 40 mg Documented By: BEKA Nicotine (Nicotine 21 Mg Patch.Td24) 21 mg TRANSDERMA DAILY [facility] Last Admin: 08/11/24 09:54 Dose: Not Given Documented By: BEKA Non-Admin Reason: refused Omeprazole (Omeprazole 20 Mg Capsule.Dr) 20 mg PO DAILY@0630 [facility] Last Admin: 08/11/24 06:37 Dose: 20 mg Documented By: ASTER Ondansetron HCl (Ondansetron Hcl 4 Mg/2 Ml Vial) 4 mg IVPUSH Q8H PRN PRN Reason: Nausea and Vomiting Sodium Chloride (0.9 % Sodium Chloride Flush 3 Ml Syringe) 3 ml IVFLUSH QSHIFT [facility] Last Admin: 08/11/24 07:37 Dose: Not Given Documented By: EVERETT Non-Admin Reason: Patient Asleep Thiamine HCl (Thiamine Hcl 100 Mg Tablet) 100 mg PO DAILY [facility] Last Admin: 08/11/24 09:54 Dose: 100 mg Documented By: BEKA Venlafaxine HCl (Venlafaxine Hcl Er 150 Mg Cap.Er.24h) 150 mg PO DAILY [facility] Last Admin: 08/11/24 09:54 Dose: 150 mg Documented By: BEKA Labs 08/09/24 17:52 08/09/24 17:47 Labs: Laboratory Results - last 24 hr 08/10/24 08/11/24 08/11/24 20:29 07:42 08:35 POC Glucose 162 H 156 H 169 H 08/11/24 11:53 POC Glucose 143 H Microbiology Microbiology Results: Microbiology 08/09/24 17:46 Blood Culture - Final Blood - Venous Coag negative Staphylococcus 08/09/24 18:06 Urine Culture - Final Urine clean catch - Clean Catch Midstream Klebsiella pneumoniae 08/09/24 17:50 Blood Culture - Preliminary Blood - Venous No growth after 24 hours. Assessment and Plan (1) COPD exacerbation: Status: Acute (2) Alcohol use disorder: Status: Acute (3) Pneumonia: Status: Acute (4) Type 2 diabetes mellitus treated with insulin: Status: Acute Plan 63-year-old female with a PMH significant for?COPD, DVT on Eliquis, hx of aspiration pneumonia, breast cancer on letrozole, insulin-dependent type 2 diabetes, HLD, HTN, GERD, and alcohol use disorder who presents to the ED with?SOB, cough, dizziness, and weakness x3 days. Pt will be admitted to the hospital for treatment and further evaluation of acute hypoxic respiratory failure in the setting of acute COPD exacerbation with underlying pneumonia with sepsis. Acute hypoxic respiratory failure in the setting of COPD exacerbation with underlying pneumonia/sepsis On admission 81% on RA, not on home O2, CXR mild pulmonary opacities concerning for pneumonitis, afebrile, normal WBC CTA chest showed no PE but showed bilateral airspace disease most pronounced in right middle lobe on IV azithromycin and ceftriaxone, started 08/09/2024 transitioned to by mouth upon discharge Continue scheduled Xopenex, guaifenesin and IV Solu-Medrol transition to by mouth prednisone 40mg tapering dose at a.m. procalcitonin 0.40 Oxygen weaned of, finger oximetry > 92% on room air Blood culture /2 grew coagulase negative staph likely pathogen Urine culture grew Klebsiella pneumoniae although UA negative, likely colonization patient asymptomatic Acute lactic acidosis likely due to metformin/updraft /dehydration improved. Alcohol use disorder Drink 8-9 beers daily, denies hx of withdrawal Last drink 3 days ago continue thiamine folic acid Currently not in acute withdrawal, CIWA 0 Hx of DVT Continue Eliquis Nicotine dependence Currently smoking 1-1/2 packs of cigarettes daily, continue Nicotine patch , counseling done HTN BP trending up resume losartan Insulin-dependent type 2 diabetes on sliding scale insulin,Continue Lantus 10 units,(home dose 25 units) Hold metformin, Diabetic diet Hx of breast cancer Continue letrozole Mood disorder continue Effexor XR GERD Continue PPI Full Code DVT Prophylaxis: On Eliquis Disposition home at a.m. on by mouth antibiotic to finish 5 day course of antibiotics, and by mouth prednisone 40 mg tapering dose. Pt will require continued inpatient hospitalization for treatment of?acute hypoxic respiratory failure in the setting of acute COPD exacerbation with underlying pneumonia with sepsis,on iv abx. Quality Stroke Does the patient have a stroke diagnosis?: No VTE Prior VTE?: No VTE Risk Level:: Medical - moderate - high VTE Device Contraindication: Treatment Not Indicated VTE Drug Contraindication: N/A - Med Ordered
[2024-08-11] MEDS: Insulin Lispro 100 UNIT/ML 3 ML VIAL SUBCUT ×2 (16:32→21:32)
[2024-08-11 16:41] LABS: Glucose, Whole Blood 214 mg/dL (60-115)
[2024-08-11] MEDS: Azithromycin 500 MG in 0.9 % Sodium Chloride 250 ML 125 MG IV (17:32)
[2024-08-11] MEDS: cefTRIAXone sodium 1 GM VIAL IVPUSH (17:32)
[2024-08-11 20:15] LABS: Glucose, Whole Blood 181 mg/dL (60-115)
[2024-08-11] MEDS: Insulin Glargine,Hum.rec.anlog 100 UNIT/ML 10 ML VIAL 10 UNIT SUBCUT (21:33)
[2024-08-11] MEDS: guaiFEN/Codeine SF 200/20/10ML 10 ML LIQUID PO (22:12)
[2024-08-12] VITALS: BP 122/59; PULSE 71; RESP 18; TEMP 36.2; O2SAT 95
[2024-08-12 03:49] VITALS: BP 132/62; PULSE 67; RESP 16; TEMP 36.3; O2SAT 95
[2024-08-12] MEDS: Omeprazole 20 MG CAPSULE.DR PO (06:55)
[2024-08-12] MEDS: Famotidine 20 MG TABLET PO (06:55)
[2024-08-12 06:59] LABS: Glucose, Whole Blood 159 mg/dL (60-115)
[2024-08-12 07:07] VITALS: BP 140/65; PULSE 65; RESP 18; TEMP 36.2; O2SAT 95
[2024-08-12 07:43] VITALS: PULSE 74; RESP 18; O2SAT 94
[2024-08-12] MEDS: levalbuterol HCL 1.25 MG/3 ML VIAL.NEB INHALE (07:43)
[2024-08-12] MEDS: 0.9 % Sodium Chloride Flush 3 ML SYRINGE IVFLUSH ×2 (08:45)
[2024-08-12] MEDS: Insulin Lispro 100 UNIT/ML 3 ML VIAL SUBCUT (08:45)
[2024-08-12] MEDS: methylPREDNISolone Sod Succ 40 MG/ML VIAL IVPUSH (08:45)
[2024-08-12] MEDS: Thiamine HCL 100 MG TABLET PO (08:46)
[2024-08-12] MEDS: Venlafaxine HCl ER 150 MG CAP.ER.24H PO (08:46)
[2024-08-12] MEDS: Ferrous Sulfate 324 MG TABLET.DR PO (08:46)
[2024-08-12] MEDS: Folic Acid 1 MG TABLET PO (08:46)
[2024-08-12] MEDS: Apixaban 2.5 MG TABLET PO (08:46)
--- NOTE | 2024-08-12 08:51 | P.DS_ITS ---
DS: Providers Provider Date of Service: 08/12/24 Date of admission: 08/09/24 21:58 Date of discharge: 08/12/24 Primary care physician: Juana Jean MD Consults: 08/11/24 08:12 Addiction Medicine Routine Consulting Provider: Addiction Covering Reason for consultation: drinking 8 beers daily DS: Diagnosis Discharge Diagnosis (1) COPD exacerbation: Status: Acute (2) Pneumonia: Status: Acute (3) Type 2 diabetes mellitus treated with insulin: Status: Acute (4) Alcohol use disorder: Status: Acute DS: Summary Hospital Course Hospital Course: HPI: Pt is a 63-year-old female with a PMH significant for?COPD, DVT on Eliquis, hx of aspiration pneumonia, breast cancer on letrozole, insulin-dependent type 2 diabetes, HLD, HTN, GERD, and alcohol use disorder who presents to the ED with?SOB, cough, dizziness, and weakness x3 days. Pt reports she began experiencing symptoms Sunday night. Cough has been productive of brownish sputum. Chest tightness and abdominal pain associated with cough and deep breathing. Has had reduced appetite, as well as intermittent epistaxis. Some nausea but no vomiting. Denies fever, chills. Pt currently smokes 1-1/2 packs per day, and drinks between 8 and 9 beers a day. Last drink was on Sunday when she had 1 drink. Denies hx of withdrawal. No auditory, visual, or tactile disturbances. Denies tremors. Not on home O2. In the ED pt was tachycardic up to 135, tachypneic up to 29, with a low-grade fever of 99.9, and desatting to 81% on RA. Labs were significant for lactic acid 3.6 with repeat 3.2, and VBG pH 7.54 with pCO2 42 and bicarb 37. Otherwise grossly unremarkable and around baseline for pt. No leukocytosis. Stable H&H. MCV 102.6. UA negative for UTI. Tested negative for flu, COVID, RSV. CXR showed mild pulmonary opacities concerning for pneumonitis. CTA of chest pending. EKG demonstrated sinus tachycardia of 124 without evidence of significant ischemic changes. Pt was treated with Solu-Medrol and DuoNebs by EMS, as well as in the ER ondansetron, IVF, DuoNebs, ceftriaxone, and azithromycin. Pt will be admitted to the hospital for treatment and further evaluation of acute hypoxic respiratory failure in the setting of acute COPD exacerbation with underlying pneumonia with sepsis. Hospital course: Acute hypoxic respiratory failure in the setting of COPD exacerbation with underlying pneumonia/sepsis On admission 81% on RA, not on home O2, CXR mild pulmonary opacities concerning for pneumonitis, afebrile, normal WBC CTA chest showed no PE but showed bilateral airspace disease most pronounced in right middle lobe Initiated on IV azithromycin and ceftriaxone, started 08/09/2024 transitioned to by mouth upon discharge. Patient completed 3 day course of azithromycin. Will discharge with p.o. cefpodoxime as below Also on systemic steroids throughout hospitalization. Will be discharged with p.o. prednisone to complete 5 day course Hypoxia resolved. Oxygen weaned, finger oximetry > 92% on room air Blood culture /2 grew coagulase negative staph, contaminant Urine culture grew Klebsiella pneumoniae although UA negative, colonization patient asymptomatic Acute lactic acidosis likely due to metformin/updraft /dehydration improved. Alcohol use disorder Drink 8-9 beers daily, denies hx of withdrawal Last drink 3 days ago continue thiamine folic acid Was not in withdrawal throughout hospital course, CIWA 0 Tobacco use disorder Currently smoking 1-1/2 packs of cigarettes daily, Nicotine patch given throughout hospital course, counseling done regarding cessation Remaining p.o. medications continued for chronic medical conditions. Patient hemodynamically stable, mentating well and maintaining oxygen saturation room air upon discharge. Status at Discharge Functional status at discharge: independent ambulation Overall status at discharge: patient is back to baseline Time Attestation Discharge Coordination Time (in mins): Thirty-five minutes Quality: Safe Use of Opioids Does Pt have an Active Cancer Diagnosis on the Problem List?: No Quality: Stroke Does the patient have a stroke diagnosis?: No Physical Exam Vital Signs: Vital Signs: Last Vital Signs Temp 97.2 F 08/12/24 07:07 Pulse 74 08/12/24 07:43 Resp 18 08/12/24 07:43 BP 140/65 H 08/12/24 07:07 Pulse Ox 95 08/12/24 07:07 O2 Del Method Room Air 08/12/24 07:07 O2 Flow Rate 1 08/11/24 01:57 BMI result Body Mass Index 31.7 General resting comfortably in no acute distress. Neck no JVD. CVS regular rate rhythm, Respiratory lungs bilateral rhonchi, no respiratory distress, no wheeze Gastrointestinal abdomen soft, non tender, bowel sounds audible. Extremities no edema. Neuro non focal Skin no rash Appropriate affect DS: Data Data Completed and Pending Labs on day of discharge: Laboratory Results - last 24 hr 08/11/24 08/11/24 08/11/24 11:53 16:26 20:11 POC Glucose 143 H 214 H 181 H 08/12/24 06:55 POC Glucose 159 H Preliminary micro results at discharge 08/09/24 17:50 Blood Culture - Preliminary Blood - Venous No growth after [address] scan - chest: Radiologist's impression: IMPRESSION: 1. No central pulmonary embolism. 2. Bilateral airspace disease most pronounced in the right middle lobe; concerning for pneumonia. Recommend attention on follow-up to ensure resolution. Chest x-ray: Radiologist's impression: IMPRESSION: Mild pulmonary opacities concerning for pneumonitis. Discharge Plan Discharge Anticipated Discharge Date/Time: 08/12/24 11:00 Patient Disposition: Home, Self-Care Discharge Diagnosis: Acute hypoxic respiratory failure in the setting of COPD exacerbation with underlying pneumonia Referrals: Physician,Neto J [Physician] - 1 Week Discharge Medications: New cefpodoxime 200 mg tablet 200 mg PO BID 2 Days Qty: 4 0RF Rx Instructions: must administer with a meal/food prednisone 20 mg tablet 40 mg PO DAILY 2 Days Qty: 4 0RF Continued losartan 50 mg tablet 50 mg PO DAILY albuterol sulfate 2.5 mg /3 mL (0.083 %) solution for nebulization 2.5 mg inhalation Q4H PRN (Reason: Shortness Of Breath Or Wheezing) venlafaxine 150 mg capsule,extended release 24hr 150 mg PO DAILY thiamine HCl (vitamin B1) 100 mg tablet 100 mg PO DAILY omeprazole 20 mg capsule,delayed release(DR/EC) 20 mg PO DAILY@0630 folic acid 1 mg tablet 1 mg PO DAILY loratadine 10 mg tablet 10 mg PO DAILY metformin 750 mg tablet extended release 24 hr 750 mg PO BIDWM calcium carbonate-vitamin D3 600 mg-10 mcg (400 unit) tablet 1 tab PO BID Slow-Mag 71.5 mg tablet,delayed release (DR/EC) 71.5 mg PO DAILY Eliquis 2.5 mg tablet 2.5 mg PO BID albuterol sulfate [Ventolin HFA] 90 mcg/actuation HFA aerosol inhaler 2 puff INHALATION Q4H PRN (Reason: dyspnea) ferrous sulfate 325 mg (65 mg iron) tablet,delayed release (DR/EC) 325 mg PO DAILY famotidine 20 mg tablet 20 mg PO BID@0630,1630 (DME) syringe,safety, disposal unit 3 mL syringe See Rx Instructions .Route Qty: 100 2RF Rx Instructions: As directed Trelegy Ellipta 100-62.5-25 mcg blister with device 1 ea INHALATION DAILY insulin glargine [Lantus U-100 Insulin] 100 unit/mL solution 24 unit subcut BEDTIME Discharge Orders: Discharge Order (Routine); Ordered 08/12/24 Ordered By: Yisel Moore Diet: Diabetic diet Activity on Discharge: As tolerated Stand Alone Forms: Patient Portal Discharge page Print Language: [place] Care Plan Goals: Follow-up with PCP within 1 week Health Concerns: COPD Tobacco use disorder Plan of Treatment: Cefpodoxime twice daily x2 days Prednisone daily x2 days Assessment: As above
--- NOTE | 2024-08-12 09:23 | MHC.CM.PN ---
Patient has been medically cleared for dc to home today, self care. Last IMM addressed on 08/10/2024.
== END 2024-08-12 12:00 | disposition home or self-care (01) | DRG 871 ==
LOC: HO.ED 19:52 → HO.EDOVER 22:09 → HO.IMC 08-11 07:31
PROVIDERS: Hospitalist; Internal Medicine; Admitting Provider Student in an Organized Health Care Education/Training Program; Emergency Provider Emergency Medicine Emergency Medical Services; PCP Family Medicine; Visit Provider Student in an Organized Health Care Education/Training Program
DX: A41.9 Sepsis, unspecified organism (principal); J18.9 Pneumonia, unspecified organism; J96.01 Acute respiratory failure with hypoxia; E87.21 Acute metabolic acidosis; J44.0 Chronic obstructive pulmonary disease with (acute) lower respiratory infection; J44.1 Chronic obstructive pulmonary disease with (acute) exacerbation; E86.0 Dehydration; C50.911 Malignant neoplasm of unspecified site of right female breast; I10 Essential (primary) hypertension; E11.9 Type 2 diabetes mellitus without complications; F17.210 Nicotine dependence, cigarettes, uncomplicated; F10.20 Alcohol dependence, uncomplicated; Z71.6 Tobacco abuse counseling; Z20.822 Contact with and (suspected) exposure to COVID-19; Z86.718 Personal history of other venous thrombosis and embolism; Z79.01 Long term (current) use of anticoagulants; Z79.84 Long term (current) use of oral hypoglycemic drugs; Z79.811 Long term (current) use of aromatase inhibitors; Z79.899 Other long term (current) drug therapy
CPT/HCPCS: 0241U; 36415; 71045; 71275; 80053; 81001; 82803; 82947; 83605; 83690; 83735; 83880; 84145; 84484; 85025; 85610; 85730; 87040; 87086; 87088; 87147; 87186; 87205; 93005; 94640; 99285; J0456; J0696; J2405; J2919; S9485

== ENCOUNTER → 2024-08-09 17:22 | Outpatient (BNV) | payer OTHER, SELFPAY | PROVIDERS: Emergency Provider Emergency Medicine Emergency Medical Services; Visit Provider Radiology Neuroradiology | DX: R50.9 Fever, unspecified (principal); R05.9 Cough, unspecified; R06.02 Shortness of breath; R09.02 Hypoxemia | CPT/HCPCS: 71045; 71275 ==

== ENCOUNTER → 2024-08-09 17:22 | Outpatient (BNV) | payer OTHER, SELFPAY | PROVIDERS: Admitting Provider Student in an Organized Health Care Education/Training Program; Emergency Provider Emergency Medicine Emergency Medical Services; Visit Provider Internal Medicine Cardiovascular Disease | DX: R00.0 Tachycardia, unspecified (principal) | CPT/HCPCS: 93010 ==

== ENCOUNTER → 2024-08-09 21:58 | Outpatient (BNV) | payer OTHER, SELFPAY | PROVIDERS: Admitting Provider Student in an Organized Health Care Education/Training Program; Emergency Provider Emergency Medicine Emergency Medical Services; Visit Provider Student in an Organized Health Care Education/Training Program | DX: J44.1 Chronic obstructive pulmonary disease with (acute) exacerbation (principal); J18.9 Pneumonia, unspecified organism; E11.9 Type 2 diabetes mellitus without complications; Z79.4 Long term (current) use of insulin; F10.90 Alcohol use, unspecified, uncomplicated | CPT/HCPCS: 99223; 99233; 99239 ==

== ENCOUNTER 2024-08-26 14:41 | Outpatient (REF) | payer OTHER, SELFPAY ==
[2024-08-26 16:12] LABS: MANUAL DIFF FLAG NO
[2024-08-26 16:31] LABS: Eosinophils Absolute Auto 0.1 X10*3/uL (0.0-0.4); Eosinophils Percent Auto 1.7 % (0-4); Hemoglobin 12.3 g/dl (12.0-16.0); Imm Gran Abs Auto 0.03 X10*3/uL (0.00-0.03); Imm Gran Pct Auto 0.5 % (0.0-0.4); PLT CLUMP 1; SCAN SMEAR FLAG 1
[2024-08-26 16:33] LABS: Basophils Percent Auto 0.5 % (0-2); Hematocrit 35.7 % (37.0-47.0); Lymphocytes Absolute Auto 1.3 X10*3/uL (1.2-4.9); Lymphocytes Percent Auto 21.9 % (20-40); Mean Corpuscular HGB Conc 34.5 g/dl (31.0-35.0); Mean Corpuscular Hemoglobin 34.5 pg (27.0-33.0); Mean Platelet Volume 10.6 fL (9.4-12.3); Monocytes Absolute Auto 0.6 X10*3/uL (0.1-1.2); Monocytes Percent Auto 10.8 % (2-11); Neutrophils Absolute Auto 3.8 x10*3/uL (2.0-8.3); Neutrophils Percent Auto 64.6 % (45-73); Red Blood Count 3.57 X10*6/uL (4.20-5.50); Red Cell Distribution Width 13.9 % (11.0-16.0)
[2024-08-26 16:39] LABS: Platelet Count 79 X10*3/uL (160-400); White Blood Count 5.9 X10*3/uL (4.8-10.8)
[2024-08-26 16:46] LABS: Estimated Average Glucose 103 mg/dL; Hemoglobin A1c % 5.2 % (<6.0); Total Hemoglobin (HGBA1C) 3308.4649 umol/L
[2024-08-26 17:13] LABS: Alanine Aminotransferase 38 U/L (0-31); Albumin Level 3.4 g/dL (3.5-5.0); Alkaline Phosphatase 167 U/L (39-117); Anion Gap 12 (12-20); Aspartate Amino Transferase 44 U/L (5-31); Bilirubin Direct 0.3 mg/dL (0.0-0.5); Bilirubin Total 0.7 mg/dL (0.0-1.0); Blood Urea Nitrogen 9 mg/dL (9-16); Calcium 9.5 mg/dL (8.4-10.2); Carbon Dioxide 23 mmol/L (22-29); Chloride 107 mmol/L (96-108); Cholesterol 172 mg/dL (<200); Estimated Glomerular Filt Rate > 60; Glucose Random 98 mg/dL (60-115); HDL Cholesterol 83 mg/dL (>40); Iron 70 mcg/dL (30-160); LDL Cholesterol Calculated 73 mg/dL (<100); Magnesium 1.8 mg/dL (1.6-2.6); Percent Iron Saturation 25 % (15-50); Potassium 4.5 mmol/L (3.3-5.1); Sodium 137 mmol/L (135-145); Total Iron Binding Capacity 283 mcg/dL (228-428); Triglycerides 83 mg/dL (<150); Unsaturated Iron Binding 213 ug/dL
[2024-08-26 17:19] LABS: Ferritin 133 ng/mL (10-250); TSH reflex Free T4 0.83 uIU/mL (0.32-4.0)
[2024-08-26 17:24] LABS: Vitamin B12 > 2000 pg/mL (200-900)
[2024-08-26 17:42] LABS: Creatinine Urine 16.05 mg/dL; Microalbumin Urine < 5.0 mg/L
== END 2024-08-26 14:42 | disposition home or self-care (01) ==
LOC: HO.HHCL 14:41
PROVIDERS: Visit Provider Family Medicine
DX: E11.69 Type 2 diabetes mellitus with other specified complication (principal); D69.6 Thrombocytopenia, unspecified; F10.90 Alcohol use, unspecified, uncomplicated
CPT/HCPCS: 36415; 80048; 80061; 80076; 82043; 82570; 82607; 82728; 83036; 83540; 83735; 84443; 85025

== ENCOUNTER 2024-10-08 11:25 | Outpatient (REF) | payer OTHER, SELFPAY ==
--- OUTSIDE RECORDS SUMMARY | 2024-10-09 12:57 | XMS_ITS | Encounter Summary ---
Author Organization [email or web address] Address [address] [place] [address] Care Team Providers Care Chute Worker Name Role Phone Juana Jean MD Primary Care Provider [phone] Gaby Patel MD Unavailable Reason for Visit * Reason Comments Med Refill Encounter Details Date Type Department Care Team ([facility] st Contact Info) Description 08/31/2022 Refill [facility] [address] [place], [place] [phone] Juana Jean MD [address] [place], [place] [phone] Pulmonary emphysema, unspecified emphysema type (CMS/HCC) Social History Tobacco Use Types Packs/Day Years Used Date Smoking Tobacco: Every Day Cigarettes Smokeless Tobacco: Never Alcohol Use Standard Drinks/Week Comments Yes 0 (1 standard drink = 0.6 oz pur e alcohol) Comments Unknown Sex and Gender Information Value Date Recorded Sex Assigned at Female 04/03/2022 10:18 AM EDT Legal Sex Female 10:18 AM EDT Gender Identity Female 04/03/2022 10:18 AM EDT Sexual Orientation Straight 04/03/2022 10 :18 AM EDT documented as of this encounter Plan of Treatment Not on file documented as of this encounter Visit Diagnoses Diagnosis Pulmonary emphysema, unspecified emphysema type (CMS/HCC) documented in this encounter Care Teams Chute Worker Relationship Specialty Start Date End Date Juana Jean MD [address] [place], [place] [phone] PCP - General Family Medicine 06/04/18 Gaby Patel MD [address] [place] [id number] Referring Physician Dermatology 08/26/24 documented as of this encounter
--- OUTSIDE RECORDS SUMMARY | 2024-10-09 12:58 | XMS_ITS | Encounter Summary ---
Author Organization [employer] Address [address] [facility] [address] [place] [address] Care Team Providers Care Sourcing Assistant Name Role Phone Juana Jean MD Primary Care Provider [phone] Gaby Patel MD Unavailable [phone] Reason for Visit * Reason Comments Med Refill Encounter Details Date Type Department Care Team ([facility] st Contact Info) Description 10/05/2024 Refill [facility] [address] [place], [place] [phone] Juana Jean MD [address] [place], [place] [phone] Essential hypertension Social History Tobacco Use Types Packs/Day Years Used Date Smoking Tobacco: Every Day Cigarettes Smokeless Tobacco: Never Alcohol Use Standard Drinks/Week Comments Yes 0 (1 standard drink = 0.6 oz pur e alcohol) Alcohol Answer Date Recorded How often do you have a drink containing alcohol ? 4 12/04/2023 How many drinks containing a lcohol do you have on a typical day when you are drinking? 2 12/04/2023 How often do you have six or more drinks on one occasion? 4 12/04/2023 Depression Answer Date Recorded Patient Health Questionnaire-9 Score 18 07/18/2023 Patient Health Questionnaire-9 Score 18 07/18/2023 Last PHQ-9: Questionnaire Data Not on file 0 07/18/2023 Housing Stability Answer Date Recorded What is your housing situation today? I have anna wolfe 12/04/[address] you li ve. Do you have problems with any of the following? I am not sure 12/04/2023 Food Insecurity Answer Date Recorded Within the past 12 months, y ou worried that your food would run out before you got money to buy more: Never True 2023 Within the past 12 months,th e food you bought just didn't last and you didn't have enough money to get more: Sometimes True 12/04/2023 Transportation Answer Date Recorded In the past 12 months, has l ack of transportation kept you from medical appts, meetings, work or from getting things needed for daily living? Yes, it has kept me from medical appointments or getting medications. 12/04/2023 Intimate Partner Violence Answer Date R ecorded Within the last year, have y ou been afraid of your partner or ex-partner? 98 12/04/2023 Within the last year, have y ou been humiliated or emotionally abused in other ways by your partner or ex-partner? 98 Within the last year, have y ou been kicked, hit, slapped, or otherwise physically hurt by your partner or ex-partner? 98 12/04/2023 Within the last year, have y ou been raped or forced to have any kind of sexual activity by your partner or ex-partner? 98 12/04/2023 Utilities Answer Date Recorded In the past 12 months, has t he electric, gas, oil or water company threatened to shut off services in your home? No 12/04/2023 Depression Answer Date Recorded Patient Health Questionnaire-2 Score 6 02/20/2024 Internet Access Answer Date Recorded Internet Access Q1 Yes 02/04/2024 Internet Access Q2 Not on file 02/04/2024 Comments Unknown Sex and Gender Information Value Date Recorded Sex Assigned at Female 04/03/2022 10:18 AM EDT Legal Sex Female 10:18 AM EDT Gender Identity Female 04/03/2022 10:18 AM EDT Sexual Orientation Straight 04/03/2022 10 :18 AM EDT documented as of this encounter Plan of Treatment Not on file documented as of this encounter Visit Diagnoses Diagnosis Essential hypertension Unspecified essential hypertension documented in this encounter Additional Health Concerns Assessment Noted Time PHQ-9 Depression Total Score: 18 024 9:56 AM EST documented as of this encounter Care Teams Sourcing Assistant Relationship Specialty Start Date End Date Juana Jean MD [address] [place] [phone] PCP - General Family Medicine 06/04/18 Gaby Patel MD [address] [place] [address] [place] [phone] Referring Physician Dermatology 08/26/24 documented as of this encounter
--- OUTSIDE RECORDS SUMMARY | 2024-10-09 12:58 | XMS_ITS | Encounter Summary ---
Author Organization [employer] Address [address] [facility] [address] [place] [address] Care Team Providers Care Business Quality Assurance Analyst Name Role Phone [place], Juana AMBROSE Primary Care Provider [phone]- [phone] Gaby Patel MD Unavailable [phone] Encounter Details Date Type Department Care Team (Latest Contact Info) Description 10/08/2024 Travel Social History Tobacco Use Types Packs/Day Years [...] documented as of this encounter Visit Diagnoses Not on filedocumented in this encounter Additional Health Concerns Assessment Noted Time PHQ-9 Depression Total Score: 18 024 9:56 AM EST documented as of this encounter Care Teams Business Quality Assurance Analyst Relationship Specialty Start Date End Date Juana Jean MD [address] [place], [place] [phone] PCP - General Family Medicine 06/04/18 Gaby Patel MD [address] [place], [place] [phone] Referring Physician Dermatology 08/26/24 documented as of this encounter
--- OUTSIDE RECORDS SUMMARY | 2024-10-09 12:58 | XMS_ITS | Clinical Summary ---
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 a 20 pack-year smoking history. -currently smoke cigarettes or quit within the past 15 years. -LDCT: Discussed with pt on 02/20/24, would like to post-pone discussion till next visit. Declined 10/08/24. Assessment & Plan (10/08/2024 4:10 PM EDT): -Cigg/day: Highest 30 cigarettes a day. Now 20 cigarettes a day. Pt will try to cut to 10. -Age started: 13 -Total years smokin -Pack year history: 49 Encouraged smoking cessation resources such as pharmacomtherapy, [facility] smoking cessation group, and [facility] pharmacy smoking cessation clinic Discussed USPSTF recommends annual lung cancer screening with low dose CT in people who meet the following criteria: -ages 50 to 80 years. -have a 20 pack-year smoking history. -currently smoke cigarettes or quit within the past 15 years. -LDCT: Discussed with pt on 02/20/24, would like to post-pone discussion till next visit. Declined 10/08/24. Assessment & Plan (02/20/2024 4:53 PM EDT): -Cigg/day: Highest 30 cigarettes a day. Now 20 cigarettes a day. Pt will try to cut to 10. -Age started: 13 -Total years smokin -Pack year history: 49 Encouraged smoking cessation resources such as pharmacomtherapy, [facility] smoking cessation [facility], and [facility] pharmacy smoking cessation clinic Discussed USPSTF recommends annual lung cancer screening with low dose CT in people who meet the following criteria: -ages 50 to 80 years. -have a 20 pack-year smoking history. -currently smoke cigarettes or quit within the past 15 years. -LDCT: Discussed with pt on 02/20/24, would like to post-pone discussion till next visit. Assessment & Plan (07/18/2023 10:40 AM EST): Highest 30 cigarettes a day. Now 20 cigarettes a day. Pt will try to cut to 10. Assessment & Plan (02/14/2023 3:59 PM EDT): Highest 30 cigarettes a day. Now 20 cigarettes a day. Pt will try to cut to 10. Assessment & Plan (11/29/2022 3:03 PM EDT): Highest 30 cigarettes a day. Now 20 cigarettes a day. Pt will try to cut to 10. Chronic obstructive lung disease 08/16/2011 Overview (08/26/2024): -Stable. -Treated with azithromycin, caution steriods due to BS. -discontinue Incurse Ellipta, Spiriva restarted 02/14/2023. -continue albuterol MDI prn -tobacco cessation encouraged --Decline sleep medicine and pulmonolgy referral. Flovent discontinued, Advair started 11/29/2022 -Will write for nebulizer and supplies. Assessment & Plan (02/14/2023 4:23 PM EDT): -Stable. -Treated with azithromycin, caution steriods due to BS. -discontinue Incurse Ellipta, Spiriva restarted 02/14/2023. -continue albuterol MDI prn -tobacco cessation encouraged --Decline sleep medicine and pulmonolgy referral. Flovent discontinued, Advair started 11/29/2022 -Will write for nebulizer and supplies. Assessment & Plan (11/29/2022 3:06 PM EDT): -Stable. -continue Incurse Ellipta daily -continue albuterol MDI prn -tobacco cessation encouraged -Decline sleep medicine and pulmonolgy referral. -Flovent discontinued, Advair started 11/29/2022 Resolved Problems Problem Noted Date Diagnosed Date Resolved Date Physical exam 05/21/2023 02/20/2024 Overview (05/21/2023): -Normal growth and development. -Anticipatory guidance discussed. -Preventative care / harm reduction discussed. Acute respiratory failure with hypoxia 02/12/2023 05/16/2023 Breast cancer, right breast 02/12/2023 05/16/2023 Encounters Date Type Department Care Team Description 10/08/2024 3:15 PM EDT Office Visit [facility] [address] [place] [address] [phone] Juana Jean MD Dyslipidemia (Primary Dx); Elevated vitamin B12 level; Depressive disorder; Tobacco dependence syndrome; Transaminitis; Obesity, morbid (CMS/HCC); Dietary counseling; Exercise counseling; Colon cancer screening; Cervical cancer screening; HX: breast cancer; Routine screening for STI (sexually transmitted infection); Screening mammogram for breast cancer 10/08/2024 Travel 10/08/2024 Refill [facility] [address] [place] [address] [phone] Juana Jean MD Type 2 diabetes mellitus with other specified complication, unspecified whether care home insulin use (CMS/HCC) 10/07/2024 Telephone [facility] [address] [place] [address] [phone] Juana Jean MD CHART PREP 10/05/2024 Refill [facility] [address] [place] [address] [phone] Juana Jean MD Essential hypertension 10/03/2024 1:00 PM EDT Office Visit [facility] [address] [place] [address] [phone] Gaby Patel MD Androgenic alopecia (Primary Dx) 10/03/2024 Travel 09/28/2024 Refill [facility] [address] [place] [address] [phone] Juana Jean MD Chronic deep vein thrombosis (DVT) of other vein of right lower extremity (CMS/HCC); Low magnesium level 09/15/2024 Refill [facility] [address] [place] [address] Juana Jean MD Pulmonary emphysema, unspecified emphysema type ([facility]) 09/07/2024 Refill [facility] [address] [place] [address] Juana Jean MD Allergic rhinitis, unspecified seasonality, unspecified trigger 09/05/2024 Telephone [facility] [address] [place] [address] [phone] Juana Jean MD derm appt 08/27/2024 Telephone [facility] [address] [place] [address] [phone] Juana Jean MD Appointment Request 08/26/2024 2:20 PM EDT Office Visit [facility] [address] [place] [address] [phone] Juana Jean MD Oral yeast infection (Primary Dx); Essential hypertension; Type 2 diabetes mellitus with other specified complication, unspecified whether care home insulin use ([facility]) 08/11/2024 Refill [facility] [address] [place] [address] [phone] Juana Jean MD Depressive disorder 08/07/2024 Telephone [facility] [address] [place] [address] [phone] Juana Jean MD Lab Orders 08/07/2024 Orders Only [facility] [address] [place] [address] [phone] Juana Jean MD Type 2 diabetes mellitus with other specified complication, unspecified whether terminal carman insulin use ([facility]) (Primary Dx); Depressive disorder; Alcohol use disorder; Thrombocytopenia ([facility]) 07/17/2024 Refill [facility] [address] [place] [address] [phone] Juana Jean MD Pain 07/17/2024 Orders Only [facility] [address] [place] [address] [phone] Juana Jean MD Chronic obstructive pulmonary disease, unspecified COPD type (CMS/HCC) (Primary Dx) from Last 3 Months Immunizations Name Administration Dates Next Due Hep B, adult 03/15/2015,04/29/2014,01/22/2014 Influenza injectable quadriv alent IIV4 with preservative 04/09/2019,03/23/2016,03/15/2015 Influenza injectable quadriv alent preservative free 02/14/2023,03/13/2021,01/22/2020,03/04,03/13/2017 Influenza, IIV3, injectable 02/26/2014,0 01/23/2011,02/11/2010,02/22,02/18/2007 Influenza, Split (incl. emil fied surface antigen) 02/13/2013,02/15/2012 Influenza, seasonal, injecta ble, preservative free 02/20/2024 Moderna Covid-19 Vaccine 12+ 05/26/2021,05/26/20 Pfizer Covid-19 Vaccine 12+ Bivalent 11/29/2022 Pneumococcal Conjugate PCV 20 11/29/2022 Pneumococcal Polysaccharide PPSV23 04/29/2014, Tdap 02/08/2022,04/01/2012 Social History Tobacco Use Types Packs/Day Years Used Date Smoking Tobacco: Every Day Cigarettes Smokeless Tobacco: Never Tobacco Cessation:Ready to Q uit: Not Asked; Counseling Given: Not Answered Alcohol Use Standard Drinks/Week Comments Yes 0 [...] Orientation Straight 04/03/2022 10 :18 AM EDT Last Filed Vital Signs Vital Sign Reading Time Taken Comments Blood Pressure 144/65 10/08/2024 3:23 PM EDT Pulse 103 10/08/2024 3:23 PM EDT Temperature 37.2 ??C (98.9 ??F) 10/08/2024 3:23 PM ED T Respiratory Rate 20 10/08/2024 3:23 PM EDT Oxygen Saturation 98% 10/08/2024 3:23 PM EDT Inhaled Oxygen Concentration - - Weight 67.9 kg (149 lb 12.8 oz) 10/08/2024 3:23 PM EDT Height 154.9 cm (5' 1 ) 02/20/2024 2:16 PM EDT Body Mass Index 28.3 02/20/2024 2:16 PM EDT Plan of Treatment Health Maintenance Due Date Last Done Comments CT Colonography 1960 Colonoscopy 1960 Colorectal Cancer Screening 1960 FIT DNA/Cologuard 1959 FIT 1959 FOBT 1960 Sigmoidoscopy 1960 Zoster Vaccines (1 of 2) 11/27/2009 RSV Patients and Patients Aged 60 years or older (1 - Risk 60-74 years 1-dose series) 2019 Cervical Cancer Screening 06/22/2022 HPV/Cotest 06/22/2022 06/22/2017 Pap Smear 06/22/2022 06/22/2017 Alcohol/Substance Use Screening 12/03/2024 12/04/2023 SDOH Screening 12/03/2024 12/04/2023 Depression Screening 02/19/2025 02/20/2024, 07/18/19 24 Diabetes: Foot Exam 02/19/2025 02/20/2024, 02/20/2024, 02/20/2024 Diabetes: Hemoglobin A1C 02/26/202508/26/ 025, 05/20/2024, 02/20/2024, Additional history exists Mammogram 06/12/2025 06/12/2023, 02/2024, 01/15/2020, Additional history exists Diabetes: Urine Protein Screening 08/26/2025 08/26/2024, 07/08/2020 Lipid Panel 08/26/2025 08/26/2024, 07, 11/29/2022, Additional history exists COVID-19 Vaccine ( season) 2025 11/29/2022, 05/26/2021, 05/26/2021, Additional history exists Postponed from 02/03/2024 (Patient Refused) Tobacco Screening 10/08/2025 10/08/2024 Eye Exam 06/05/2026 06/05/2024, 07/2024, 06/05/2024, Additional history exists DTaP/Tdap/Td Vaccines (3 - Td or Tdap) 02/09/2032 02/08/2022, 04/01/2012 Hepatitis B Vaccines Completed 03/15/2015, 04/29/2014, 01/22/2014 Hepatitis C Screening Completed 07/30/2019, 020 Pneumococcal Vaccine: 50+ Years Completed 11/29/2022, 04/29/2014, 01/31/2006 Influenza Vaccine Completed 02/20/2024, , 03/13/2021, Additional history exists HIB Vaccines Aged Out No longer eligi ble based on patient's age to complete this topic HIV Screening Discontinued HPV Vaccines Aged Out No longer eligi ble based on patient's age to complete this topic Hepatitis A Vaccines Discontinued IPV Vaccines Aged Out No longer eligi ble based on patient's age to complete this topic Meningococcal Vaccine Aged Out No yon noé eligible based on patient's age to complete this topic RSV under 20 months Aged Out No longe r eligible based on patient's age to complete this topic Rotavirus Vaccines Aged Out No longer eligible based on patient's age to complete this topic Procedures Procedure Name Priority Date/Time Associated Diagnosis Comments MAGNESIUM Routine 08/26/2024 2:48 PM EDT Alcohol use disorder IRON AND TOTAL IRON BINDING CAPACITY Routine 08/26/2024 2:48 PM EDT Thrombocytopenia (CMS/HCC) TSH W/REFLEX TO FT4 Routine 08/26/2024 2 :48 PM EDT Thrombocytopenia (CMS/HCC) FERRITIN Routine 08/26/2024 2:48 PM EDT Thrombocytopenia (CMS/HCC) BASIC METABOLIC PANEL Routine 08/26/2024 2:48 PM EDT Type 2 diabetes mellitus with other specified complication, unspecified whether terminal carman insulin use (CMS/HCC) HEMOGLOBIN A1C Routine 08/26/2024 2:48 PM EDT Type 2 diabetes mellitus with other specified complication, unspecified whether terminal carman insulin use (CMS/HCC) LIPID PANEL, STANDARD Routine 08/26/2024 2:48 PM EDT Type 2 diabetes mellitus with other specified complication, unspecified whether care home insulin use (CMS/HCC) HEPATIC FUNCTION PANEL Routine 2:48 PM EDT Type 2 diabetes mellitus with other specified complication, unspecified whether terminal carman insulin use (CMS/HCC) CBC WITH AUTO DIFFERENTIAL Routine 08/26/2024 2:48 PM EDT Thrombocytopenia (CMS/HCC) ALBUMIN, RANDOM URINE W/CREATININE Routine 08/26/2024 2:18 PM EDT Type 2 diabetes mellitus with other specified complication, unspecified whether care home insulin use (CMS/HCC) VITAMIN B12 Routine 08/26/2024 2:15 PM EDT Thrombocytopenia (CMS/HCC) BI MAMMOGRAM DIAGNOSTIC TOMOSYNTHESIS BILATERAL Routine 06/12/2023 2:26 PM EST HEPATITIS C ANTIBODY (EXTERNAL RESULTS ONLY) Routine 07/30/2019 2:05 PM EST ZZZ HISTORICAL HPV E6/E7 RFLX DAVID 16 18/45 Routine 06/22/2017 12:00 PM EST PAP SMEAR Routine 06/22/2017 12:00 AM EST from Last 3 Months or Most Recently Relevant to Health Maintenance Results * TSH with Reflex to Free T4 (08/26/2024 2:48 PM EDT) TSH reflex Free T4 0.83 0.32 - 4.0 uIU/mL [facility] Blood 08/26/2024 2:48 PM EDT 08/26/2024 4:06 PM EDT Juana Jean MD LAB BLOOD ORDERABLES Final Result [facility] [address] [place] [phone] * (ABNORMAL) CBC auto differential (08/26/2024 2:48 PM EDT) White Blood Count 5.9 4.8 - 10.8 X10*3/uL [facility] Red Blood Count 3.57(L) 4.20 - 5.50 X10*6/uL [facility] Hemoglobin 12.3 12.0 - 16.0 g/dl [facility] Hematocrit 35.7(L) 37.0 - 47.0 % [facility] Mean Corpuscular Volume 100.0(H) 80.0 - 98.0 fL [facility] Mean Corpuscular Hemoglobin 34.5(H) 27.0 - 33.0 pg [facility] Mean Corpuscular HGB Conc 34.5 31.0 - 35.0 g/dl [facility] Red Cell Distribution Width 13.9 11.0 - 16.0 % [facility] Platelet Count 79(L) 160 - 400 X10*3/uL [facility] Mean Platelet Volume 10.6 9.4 - 12.3 fL [facility] Neutrophils Percent Auto 64.6 45 - 73 % [facility] Imm Gran Pct Auto 0.5(H) 0.0 - 0.4 % [facility] Lymphocytes Percent Auto 21.9 20 - 40 % [facility] Monocytes Percent Auto 10.8 2 - 11 % [facility] Eosinophils Percent Auto 1.7 0 - 4 % [facility] Basophils Percent Auto 0.5 0 - 2 % [facility] NRBC Pct Auto 0.0 0.0 - 0.2 /100WBC [facility] Neutrophils Absolute Auto 3.8 2.0 - 8.3 x10*3/uL [facility] Imm Gran Abs Auto 0.03 0.00 - 0.03 X10*3/uL [facility] Lymphocytes Absolute Auto 1.3 1.2 - 4.9 X10*3/uL [facility] Monocytes Absolute Auto 0.6 0.1 - 1.2 X10*3/uL [facility] Eosinophils Absolute Auto 0.1 0.0 - 0.4 X10*3/uL [facility] Basophils Absolute Auto 0.0 0.0 - 0.2 X10*3/uL [facility] NRBC Abs Auto 0.000 0.0 - 0.012 X10*3/uL [facility] Blood Venous blood specimen / Unknown 08/26/2024 2:48 PM EDT 08/26/2024 4:06 PM EDT Juana Jean MD LAB BLOOD ORDERABLES Final Result Performing Organization Address City/[facility]/ZIP Co de Phone Number [facility] [address] [place] [phone] * Iron And Total Iron Binding Capacity (08/26/2024 2:48 PM EDT) Iron 70 30 - 160 mcg/dL [facility] Total Iron Binding Capacity 283 228 - 428 mcg/dL [facility] Percent Iron Saturation 25 15 - 50 % [facility] Unsaturated Iron Binding 213 ug/dL [facility] Blood Venous blood specimen / Unknown 08/26/2024 2:48 PM EDT 08/26/2024 4:06 PM EDT Juana Jean MD LAB BLOOD ORDERABLES Final Result Performing Organization Address City/[facility]/ZIP Co de Phone Number [facility] [address] [place] [phone] * Magnesium (08/26/2024 2:48 PM EDT) Magnesium 1.8 1.6 - 2.6 mg/dL [facility] Blood Venous blood specimen / Unknown 08/26/2024 2:48 PM EDT 08/26/2024 4:06 PM EDT Juana Jean MD LAB BLOOD ORDERABLES Final Result Performing Organization Address [facility] Co de Phone Number [facility] [address] [place] [phone] * Hemoglobin A1c (08/26/2024 2:48 PM EDT) Hemoglobin A1c 5.2 <6.0 % [facility] Comment:Hemoglobin A1C Refer ence Range Adults: 4.8 - 6.0 % Non diabetic: < 6.0 % Goal: < 7.0 %Additional Action Suggested: > 8.0 %Note: Hemoglobin A1c results are invalid for patients with abnormal amounts of HbF. Blood transfusions may impact the HbA1c concentration in the patient sample. Estimated Average Glucose 103 mg/dL [facility] Comment:eAG = Estimated ave rage glucose which is %A1C expressed asaverage glucose, using the formula of the [id number] Glucose study (ADAG), Diabetes Care, Vol.31,#8,Jan. 2007 Blood Venous blood specimen / Unknown 08/26/2024 2:48 PM EDT 08/26/2024 4:06 PM EDT Juana Jean MD LAB BLOOD ORDERABLES Final Result Performing Organization Address [facility] Co de Phone Number [facility] [address] [place] [phone] * Ferritin (08/26/2024 2:48 PM EDT) Ferritin 133 10 - 250 ng/mL [facility] Blood Venous blood specimen / Unknown 08/26/2024 2:48 PM EDT 08/26/2024 4:06 PM EDT Juana Jean MD LAB BLOOD ORDERABLES Final Result Performing Organization Address [facility] Co de Phone Number [facility] [address] [place] [address] [phone] * (ABNORMAL) Hepatic Function Panel (08/26/2024 2:48 PM EDT) Bilirubin, Total 0.7 0.0 - 1.0 mg/dL [facility] Bilirubin, Direct 0.3 0.0 - 0.5 mg/dL [facility] Aspartate Amino Transferase 44(H) 5 - 31 U/L [facility] Alanine Aminotransferase 38(H) 0 - 31 U/L [facility] Total Protein 7.0 6.5 - 8.0 g/dL [facility] Albumin Level 3.4(L) 3.5 - 5.0 g/dL [facility] Alkaline Phosphatase 167(H) 39 - 117 U/L [facility] Blood Venous blood specimen / Unknown 08/26/2024 2:48 PM EDT 08/26/2024 4:06 PM EDT us Juana Jean MD LAB BLOOD ORDERABLES Final Result [facility] [address] [place] [phone] * Lipid Panel, Standard (08/26/2024 2:48 PM EDT) Triglycerides 83 <150 mg/dL [facility] Comment:Desirable Triglyceri de: less than 150 mg/dLBorderline High Triglyceride 150-199 mg/dLHigh Triglyceride: 200-499 mg/dLVery High Triglyceride: greater than or equal to 5OO mg/dL Cholesterol 172 <200 mg/dL [facility] Comment:Desirable Cholestero l: less than 200 mg/dLBorderline High Cholesterol: 200-239 mg/dLHigh Cholesterol: greater than 239 mg/dL LDL Cholesterol Calculated 73 <100 mg/dL [facility] Comment:Desirable LDL: less than 100 mg/dLNear Optimal/Above Optimal LDL: 110- 129 mg/dLBorderline High LDL: 130-159 mg/dLHigh LDL: 160-189 mg/dLVery High LDL: greater than or equal to 190 mg/dL HDL Cholesterol 83 >40 mg/dL [facility] Comment:Desirable HDL: great er than 40 mg/dL Note: This HDL assay may give artificially low results in patients with liver disease. Blood Venous blood specimen / Unknown 08/26/2024 2:48 PM EDT 08/26/2024 4:06 PM EDT Juana Jean MD LAB BLOOD ORDERABLES Final Result Performing Organization Address [facility]/ZIP Co de Phone Number [facility] [address] [place] [phone] * Basic Metabolic Panel (08/26/2024 2:48 PM EDT) Sodium 137 135 - 145 mmol/L [facility] Potassium 4.5 3.3 - 5.1 mmol/L [facility] Chloride 107 96 - 108 mmol/L [facility] Carbon Dioxide 23 22 - 29 mmol/L [facility] Anion Gap 12 12 - 20 [facility] Urea Nitrogen (BUN) 9 9 - 16 mg/dL [facility] Creatinine, Serum 0.76 0.5 - 1.4 mg/dL [facility] Estimated Glomerular Filt Rate >60 [facility] Comment:Chronic Kidney Disea se: Estimated GFR < 60 mL/min/[id number] Kidney Disease: Estimated GFR < 15 mL/min/1.73m2 Glucose 98 60 - 115 mg/dL [facility] Calcium 9.5 8.4 - 10.2 mg/dL [facility] Blood Venous blood specimen / Unknown 08/26/2024 2:48 PM EDT 08/26/2024 4:06 PM EDT Juana Jean MD LAB BLOOD ORDERABLES Final Result Performing Organization Address [facility] Co de Phone Number [facility] [address] [place] [phone] * Albumin, Random Urine W/Creatinine (08/26/2024 2:18 PM EDT) Creatinine, Urine 16.05 mg/dL [facility] Microalbumin Urine <5.0 mg/L [facility] Microalbum Creatinine Ratio Ur TNP <30 ug/mg cr [facility] Comment:Unable to calculate albumin/creatinine ratio due to lowmicroalbumin or creatinine result. Urine 08/26/2024 2:18 PM EDT 08/26/2024 4:29 PM EDT Juana Jean MD LAB URINE ORDERABLES Final Result Performing Organization Address City/[facility]/ZIP Co de Phone Number [facility] [address] [place] [phone] * (ABNORMAL) Vitamin B12 (08/26/2024 2:15 PM EDT) Pathologist [facility] Vitamin B12 >2,000(H) 200 - 900 pg/mL [facility] Comment:NORMAL 200-900 PG/ML INDETERMINATE 160-199 PG/ML DEFICIENT < 160 PG/ML Blood Venous blood specimen / Unknown 08/26/2024 2:15 PM EDT 08/26/2024 4:21 PM EDT Juana Jean MD LAB BLOOD ORDERABLES Final Result Performing Organization Address [facility] Co de Phone Number [facility] [address] [place] [phone] * BI Mammogram Diagnostic Tomosynthesis Bilateral (06/12/2023 2:26 PM EST) Anatomical Region Laterality Modality Breast Bilateral Mammography 06/12/2023 2:26 PM EST Narrative 06/12/2023 3:48 PM EST ? [facility] ? [address] ?[place] [address] ? Mammography Report ? Signed ? Patient: Eli,Xenia J ?MR#: [id number] ?? 1 ? : 1960 ?Acct:[id number] ? Age/Sex: 62 / F ?ADM Date: 06/12/23 ? Loc: HO.MAMMO ? Attending Dr: Valarie Calero BAG GRADER ? Ordering Physician: Valarie Calero BAG GRADER ?Results: 1Negativ ?? e ? Date of Service: 06/12/23 ?Follow Up: 1 Year From Orig ?? inal Mammogram ? Procedure(s): MM tomosynthesis diagnostic BI ?? Accession Number(s): [id number] ? cc: Juana Jean MD; Valarie Calero NP ? EXAMINATION: ?? MM DIAGNOSTIC DIGITAL BREAST TOMOSYNTHESIS, BILATERAL ?? US BREAST LIMITED, RIGHT ? CLINICAL INFORMATION: ? 62-year-old female, status post lumpectomy and conservation therapy in ?? 2012 for right breast cancer, complaining of new palpable abnormality ?? right breast upper outer quadrant, approximate 10:00 axis. A ?? technologist has marked the area of concern with a BB marker, which ?? appears to overlie the main scar region. Patient states this palpable ?? focus is also itchy at times. Patient also due for bilateral ?? screening. ? COMPARISON: ?? Mammography: 01/15/2020, 12/04/2018, 02/13/2017, 01/25/2016, and dating ?? back to 2010. ? TECHNIQUE: ?? Digital breast tomosynthesis is performed in both the craniocaudal and ?? mediolateral oblique views along with computer-aided detection (CAD). ?? Synthesized 2D images are generated from the tomosynthesis. In addition ?? a full-field right 3-D exaggerated CC view was obtained. ? FINDINGS: ?? There are scattered areas of fibroglandular density (ACR BI-RADS breast ?? composition Category b). ? Patient has not had a mammogram since 2019. ? The RIGHT breast is smaller than the left, with stable skin thickening ?? and mild background diffuse trabecular thickening consistent with ?? treatment related changes which are stable. Extensive benign dystrophic ?? calcification is again present but worsened since the prior exam, ?? involving biopsy clips, secretory calcifications, dystrophic ?? calcifications, and vascular calcifications. No definite correlate to ?? the palpable focus of concern is identified in the upper outer right ?? breast. No axillary abnormality. ? No suspicious findings are evident in the LEFT breast. There is a ?? stable unchanged nodule in the lower outer left breast middle one ?? third, likely a benign intramammary lymph node. ? ULTRASOUND: ?? CLINICAL INFORMATION: ?? As above. ? COMPARISON: ?? None relevant. ? TECHNIQUE: ?? Targeted sonographic evaluation was performed using a high frequency ?? linear transducer. Attention was given to the upper outer quadrant of ?? the right breast in the region of palpable concern. Selected archived ?? documentation. ? FINDINGS: ? RIGHT BREAST: ?? -There is no mass, cystic abnormality, abnormal region of shadowing, or ?? edema within the soft tissue planes. There is upper outer breast ?? scarring which may account for the palpable abnormality. No clear ?? evidence of recurrence of disease is present. ? MM/MM tomosynthesis diagnostic BI ?? IMPRESSION: ?? There are no findings in either breast suspicious for malignancy. ? There are stable post treatment related changes right breast with ?? increasing benign type calcification. ? There is no mammographic or ultrasonographic definitive correlate to ?? the complaint of a palpable abnormality at the 2:00 axis, upper outer ?? right breast. The patient may be feeling the scar in this region. ?? Clinical management recommended. ? Otherwise, recommend the patient resume routine annual screening ?? mammography. ? OVERALL ASSESSMENT: ?? Mammography: BI-RADS 2 - Benign Findings ?? Ultrasound: BI-RADS 2 - Benign Findings ? RECOMMENDATION: ?? 1. Patient should be managed based on the clinical impression. ?? Decision to proceed with biopsy should be based on clinical grounds and ?? degree of clinical concern. ? 2. Otherwise, routine annual screening mammography. ? This patient's information was entered into a reminder system with a ?? target due date for their next mammogram. ? Dictated By: ?Can Vargas MD ? Signed By: ?<Electronically signed by Can Vargas MD in OV> ?06/12/23 1545 ? DD/ 1426 ? TD/TT: ? Opto Mechanical Technician: ? Procedure Note Don[place], Image - [facility]12/20[facility] [address] [place] [address] Mammography Report Signed Patient: Xenia Benitez JMR#: [id number] 1 : 1960Acct:[id number] Age/Sex: 62 / FADM Date: 06/12/23 Loc: HO.MAMMO Attending Dr: Valarie Calero BAG GRADER Ordering Physician: Valarie Calero NPResults: 1Negativ e Date of Service: 06/12/23Follow Up: 1 Year From Orig inal Mammogram Procedure(s): MM tomosynthesis diagnostic BI Accession Number(s): [id number] cc: Juana Jean MD; Valarie Calero BAG GRADER EXAMINATION: MM DIAGNOSTIC DIGITAL BREAST TOMOSYNTHESIS, BILATERAL US BREAST LIMITED, RIGHT CLINICAL INFORMATION: 62-year-old female, status post lumpectomy and conservation therapy in 2013 for right breast cancer, complaining of new palpable abnormality right breast upper outer quadrant, approximate 10:00 axis. A technologist has marked the area of concern with a BB marker, which appears to overlie the main scar region. Patient states this palpable focus is also itchy at times. Patient also due for bilateral screening. COMPARISON: Mammography: 01/15/2020, 12/04/2018, 02/13/2017, 01/25/2016, and dating back to 2010. TECHNIQUE: Digital breast tomosynthesis is performed in both the craniocaudal and mediolateral oblique views along with computer-aided detection (CAD). Synthesized 2D images are generated from the tomosynthesis. In addition a full-field right 3-D exaggerated CC view was obtained. FINDINGS: There are scattered areas of fibroglandular density (ACR BI-RADS breast composition Category b). Patient has not had a mammogram since 2019. The RIGHT breast is smaller than the left, with stable skin thickening and mild background diffuse trabecular thickening consistent with treatment related changes which are stable. Extensive benign dystrophic calcification is again present but worsened since the prior exam, involving biopsy clips, secretory calcifications, dystrophic calcifications, and vascular calcifications. No definite correlate to the palpable focus of concern is identified in the upper outer right breast. No axillary abnormality. No suspicious findings are evident in the LEFT breast. There is a stable unchanged nodule in the lower outer left breast middle one third, likely a benign intramammary lymph node. ULTRASOUND: CLINICAL INFORMATION: As above. COMPARISON: None relevant. TECHNIQUE: Targeted sonographic evaluation was performed using a high frequency linear transducer. Attention was given to the upper outer quadrant of the right breast in the region of palpable concern. Selected archived documentation. FINDINGS: RIGHT BREAST: -There is no mass, cystic abnormality, abnormal region of shadowing, or edema within the soft tissue planes. There is upper outer breast scarring which may account for the palpable abnormality. No clear evidence of recurrence of disease is present. MM/MM tomosynthesis diagnostic BI IMPRESSION: There are no findings in either breast suspicious for malignancy. There are stable post treatment related changes right breast with increasing benign type calcification. There is no mammographic or ultrasonographic definitive correlate to the complaint of a palpable abnormality at the 2:00 axis, upper outer right breast. The patient may be feeling the scar in this region. Clinical management recommended. Otherwise, recommend the patient resume routine annual screening mammography. OVERALL ASSESSMENT: Mammography: BI-RADS 2 - Benign Findings Ultrasound: BI-RADS 2 - Benign Findings RECOMMENDATION: 1. Patient should be managed based on the clinical impression. Decision to proceed with biopsy should be based on clinical grounds and degree of clinical concern. 2. Otherwise, routine annual screening mammography. This patient's information was entered into a reminder system with a target due date for their next mammogram. Dictated By: Can Vargas MD Signed By: <Electronically signed by Can Vargas MD in OV> 06/12/23 1545 DD/ 1426 TD/TT: Opto Mechanical Technician: Valarie Calero FLOCCULATOR OPERATOR IMG BI PROCEDURES Final Result * Hepatitis C Antibody (07/30/2019 2:05 PM EST) Hepatitis C Antibody Nonreactive Blood 07/30/2019 2:05 PM EST Historical Provider POINT OF CARE TEST ENTER/ EDIT ORDERABLES Final Result * HPV E6/E7 RFLX DAVID 16 18/45 (06/22/2017 12:00 PM EST) Pathologist [facility] HPV 16 RNA Test not performed [facility] HPV 18/45 RNA Test not performed [facility] HPV mRNA E6/E7 Not Detected NOT DETECTED [facility] Comment: This test was performed using the APTIMA(R) HPV Assay ([employer] This assay detects E6/E7 viral messenger RNA (mRNA) from 14 high-risk HPV types (16,18,31,33,35,39,45,51, 52,56,58,59,66,68). For additional information please refer to: http://education.Business Combined/faq/RJW578n1 (This link is being provided for informational/ educational purposes only.) Please note: ??Effective 02/14/2016, HPV testing will be performed using [employer]'s APTIMA test which targets mRNA. Detecting mRNA instead of DNA, as in older methods, offers significant improvements in specificity. ADDITIONAL TESTING Not indicated () [facility] Comment: Test Performed by [employer], [facility], [address] [place] [address], [place] [address] Morales Zuniga M.D., Ph.D., Director of Laboratories , [place] [id number] 06/22/2017 12:0 0 PM EST Juana Jean MD HISTORICAL/NON ORDERABLE L ABS Final Result [facility] [address] * Pap Smear (06/22/2017 12:00 AM EST) Swab us Historical Provider LAB CYTOLOGY ORDERABLES F inal Result IMAGING from Last 3 Months or Most Recently Relevant to Health Maintenance Insurance [facility] < [address] [place] [id number] Advance Directives Documents on File Type Date Recorded Patient Sign Painter Expl anation Advance Directives and Living Will 02/21/2024 11:11 AM Health Care Proxy Care Teams [place] Relationship Specialty Start Date End Date [place], MD Juana [address], [place] PCP - General Family Medicine 06/04/18 Gaby Patel MD [address], [place] Referring Physician Dermatology 08/26/24
--- OUTSIDE RECORDS SUMMARY | 2024-10-09 12:58 | XMS_ITS | Encounter Summary ---
Author Organization [employer] Address [address] [place] [address] Care Team Providers Care Format Proofreader Name Role Phone Juana Jean MD Primary Care Provider [phone] Gaby Patel MD Unavailable [phone] Reason for Visit * Reason Onset Date Comments Call Back Request 05/03/2023 Encounter Details Date Type Department Care Team ([facility] st Contact Info) Description 05/03/2023 Telephone [facility] [address] [place], [place] [phone] Juana Jean MD [address] [place], [place] [phone] Call Back Request Social History Tobacco Use Types Packs/Day Years Used Date Smoking Tobacco: Every Day Cigarettes Smokeless Tobacco: Never Alcohol Use Standard Drinks/Week Comments Yes 0 (1 standard drink = 0.6 oz pur e alcohol) Depression Answer Date Recorded Patient Health Questionnaire-9 Score 10 11/29/2022 Housing Stability Answer Date Recorded What is your housing situation today? I have anna wolfe 03/19/[address] you li ve. Do you have problems with any of the following? None of the above 03/19/2023 Food Insecurity Answer Date Recorded Within the past 12 months, y ou worried that your food would run out before you got money to buy more: Never True 03/19/2023 Within the past 12 months,th e food you bought just didn't last and you didn't have enough money to get more: Never True Transportation Answer Date Recorded In the past 12 months, has l ack of transportation kept you from medical appts, meetings, work or from getting things needed for daily living? No 03/19/2023 Utilities Answer Date Recorded In the past 12 months, has t he electric, gas, oil or water company threatened to shut off services in your home? No 03/19/2023 Depression Answer Date Recorded Patient Health Questionnaire-2 Score 4 11/29/2022 Comments Unknown Sex and Gender Information Value Date Recorded Sex Assigned at Female 04/03/2022 10:18 AM EDT Legal Sex Female 10:18 AM EDT Gender Identity Female 04/03/2022 10:18 AM EDT Sexual Orientation Straight 04/03/2022 10 :18 AM EDT documented as of this encounter Miscellaneous Notes * Telephone Encounter - Erin Vance - 05/03/2023 3:53 PM EST Tc from pt requesting a call in regards to a diagnostic mammogram. Please contact pt at [phone] documented in this encounter Plan of Treatment Not on file documented as of this encounter Visit Diagnoses Not on filedocumented in this encounter Additional Health Concerns Assessment Noted Time PHQ-9 Depression Total Score: 10 023 2:11 PM EDT documented as of this encounter Care Teams Format Proofreader Relationship Specialty Start Date End Date Juana Jean MD [address] [place] [address] PCP - General Family Medicine 06/04/18 Gaby Patel MD [address] [place] [address] Referring Physician Dermatology 08/26/24 documented as of this encounter
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
--- OUTSIDE RECORDS SUMMARY | 2024-10-09 12:58 | XMS_ITS | Encounter Summary ---
Author Organization [employer] Address [address] [facility] 7t [place] [address] Care Team Providers Care Rubber Insulator Name Role Phone Juana Jean MD Primary Care Provider [phone]- [phone] Gaby Patel MD Unavailable [phone] Reason for Visit * Reason Comments Med Refill Encounter Details Date Type Department Care Team (Late st Contact Info) Description 10/08/2024 Refill [facility] [address] [place] [address] Juana Jean MD [address] [place] [address] Type 2 diabetes mellitus with other specified complication, unspecified whether long line teamster insulin use ([facility]) Social History Tobacco Use Types Packs/Day Years [...] as of this encounter Visit Diagnoses Diagnosis Type 2 diabetes mellitus with other specified complication, unspecified whether long line teamster insulin use ([facility]) documented in this encounter Additional Health Concerns Assessment Noted Time PHQ-9 Depression Total Score: 18 07/18/ 024 9:56 AM EST documented as of this encounter Care Teams Rubber Insulator Relationship Specialty Start Date End Date Juana Jean MD [address] [place], [place] [phone] PCP - General Family Medicine 06/04/18 Gaby Patel MD [address] [place], [place] [phone] Referring Physician Dermatology 08/26/24 documented as of this encounter
--- OUTSIDE RECORDS SUMMARY | 2024-10-09 12:58 | XMS_ITS | Encounter Summary ---
Author Organization [employer] Address [address] [facility] 7t [place] [address] Care Team Providers Care Laundry Operator Finishing Name Role Phone Juana Jaen MD Primary Care Provider [phone]- [phone] Gaby Patel MD Unavailable [phone] Reason for Visit * Reason Onset Date Comments Referral 06/08/2023 Encounter Details Date Type Department Care Team ([facility] st Contact Info) Description 06/08/2023 Telephone [facility] [address] [place], [place] [phone] Juana Jean MD [address] [place], [place] [phone] Referral Social History Tobacco Use Types Packs/Day Years [...] encounter Miscellaneous Notes * Telephone Encounter - Maliha Johnson - 06/08/2023 2:07 PM EST Tc from pt requesting a Referral for [facility] for a Mammogram. Pt has Scheduled appt on 06/12/2023 @ 2:00 pm @ [address] [place] [address]. Please contact pt @ [phone] documented in this encounter Plan of Treatment Not on file documented as of this encounter Visit Diagnoses Not on filedocumented in this encounter Additional Health Concerns Assessment Noted Time PHQ-9 Depression Total Score: 10 023 2:11 PM EDT documented as of this encounter Care Teams Laundry Operator Finishing Relationship Specialty Start Date End Date Juana Jean MD [address] [place] [address] PCP - General Family Medicine 06/04/18 Gaby Patel MD [address] [place] [address] Referring Physician Dermatology 08/26/24 documented as of this encounter
--- OUTSIDE RECORDS SUMMARY | 2024-10-09 12:58 | XMS_ITS | Encounter Summary ---
Author Organization [employer] Address [address] [facility] 7t [place] [address] Care Team Providers Care Batch Blender Name Role Phone Juana Jean MD Primary Care Provider [phone]- [phone] Gaby Patel MD Unavailable Encounter Details Date Type Department Care Team (Late st Contact Info) Description 06/20/2022 Orders Only [facility] [address] [place], [place] [phone] Mary Her LPN Social History Tobacco Use Types Packs/Day Years Used Date Smoking Tobacco: Never Assessed Comments Unknown Sex and Gender Information Value Date Recorded Sex Assigned at Female 04/03/2022 10:18 AM EDT Legal Sex Female 10:18 AM EDT Gender Identity Female 04/03/2022 10:18 AM EDT Sexual Orientation Straight 04/03/2022 10 :18 AM EDT documented as of this encounter Plan of Treatment Not on file documented as of this encounter Visit Diagnoses Not on filedocumented in this encounter Care Teams Batch Blender Relationship Specialty Start Date End Date Juana Jean MD [address] [place] [address] PCP - General Family Medicine 06/04/18 Gaby Patel MD [address] [place], [place] [phone] Referring Physician Dermatology 08/26/24 documented as of this encounter
--- OUTSIDE RECORDS SUMMARY | 2024-10-09 12:58 | XMS_ITS | Encounter Summary ---
Author Organization [employer] Address [address] [facility] 7t [place] [address] Care Team Providers Care Magazine Journalist Name Role Phone Juana Jean MD Primary Care Provider +- [phone] Gaby Patel MD Unavailable [phone] Encounter Details Date Type Department Care Team (Late st Contact Info) Description 06/14/2022 Orders Only [facility] [address] [place] [address] Ana Pruett LPN Social History Tobacco Use Types Packs/Day [...] on filedocumented in this encounter Care Teams Magazine Journalist Relationship Specialty Start Date End Date Juana Jean MD [address] [place] [address] PCP - General Family Medicine 06/04/18 Gaby Patel MD [address] [place] [phone] Referring Physician Dermatology 08/26/24 documented as of this encounter
--- OUTSIDE RECORDS SUMMARY | 2024-10-09 12:58 | XMS_ITS | Encounter Summary ---
Author Organization [employer] Address [address] [facility] [address]t [place] [address] Care Team Providers Care Poultry Husbandry Worker Name Role Phone Juana Jean MD Primary Care Provider [phone]- [phone] Gaby Patel MD Unavailable [phone] Reason for Visit * Reason Comments Med Refill Encounter Details Date Type Department Care Team ([facility] st Contact Info) Description 09/07/2024 Refill [facility] [address] [place], [place] [phone] Juana Jean MD [address] [place] [address] Allergic rhinitis, unspecified seasonality, unspecified trigger Social History Tobacco Use Types Packs/Day Years [...] as of this encounter Visit Diagnoses Diagnosis Allergic rhinitis, unspecified seasonality, unspecified trigger documented in this encounter Additional Health Concerns Assessment Noted Time PHQ-9 Depression Total Score: 18 07/18/ 024 9:56 AM EST documented as of this encounter Care Teams Poultry Husbandry Worker Relationship Specialty Start Date End Date Juana Jean MD [address] [place] [address] PCP - General Family Medicine 06/04/18 Gaby Patel MD [address] [place] [address] Referring Physician Dermatology 08/26/24 documented as of this encounter
--- OUTSIDE RECORDS SUMMARY | 2024-10-09 12:58 | XMS_ITS | Encounter Summary ---
Author Organization [employer] Address [address] [facility] 7t [place] [address] Care Team Providers Care Sodder Name Role Phone Juana Jean MD Primary Care Provider [phone]- [phone] Gaby Patel MD Unavailable [phone] Reason for Visit * Reason Comments Med Refill Encounter Details Date Type Department Care Team ([facility] st Contact Info) Description 09/15/2024 Refill [facility] [address] [place], [place] [phone] Juana Jean MD [address] [place] [address] Pulmonary emphysema, unspecified emphysema type (CMS/HCC) Social [...] emphysema type (CMS/HCC) documented in this encounter Additional Health Concerns Assessment Noted Time PHQ-9 Depression Total Score: 18 07/18/ 024 9:56 AM EST documented as of this encounter Care Teams Sodder Relationship Specialty Start Date End Date Juana Jean MD [address] [place] [address] PCP - General Family Medicine 06/04/18 Gaby Patel MD [address] [place] [address] Referring Physician Dermatology 08/26/24 documented as of this encounter
--- OUTSIDE RECORDS SUMMARY | 2024-10-09 12:58 | XMS_ITS | Encounter Summary ---
Author Organization [employer] Address [address] [facility] 7[address] [place] [address] Care Team Providers Care Nanotechnician Name Role Phone Juana Jean MD Primary Care Provider [phone]- [phone] Gaby Patel MD Unavailable [phone] Encounter Details Date Type Department Care Team (Late st Contact Info) Description 07/17/2024 Orders Only [facility] [address] [place], [place] [phone] Juana Jean MD [address] [place], [place] [phone] Chronic obstructive pulmonary disease, unspecified COPD type (CMS/HCC) (Primary Dx) Social History Tobacco Use Types Packs/Day Years [...] as of this encounter Visit Diagnoses Diagnosis Chronic obstructive pulmonary disease, unspecified COPD type (CMS/HCC)- Primary documented in this encounter Additional Health Concerns Assessment Noted Time PHQ-9 Depression Total Score: 18 07/18/2 024 9:56 AM EST documented as of this encounter Care Teams Nanotechnician Relationship Specialty Start Date End Date Juana Jean MD [address] [place], [place] [phone] PCP - General Family Medicine 06/04/18 Gaby Patel MD [address] [place], [place] [phone] Referring Physician Dermatology 08/26/24 documented as of this encounter
--- OUTSIDE RECORDS SUMMARY | 2024-10-09 12:58 | XMS_ITS | Encounter Summary ---
Author Organization [employer] Address [address] [facility] 7t [place] [address] Care Team Providers Care Sales Representative Uniforms Name Role Phone Juana Jean MD Primary Care Provider +1- [phone] Gaby Patel MD Unavailable [phone] Reason for Visit * Reason Onset Date Comments CHART PREP 10/07/2024 Encounter Details Date Type Department Care Team ([facility] st Contact Info) Description 10/07/2024 Telephone [facility] MEDICINE [address] [place], [place] [phone] Juana Jean MD 230 [place], [place] [phone] CHART PREP Social History Tobacco Use Types Packs/Day Years [...] encounter Miscellaneous Notes * Telephone Encounter - Jayson Cartwright MA - 10/07/2024 2:34 PM EDT Chart Prep Labs: not applicable Images: not applicable Referrals: not applicable Vaccines due: RSV and Zoster Screenings: colonoscopy and pap smear Overdue care gaps: A1c, Glucose, SBIRT, SDOH, PHQ-9, DAMIEN-7, Oral health screening, and Disability screen documented in this encounter Plan of Treatment Not on file documented as of this encounter Visit Diagnoses Not on filedocumented in this encounter Additional Health Concerns Assessment Noted Time PHQ-9 Depression Total Score: 18 024 9:56 AM EST documented as of this encounter Care Teams Sales Representative Uniforms Relationship Specialty Start Date End Date Juana Jean MD 230 [place] [address] PCP - General Family Medicine 06/04/18 Gaby Patel MD [address] [place] [address] Referring Physician Dermatology 08/26/24 documented as of this encounter
--- OUTSIDE RECORDS SUMMARY | 2024-10-09 12:58 | XMS_ITS | Encounter Summary ---
Author Organization [employer] Address [address] [facility] 7t [place] [address] Care Team Providers Care Rn Care Manager Name Role Phone Juana Jean MD Primary Care Provider +1- [phone] Gaby Patel MD Unavailable [phone] Reason for Visit * Reason Comments Med Refill Encounter Details Date Type Department Care Team ([facility] st Contact Info) Description 06/01/2023 Refill [facility] MEDICINE 230 [place], [place] [phone] Juana Jean MD 230 [place], [place] [phone] Pulmonary emphysema, unspecified emphysema type (CMS/HCC) Social [...] documented as of this encounter Care Teams Rn Care Manager Relationship Specialty Start Date End Date Juana Jean MD 230 [place] [address] PCP - General Family Medicine 06/04/18 Gaby Patel MD 230 [place] [address] Referring Physician Dermatology 08/26/24 documented as of this encounter
[2024-10-11 13:58] LABS: C. trachomatis RNA TMA NOT DETECTED (NOT DETECTED); N. gonorrhoeae RNA TMA NOT DETECTED (NOT DETECTED); Trichomonas (NAAT) NOT DETECTED (NOT DETECTED)
[2024-10-15 11:39] LABS: HPV Genotype 16 Negative (Negative); HPV Genotype 18 Negative (Negative); HPV High Risk Positive (Negative)
== END 2024-10-08 11:26 | disposition home or self-care (01) ==
LOC: HO.HHCLNP 11:25
PROVIDERS: Visit Provider Family Medicine
DX: Z12.4 Encounter for screening for malignant neoplasm of cervix (principal); Z78.0 Asymptomatic menopausal state
CPT/HCPCS: 87491; 87591; 87626; 87661; 88175

== ENCOUNTER 2025-01-28 14:22 | Outpatient (REF) | payer OTHER, SELFPAY ==
--- NOTE | ~2025-01-28 | CT_ITS ---
EXAMINATION: CT ABDOMEN AND PELVIS WITH CONTRAST CLINICAL INFORMATION: History of breast cancer and pelvic mass. COMPARISON: None available. TECHNIQUE: Multidetector volumetric images were obtained from the superior aspect of the liver through the pubic symphysis following administration 85 mL of Omnipaque 350 intravenous contrast. Sagittal and coronal reformatted images were obtained on the technologist's workstation. Oral contrast: No This CT examination was performed using dose optimization techniques as appropriate, variously including the following: *Automated exposure control *Adjustment of mA and/or kV according to patient size (this includes techniques or standardized protocols for targeted exams where dose is matched to indication/reason for exam; i.e. extremities or head) *Use of iterative reconstruction technique FINDINGS: LUNG BASES: The visualized lung bases are unremarkable. Prominent collateral vessels seen at the GE junction. LIVER, GALLBLADDER, AND BILIARY TREE: The liver is lobulated, normal size and heterogeneous. No focal lesion seen. No intrahepatic ductal dilatation. Gallbladder has been surgically removed. CBD appears normal caliber. The portal vein is enlarged measuring 1.6 cm PANCREAS: Unremarkable. SPLEEN: Unremarkable. ADRENAL GLANDS: Unremarkable. KIDNEYS AND URETERS: The kidneys are normal in size, shape, and attenuation. There clusters of small calcifications measuring 1 to 2 mm in the upper pole left kidney. No caliectasis or hydronephrosis seen. BLADDER: Unremarkable. GASTROINTESTINAL TRACT: There is scattered stool, diverticuli and gas seen throughout the colon without contrast opacified small bowel loops are normal caliber. Appendix is normal caliber. Is haziness throughout the mesentery likely vascular congestion. ABDOMINAL WALL: There is abdominal wall hernia repair with mesh in place in mid abdomen. Prominent vasculature seen in the abdominal wall with haziness likely edema. LYMPH NODES: There are small scattered retroperitoneal lymph nodes. VASCULAR: There is atherosclerotic changes of abdominal aorta without aneurysmal dilatation. PELVIC VISCERA: The uterus is retroverted and unremarkable. Ovaries are small and barely visible. No free fluid. OSSEOUS STRUCTURES: Degenerative disc changes lumbar spine with grade 1 anterolisthesis L3 over L4. No aggressive lytic or sclerotic process seen. CT/CT abdomen pelvis w IV con IMPRESSION: Cirrhotic liver with portal venous hypertension. No ascites. Cholecystectomy. Abdominal wall hernia repair with mesh in place in the midabdomen. Mild constipation. Colonic diverticulosis without diverticulitis. Fleischner guidelines were followed. Electronically signed by: Ramos Levine MD 01/29/2025 07:36 AM EDT
[2025-01-28] MEDS: iohexoL 350 MG/ML 100 ML INFUS..BTL 85 ML IV (16:59)
[2025-01-28] MEDS: Barium Sulfate Oral (Vanilla) 450 ML ORAL.SUSP 900 ML PO (16:59)
[2025-01-30 11:08] LABS: Creatinine POC 0.7 mg/dL (0.5-1.4); GFR POC > 60
== END 2025-01-28 14:23 | disposition home or self-care (01) ==
LOC: HO.CT 14:22
PROVIDERS: PCP Nurse Practitioner Family; Visit Provider Nurse Practitioner Family
DX: R19.00 Intra-abdominal and pelvic swelling, mass and lump, unspecified site (principal)
CPT/HCPCS: 74177; 82565; Q9967

== ENCOUNTER → 2025-01-28 14:24 | Outpatient (BNV) | payer OTHER, SELFPAY | PROVIDERS: PCP Nurse Practitioner Family; Visit Provider Radiology Diagnostic Radiology | DX: K46.9 Unspecified abdominal hernia without obstruction or gangrene (principal); K74.60 Unspecified cirrhosis of liver; K76.6 Portal hypertension; K57.30 Diverticulosis of large intestine without perforation or abscess without bleeding; Z90.49 Acquired absence of other specified parts of digestive tract | CPT/HCPCS: 74177 ==

== ENCOUNTER 2025-05-27 11:24 | Outpatient (REF) | payer OTHER, SELFPAY ==
--- NOTE | ~2025-05-27 | MM_ITS ---
EXAMINATION: MM SCREENING DIGITAL BREAST TOMOSYNTHESIS, BILATERAL CLINICAL INFORMATION: Screening. Asymptomatic. COMPARISON: Mammography: Comparison is made with available priors TECHNIQUE: Digital breast mammography with tomosynthesis is performed in both the craniocaudal and mediolateral oblique views along with computer-aided detection (CAD). FINDINGS: There are scattered areas of fibroglandular density. Right post lumpectomy changes are stable. Left central outer focal asymmetry stable. There are no significant masses, abnormal calcifications, or other abnormalities. MM/MM tomosynthesis screening BI IMPRESSION: No mammographic evidence of malignancy. ASSESSMENT: BI-RADS Category 2: Benign RECOMMENDATION: Routine annual mammography screening. 1 year F/U This examination should not preclude the clinical evaluation of a suspicious palpable abnormality. This patient's information was entered into a reminder system with a target due date for their next mammogram. Electronically signed by: Dipti Sanchez DO 05/27/2025 03:02 PM [place]
--- OUTSIDE RECORDS SUMMARY | 2025-05-27 11:28 | XMS_ITS | Encounter Summary ---
Author Organization [facility] [employer] Address [address] [place] [address] 7t [place] [address] Care Team Providers Care Recycling Specialist Name Role Phone Juana Jean MD Primary Care Provider +1- [phone] Gaby Patel MD Unavailable Reason for Visit * Reason Comments Med Refill Encounter Details Date Type Department Care Team (Late st Contact Info) Description 09/07/2024 Refill [facility] MED & PEDS [address] [place], [place] [phone] Juana Jean MD 230 [place] [address] Allergic rhinitis, unspecified seasonality, unspecified trigger Social [...] as of this encounter Plan of Treatment Upcoming Encounters Date Type Department Care Team (Late st Contact Info) Description 06/10/2025 3:15 PM EST Office Visit [facility] MEDICINE 230 [place], [place] [phone] Juana Jean MD 230 [place] [address] 08/10/2025 1:00 PM EDT Office Visit [facility] OPTOM[facility]RY [address] [place], [place] [phone] Jasjamie Kayla, OD [address] [place] [address] documented as of this encounter Visit Diagnoses Diagnosis Allergic rhinitis, unspecified seasonality, unspecified trigger documented in this encounter Additional Health Concerns Assessment Noted Time PHQ-9 Depression Total Score: 18 024 9:56 AM EST documented as of this encounter Care Teams Recycling Specialist Relationship Specialty Start Date End Date Juana Jean MD 230 [place] [address] PCP - General Family Medicine 06/04/18 Gaby Patel MD [address] [place] [address] Referring Physician Dermatology 08/26/24 documented as of this encounter
--- OUTSIDE RECORDS SUMMARY | 2025-05-27 11:28 | XMS_ITS | Encounter Summary ---
Author Organization [employer] Address [address] [place] [address] 7 [place] [address] Care Team Providers Care Manager Supply Name Role Phone Juana Jean MD Primary Care Provider [phone]- [phone] Gaby Patel MD Unavailable Encounter Details Date Type Department Care Team (Late st Contact Info) Description 06/14/2022 Orders Only [facility] MEDICINE [address] [place] [address] Ana Pruett LPN Social History Tobacco Use [...] Description 06/10/2025 3:15 PM EST Office Visit [facility] MEDICINE [address] [place] [address] Juana Jean MD 230 [place] [address] 08/10/2025 1:00 PM EDT Office Visit [facility] OPTOMETRY [address] [place] [address] Kayla Redman, OD [address] [place] [address] documented as of this encounter Visit Diagnoses Not on filedocumented in this encounter Care Teams Manager Supply Relationship Specialty Start Date End Date Juana Jean MD [address] [place], [place] [phone] PCP - General Family Medicine 06/04/18 Gaby Patel MD [address] [place] [address] Referring Physician Dermatology 08/26/24 documented as of this encounter
--- OUTSIDE RECORDS SUMMARY | 2025-05-27 11:28 | XMS_ITS | Encounter Summary ---
Author Organization [employer] Address [address] [place] [address] 7t [place] [address] Care Team Providers Care Asset Protection Officer Name Role Phone Juana Jean MD Primary Care Provider [phone]- [phone] Gaby Patel MD Unavailable Reason for Visit * Reason Onset Date Comments Referral 06/08/2023 Encounter Details Date Type Department Care Team ([facility] st Contact Info) Description 06/08/2023 Telephone [facility] MEDICINE 230 [place] [address] Juana Jean MD 230 [place], [place] [phone] Referral Social History Tobacco Use Types Packs/Day [...] Tc from pt requesting a Referral for [facility] for a Mammogram. Pt has Scheduled appt on 06/12/2023 @ 2:00 pm @ [address] [place] [address]. Please contact pt @ [phone] documented in this encounter Plan of Treatment Upcoming Encounters Date Type Department Care Team (Late st Contact Info) Description 06/10/2025 3:15 PM EST Office Visit [facility] MEDICINE [address] [place] [address] Juana Jean MD 230 [place] [address] 08/10/2025 1:00 PM EDT Office Visit [facility] OPTOMETRY [address] [place] [address] Kayla Redman, OD 267 [place] [address] documented as of this encounter Visit Diagnoses Not on filedocumented in this encounter Additional Health Concerns Assessment Noted Time PHQ-9 Depression Total Score: 10 023 2:11 PM EDT documented as of this encounter Care Teams Asset Protection Officer Relationship Specialty Start Date End Date Juana Jean MD 230 [place] [address] PCP - General Family Medicine 06/04/18 Gaby Patel MD 230 [place] [address] Referring Physician Dermatology 08/26/24 documented as of this encounter
--- OUTSIDE RECORDS SUMMARY | 2025-05-27 11:28 | XMS_ITS | Encounter Summary ---
Author Organization [employer] Address [address] [place] [address] 7t [place] [address] Care Team Providers Care Meteorological Equipment Repairer Name Role Phone Juana Jean MD Primary Care Provider [phone]- [phone] Gaby Patel MD Unavailable Reason for Visit * Reason Comments Med Refill Encounter Details Date Type Department Care Team (Late st Contact Info) Description 09/15/2024 Refill [facility] CHC MED & PEDS [address] [place], [place] [phone] Juana Jean MD 230 [place] [address] Pulmonary emphysema, unspecified emphysema type (CMS/HCC) Social [...] Description 06/10/2025 3:15 PM EST Office Visit [facility] MEDICINE 230 [place] [address] Juana Jaen MD 230 [place] [address] 08/10/2025 1:00 PM EDT Office Visit C [facility] [address] [place] [address] Jasjamie Kayla, OD [address] [place] [address] documented as of this encounter Visit Diagnoses Diagnosis Pulmonary emphysema, unspecified emphysema type documented in this encounter Additional Health Concerns Assessment Noted Time PHQ-9 Depression Total Score: 18 024 9:56 AM EST documented as of this encounter Care Teams Meteorological Equipment Repairer Relationship Specialty Start Date End Date Juana Jean MD 230 [place] [address] PCP - General Family Medicine 06/04/18 Gaby Patel MD 230 [place] [address] Referring Physician Dermatology 08/26/24 documented as of this encounter
--- OUTSIDE RECORDS SUMMARY | 2025-05-27 11:28 | XMS_ITS | Encounter Summary ---
Author Organization [employer] Address [address] [facility] 7t [place] [address] Care Team Providers Care Engraving Patternmaker Name Role Phone Juana Jean MD Primary Care Provider [phone]- [phone] Gaby Patel MD Unavailable Encounter Details Date Type Department Care Team ([facility] st Contact Info) Description 07/17/2024 Orders Only [facility] 230 [place], [place] [phone] Juana Jean MD 230 [place], [place] [phone] Chronic obstructive pulmonary disease, unspecified COPD type [...] Description 06/10/2025 3:15 PM EST Office Visit [facility] MEDICINE [address] [place] [address] Juana Jean MD 230 [place], [place] [phone] 08/10/2025 1:00 PM EDT Office Visit [facility] [address] [place], [place] [phone] Jasjamie Kayla, OD 267 [place] [address] documented as of this encounter Visit Diagnoses Diagnosis Chronic obstructive pulmonary disease, unspecified COPD type (CMS/HCC) (HCC)- Primary documented in this encounter Additional Health Concerns Assessment Noted Time PHQ-9 Depression Total Score: 18 07/18/ 024 9:56 AM EST documented as of this encounter Care Teams Engraving Patternmaker Relationship Specialty Start Date End Date Juana Jean MD [address] [place] [address] PCP - General Family Medicine 06/04/18 Gaby Patel MD [address] [place] [address] Referring Physician Dermatology 08/26/24 documented as of this encounter
--- OUTSIDE RECORDS SUMMARY | 2025-05-27 11:28 | XMS_ITS | Encounter Summary ---
Author Organization [employer] Address [address] [place] [address] 7t [place] [address] Care Team Providers Care Split Leather Department Supervisor Name Role Phone Juana Jean MD Primary Care Provider +1- [phone] Gaby Patel MD Unavailable [phone] Reason for Visit * Reason Comments Med Refill Encounter Details Date Type Department Care Team ([facility] st Contact Info) Description 06/01/2023 Refill [facility] MEDICINE 230 [place], [place] [phone] Juana Jean MD 230 [place] [address] Pulmonary emphysema, unspecified emphysema type (CMS/HCC) Social [...] Description 06/10/2025 3:15 PM EST Office Visit [facility] MEDICINE 230 [place] [address] Juana Jean MD [address] [place] [address] 08/10/2025 1:00 PM EDT Office Visit [facility] OPTOMETRY [address] [place] [address] TarkaKayla, OD 267 [place] [address] documented as of this encounter Visit Diagnoses Diagnosis Pulmonary emphysema, unspecified emphysema type documented in this encounter Additional Health Concerns Assessment Noted Time PHQ-9 Depression Total Score: 10 023 2:11 PM EDT documented as of this encounter Care Teams Split Leather Department Supervisor Relationship Specialty Start Date End Date Juana Jean MD [address] [place] [address] PCP - General Family Medicine 06/04/18 Gaby Patel MD [address] [place] [address] Referring Physician Dermatology 08/26/24 documented as of this encounter
--- OUTSIDE RECORDS SUMMARY | 2025-05-27 11:28 | XMS_ITS | Encounter Summary ---
Author Organization [employer] Address [address] [place] [address] [address], [place] [address] Care Team Providers Care Meat Soaker Name Role Phone Juana Jean MD Primary Care Provider +1- [phone] Gaby Patel MD Unavailable [phone] Encounter Details Date Type Department Care Team (Late st Contact Info) Description 06/20/2022 Orders Only [facility] CHC MED & PEDS [address] [place] [address] Mary Her LPN Social History Tobacco Use [...] Description 06/10/2025 3:15 PM EST Office Visit [facility] MEDICINE 230 [place] [address] Juana Jean MD 230 [place] [address] 08/10/2025 1:00 PM EDT Office Visit [facility] OPTOMETRY [address] [place] [address] Kayla Redman, OD [address] [place] [address] documented as of this encounter Visit Diagnoses Not on filedocumented in this encounter Care Teams Meat Soaker Relationship Specialty Start Date End Date Juana Jean MD 230 [place], [place] [phone] PCP - General Family Medicine 06/04/18 Gaby Patel MD [address] [place] [address] Referring Physician Dermatology 08/26/24 documented as of this encounter
--- OUTSIDE RECORDS SUMMARY | 2025-05-27 11:28 | XMS_ITS | Encounter Summary ---
Author Organization [employer] Address [address] [place] [address] 7 [place] [address] Care Team Providers Care Diesel Engine Inspector Name Role Phone Juana Jean MD Primary Care Provider [phone]- [phone] Gaby Patel MD Unavailable [phone] Reason for Visit * Reason Comments Med Refill Encounter Details Date Type Department Care Team (Late st Contact Info) Description 08/31/[address] [facility] CHC MED & PEDS [address] [place], [place] [phone] Juana Jean MD [address] [place] [address] [phone] Pulmonary emphysema, unspecified emphysema type (CMS/HCC) Social [...] Description 06/10/2025 3:15 PM EST Office Visit [facility] MEDICINE [address] [place] [address] [phone] Juana Jean MD [address] [place] [address] [phone] 08/10/2025 1:00 PM EDT Office Visit [facility] OPTOMETRY [address] [place], [place] [phone] Kayla Redman, OD 267 [place] [address] documented as of this encounter Visit Diagnoses Diagnosis Pulmonary emphysema, unspecified emphysema type documented in this encounter Care Teams Diesel Engine Inspector Relationship Specialty Start Date End Date Juana Jean MD [address] [place] [address] PCP - General Family Medicine 06/04/18 Gaby Patel MD [address] [place] [address] Referring Physician Dermatology 08/26/24 documented as of this encounter
--- OUTSIDE RECORDS SUMMARY | 2025-05-27 11:28 | XMS_ITS | Encounter Summary ---
Author Organization [employer] Address [address] [place] [address] 7 [place] [address] Care Team Providers Care Power Brake Operator Name Role Phone Juana Jean MD Primary Care Provider [phone]- [phone] Gaby Patel MD Unavailable [phone] Reason for Visit * Reason Comments Med Refill Encounter Details Date Type Department Care Team (Late st Contact Info) Description 12/06/2024 Refill [facility] MEDICINE 230 [place] [address] Juana Jean MD 230 [place] [address] Pulmonary emphysema, unspecified emphysema type (CMS/HCC) Social [...] Description 06/10/2025 3:15 PM EST Office Visit [facility] MEDICINE 230 [place] [address] Juana Jean MD 230 [place] [address] 08/10/2025 1:00 PM EDT Office Visit [facility] [address] [place], [place] [phone] Юлия Kayla, OD [address] [place] [address] documented as of this encounter Visit Diagnoses Diagnosis Pulmonary emphysema, unspecified emphysema type documented in this encounter Additional Health Concerns Assessment Noted Time PHQ-9 Depression Total Score: 18 024 9:56 AM EST documented as of this encounter Care Teams Power Brake Operator Relationship Specialty Start Date End Date Juana Jean MD [address] [place] [address] PCP - General Family Medicine 06/04/18 Gaby Patel MD [address] [place] [address] Referring Physician Dermatology 08/26/24 documented as of this encounter
--- OUTSIDE RECORDS SUMMARY | 2025-05-27 11:28 | XMS_ITS | Encounter Summary ---
Author Organization [employer] Address [address] [place] [address] 7 [place] [address] Care Team Providers Care Patient Monitor Name Role Phone Juana Jean MD Primary Care Provider [phone]- [phone] Gaby Patel MD Unavailable Reason for Visit * Reason Onset Date Comments Call Back Request 05/03/2023 Encounter Details Date Type Department Care Team ([facility] st Contact Info) Description 05/03/2023 Telephone [facility] MEDICINE [address] [place] [address] Juana Jean MD [address] [place] [address] Call Back Request Social History Tobacco Use [...] Miscellaneous Notes * Telephone Encounter - Erin Woodard - 05/03/2023 3:53 PM EST Tc from pt requesting a call in regards to a diagnostic mammogram. Please contact pt at [phone] documented in this encounter Plan of Treatment Upcoming Encounters Date Type Department Care Team (Late st Contact Info) Description 06/10/2025 3:15 PM EST Office Visit [facility] MEDICINE [address] [place] [address] Juana Jean MD [address] [place] [address] 08/10/2025 1:00 PM EDT Office Visit [facility] OPTOMETRY [address] [place] [address] Kayla Redman, OD [address] [place] [address] documented as of this encounter Visit Diagnoses Not on filedocumented in this encounter Additional Health Concerns Assessment Noted Time PHQ-9 Depression Total Score: 10 023 2:11 PM EDT documented as of this encounter Care Teams Patient Monitor Relationship Specialty Start Date End Date Juana Jean MD [address] [place] [address] PCP - General Family Medicine 06/04/18 Gaby Patel MD [address] [place] [address] Referring Physician Dermatology 08/26/24 documented as of this encounter
--- OUTSIDE RECORDS SUMMARY | 2025-05-27 11:28 | XMS_ITS | Encounter Summary ---
Author Organization [employer] Address [address] [place] [address] 7 [place] [address] Care Team Providers Care Director Web Name Role Phone Juana Jean MD Primary Care Provider [phone]- [phone] Gaby Patel MD Unavailable Reason for Visit * Reason Comments Med Refill Encounter Details Date Type Department Care Team ([facility] st Contact Info) Description 05/03/2025 Refill [facility] MEDICINE 230 [place] [address] Juana Jean MD [address] [place] [address] Emphysema, unspecified (HCC) Social History Tobacco Use Types Packs/Day Years [...] 06/10/2025 3:15 PM EST Office Visit [facility] MEDICINE [address] [place] [address] Juana Jean MD [address] [place] [address] 08/10/2025 1:00 PM EDT Office Visit [facility] OPTOMETRY [address] [place], [place] [phone] Kayla Redman, OD [address] [place] [address] documented as of this encounter Visit Diagnoses Diagnosis Emphysema, unspecified (HCC) documented in this encounter Additional Health Concerns Assessment Noted Time PHQ-9 Depression Total Score: 18 024 9:56 AM EST documented as of this encounter Care Teams Director Web Relationship Specialty Start Date End Date Juana Jean MD 230 [place], [place] [phone] PCP - General Family Medicine 06/04/18 Gaby Patel MD [address] [place], [place] [phone] Referring Physician Dermatology 08/26/24 documented as of this encounter
--- OUTSIDE RECORDS SUMMARY | 2025-05-27 11:28 | XMS_ITS | Clinical Summary ---
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 lumpectomy and conservation therapy in 2012 for right breast cancer, complaining of [...] in OV> 06/12/23 1545 DD/ 1426 TD/TT: 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 [address] Mammography Report Signed Patient: Xenia Benitez JMR#: [id number] 1 : 1960Acct:[id number] Age/Sex: 62 / FADM Date: 06/12/23 Loc: HO.MAMMO Attending Dr: Valarie Calero [employer] WORKER Ordering Physician: Valarie Calero NPResults: 1Negativ e Date of Service: 06/12/23Follow Up: 1 Year From Orig inal Mammogram Procedure(s): MM tomosynthesis diagnostic BI Accession Number(s): [id number] cc: Juana Jean MD; Valarie Calero NP EXAMINATION: MM DIAGNOSTIC DIGITAL BREAST TOMOSYNTHESIS, BILATERAL US BREAST LIMITED, RIGHT CLINICAL INFORMATION: 62-year-old female, status post lumpectomy and conservation therapy in 2012 for right breast cancer, complaining of [...] in OV> 06/12/23 1545 DD/ 1426 TD/TT: Malted Milk Masher: Valarie Mckeonas 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 IMG BI PROCEDURES Final Result * Hepatitis C Antibody (07/30/2019 2:05 PM EST) Hepatitis C Antibody Nonreactive Blood 07/30/2019 2:05 PM EST Historical Provider POINT OF CARE TEST ENTER/ EDIT ORDERABLES Final Result from Last 3 Months or Most Recently Relevant to Health Maintenance Insurance [address] [place] [phone] Advance Directives Documents on File Type Date Recorded Patient Supervisor Rides Expl anation Advance Directives and Living Will 02/21/2024 11:11 AM Health Care Proxy Care Teams Credit Historian Relationship Specialty Start Date End Date Miranda, MD Juana [address], [place] [phone] PCP - General Family Medicine 06/04/18 Gaby Patel MD [address], [place] [phone] Referring Physician Dermatology 08/26/24
== END 2025-05-27 11:25 | disposition home or self-care (01) ==
LOC: HO.MAMMO 11:24
PROVIDERS: PCP Family Medicine; Visit Provider Family Medicine
DX: Z12.31 Encounter for screening mammogram for malignant neoplasm of breast (principal)
CPT/HCPCS: 77063; 77067

== ENCOUNTER → 2025-05-27 11:30 | Outpatient (BNV) | payer OTHER, SELFPAY | PROVIDERS: PCP Family Medicine; Visit Provider Internal Medicine | DX: Z12.31 Encounter for screening mammogram for malignant neoplasm of breast (principal) | CPT/HCPCS: 77063; 77067 ==